=== PATIENT | female | born 1945 | race Caucasian/White ===

== ENCOUNTER 2017-03-11 15:13 | Inpatient (IN) | payer MEDICARE ==
[~2017-03-11] VITALS: Ht 162.5 cm; Wt 92.1 kg
--- NOTE | ~2017-03-11 | PR ---
[place], [place] PROGRESS NOTE NAME: MESERET RUBIO UNIT #: [id number] ROOM: 518 DOCTOR: NICOLE FERNANDEZ MD,PINO BIRTHDATE: [birth year] DOS: 03/21/2017 SUBJECTIVE: She has been noted comfortable at this time. She was noted with complete resolution of the acute respiratory complaints, coughing, shortness breath and wheezing. The patient has been ambulating at this time with the oxygen supplementation. OBJECTIVE: VITAL SIGNS: Of the patient, which have been recorded shows the temperature noted as normal, respiratory rate 18, heart rate 77, blood pressure 129/72. Pulse oxygen saturation on 3 liters nasal cannula 96% saturation. HEENT: Examination shows no acute change. NECK: Supple. CARDIOVASCULAR: S1, S2 audible. LUNGS: Noted without any wheezing or crackles. ABDOMEN: Soft, nontender. LABORATORY DATA: Culture of the bronchial washing of the patient were noted as normal libra. CBC of this morning, WBC count 15.3. Remaining CBC was normal. BMP this morning, BUN 27, creatinine was normal, carbon dioxide 39. IMPRESSION: 1. Resolving acute exacerbation of chronic obstructive pulmonary disease, acute tracheobronchitis. 2. Metabolic alkalosis secondary to chronic hypercarbia as well. 3. Chronic hypercarbic respiratory failure. PLAN OF TREATMENT: The patient could be considered for discharge on oral antibiotics and tapering dose of prednisone from the pulmonary standpoint. No other changes at this time in the treatment will be necessary. Usual care. All other supportive plan of management and treatments. PINO RIVERA MD CM:PNTRANS [phone] PINO FERNANDEZ MD 03/21/172045 interface
--- NOTE | ~2017-03-11 | PN ---
[place], [place] PROGRESS NOTE NAME: MESERET RUBIO [facility] #: [id number] UNIT #: [id number] ROOM: 518 DOCTOR: PINO REYNOLDS MD BIRTHDATE: [birth year] DATE: 03/17/17 SUBJECTIVE: The patient was seen and examined on 03/17/2017. She is currently noted n.p.o. past midnight for bronchoscopy. The patient denies symptoms for chest pain or any abdominal pain. The coughing has been noted as the same as previously moderate to severe. The wheezing was described intermittently. She denies any symptoms of a chest pain. OBJECTIVE: VITAL SIGNS: The patient which have been recorded showed normal temperature, respiratory 24-20, heart rate 69-66. The blood pressure was noted 140/78-142/98. Pulse oxygen saturation of the patient was recorded as a saturation of 96% on half liter nasal cannula. HEENT: Examination shows head was atraumatic. Eyes nonicterus. NECK: Supple. CARDIOVASCULAR: S1, S2 audible. LUNGS: The patient was noted without any crackles. Decreased breath sounds noted with the scattered wheezing. ABDOMEN: Soft, nontender. LABORATORY DATA: CBC this morning was noted as normal. BMP: Glucose mildly elevated at 144, remaining BMP was normal. IMPRESSION: Ongoing severe acute exacerbation of chronic obstructive pulmonary disease, acute tracheobronchitis with ineffective secretions expectoration. The patient with severe deep cough. PLAN OF TREATMENT: Bronchoscopy planned to be done rather this morning. No changes in treatment at this time will be necessary. Any modification treatment of necessary will be done after bronchoscopy. PINO REYNOLDS MD CM:PNTRANS [id number] PINO FERNANDEZ MD 03/21/17 1439 GUERO AMARAL.YOANNAR
--- NOTE | ~2017-03-11 | CON ---
[place], [place] REPORT OF CONSULTATION NAME: MESERET RUBIO UNIT #: [id number] ROOM: 518 DOCTOR: CEFERINO NEUMANNISSACLEMUEL BIRTHDATE: [birth year] DOS: 03/12/2017 REQUESTING PHYSICIAN: Dr. Florence. REASON FOR CONSULTATION: Atrial fibrillation. ASSESSMENT: 1. Current presentation with cough, short of breath for 1 week. 2. Chest pain, heaviness, tightness for the past 3 days. 3. Known history of atrial fibrillation. 4. Current evidence of pneumonia. 5. Sepsis. 6. Diabetes/hypertension/hyperlipidemia. 7. Known history of severe chronic obstructive pulmonary disease. 8. Obesity with high probability of obstructive sleep apnea. 9. Previous history of tobacco abuse. 10. Early family history of heart disease. PLAN: 1. Cycle cardiac enzymes. 2. Pneumonia and sepsis management per her primary team. 3. Ischemic workup will be pursued and can be done as an outpatient after patient's recovery from current bout of pneumonia. 4. Early followup with Dr. Michael within 1-2 weeks from discharge. 5. Consider sleep study as an outpatient. 6. Exercise and weight loss with pulmonary rehab. HISTORY AND PHYSICAL: The patient is a pleasant 71-year-old female known to our group with Dr. Michael, the patient carries history of atrial fibrillation that has been managed with Xarelto and Lopressor. The patient presented with 1 week history of short of breath, dyspnea on exertion, followed by cough. It is productive of yellowish sputum along with decreased appetite. The patient sleeps in a hospital bed, started noticing she had to prop her up, so she can breathe better. With that, there was some chills, but no fevers. The patient was found out to have what looks like a pneumonia and being managed for that. Cardiology consultation for atrial fibrillation. The patient apparently does have occasional symptomatic heaviness, tightness in the chest, but this is after bouts of coughing for 4 days and then developed after that. It does though increase with activity and improved with resting. On occasion has racing heartbeats, but no associated dizziness, lightheadedness or near syncope. Overall, the patient does have history of dizziness and has no relation to getting up quickly. The patient noticed some decrease in appetite, but there is no weight loss. No lower extremity edema. Prior to this week's presentation, the patient had been doing relatively well. PAST MEDICAL HISTORY: As detailed in my assessment. SOCIAL HISTORY: The patient denies any current tobacco, alcohol or illicit drug abuse. The patient quit smoking ____ years ago. [place], [place] REPORT OF CONSULTATION NAME: MESERET RUBIO UNIT #: [id number] ROOM: 518 DOCTOR: LORI DE LA VEGA MD BIRTHDATE: [birth year] FAMILY HISTORY: The patient's father of a car accident. Her mother of a stroke. She has 2 brothers, one of them had massive myocardial infarction in his early 40s. CURRENT MEDICATIONS: Include Zoloft, Xarelto, potassium, multivitamin, lisinopril, Toprol, Solu-Medrol, Xanax, Levaquin, DuoNeb, Restoril, Zofran, bisacodyl, Tylenol. ALLERGIES: The patient has no known drug allergies. REVIEW OF SYSTEMS: Currently, the patient denies any headache, diplopia or blurry vision. No fever, no chills, no night sweats. No abdominal pain, no bright red blood per rectum or tarry stools. The patient admits to joint pain and occasional muscular pain. No anxiety, occasional depression. No polyuria, no polydipsia. No skin rash. Review of all other systems has been negative. PHYSICAL EXAMINATION: GENERAL: The patient is alert and oriented x3, quite pleasant. VITAL SIGNS: Blood pressure 114/60, heart rate 66, respiratory rate of 20, temperature 97.4. HEENT: Extraocular muscles intact. Pupils equal, round, reactive to light. Conjunctivae: No pallor. Throat: No petechiae. NECK: Good carotid upstroke. There is faint carotid bruit on the left. No lymphadenopathy, no thyromegaly. HEART: S1, S2 with holosystolic murmur in the left upper sternal border. No rub, no retrosternal heave. CHEST AND BACK: No deformities. LUNGS: Significant decreased air movement, significant wheezing, scattered rhonchi, improved with deep cough. ABDOMEN: Obese, soft, nontender. Present bowel sounds. No masses, no bruits. EXTREMITIES: Lower extremities, both under SHANNON hose with mild edema with faint distal pulses. NEUROLOGIC: Grossly nonfocal. SKIN: No significant rash. LABORATORY DATA: White count is 13.1 with a left shift, hemoglobin 11.8. Potassium 4.4, creatinine 0.75, GFR more than 60. Troponin less than 0.015. CPK 29, MB 1.9. [place], [place] REPORT OF CONSULTATION NAME: MESERET RUBIO UNIT #: [id number] ROOM: 518 DOCTOR: LORI DE LA VEGA MD BIRTHDATE: [birth year] LORI DE LA VEGA MD CM:CONSTR:REPORT OF CONSULTATION 1142 03/12/17 1646 interface
--- NOTE | ~2017-03-11 | PR ---
[place], [place] PROGRESS NOTE [id number] UN[facility] #: [id number] ROOM: 518 DOCTOR: NICOLE FERNANDEZ MD,PINO BIRTHDATE: [birth year] DOS: 03/16/2017 PULMONARY FOLLOWUP NOTE SUBJECTIVE: The patient was seen and examined on 03/16/2017. She has been resting, sitting on the chair. The coughing has been described as severe and stated the cough has been noted deep, inability to expectorate sputum. Shortness of breath and wheezing has been noted with gradual reduction. There were no symptoms of hemoptysis. OBJECTIVE: VITAL SIGNS: Normal temperature, respiratory rate 20, heart rate of 59, blood pressure 145/93. Intake is 3500 mL, output 4750 mL. Pulse oxygen saturation 2-1/2 liters nasal cannula was 94% saturation. HEENT: Examination shows no acute change. NECK: Supple. CARDIOVASCULAR: S1, S2 is audible. LUNGS: Noted without any wheeze or crackles at the present time. Breaths are noted generally diminished bilaterally. ABDOMEN: Soft, nontender. IMPRESSION: 1. The patient with acute exacerbation of chronic obstructive pulmonary disease, acute tracheobronchitis, persistent respiratory symptoms, especially the cough for patient nonresolving with current medical management. 2. Chronic atrial fibrillation with anticoagulation. PLAN OF TREATMENT: Hold off the anticoagulation for the bronchoscopy, the evening dose. After that, the patient will be continued on the current previous treatment plan and management. The patient was agreeable for the bronchoscopy which was planned to be done in the morning. PINO RIVERA MD CM:PNTRANS [id number] PINO FERNANDEZ MD 03/16/17 1216 interface
--- NOTE | ~2017-03-11 | PROC NOTE ---
[place], [place] PROCEDURE NOTE NAME: MESERET RUBIO UNIT #: [id number] ROOM: 518 DOCTOR: NICOLE FERNANDEZ MD,PINO BIRTHDATE: [birth year] DOS: 03/17/2017 PROCEDURE PERFORMED: Bronchoscopy. PREOPERATIVE DIAGNOSIS: Persistent severe nonresolving cough for this patient with maximum medical therapy. POSTOPERATIVE DIAGNOSIS: Removal of copious amount of secretion from the endobronchial tree with large plugs and mucus from endobronchial tree bilaterally. PROCEDURE DESCRIPTION: Informed consent obtained for the patient. The patient brought to the OR and placed in the supine position. Conscious sedation administered in the supine position by the Anesthesia Department. After that, video fiberoptic bronchoscope was advanced through the airway into laryngeal area. Epiglottis and vocal cords were seen. Vocal cord noted yellowish in color, moving symmetrically with movements. Bronchoscope advanced to the vocal cord and tracheal lumen. Tracheal lumen for the patient was noted with copious amount of thick mucus secretion with purulent secretion mixture suctioned out to the sancho level. Right upper, right middle, right lower, left upper, lingular and lower lobe bronchi all examined, noted with similar secretions of thick mucopurulent material with impaction of the mucus plugs for the patient. All secretions suctioned out with the help of normal saline wash and sent for culture. Procedure was well tolerated by the patient without any difficulty. Postoperative findings were discussed with the patient briefly after the patient shows some recovery from the effects of sedation. Bronchial washings sent for all the appropriate needed cultures. IPNO RIVERA MD CM:PROCNOTE:PROCEDURE NOTE [id number] PINO FERNANDEZ MD
--- NOTE | ~2017-03-11 | PR ---
[place], [place] PROGRESS NOTE NAME: MESERET RUBIO [facility] #: [id number] UNIT #: [id number] ROOM: 518 DOCTOR: MADELINE GILMORE MD BIRTHDATE: [birth year] DOS: 03/19/2017 SUBJECTIVE: The patient was seen at her bedside today, 03/19/2017, for followup of atrial fibrillation and flutter. The patient is a 71-year-old woman with a history of COPD who presented to the hospital on this occasion with pneumonitis and an exacerbation of her dyspnea. In the hospital, she did develop atrial fibrillation with rapid ventricular response. She was placed on diltiazem and converted to sinus rhythm. Last evening she went back into atrial fibrillation with rapid ventricular response and required resumption of a diltiazem drip. Today, she is in atrial flutter and her rate is fairly well controlled, but she remains on 5 mg of diltiazem per hour by infusion. PAST HISTORY: Includes; 1. Severe COPD. 2. Acute exacerbation of chronic lung disease. 3. Paroxysmal atrial fibrillation. 4. Pneumonia. 5. Obesity with high probability of obstructive sleep apnea. 6. Previous history of tobacco abuse. PLAN: We will continue to adjust her oral rate slowing medications, and I will increase her diltiazem today. She will continue a low dose of metoprolol as well as digoxin, and I will check a digoxin level in the morning. Hopefully, as her lungs improve, her cardiac rhythms will become easier to manage. We will continue as much as possible to treat her with her current medications. We thank the hospitalist group for asking our advice regarding her care. MADELINE GILMORE MD CM:PNTRANS [phone] MADELINE GILMORE MD 03/19/172231 interface
--- NOTE | ~2017-03-11 | PR ---
[place], [place] PROGRESS NOTE NAME: MESERET RUBIO UNIT #: [id number] ROOM: 518 DOCTOR: MADELINE GILMORE MD BIRTHDATE: [birth year] DOS: 03/20/2017 SUBJECTIVE: The patient was seen at her bedside today, 03/20/2017, for followup of her atrial fibrillation and flutter. She is a 71-year-old woman with a history of COPD who came into the hospital on this occasion with pneumonitis and exacerbation of her chronic obstructive lung disease. In the hospital, she went into atrial fibrillation with a rapid ventricular response. She was placed on diltiazem and converted to sinus rhythm, but then went back into atrial fibrillation and flutter and had to be placed back on the drip. Today, the drip was weaned. Her heart rate at rest is now in the 70s and gets into the low 100s with exercise. She is feeling better and coughing less. She is anxious for discharge. PHYSICAL EXAMINATION: VITAL SIGNS: Today, her pulse is 80 and irregularly irregular. Blood pressure is 118/80. She is afebrile. She weighs 87.1 kilograms with a body mass index of 33. NECK: Supple. She has no jugular distention. Carotids are full. LUNGS: Respirations are unlabored. She has decreased breath sounds with mild expiratory prolongation bilaterally, but no presacral edema or chest wall tenderness. HEART: An irregularly irregular rhythm without a murmur or gallop. ABDOMEN: Benign. EXTREMITIES: Showed no edema. She does seem to be doing better on her current medical regimen; and therefore, I am making no changes today. IMPRESSION: 1. Severe chronic obstructive pulmonary disease. 2. Acute exacerbation of chronic obstructive lung disease. 3. Paroxysmal atrial fibrillation. 4. Pneumonia. 5. Obesity with a high probability of obstructive sleep apnea. 6. History of previous tobacco abuse. PLAN: We will continue her current medical regimen. From a cardiac perspective, she could be discharged when she is stable from her respiratory illness. We thank the hospitalist group for asking our advice regarding her care. [place], [place] PROGRESS NOTE NAME: MESERET RUBIO UNIT #: [id number] ROOM: 518 DOCTOR: MADELINE GILMORE MD BIRTHDATE: [birth year] MADELINE GILMORE MD CM:PNTRANS [phone] MADELINE GILMORE MD 03/21/17 0005 interface
--- NOTE | ~2017-03-11 | PR ---
[place], [place] PROGRESS NOTE NAME: MESERET RUBIO [facility] #: [id number] UNIT #: [id number] ROOM: 518 DOCTOR: MADELINE GILMORE MD BIRTHDATE: [birth year] DOS: 03/21/2017 CARDIOLOGY PROGRESS NOTE SUBJECTIVE: The patient was seen today 03/21/2017 at her bedside for Cardiology followup. She is a 71-year-old woman who does have a history of severe obstructive lung disease and presented to the hospital with pneumonitis and an exacerbation of her chronic obstructive lung disease. In the hospital, she did develop atrial fibrillation with a rapid ventricular response. She converted spontaneously to sinus rhythm, but then went back into atrial fibrillation and flutter. She is currently being treated with anticoagulation and rate control. She is ambulating in the hallways and feels well. She states that her breathing is almost back to normal again. She remains anxious for discharge. PHYSICAL EXAMINATION: VITAL SIGNS: Today, her pulse is 77 and irregularly irregular, blood pressure is 129/72. She is afebrile. She weighs 92.1 kg and has a body mass index of 34.9. HEENT: Normocephalic, atraumatic. Extraocular muscles are intact. NECK: Supple. She has no jugular distention. Carotids are full. LUNGS: Respirations are unlabored. She does have decreased breath sounds with mild expiratory prolongation bilaterally. She has no chest wall tenderness or presacral edema. HEART: Has an irregularly irregular rhythm. There are no murmurs or gallops. EXTREMITIES: Showed no edema. LABORATORY DATA: Hemoglobin is 13.7, white count 15,300 (probably due to steroid therapy), platelet count 291,000. Digoxin level yesterday was 0.62. Sodium is 141, potassium 4.9, BUN 27, creatinine 0.8. IMPRESSION: 1. Severe chronic obstructive pulmonary disease with acute exacerbation. 2. Paroxysmal atrial fibrillation. 3. Pneumonia. 4. Obesity with high probability of obstructive sleep apnea. 5. History of previous tobacco abuse. PLAN: I will switch her from diltiazem to diltiazem CD, so that we can improve her compliance. She will take diltiazem CD 240 mg once a day in the morning. This will be begun in the hospital today. She will continue her metoprolol twice a day and rivaroxaban once a day along with her other medications. I would like him to follow up with Dr. Michael in the office in 3-4 weeks. I thank the hospitalist physicians for asking our advice regarding her care. [place], [place] PROGRESS NOTE NAME: MESERET RUBIO UNIT #: [id number] ROOM: 518 DOCTOR: MADELINE GILMORE MD BIRTHDATE: [birth year] MADELINE GILMORE MD CM:PNTRANS [id number] MADELINE GILMORE MD 03/21/17 1024 interface
--- NOTE | ~2017-03-11 | CON ---
[place], [place] REPORT OF CONSULTATION NAME: MESERET RUBIO UNIT #: [id number] ROOM: 518 DOCTOR: PINO REYNOLDS MD BIRTHDATE: [birth year] DOS: 03/15/2017 CONSULTATION REQUESTED BY: Hospitalist services for assessment of COPD exacerbation. REASON FOR CONSULTATION: Assess the patient for COPD. HISTORY OF PRESENT ILLNESS: This is a 71-year-old white female who has been known to me from the past, has been hospitalized on 03/11/2017. The patient has been admitted to the hospital under the hospitalist services as the patient has been reporting symptoms of having increased difficulty breathing, coughing and shortness of breath. The coughing has been noted to be progressively worsening associated with wheezing. The symptoms are also associated with low grade fever as well. The patient does complain of shortness of breath, which occurs with minimal exertion with partial improvement noted since hospitalization. The coughing has been noted partially improved, but not completely resolved. REVIEW OF SYSTEMS: CONSTITUTIONAL: She does complain of symptoms of fatigue and tiredness. No fever or chills. EYES: Denies any burning, redness, or tenderness. EAR, NOSE, THROAT: Denies sore throat, hoarseness, otalgia or postnasal drainage. CARDIOVASCULAR: Denies anginal pain, edema or pain of the lower extremities. GASTROINTESTINAL: Denies dysphagia, nausea, vomiting, diarrhea, abdominal pain, hematemesis, melena, or hematochezia. SKIN: Denies lesions or rashes. MUSCULOSKELETAL: Denies acute joint pain. CENTRAL NERVOUS SYSTEM: Denies syncopal episodes. Remaining systems were reviewed with the patient, they were noted all negative. PAST MEDICAL HISTORY: 1. Known with history of chronic hypercapnic hypoxic respiratory failure. 2. Centrilobular emphysema history. 3. Essential hypertension. 4. General anxiety disorder. 5. Atrial fibrillation. PAST SURGICAL HISTORY: 1. Appendectomy. 2. Cardiac catheterization. 3. Fiberoptic bronchoscopy. 4. Cholecystectomy. 5. Bilateral cataract extraction and lens implantation. SOCIAL HISTORY: The patient currently lives at home. Denies history of alcohol use or illicit drug use. Tobacco use noted since teenager with maximal 1 pack of cigarettes per day until 2007. [place], [place] REPORT OF CONSULTATION NAME: MESERET RUBIO UNIT #: [id number] ROOM: 518 DOCTOR: NICOLE FERNANDEZ MD,PINO BIRTHDATE: [birth year] FAMILY HISTORY: The patient's mother from complications related to stroke. Father of an accident in [place]. MEDICATIONS: Current administered medications for the patient were noted as use of multivitamin, IV Solu-Medrol, Mucinex, DuoNeb, Dulera, Sertraline, Xarelto, multivitamin, lisinopril, metoprolol succinate, Levaquin, and other p.r.n. medication administration. DRUG ALLERGIES: No known drug allergies. PHYSICAL EXAMINATION: GENERAL: A 71-year-old female who has been currently noted sitting on the side of the bed without any distress. The patient's height was recorded as 5 feet 4 inches, weight of 191, BMI 32.9. VITAL SIGNS: For the patient which has been recorded showed the temperature noted normal, respiratory rate 18-22, heart rate 53-89, blood pressure 135/96 to 112/58. Intake for this patient is 1740 mL, output 4550 mL, negative 2.810 liters. Pulse oxygen saturation on 3.5 L nasal cannula was 98% saturation. HEENT: Examination shows head was atraumatic. Eyes nonicterus. NECK: Supple. CARDIOVASCULAR: S1, S2 audible. LUNGS: Noted with general reduction in breath sounds, mild to moderate expiratory wheezing, no crackles. ABDOMEN: Soft, nontender. EXTREMITIES: Show no edema, clubbing, cyanosis. CENTRAL NERVOUS SYSTEM: Cranial nerves 2-12 intact. No focal deficit. MUSCULOSKELETAL: No deformities. SKIN: No lesions or rashes. LABORATORY DATA: Arterial blood gas of the patient on 03/11/2017, 3 liters nasal cannula, pH of 7.36, pCO2 of 58, pO2 of 105. CBC of the patient on 03/11/2017, patient's WBC count 13.1, hemoglobin 11.8, hematocrit 37.1, platelet count was normal. The lactic acid 1.3 for the patient on 03/11/2017, INR was 1.2, PTT 32. CMP of the patient on 03/11/2017 shows normal BUN and creatinine. CO2 of 33. CK-MB, troponin of the patient 03/12/2017 for this patient all sets were noted normal. CBC on 03/12/2017, mild anemia, normal WBC count. The CBC of this morning for the patient essentially remains the same as previously. BMP of the patient on 03/15/2017 shows normal BUN and creatinine. CO2 was noted as 41. CO2 on the 15 of this month for this patient as 37. Blood culture showing no bacterial growth from 03/11/2017 on admission. Echocardiogram was also done for the patient on this admission, 03/14/2017, was reported by the radiologist report for this patient as findings of mild LVH, left ejection fraction noted normal at 60%. There were no major valvular abnormalities. IMPRESSION: 1. The patient will be currently admitted to the hospital noted with history of chronic hypercapnic hypoxic respiratory failure with acute exacerbation of chronic obstructive pulmonary disease and acute bacterial bronchitis. The patient treated with antibiotics, bronchodilators and others. 2. History of chronic atrial fibrillation, anticoagulation with the use of [place], [place] REPORT OF CONSULTATION NAME: [facility]ERET RUBIO [facility]: [id number] UNIT #: [id number] ROOM: 8 DOCTOR: PINO REYNOLDS MD [facility]DATE: [birth year] [facility] PLAN OF TREATMENT: Continue Mucinex in this patient. Continue bronchodilators, oxygen supplementation. Slow improvement and gradual improvement have been noted since admission. The patient will be monitored closely at this time. No changes at this time in the treatment will be recommended. Further treatment changes will be done based on the progression of the illness. PINO RIVERA MD CM:CONSTR:REPORT OF CONSULTATION 1232 03/16/17 0108 interface
[~2017-03-11 15:13] MED LIST: ACETAZOLAMIDE250 MG PO; ADVAIR 250/501 EA; ADVAIR 250/501 EA INH; ADVAIR 500/501 E1 INH; ALBUTEROL SULF0.5 M1 INH; ALBUTEROL2.5 MG/0.5 INH; ALLEGRA ALLERG180 M2 PO; ALLEGRA30 MG; ALLEGRA30 MG PO; AMBIEN10 M1 PO; AMOXICILLIN500 M3 PO; ASCRIPTIN1 TA1 PO; ASPIRIN CHILDRE81 MG PO; ASPIRIN81 M1; ASPIRIN81 M1 PO; ATIVAN0.5 MG PO; AZITHROMYCIN500 M1 IV; Albuterol Sulfat3 M1; B-COMPLEX-501 CAP PO; CALCIUM 600 MG1 EACH PO; CALCIUM1 CAP PO; CARDIZEM120 MG PO; CEFTIN500 M1 PO; CLONAZEPAM0.5 M1; COCONUT OIL1000 MG PO; COUMADIN; COUMADIN0.5 M1 PO; COUMADIN10 M1 PO; COUMADIN5 M1 PO; CYMBALTA30 MG PO; DAILY MULTIPLE1 TA6 PO; DILTIAZEM CD240 MG PO; DOXYCYCLINE MO100 MG PO; DUONEB 3 MG/3 ML3 M1 INH; DUONEB 3 MG/3 ML3 M1 NEB; EVISTA60 MG PO; FISH OIL; GLUCOSAMINE CH1 EAC4 PO; GLUCOSAMINE1000 MG PO; IRON160 MG PO; KCL PO; LASIX20 MG PO; LEVAQUIN500 M1 IV; LEVAQUIN750 M1 PO; LEVAQUIN750 MG PO; LEVOFLOXACIN500 MG PO; LISINOPRIL10 M1 PO; LISINOPRIL20 MG PO; LOPRESSOR25 MG PO; MEDROL DOSEPAK4 MG PO; METAMUCIL1 WAF PO; METOPROLOL25 MG PO; MUCINEX1200 MG PO; MUCINEX600 MG PO; MULTIPLE VITAMI1 CAP PO; MULTIPLE VITAMI1 TAB PO; NOVOLIN R100 U/ML SC; OXYGEN NAS; POTASSIUM GLUC550 M1 PO; POTASSIUM99 M3 PO; PRAVACHOL20 MG PO; PRED-PAK 455 MG PO; PREDNISONE10 MG PO; PREDNISONE50 MG PO; PRESERVISION A1 EAC1 PO; PRESERVISION AR1 SGL PO; PRESERVISION1 SGL PO; PROPAFENONE HC150 MG; PROTONIX40 MG PO; ROCEPHIN1 GM IV; SERTRALINE100 MG PO; SOLU-MEDROL IV; SOTALOL80 MG PO; SPIRIVA18 MCG INH; SYMBICORT1 AE1 INH; TUDORZA PRESS400 MCG IH; TUSSI-ORGANID3840 ML PO; TYLENOL325 M1 PO; VITAMIN B COMPL1 CAP; VITAMIN C; VITAMIN E400 UNIT PO; WARFARIN SOD5 MG PO; XARE20MG PO; XOPENEX; XOPENEX0.31 MG; XOPENEX0.31 MG INH; XOPENEX0.63 MG INH; ZESTRIL10 MG PO; ZESTRIL5 MG PO; ZOLOFT50 MG PO; Zestril,Prinivil5 MG PO; [UNRECOGNIZED DRUG - OTHER] DE; [UNRECOGNIZED DRUG - OTHER] PO
[2017-03-11 15:17] VITALS: BP 125/77
[2017-03-11 15:40] LABS: ABG BASE EXCESS 6.1 mmol/L (-2.0-2.0); ABG CO2 CONTENT 34.3 mmol/L (23-27); ABG HCO3 32.6 mmol/l (22-26); ABG TEMPERATURE 98.6 F (98.0-99.0); ARTERIAL BLOOD GAS PH 7.367 (7.35-7.45)
[2017-03-11 15:50] LABS: BASO % 0.2 % (0.0-1.0); EOS # 0.5 10*3/uL (0.0-0.4); EOS % 3.7 % (1.0-4.0); HEMATOCRIT 37.1 % (37.0-47.0); HEMOGLOBIN 11.8 g/dl (12.0-16.0); LYMPH # 1.3 10*3/uL (1.3-4.4); MEAN CELL VOLUME 94.6 fl (81.0-99.0); MEAN CORPUSCULAR HGB 30.1 pg (27.0-31.0); MEAN CORPUSCULAR HGB CONC 31.8 g/dl (33.0-37.0); MEAN PLATELET VOLUME 9.9 fl (9.6-12.3); MONO % 7.6 % (3.0-9.0); NEUT # 10.3 10*3/uL (2.3-7.9); NEUT % 78.2 % (47.0-73.0); PLATELET COUNT AUTOMATED 213 10*3/uL (130-400); RED BLOOD COUNT 3.92 10*6/uL (4.10-5.10); RED CELL DISTRI WIDTH 14.6 % (0-14.5); WHITE BLOOD COUNT 13.1 10*3/uL (4.8-10.8)
[2017-03-11 15:58] LABS: INTERNATIONAL NORM RATIO 1.2 (2.0-3.5); PROTHROMBIN TIME 12.6 SECONDS (9.0-12.4)
[2017-03-11 16:04] LABS: ALBUMIN 3.8 gm/dl (3.1-4.5); ALKALINE PHOSPHATASE 85 U/L (45-117); BILIRUBIN, TOTAL 0.6 mg/dl (0.2-1.0); BUN 14 mg/dl (7-24); CARBON DIOXIDE 33 mmol/L (21-32); CHLORIDE 100 mmol/L (98-107); EST GLOM FILT AFRICAN AMERICAN > 60 ml/min; GLUCOSE 110 mg/dL (65-99); POTASSIUM 4.1 mmol/L (3.5-5.1); SGOT/AST 21 IU/L (3-35); SGPT/ALT 22 U/L (12-78); SODIUM 141 mmol/L (136-145); TOTAL PROTEIN 7.2 gm/dL (6.4-8.2)
[2017-03-11 16:07] LABS: TROPONIN I < 0.015 ng/ml (<0.045)
[2017-03-11 16:12] LABS: BILIRUBIN NEGATIVE (NEGATIVE); BLOOD NEGATIVE (NEGATIVE); CLARITY SL CLOUDY (CLEAR); COLOR YELLOW (YELLOW); GLUCOSE NEGATIVE (NEGATIVE); KETONE NEGATIVE (NEGATIVE); LEUKO ESTERASE 2+ (NEGATIVE); NITRITE NEGATIVE (NEGATIVE); PH 5.5 (5.0-9.0); PROTEIN NEGATIVE (NEGATIVE); SPECIFIC GRAVITY 1.025 (1.005-1.030); UROBILINOGEN 0.2 E.U./dl (0.2-1.0)
[2017-03-11 16:30] VITALS: BP 110/59
[2017-03-11 16:34] LABS: BACTERIA TRACE; CALCIUM OXALATE CRYSTALS 1+; EPITHELIAL CELLS 15-20; RBC 0-2 rbc/hpf (0-2)
[2017-03-11 16:35] LABS: URINE REFLEX COMMENT YES (NO)
[2017-03-11 17:00] VITALS: BP 116/62
[2017-03-11 17:30] VITALS: BP 99/41
[2017-03-11 17:54] VITALS: BP 107/48
[2017-03-11 18:00] VITALS: BP 107/48
[2017-03-11] MEDS ORDERED: BREO ELLIPTA 11 EACH IH (18:54)
[2017-03-11] MEDS ORDERED: XANAX0.25 MG PO (18:55)
[2017-03-11] MEDS ORDERED: ZOLOFT100 MG PO (18:55)
[2017-03-11] MEDS ORDERED: INCRUSE EL62.5 MCG/A IH (18:56)
[2017-03-11] MEDS ORDERED: VENTOLIN H0.09 MG/AC INH (18:56)
[2017-03-11] MEDS ORDERED: TOPROL XL25 MG PO (18:56)
[2017-03-12] VITALS: BP 116/67
[2017-03-12 00:46] LABS: CKMB 1.9 ng/ml (0.5-3.6); CPK 40 U/L (26-192); TROPONIN I < 0.015 ng/ml (<0.045)
[2017-03-12 06:26] LABS: HEMATOCRIT 34.3 % (37.0-47.0); MEAN CORPUSCULAR HGB 30.1 pg (27.0-31.0); MEAN CORPUSCULAR HGB CONC 32.1 g/dl (33.0-37.0); MEAN PLATELET VOLUME 9.8 fl (9.6-12.3); PLATELET COUNT AUTOMATED 184 10*3/uL (130-400); RED BLOOD COUNT 3.65 10*6/uL (4.10-5.10); RED CELL DISTRI WIDTH 14.3 % (0-14.5)
[2017-03-12 06:39] LABS: CKMB 1.9 ng/ml (0.5-3.6); CPK 29 U/L (26-192); TROPONIN I < 0.015 ng/ml (<0.045)
[2017-03-12 07:04] LABS: ALBUMIN 3.1 gm/dl (3.1-4.5); BILIRUBIN, TOTAL 0.3 mg/dl (0.2-1.0); BUN 14 mg/dl (7-24); CARBON DIOXIDE 37 mmol/L (21-32); CHLORIDE 102 mmol/L (98-107); EST GLOM FILT AFRICAN AMERICAN > 60 ml/min; GLUCOSE 162 mg/dL (65-99); MAGNESIUM 1.9 mg/dL (1.5-2.1); POTASSIUM 4.4 mmol/L (3.5-5.1); SGOT/AST 10 IU/L (3-35); SGPT/ALT 20 U/L (12-78); SODIUM 141 mmol/L (136-145); TOTAL PROTEIN 6.5 gm/dL (6.4-8.2)
[2017-03-12 07:07] LABS: INTERNATIONAL NORM RATIO 1.1 (2.0-3.5); PROTHROMBIN TIME 11.2 SECONDS (9.0-12.4)
[2017-03-12 07:08] LABS: LYMPHOCYTE # 0.2 10*3/uL (1.3-4.4); MONOCYTE # 0.1 10*3/uL (0.1-1.0); NEUTROPHIL # 8.7 10*3/uL (2.3-7.9); NEUTROPHILS 97 % (47-73); PLATELET SUFFICIENCY NORMAL (NORMAL); TOTAL CELLS COUNTED 100 #CELLS
[2017-03-12 07:11] LABS: ALKALINE PHOSPHATASE 73 U/L (45-117); FREE T4 0.86 ng/dl (0.76-1.46); THYROID STIM HORMONE (HS) 0.419 uIU/ml (0.358-4.75)
[2017-03-12 07:57] LABS: VITAMIN D, 25-HYDROXY 29.7 ng/mL (30-100)
[2017-03-12 08:00] VITALS: BP 114/60
[2017-03-12 08:00] LABS: FOLIC ACID > 24.00 ng/mL (>5.38)
[2017-03-12 12:00] VITALS: BP 121/57
[2017-03-12 16:00] VITALS: BP 120/60
[2017-03-12 20:00] VITALS: BP 122/71
[2017-03-13] VITALS: BP 119/64
[2017-03-13 08:17] VITALS: BP 129/76
[2017-03-13] MEDS ORDERED: PRESERVISION1 SGL PO (09:10)
[2017-03-13 12:50] VITALS: BP 146/73
[2017-03-13 16:00] VITALS: BP 134/66
[2017-03-13 20:00] VITALS: BP 142/66
[2017-03-14] VITALS: BP 130/69
[2017-03-14 08:00] VITALS: BP 130/67
[2017-03-14 12:00] VITALS: BP 112/58
[2017-03-14 16:00] VITALS: BP 135/56
[2017-03-14 20:00] VITALS: BP 139/80
[2017-03-15] VITALS: BP 132/67
[2017-03-15 05:48] LABS: BASO % 0.1 % (0.0-1.0); HEMATOCRIT 35.7 % (37.0-47.0); HEMOGLOBIN 10.8 g/dl (12.0-16.0); IG # 0.1 10*3/uL (0.0-0.1); LYMPH # 0.8 10*3/uL (1.3-4.4); LYMPH % 9.6 % (27.0-41.0); MEAN CELL VOLUME 98.3 fl (81.0-99.0); MEAN CORPUSCULAR HGB 29.8 pg (27.0-31.0); MEAN CORPUSCULAR HGB CONC 30.3 g/dl (33.0-37.0); MEAN PLATELET VOLUME 9.8 fl (9.6-12.3); MONO # 0.5 10*3/uL (0.1-1.0); MONO % 5.6 % (3.0-9.0); NEUT # 6.9 10*3/uL (2.3-7.9); PLATELET COUNT AUTOMATED 195 10*3/uL (130-400); RED BLOOD COUNT 3.63 10*6/uL (4.10-5.10); RED CELL DISTRI WIDTH 14.5 % (0-14.5); WHITE BLOOD COUNT 8.4 10*3/uL (4.8-10.8)
[2017-03-15 06:10] LABS: BUN 16 mg/dl (7-24); CHLORIDE 99 mmol/L (98-107); EST GLOM FILT AFRICAN AMERICAN > 60 ml/min; GLUCOSE 175 mg/dL (65-99); POTASSIUM 4.7 mmol/L (3.5-5.1); SODIUM 143 mmol/L (136-145)
[2017-03-15 06:15] LABS: CARBON DIOXIDE 41 mmol/L (21-32)
[2017-03-15 08:00] VITALS: BP 135/96
[2017-03-15 12:00] VITALS: BP 150/77
[2017-03-15 15:51] VITALS: BP 132/73
[2017-03-15 20:00] VITALS: BP 133/76
[2017-03-16] VITALS: BP 143/80
[2017-03-16 01:13] VITALS: BP 143/80
[2017-03-16 08:00] VITALS: BP 145/83
[2017-03-16 12:00] VITALS: BP 141/74
[2017-03-16 16:00] VITALS: BP 129/69
[2017-03-16 20:00] VITALS: BP 124/76
[2017-03-17] VITALS (10 sets, daily range): BP systolic 104–154; BP diastolic 64–98
[2017-03-17 06:39] LABS: BASO % 0.2 % (0.0-1.0); EOS # 0.1 10*3/uL (0.0-0.4); EOS % 0.6 % (1.0-4.0); HEMOGLOBIN 12.4 g/dl (12.0-16.0); IG # 0.1 10*3/uL (0.0-0.1); LYMPH # 1.6 10*3/uL (1.3-4.4); LYMPH % 14.8 % (27.0-41.0); MEAN CELL VOLUME 93.8 fl (81.0-99.0); MEAN CORPUSCULAR HGB 29.8 pg (27.0-31.0); MEAN CORPUSCULAR HGB CONC 31.8 g/dl (33.0-37.0); MEAN PLATELET VOLUME 10.1 fl (9.6-12.3); MONO # 0.8 10*3/uL (0.1-1.0); MONO % 7.6 % (3.0-9.0); NEUT # 8.2 10*3/uL (2.3-7.9); NEUT % 75.6 % (47.0-73.0); PLATELET COUNT AUTOMATED 237 10*3/uL (130-400); RED BLOOD COUNT 4.16 10*6/uL (4.10-5.10); RED CELL DISTRI WIDTH 14.4 % (0-14.5); WHITE BLOOD COUNT 10.8 10*3/uL (4.8-10.8)
[2017-03-17 07:07] LABS: BUN 19 mg/dl (7-24); CARBON DIOXIDE 40 mmol/L (21-32); CHLORIDE 98 mmol/L (98-107); EST GLOM FILT AFRICAN AMERICAN > 60 ml/min; GLUCOSE 144 mg/dL (65-99); POTASSIUM 4.7 mmol/L (3.5-5.1); SODIUM 144 mmol/L (136-145)
[2017-03-18] VITALS (11 sets, daily range): BP systolic 132–157; BP diastolic 78–96
[2017-03-18 06:08] LABS: BASO % 0.1 % (0.0-1.0); EOS # 0.2 10*3/uL (0.0-0.4); EOS % 1.1 % (1.0-4.0); IG # 0.2 10*3/uL (0.0-0.1); LYMPH # 2.4 10*3/uL (1.3-4.4); LYMPH % 16.1 % (27.0-41.0); MEAN CELL VOLUME 93.8 fl (81.0-99.0); MEAN CORPUSCULAR HGB 29.7 pg (27.0-31.0); MEAN CORPUSCULAR HGB CONC 31.7 g/dl (33.0-37.0); MEAN PLATELET VOLUME 9.7 fl (9.6-12.3); MONO # 1.5 10*3/uL (0.1-1.0); NEUT # 10.6 10*3/uL (2.3-7.9); NEUT % 71.6 % (47.0-73.0); PLATELET COUNT AUTOMATED 255 10*3/uL (130-400); RED BLOOD COUNT 4.37 10*6/uL (4.10-5.10); RED CELL DISTRI WIDTH 14.6 % (0-14.5); WHITE BLOOD COUNT 14.8 10*3/uL (4.8-10.8)
[2017-03-18 06:21] LABS: BUN 19 mg/dl (7-24); CARBON DIOXIDE 38 mmol/L (21-32); CHLORIDE 99 mmol/L (98-107); EST GLOM FILT AFRICAN AMERICAN > 60 ml/min; GLUCOSE 116 mg/dL (65-99); SODIUM 141 mmol/L (136-145)
[2017-03-18 16:12] LABS: ACID FAST SPEC PROCESSING Concentration (.)
[2017-03-19] VITALS (14 sets, daily range): BP systolic 110–132; BP diastolic 56–87
[2017-03-19 06:31] LABS: BASO % 0.1 % (0.0-1.0); HEMATOCRIT 40.2 % (37.0-47.0); IG # 0.2 10*3/uL (0.0-0.1); LYMPH # 0.7 10*3/uL (1.3-4.4); LYMPH % 6.1 % (27.0-41.0); MEAN CELL VOLUME 92.4 fl (81.0-99.0); MEAN CORPUSCULAR HGB 29.9 pg (27.0-31.0); MEAN CORPUSCULAR HGB CONC 32.3 g/dl (33.0-37.0); MEAN PLATELET VOLUME 9.6 fl (9.6-12.3); MONO # 0.4 10*3/uL (0.1-1.0); MONO % 3.7 % (3.0-9.0); NEUT # 9.9 10*3/uL (2.3-7.9); NEUT % 88.5 % (47.0-73.0); PLATELET COUNT AUTOMATED 274 10*3/uL (130-400); RED BLOOD COUNT 4.35 10*6/uL (4.10-5.10); RED CELL DISTRI WIDTH 14.5 % (0-14.5); WHITE BLOOD COUNT 11.1 10*3/uL (4.8-10.8)
[2017-03-19 07:01] LABS: BUN 21 mg/dl (7-24); CARBON DIOXIDE 34 mmol/L (21-32); CHLORIDE 99 mmol/L (98-107); EST GLOM FILT AFRICAN AMERICAN > 60 ml/min; GLUCOSE 291 mg/dL (65-99); POTASSIUM 4.2 mmol/L (3.5-5.1); SODIUM 139 mmol/L (136-145)
[2017-03-20] VITALS (10 sets, daily range): BP systolic 94–145; BP diastolic 68–82
[2017-03-20 06:07] LABS: HEMATOCRIT 43.4 % (37.0-47.0); HEMOGLOBIN 13.8 g/dl (12.0-16.0); MEAN CELL VOLUME 93.9 fl (81.0-99.0); MEAN CORPUSCULAR HGB 29.9 pg (27.0-31.0); MEAN CORPUSCULAR HGB CONC 31.8 g/dl (33.0-37.0); MEAN PLATELET VOLUME 9.5 fl (9.6-12.3); PLATELET COUNT AUTOMATED 274 10*3/uL (130-400); RED BLOOD COUNT 4.62 10*6/uL (4.10-5.10); RED CELL DISTRI WIDTH 14.5 % (0-14.5); WHITE BLOOD COUNT 16.1 10*3/uL (4.8-10.8)
[2017-03-20 06:28] LABS: BUN 22 mg/dl (7-24); CARBON DIOXIDE 35 mmol/L (21-32); CHLORIDE 100 mmol/L (98-107); DIGOXIN 0.62 ng/ml (0.8-2.0); EST GLOM FILT AFRICAN AMERICAN > 60 ml/min; GLUCOSE 159 mg/dL (65-99); POTASSIUM 4.9 mmol/L (3.5-5.1); SODIUM 143 mmol/L (136-145)
[2017-03-20 06:45] LABS: LYMPHOCYTE # 0.8 10*3/uL (1.3-4.4); MONOCYTE # 0.3 10*3/uL (0.1-1.0); NEUTROPHILS 93 % (47-73); PLATELET SUFFICIENCY NORMAL (NORMAL); TEAR DROP CELLS FEW; TOTAL CELLS COUNTED 100 #CELLS
[2017-03-21 00:20] VITALS: BP 134/85
[2017-03-21 06:23] LABS: HEMATOCRIT 43.6 % (37.0-47.0); HEMOGLOBIN 13.7 g/dl (12.0-16.0); MEAN CELL VOLUME 95.2 fl (81.0-99.0); MEAN CORPUSCULAR HGB 29.9 pg (27.0-31.0); MEAN CORPUSCULAR HGB CONC 31.4 g/dl (33.0-37.0); MEAN PLATELET VOLUME 9.2 fl (9.6-12.3); PLATELET COUNT AUTOMATED 291 10*3/uL (130-400); RED BLOOD COUNT 4.58 10*6/uL (4.10-5.10); RED CELL DISTRI WIDTH 14.6 % (0-14.5); WHITE BLOOD COUNT 15.3 10*3/uL (4.8-10.8)
[2017-03-21 06:53] LABS: BUN 27 mg/dl (7-24); CARBON DIOXIDE 39 mmol/L (21-32); CHLORIDE 97 mmol/L (98-107); EST GLOM FILT AFRICAN AMERICAN > 60 ml/min; GLUCOSE 172 mg/dL (65-99); POTASSIUM 4.9 mmol/L (3.5-5.1); SODIUM 141 mmol/L (136-145)
[2017-03-21 07:18] LABS: LYMPHOCYTE # 1.2 10*3/uL (1.3-4.4); METAMYELOCYTES 2 % (0-0); MONOCYTE # 0.6 10*3/uL (0.1-1.0); NEUTROPHIL # 13.2 10*3/uL (2.3-7.9); NEUTROPHILS 86 % (47-73); PLATELET SUFFICIENCY NORMAL (NORMAL); TOTAL CELLS COUNTED 100 #CELLS; TOXIC GRANULATION MODERATE
[2017-03-21 08:00] VITALS: BP 129/72
[2017-03-21] MEDS ORDERED: LANOXIN0.125 MG PO (12:52)
[2017-03-21] MEDS ORDERED: PREDNISONE10 MG PO (12:52)
[2017-03-21] MEDS ORDERED: D-1000 185 MG-11 TAB PO (12:52)
[2017-03-21] MEDS ORDERED: DOXYCYCLINE100 M3 PO (12:52)
[2017-03-21] MEDS ORDERED: DILTIAZEM CD240 MG PO (12:52)
== END 2017-03-21 13:42 | disposition home or self-care (01) | DRG 871 ==
LOC: ED 15:13 → 5E 16:55 → EDHOLD 16:55 → 5E 17:21
PROVIDERS: Internal Medicine; Internal Medicine Critical Care Medicine; Internal Medicine Hospice and Palliative Medicine; Nurse Practitioner Family
PROC: 0BC98ZZ Extirpation of Matter from Lingula Bronchus, Via Natural or Artificial Opening Endoscopic (ICD-10-PCS; principal; 2017-03-17)
PROC: 0BC58ZZ Extirpation of Matter from Right Middle Lobe Bronchus, Via Natural or Artificial Opening Endoscopic (ICD-10-PCS; principal; 2017-03-17)
PROC: 0BC18ZZ Extirpation of Matter from Trachea, Via Natural or Artificial Opening Endoscopic (ICD-10-PCS; principal; 2017-03-17)
PROC: 0BC28ZZ Extirpation of Matter from Carina, Via Natural or Artificial Opening Endoscopic (ICD-10-PCS; principal; 2017-03-17)
PROC: 0BC48ZZ Extirpation of Matter from Right Upper Lobe Bronchus, Via Natural or Artificial Opening Endoscopic (ICD-10-PCS; principal; 2017-03-17)
PROC: 0BC68ZZ Extirpation of Matter from Right Lower Lobe Bronchus, Via Natural or Artificial Opening Endoscopic (ICD-10-PCS; principal; 2017-03-17)
PROC: 0BC88ZZ Extirpation of Matter from Left Upper Lobe Bronchus, Via Natural or Artificial Opening Endoscopic (ICD-10-PCS; principal; 2017-03-17)
PROC: 0BCB8ZZ Extirpation of Matter from Left Lower Lobe Bronchus, Via Natural or Artificial Opening Endoscopic (ICD-10-PCS; principal; 2017-03-17)
DX: A41.9 Sepsis, unspecified organism (principal); J18.9 Pneumonia, unspecified organism; J96.21 Acute and chronic respiratory failure with hypoxia; E87.3 Alkalosis; D68.59 Other primary thrombophilia; I48.0 Paroxysmal atrial fibrillation; Z99.81 Dependence on supplemental oxygen; J96.22 Acute and chronic respiratory failure with hypercapnia; J44.1 Chronic obstructive pulmonary disease with (acute) exacerbation; J44.0 Chronic obstructive pulmonary disease with (acute) lower respiratory infection; R65.20 Severe sepsis without septic shock; R73.9 Hyperglycemia, unspecified; I10 Essential (primary) hypertension; G47.33 Obstructive sleep apnea (adult) (pediatric); F32.9 Major depressive disorder, single episode, unspecified; F41.9 Anxiety disorder, unspecified; E78.5 Hyperlipidemia, unspecified; D50.9 Iron deficiency anemia, unspecified; E55.9 Vitamin D deficiency, unspecified; E66.9 Obesity, unspecified; J20.9 Acute bronchitis, unspecified; I48.2 Chronic atrial fibrillation; Z68.32 Body mass index [BMI] 32.0-32.9, adult; Z87.891 Personal history of nicotine dependence; Z82.49 Family history of ischemic heart disease and other diseases of the circulatory system; Z90.49 Acquired absence of other specified parts of digestive tract; Z98.42 Cataract extraction status, left eye; Z98.41 Cataract extraction status, right eye

== ENCOUNTER 2017-04-18 20:26 | Inpatient (IN) | payer MEDICARE ==
[~2017-04-18] VITALS: Ht 162.5 cm; Wt 85.0 kg
--- NOTE | ~2017-04-18 | PROC NOTE ---
[place], [place] PROCEDURE NOTE NAME: MESERET RUBIO UNIT #: [id number] ROOM: 424 DOCTOR: NICOLE FERNANDEZ MD,PINO BIRTHDATE: [birth year] DOS: 04/22/2017 FIBEROPTIC BRONCHOSCOPY PREOPERATIVE DIAGNOSIS: The patient with ineffective cough for the patient without any sputum expectoration. POSTOPERATIVE DIAGNOSES: Severe ongoing acute tracheobronchitis was noted with impaction of the multiple plugs and mucus and mucus ____ endobronchial tree bilaterally. PROCEDURE DESCRIPTION: Informed consent obtained for the patient. The patient brought to the OR and placed in supine position. Conscious sedation administered by the Anesthesia Department. After achieving appropriate sedation, airway introduced into the mouth. Bronchoscope advanced into the airway into laryngeal area. Epiglottis and vocal cords were seen. The bronchoscope was advanced to the vocal cords, were moving symmetrically with movements. The tracheal lumen noted moderate amount of thick mucoid secretion with purulent secretion mixture and ____ tracheal mucosa and acute submucosal edema. Mucosa was noted friable for the patient with the touch of the scope. All secretions suctioned out the sancho level. The right upper, right middle, right lower, left upper, lingular lower lobe bronchi were all examined. Purulent material for the patient mucus impaction for this patient cleared of all the endobronchial tree bilaterally with inflammatory changes of the endobronchial tree were noted. The procedure well tolerated without any complications. Postoperative findings were discussed with the patient briefly after the completion of procedure once the patient noted sufficient improvement in the effects of sedation and noted more awake. PINO RIVERA MD CM:PROCNOTE:PROCEDURE NOTE [id number] PINO FERNANDEZ MD
--- NOTE | ~2017-04-18 | PR ---
[place], [place] PROGRESS NOTE NAME: MESERET RUBIO [facility] #: [id number] UNIT #: [id number] ROOM: 407 DOCTOR: NICOLE FERNANDEZ MD,PINO BIRTHDATE: [birth year] DOS: 04/21/2017 PULMONARY PROGRESS NOTE SUBJECTIVE: The patient has been noted with persistent cough without any sputum expectoration or shortness of breath. Wheezing was noted better in the last 24 hours. OBJECTIVE: VITAL SIGNS: Showed normal temperature, respiratory rate 20, heart rate 76, blood pressure 154/66. Pulse oxygen saturation on 3 liters nasal cannula 100% saturation. HEENT: Showed no new change. NECK: Supple. CARDIOVASCULAR: S1, S2 audible. LUNGS: Noted without any wheeze or crackles at the present time. ABDOMEN: Soft, nontender. IMPRESSION: The patient with acute exacerbation of chronic obstructive pulmonary disease, currently noted with moderately severe nonproductive cough. There was no sputum expectoration noted. Now, resolving acute exacerbation of chronic obstructive pulmonary disease. PLAN OF TREATMENT: No changes in the plan of management at this time. The patient has been suggested and planned for bronchoscopy to be done tomorrow morning. No other changes in the treatment otherwise will be needed. Continue with corticosteroids current dose. Bronchodilators and other treatment plan of management. Usual care, other therapies. PINO RIVERA MD CM:PNTRANS [phone] PINO FERNANDEZ MD 04/22/17 0525 interface
--- NOTE | ~2017-04-18 | PR ---
[place], [place] PROGRESS NOTE NAME: MESERET RUBIO UNIT #: [id number] ROOM: 424 DOCTOR: PINO REYNOLDS MD BIRTHDATE: [birth year] DOS: 04/23/2017 PULMONARY FOLLOWUP SUBJECTIVE: She has been comfortably resting on the bed, has a bronchoscopy done yesterday for this patient successfully without any problems. She reported reduction in symptoms of shortness of breath and cough. Denies symptoms of chest pain. OBJECTIVE: VITAL SIGNS: For the patient, which were recorded shows normal temperature, respiratory rate 18, heart rate 63, blood pressure 150/78. Intake 2120 mL, output were not recorded. Pulse oxygen saturation on 2 liters nasal cannula 95% saturation. HEENT: Showed no new change. NECK: Supple. CARDIOVASCULAR: S1, S2 is audible. LUNGS: The patient was noted without any wheezing or crackles at the present time. ABDOMEN: Soft, nontender. LABORATORY DATA: BMP this morning, glucose 191, BUN and creatinine were normal. CBC today: WBC count 14.6, hemoglobin 10.6, hematocrit 95.3, platelet count was normal. Culture of the bronchial washing of the patient, preliminary, showing normal libra. The Gram stain was noted with many white blood cells, moderate epithelial cells, few gram-positive cocci in pairs and clusters. IMPRESSION: Acute tracheobronchitis the patient had that has been noted with acute exacerbation of chronic obstructive pulmonary disease as well as [id number] hypercapnic hypoxic respiratory failure, all resolving with current plan of management. PLAN OF TREATMENT: Continue the previous medical treatments of this patient as previously ordered except the dose of steroids will be decreased of the patient as 30 mg b.i.d. today. Continue other previous treatment, therapy plan and management, other usual care. Supportive care. Monitor culture results. No change in antibiotic at this time will be needed. [place], [place] PROGRESS NOTE NAME: MESERET RUBIO UNIT #: [id number] ROOM: 424 DOCTOR: PINO REYNOLDS MD BIRTHDATE: [birth year] PINO RIVERA MD CM:PNTRANS [phone] PINO FERNANDEZ MD 04/24/17 0447 interface
--- NOTE | ~2017-04-18 | PR ---
[place], [place] PROGRESS NOTE NAME: MESERET RUBIO [facility] #: [id number] UNIT #: [id number] ROOM: 407 DOCTOR: NICOLE FERNANDEZ MD,PINO BIRTHDATE: [birth year] DOS: 04/20/2017 PULMONARY FOLLOWUP SUBJECTIVE: The patient was seen and examined on 04/20/2017. She has been comfortably resting on the bed at this time. Still complaining of tightness in the chest with some symptoms of shortness of breath and cough. There was no sputum expectoration described, which is significant. She denies symptoms of abdominal pain. Patient was noted with fatigue and generalized weakness. Denies symptoms of edema. OBJECTIVE: VITAL SIGNS: For the patient which were recorded this morning. In the last 24 hours, normal temperature, respiratory rate 18-20, heart rate ____, blood pressure 120/74 this morning. Pulse oxygen saturation 3 liters nasal canula 92% with BiPAP was 95% saturation that was ordered yesterday. HEENT: Examination shows head was atraumatic. Eyes nonicterus. NECK: Supple. CARDIOVASCULAR: S1, S2 audible. LUNGS: The patient was noted without any wheezing or crackles. Breaths are noted mildly diminished bilaterally. ABDOMEN: Soft, nontender. LABORATORY DATA: Chest x-ray of the patient that was done for the patient on 04/20/2017 ____ which I ordered for this patient for assessment of the left lower lobe. The patient was noted with clear lungs without any evidence of acute pulmonary infiltration. Small area of atelectasis were noted. There were no clear visible pleural effusions. The CBC that was done this morning shows WBC count normal, hemoglobin 9.9, hematocrit 31.4, platelet count of 228,000. BMP this morning, glucose 206, BUN and creatinine were normal. CO2 of 38. ABG yesterday pH of 7.33, pCO2 of 57.7, pO2 78.8. IMPRESSION: 1. The patient who has been currently noted with acute on chronic hypercapnic and hypoxic respiratory failure, acute exacerbation of chronic obstructive pulmonary disease. The chest x-ray shows resolution of previous noted infiltration and/or pleural fluid, difficult to completely exclude pneumonia at this time. 2. The patient with history of obstructive sleep apnea disorder as well. PLAN OF TREATMENT: Continue to use BiPAP, corticosteroids administration, bronchodilators and the antibiotics. Monitor respiratory status closely. She does not wish to use the Dulera which ____ medication replacing the ____. The patient would like to be started on ____. The patient brought the medications from home, which will be ordered and the Dulera will be discontinued. In the meantime, continue the patient's other previous therapy, plan of management and monitor respiratory status continued. Usual care. [place], [place] PROGRESS NOTE NAME: LORENALEE ANNMESERET UNIT #: [id number] ROOM: [facility] DOCTOR: PINO REYNOLDS MD BIRTHDATE: [birth year] PINO RIVERA MD CM:PNTRANS [phone] PINO FERANNDEZ MD 04/21/17 043 interface
--- NOTE | ~2017-04-18 | PR ---
[place], [place] PROGRESS NOTE NAME: MESERET RUBIO [facility] #: [id number] UNIT #: [id number] ROOM: 424 DOCTOR: NICOLE FERNANDEZ MD,PINO BIRTHDATE: [birth year] DOS: 04/22/2017 SUBJECTIVE: She has been currently noted n.p.o. past midnight for bronchoscopy to be done today as a result of the patient was placed on hold yesterday. She has been still noticed significant severe nonproductive cough, mild shortness of breath and wheezing. The patient denies symptoms of chest pain or any abdominal pain. OBJECTIVE: VITAL SIGNS: Normal temperature, respiratory rate 26, heart rate 98, blood pressure 141/73. Pulse oxygen saturation of the patient recorded as 90% on 3 liters nasal cannula. HEENT: Examination shows no acute change. NECK: Supple. CARDIOVASCULAR: S1, S2 is audible. LUNGS: The patient was noted without any wheezing or crackles at the present time. Breaths are noted generally reduced bilaterally. ABDOMEN: Soft, nontender. LABORATORY DATA: Viral panel noted positive for parainfluenza 3 infection. IMPRESSION: 1. Ongoing acute exacerbation of chronic obstructive pulmonary disease with acute tracheobronchitis. The patient ____ for bronchoscopy. 2. Parainfluenza infection. The patient most likely resulting in the superimposed ____ after that. Superimposed bacterial infection was suspected. 3. Suspected mucus impaction of major airways. PLAN OF TREATMENT: Proceed with bronchoscopy as planned. Any changes further in the treatment if necessary will be ordered after bronchoscopy. In the meantime, continue other treatment, plan and management. Usual care. Supportive therapy, other plan of management. PINO RIVERA MD CM:PNTRANS [phone] PINO FERNANDEZ MD 04/23/17 0554 interface
--- NOTE | ~2017-04-18 | CON ---
[place], [place] REPORT OF CONSULTATION NAME: MESERET RUBIO [facility] #: [id number] UNIT #: [id number] ROOM: 407 DOCTOR: NICOLE FERNANDEZ MDPINO BIRTHDATE: [birth year] DOS: 04/19/2017 REASON FOR CONSULTATION: To assess the patient for acute exacerbation of COPD. HISTORY OF PRESENT ILLNESS: A 71-year-old white female, very well known to me from the past with history of chronic hypercapnic hypoxic respiratory failure with a history of centrilobular emphysema and obstructive sleep apnea disorder. The patient presented to the hospital. The patient was started initially with runny nose last Tuesday. The symptoms have been noted progressive with increased chest congestion, coughing, and shortness breath developed 2 days later. The patient came into the Emergency Room where he has been admitted to the hospital for further medical management 04/18/2017. Cough has been noted with the patient with white sputum expectoration. Denies symptoms of hemoptysis with that, chest tightness was noted. She denies symptoms of chest trauma. Wheezing also occurred with increased shortness of breath more than usual. The oxygen saturation recorded in the emergency room 80% on usual oxygen supplementation 3 liters cannula in the triage. REVIEW OF SYSTEMS: CONSTITUTIONAL: Fatigue and tiredness noted without symptoms of fever or chills. EYES: Denied burning, redness, or tenderness. EARS, NOSE, AND THROAT: No sore throat, hoarseness, otalgia, postnasal drainage. CARDIOVASCULAR: Denies anginal pain, edema of the lower extremities or palpitations. GASTROINTESTINAL: Dysphagia, nausea, vomiting, diarrhea, abdominal pain, hematemesis, melena. GENITOURINARY: Denies dysuria, suprapubic pain, hematuria. MUSCULOSKELETAL: Denies acute joint pain, redness, or tenderness. SKIN: No lesions or rashes. CENTRAL NERVOUS SYSTEM: Denies dizziness, headache, diplopia or syncopal episodes. Remaining systems were reviewed with the patient, they were noted all negative. The patient's previous medical history, admission in this hospital in February 2017, discharged on 03/24/2017, for the medical management of xwako-[id number] hypercapnic hypoxic respiratory failure, metabolic alkalosis, acute exacerbation of COPD and tracheobronchitis. PAST MEDICAL HISTORY: For this patient was noted. 1. Severe centrilobular emphysema. 2. Chronic hypercapnic hypoxic respiratory failure. 3. Atrial fibrillation. 4. Essential hypertension. 5. Generalized anxiety disorder. 6. Obstructive sleep apnea disorder. [place], [place] REPORT OF CONSULTATION NAME: MESERET RUBIO UNIT #: [id number] ROOM: 407 DOCTOR: PINO REYNOLDS MD BIRTHDATE: [birth year] PAST SURGICAL HISTORY: 1. Appendectomy. 2. Cardiac catheterization. 3. Fibrobronchoscopy. The patient's last bronchoscopy done on 03/17/2017. 4. Cholecystectomy. 5. Bilateral cataract extraction, lens implantation. SOCIAL HISTORY: The patient lives at home. Denies history of alcohol or illicit drug use. Tobacco use noted since teenager about a pack of cigarettes per day until 2007. FAMILY HISTORY: Mother from complication related to acute stroke. Father from complication related to a road accident. MEDICATIONS: Current administered medications the patient noted as use of IV Solu-Medrol 60 mg b.i.d., formoterol, DuoNeb, Mucinex 1200 b.i.d., multivitamin, vitamin D, Cardizem CD, digoxin, sertraline, oral Lasix, Xarelto, lisinopril, sliding insulin coverage, metoprolol tartrate, Levaquin, Xanax, and other p.r.n. medications administered. DRUG ALLERGIES: The patient was noted as no known drug allergies. PHYSICAL EXAMINATION: GENERAL: A 71-year-old female has been noted currently awake and alert without any distress, sitting on the bed, noted with tqpf-it-uxijyfwd cough upon assessment, nonproductive. Height of 5 feet 4 inches, weight 170 pounds, BMI 32.1. VITAL SIGNS: For the patient, which were recorded shows the temperature of the patient recorded as normal. The respiratory rate of the patient recorded as 18, heart rate 79, blood pressure 121/61, pulse oxygen saturation of the patient recorded as 97% on 3 liters cannula on admission was 80% on 3 L nasal cannula. HEENT: Examination shows head was atraumatic. Eyes nonicterus. NECK: Supple. CARDIOVASCULAR: S1, S2 audible. LUNGS: The patient noted with moderate reduced breath sounds with mild to moderate expiratory wheezing, no crackles. ABDOMEN: Soft, nontender. LABORATORY DATA: On this patient, CBC yesterday on admission, WBC count was normal at 5.5, hemoglobin 10.5, hematocrit 33.4, platelet count normal at 206,000. CMP, 04/18/2017, glucose 140, normal BUN and creatinine, CO2 was 36. Remaining CMP normal. CBC this morning, WBC count 3.8, hemoglobin 10.1, hematocrit 31.9, platelet count was normal at 211,000. CMP of the patient this morning, glucose 259, BUN and creatinine normal, carbon dioxide 36. Phosphorus 1.4. The chest x-ray of the patient 1 view for this patient that was done on 04/18/2017, shows a small left-sided pleural fluid noted with area of acute infiltration to be suspected. The patient with associated atelectasis, new finding as compared to previous chest x-ray which was done for the patient in February 2017 in comparison. [place], [place] REPORT OF CONSULTATION NAME: MESERET RUBIO UNIT #: [id number] ROOM: 407 DOCTOR: PINO REYNOLDS MD BIRTHDATE: [birth year] IMPRESSION: 1. The patient will be currently admitted to the hospital noted with acute on chronic hypoxic and hypercapnic respiratory failure, result of acute pneumonia for the patient may be related with aspiration associated with small left-sided pleural fluid very likely. Gram-positive organism. The patient to be considered as community-acquired infection with Streptococcus pneumoniae. 2. The patient with acute exacerbation of chronic obstructive pulmonary disease related to that as well. 3. Left pleural fluid related to the current problem. 4. Leukopenia may be related to current ongoing infection including consideration for viral infection. 5. History of known obstructive sleep apnea disorder and other medical illnesses. PLAN OF TREATMENT: Order another chest x-ray, PA and lateral view to assess the pleural fluid at this time. The pleural fluid was noted small at this time, would not require any acute intervention immediately. If the fluid does get enlarged for this patient certainly at that time, however, plan on doing thoracentesis. The sputum for Gram stain and culture for this patient would be collected for this patient as well. Other treatment changes will be done based on the progression of the illness. Usual care. Supportive therapy, plan of management. Continuation with the use of the corticosteroids and bronchodilators. Obtain arterial blood gas of the patient to assess the ventilatory status. The patient may consider BiPAP if necessary for ____ hypercarbia assessment. Other supportive therapy, plan of management as well. Usual care. Further treatment changes can be done based on progression of the illness. Use the BIPAP/CPAP from the home settings for the management of sleep apnea disorder was recommended. Thank you for allowing me to participate in the care of this patient. PINO RIVERA MD CM:CONSTR:REPORT OF CONSULTATION 1439 04/20/17 1508 interface
--- NOTE | ~2017-04-18 | PR ---
[place], [place] PROGRESS NOTE NAME: [facility]BIO [id number] UNIT #: [id number] ROOM: 424 DOCTOR: NICOLE FERNANDEZ MD,PINO BIRTHDATE: [birth year] DOS: 04/25/2017 SUBJECTIVE: She has been doing well with continued reduction and improvement of respiratory complaints. Denies symptoms of chest pain or any abdominal pain. OBJECTIVE: VITAL SIGNS: For the patient which recorded showed normal temperature, respiratory rate 18, heart rate 67, blood pressure 144/82. Intake for the patient was 2040 mL, output was not recorded. Pulse ox saturation on 3 liters nasal cannula 97% saturation noted. HEENT: No acute change. NECK: Supple. CARDIOVASCULAR SYSTEM: S1, S2 audible. LUNGS: Noted without any wheeze or crackles at this time. ABDOMEN: Soft, nontender. IMPRESSION: The patient with resolving acute exacerbation of chronic obstructive pulmonary disease was improving, acute on chronic hypercapnic hypoxic respiratory failure. PLAN OF TREATMENT: No changes in plan of management at this time. Continue the patient's current therapy, plan of care, other medical management. Usual care. Supportive therapy, plan of care and treatments. PINO RIVERA MD CM:KALA [phone] PINO FERNANDEZ MD 04/25/17 2211 interface
--- NOTE | ~2017-04-18 | PR ---
[place], [place] PROGRESS NOTE [id number] UN[facility] #: [id number] ROOM: 424 DOCTOR: NICOLE FERNANDEZ MD,PINO BIRTHDATE: [birth year] DOS: 04/24/2017 PULMONARY PROGRESS NOTE SUBJECTIVE: The patient continued to do very well for the patient with reduction in respiratory symptoms. Denies symptoms of chest pain or any abdominal pain. OBJECTIVE: VITAL SIGNS: Shows the temperature noted as normal, respiratory rate 20, heart rate of 60, blood pressure 150/79. Intake for the patient 1180, the output was not recorded, pulse oxygen saturation 2 liters nasal cannula 95% saturation. HEENT: Examination shows no acute change. NECK: Supple. CARDIOVASCULAR SYSTEM: S1, S2 audible. LUNGS: Noted without any wheeze or crackles at the present time. ABDOMEN: Soft, nontender. LABORATORY DATA: The culture of the bronchial washing showed normal libra. IMPRESSION: The patient with progressive resolution of wcokx-lb-xmlfjrr hypercapnic hypoxic respiratory failure with exacerbation of chronic obstructive pulmonary disease, acute tracheobronchitis with significant improvement occurred for this patient postbronchoscopy respiratory symptoms. PLAN OF TREATMENT: Discharge planning could be started. The patient stated that she might want to go home tomorrow, not today. In the meantime, the patient will be continued the patient on current therapy, plan of management and care and usual treatments. PINO RIVERA MD CM:PNTRANS [phone] PINO FERNANDEZ MD 04/24/17 2351 interface
[~2017-04-18 20:26] MED LIST changes: +BREO ELLIPTA 11 EACH IH; +D-1000 185 MG-11 TAB PO; +DOXYCYCLINE100 M3 PO; +INCRUSE EL62.5 MCG/A IH; +LANOXIN0.125 MG PO; +TOPROL XL25 MG PO; +VENTOLIN H0.09 MG/AC INH; +XANAX0.25 MG PO; +ZOLOFT100 MG PO
[2017-04-18 20:35] VITALS: BP 124/66
[2017-04-18 21:23] LABS: BASO % 0.2 % (0.0-1.0); EOS # 0.1 10*3/uL (0.0-0.4); EOS % 2.2 % (1.0-4.0); HEMATOCRIT 33.4 % (37.0-47.0); HEMOGLOBIN 10.5 g/dl (12.0-16.0); IG # 0.1 10*3/uL (0.0-0.1); LYMPH # 1.7 10*3/uL (1.3-4.4); LYMPH % 30.8 % (27.0-41.0); MEAN CELL VOLUME 94.6 fl (81.0-99.0); MEAN CORPUSCULAR HGB 29.7 pg (27.0-31.0); MEAN CORPUSCULAR HGB CONC 31.4 g/dl (33.0-37.0); MONO # 0.5 10*3/uL (0.1-1.0); MONO % 9.3 % (3.0-9.0); NEUT # 3.1 10*3/uL (2.3-7.9); NEUT % 56.4 % (47.0-73.0); PLATELET COUNT AUTOMATED 206 10*3/uL (130-400); RED BLOOD COUNT 3.53 10*6/uL (4.10-5.10); RED CELL DISTRI WIDTH 14.8 % (0-14.5); WHITE BLOOD COUNT 5.5 10*3/uL (4.8-10.8)
[2017-04-18 21:35] VITALS: BP 128/72
[2017-04-18 21:39] LABS: ALBUMIN 3.2 gm/dl (3.1-4.5); ALKALINE PHOSPHATASE 70 U/L (45-117); BILIRUBIN, TOTAL 0.5 mg/dl (0.2-1.0); BUN 8 mg/dl (7-24); CARBON DIOXIDE 36 mmol/L (21-32); CHLORIDE 99 mmol/L (98-107); EST GLOM FILT AFRICAN AMERICAN > 60 ml/min; GLUCOSE 140 mg/dL (65-99); POTASSIUM 3.9 mmol/L (3.5-5.1); SGOT/AST 31 IU/L (3-35); SGPT/ALT 31 U/L (12-78); SODIUM 140 mmol/L (136-145); TOTAL PROTEIN 6.4 gm/dL (6.4-8.2)
[2017-04-18 21:40] LABS: TROPONIN I < 0.015 ng/ml (<0.045)
[2017-04-18 22:16] LABS: BILIRUBIN NEGATIVE (NEGATIVE); BLOOD NEGATIVE (NEGATIVE); CLARITY SL CLOUDY (CLEAR); COLOR YELLOW (YELLOW); GLUCOSE NEGATIVE (NEGATIVE); KETONE NEGATIVE (NEGATIVE); LEUKO ESTERASE NEGATIVE (NEGATIVE); NITRITE NEGATIVE (NEGATIVE); PROTEIN NEGATIVE (NEGATIVE)
[2017-04-18 22:27] LABS: BACTERIA 4+; URINE REFLEX COMMENT YES (NO)
[2017-04-18 22:40] VITALS: BP 124/68
[2017-04-19] VITALS: BP 143/64
[2017-04-19] MEDS ORDERED: METOPROLOL25 MG PO ×2 (01:14→01:25)
[2017-04-19 06:27] LABS: HEMATOCRIT 31.9 % (37.0-47.0); HEMOGLOBIN 10.1 g/dl (12.0-16.0); IG # 0.1 10*3/uL (0.0-0.1); LYMPH # 0.3 10*3/uL (1.3-4.4); LYMPH % 7.8 % (27.0-41.0); MEAN CELL VOLUME 94.1 fl (81.0-99.0); MEAN CORPUSCULAR HGB 29.8 pg (27.0-31.0); MEAN CORPUSCULAR HGB CONC 31.7 g/dl (33.0-37.0); MEAN PLATELET VOLUME 9.6 fl (9.6-12.3); MONO # 0.1 10*3/uL (0.1-1.0); MONO % 1.8 % (3.0-9.0); NEUT # 3.4 10*3/uL (2.3-7.9); NEUT % 88.6 % (47.0-73.0); PLATELET COUNT AUTOMATED 211 10*3/uL (130-400); RED BLOOD COUNT 3.39 10*6/uL (4.10-5.10); RED CELL DISTRI WIDTH 14.6 % (0-14.5); WHITE BLOOD COUNT 3.8 10*3/uL (4.8-10.8)
[2017-04-19 07:04] LABS: ALKALINE PHOSPHATASE 69 U/L (45-117); BILIRUBIN, TOTAL 0.4 mg/dl (0.2-1.0); BUN 10 mg/dl (7-24); CARBON DIOXIDE 36 mmol/L (21-32); CHLORIDE 98 mmol/L (98-107); EST GLOM FILT AFRICAN AMERICAN > 60 ml/min; GLUCOSE 259 mg/dL (65-99); MAGNESIUM 1.9 mg/dL (1.5-2.1); PHOSPHOROUS 1.4 mg/dL (2.5-4.9); POTASSIUM 4.5 mmol/L (3.5-5.1); SGOT/AST 24 IU/L (3-35); SGPT/ALT 31 U/L (12-78); SODIUM 138 mmol/L (136-145); TOTAL PROTEIN 6.5 gm/dL (6.4-8.2)
[2017-04-19 07:10] LABS: FREE T4 0.77 ng/dl (0.76-1.46); INTERNATIONAL NORM RATIO 1.1 (2.0-3.5); PROTHROMBIN TIME 11.2 SECONDS (9.0-12.4)
[2017-04-19 08:00] VITALS: BP 122/66
[2017-04-19 09:16] LABS: FOLIC ACID > 24.00 ng/mL (>5.38)
[2017-04-19] MEDS ORDERED: LOPRESSOR50 M1 PO (10:25)
[2017-04-19 12:00] VITALS: BP 121/61
[2017-04-19 15:16] LABS: ABG BASE EXCESS 3.8 mmol/L (-2.0-2.0); ABG CO2 CONTENT 32.2 mmol/L (23-27); ABG HCO3 30.4 mmol/l (22-26); ABG TEMPERATURE 97.6 F (98.0-99.0); ARTERIAL BLOOD GAS PH 7.337 (7.35-7.45); ARTERIAL BLOOD GAS PO2 73.8 mmHg (80-90)
[2017-04-19 16:00] VITALS: BP 127/61
[2017-04-19 20:00] VITALS: BP 156/86
[2017-04-19 22:06] VITALS: BP 129/57
[2017-04-20] VITALS: BP 123/63
[2017-04-20 06:01] LABS: BASO % 0.1 % (0.0-1.0); HEMATOCRIT 31.4 % (37.0-47.0); HEMOGLOBIN 9.9 g/dl (12.0-16.0); IG # 0.2 10*3/uL (0.0-0.1); LYMPH # 0.5 10*3/uL (1.3-4.4); LYMPH % 5.3 % (27.0-41.0); MEAN CELL VOLUME 94.9 fl (81.0-99.0); MEAN CORPUSCULAR HGB 29.9 pg (27.0-31.0); MEAN CORPUSCULAR HGB CONC 31.5 g/dl (33.0-37.0); MEAN PLATELET VOLUME 9.3 fl (9.6-12.3); MONO # 0.4 10*3/uL (0.1-1.0); MONO % 4.1 % (3.0-9.0); NEUT # 7.6 10*3/uL (2.3-7.9); NEUT % 88.8 % (47.0-73.0); PLATELET COUNT AUTOMATED 228 10*3/uL (130-400); RED BLOOD COUNT 3.31 10*6/uL (4.10-5.10); RED CELL DISTRI WIDTH 14.6 % (0-14.5); WHITE BLOOD COUNT 8.6 10*3/uL (4.8-10.8)
[2017-04-20 06:20] LABS: BUN 13 mg/dl (7-24); CARBON DIOXIDE 38 mmol/L (21-32); CHLORIDE 99 mmol/L (98-107); EST GLOM FILT AFRICAN AMERICAN > 60 ml/min; GLUCOSE 206 mg/dL (65-99); PHOSPHOROUS 2.7 mg/dL (2.5-4.9); POTASSIUM 4.8 mmol/L (3.5-5.1); SODIUM 141 mmol/L (136-145)
[2017-04-20 08:00] VITALS: BP 120/74
[2017-04-20 12:00] VITALS: BP 136/70
[2017-04-20 16:00] VITALS: BP 129/69
[2017-04-20 20:00] VITALS: BP 120/59
[2017-04-21] VITALS: BP 120/75
[2017-04-21 06:11] LABS: BASO % 0.1 % (0.0-1.0); HEMATOCRIT 32.4 % (37.0-47.0); HEMOGLOBIN 10.4 g/dl (12.0-16.0); IG # 0.3 10*3/uL (0.0-0.1); LYMPH # 0.9 10*3/uL (1.3-4.4); LYMPH % 7.4 % (27.0-41.0); MEAN CELL VOLUME 95.3 fl (81.0-99.0); MEAN CORPUSCULAR HGB 30.6 pg (27.0-31.0); MEAN CORPUSCULAR HGB CONC 32.1 g/dl (33.0-37.0); MEAN PLATELET VOLUME 9.7 fl (9.6-12.3); MONO # 0.5 10*3/uL (0.1-1.0); MONO % 4.2 % (3.0-9.0); NEUT # 10.1 10*3/uL (2.3-7.9); NEUT % 86.1 % (47.0-73.0); PLATELET COUNT AUTOMATED 260 10*3/uL (130-400); RED CELL DISTRI WIDTH 14.8 % (0-14.5); WHITE BLOOD COUNT 11.8 10*3/uL (4.8-10.8)
[2017-04-21 06:31] LABS: BUN 21 mg/dl (7-24); CARBON DIOXIDE 40 mmol/L (21-32); CHLORIDE 97 mmol/L (98-107); EST GLOM FILT AFRICAN AMERICAN > 60 ml/min; GLUCOSE 147 mg/dL (65-99); POTASSIUM 4.5 mmol/L (3.5-5.1); SODIUM 141 mmol/L (136-145)
[2017-04-21 06:44] LABS: DIGOXIN 0.81 ng/ml (0.8-2.0)
[2017-04-21 08:00] VITALS: BP 154/66
[2017-04-21 12:00] VITALS: BP 141/75
[2017-04-21 16:00] VITALS: BP 127/60
[2017-04-21 20:00] VITALS: BP 169/80
[2017-04-22] VITALS (8 sets, daily range): BP systolic 123–141; BP diastolic 62–790
[2017-04-22 00:04] LABS: INFLUENZA B Negative (Negative); METAPNEUMOVIRUS Negative (Negative)
[2017-04-23] VITALS: BP 142/95
[2017-04-23 04:00] VITALS: BP 140/85
[2017-04-23 06:11] LABS: HEMATOCRIT 34.2 % (37.0-47.0); HEMOGLOBIN 10.6 g/dl (12.0-16.0); MEAN CELL VOLUME 95.3 fl (81.0-99.0); MEAN CORPUSCULAR HGB 29.5 pg (27.0-31.0); MEAN PLATELET VOLUME 9.6 fl (9.6-12.3); NUCLEATED RED BLOOD CELL 0.2 % (0.0-0.0); PLATELET COUNT AUTOMATED 286 10*3/uL (130-400); RED BLOOD COUNT 3.59 10*6/uL (4.10-5.10); RED CELL DISTRI WIDTH 14.7 % (0-14.5); WHITE BLOOD COUNT 14.6 10*3/uL (4.8-10.8)
[2017-04-23 06:38] LABS: BUN 24 mg/dl (7-24); CARBON DIOXIDE 40 mmol/L (21-32); CHLORIDE 93 mmol/L (98-107); EST GLOM FILT AFRICAN AMERICAN > 60 ml/min; GLUCOSE 191 mg/dL (65-99); POTASSIUM 4.3 mmol/L (3.5-5.1); SODIUM 139 mmol/L (136-145)
[2017-04-23 06:43] LABS: LYMPHOCYTE # 1.2 10*3/uL (1.3-4.4); METAMYELOCYTES 1 % (0-0); MYELOCYTES 3 % (0-0); NEUTROPHIL # 12.8 10*3/uL (2.3-7.9); NEUTROPHILS 88 % (47-73); PLATELET SUFFICIENCY NORMAL (NORMAL); TOTAL CELLS COUNTED 100 #CELLS
[2017-04-23 08:00] VITALS: BP 135/79
[2017-04-23 12:00] VITALS: BP 150/78
[2017-04-23 16:00] VITALS: BP 136/70
[2017-04-23 20:00] VITALS: BP 124/64
[2017-04-24] VITALS: BP 140/77
[2017-04-24 08:00] VITALS: BP 150/88
[2017-04-24 12:00] VITALS: BP 150/79
[2017-04-24 16:00] VITALS: BP 136/73
[2017-04-24 20:00] VITALS: BP 119/69
[2017-04-25] VITALS: BP 139/79
[2017-04-25 08:00] VITALS: BP 129/67
[2017-04-25 12:00] VITALS: BP 144/82
[2017-04-25] MEDS ORDERED: PREDNISONE10 MG PO (15:08)
[2017-04-25] MEDS ORDERED: SERTRALINE HYDR25 MG PO (15:08)
[2017-04-25] MEDS ORDERED: LOPRESSOR25 MG PO (15:08)
[2017-04-25] MEDS ORDERED: LEVAQUIN500 M2 PO (15:08)
[2017-04-27 15:07] LABS: ACID FAST SPEC PROCESSING Concentration (.)
== END 2017-04-25 15:55 | disposition home or self-care (01) | DRG 871 ==
LOC: ED 20:26 → EDHOLD 22:10 → 4E 22:10
PROVIDERS: Emergency Medicine Emergency Medical Services; Internal Medicine; Internal Medicine Critical Care Medicine; Internal Medicine Hospice and Palliative Medicine
PROC: 0BCB8ZZ Extirpation of Matter from Left Lower Lobe Bronchus, Via Natural or Artificial Opening Endoscopic (ICD-10-PCS; principal; 2017-04-22)
PROC: 0BC58ZZ Extirpation of Matter from Right Middle Lobe Bronchus, Via Natural or Artificial Opening Endoscopic (ICD-10-PCS; principal; 2017-04-22)
PROC: 0BC28ZZ Extirpation of Matter from Carina, Via Natural or Artificial Opening Endoscopic (ICD-10-PCS; principal; 2017-04-22)
PROC: 0BC68ZZ Extirpation of Matter from Right Lower Lobe Bronchus, Via Natural or Artificial Opening Endoscopic (ICD-10-PCS; principal; 2017-04-22)
PROC: 5A09357 Assistance with Respiratory Ventilation, Less than 24 Consecutive Hours, Continuous Positive Airway Pressure (ICD-10-PCS; principal; 2017-04-22)
PROC: 0BC88ZZ Extirpation of Matter from Left Upper Lobe Bronchus, Via Natural or Artificial Opening Endoscopic (ICD-10-PCS; principal; 2017-04-22)
PROC: 0BC48ZZ Extirpation of Matter from Right Upper Lobe Bronchus, Via Natural or Artificial Opening Endoscopic (ICD-10-PCS; principal; 2017-04-22)
PROC: 0BC98ZZ Extirpation of Matter from Lingula Bronchus, Via Natural or Artificial Opening Endoscopic (ICD-10-PCS; principal; 2017-04-22)
DX: A41.9 Sepsis, unspecified organism (principal); J96.21 Acute and chronic respiratory failure with hypoxia; E87.4 Mixed disorder of acid-base balance; J18.9 Pneumonia, unspecified organism; T17.890A Other foreign object in other parts of respiratory tract causing asphyxiation, initial encounter; D68.59 Other primary thrombophilia; E11.8 Type 2 diabetes mellitus with unspecified complications; E44.0 Moderate protein-calorie malnutrition; J44.0 Chronic obstructive pulmonary disease with (acute) lower respiratory infection; J96.22 Acute and chronic respiratory failure with hypercapnia; J44.1 Chronic obstructive pulmonary disease with (acute) exacerbation; J98.11 Atelectasis; Z99.81 Dependence on supplemental oxygen; I48.0 Paroxysmal atrial fibrillation; D64.9 Anemia, unspecified; I10 Essential (primary) hypertension; E55.9 Vitamin D deficiency, unspecified; B34.8 Other viral infections of unspecified site; F32.9 Major depressive disorder, single episode, unspecified; T38.0X5A Adverse effect of glucocorticoids and synthetic analogues, initial encounter; D72.829 Elevated white blood cell count, unspecified; F41.9 Anxiety disorder, unspecified; E78.5 Hyperlipidemia, unspecified; G47.33 Obstructive sleep apnea (adult) (pediatric); Z90.49 Acquired absence of other specified parts of digestive tract; Z98.42 Cataract extraction status, left eye; Z86.73 Personal history of transient ischemic attack (TIA), and cerebral infarction without residual deficits; Z68.32 Body mass index [BMI] 32.0-32.9, adult; Z98.41 Cataract extraction status, right eye; Z82.3 Family history of stroke; Z79.51 Long term (current) use of inhaled steroids; Z79.899 Other long term (current) drug therapy; Y92.89 Other specified places as the place of occurrence of the external cause; J20.4 Acute bronchitis due to parainfluenza virus

== ENCOUNTER 2017-04-27 18:38 | Inpatient (IN) | payer MEDICARE ==
[~2017-04-27] VITALS: Ht 162.6 cm; Wt 78.2 kg
--- NOTE | ~2017-04-27 | CON ---
[place], [place] REPORT OF CONSULTATION NAME: MESERET RUBIO UNIT #: [id number] ROOM: [facility] DOCTOR: PINO REYNOLDS MD BIRTHDATE: [birth year] DOS: 04/28/2017 PULMONARY CONSULTATION EVALUATION AND MANAGEMENT HISTORY OF PRESENT ILLNESS: This is a 71 years old white female who has been admitted in this hospital and discharged from this hospital on 04/25/2017. The patient remained in the hospital from 04/17/2017 to 04/25/2017. She was treated for the acute severe tracheobronchitis for the patient and the left lower lobe pneumonia with a small pleural fluid. She was also noted acute on chronic hypercapnic hypoxic respiratory failure. Bronchoscopy done on that admission of this month for this patient with no abnormal bacterial growths. The patient presented to the Emergency Room the patient and has been readmitted to the hospital on 04/27/2017. The patient came into the Emergency Room. She has been noted with symptoms of increased weakness. The patient had shortness of breath and diaphoresis. The patient has been noted with atrial fibrillation with rapid ventricular response as well. She has been noted without any symptoms of chest pain. Shortness of breath has been noted decreased from yesterday. Cough of the patient has been noted very mild. There was no sputum expectoration. Denies any symptoms of chest pain or hemoptysis or wheezing. REVIEW OF SYSTEMS: GENERAL: Weakness, fatigue was noted without any fever or chills. EYES: Denies any burning, redness, or tenderness. EARS, NOSE, AND THROAT SYMPTOMS: No sore throat, hoarseness, otalgia, postnasal drainage. CARDIOVASCULAR SYSTEM: Denies anginal pain, edema or pain of the lower extremities. GASTROINTESTINAL SYMPTOMS: Denies dysphagia, nausea, vomiting, diarrhea, abdominal pain, hematemesis, melena, or hematochezia. SKIN: Denies any lesions or rashes. GENITOURINARY SYMPTOMS: Denies dysuria, suprapubic pain, hematuria. CENTRAL NERVOUS SYSTEM: Denies dizziness, headache, diplopia or syncopal episodes. There were no symptoms of seizures, tingling sensation of the extremities or syncopal episodes. Remaining systems were reviewed with the patient, they were noted all negative. PAST MEDICAL HISTORY: For this patient, 1. Severe centrilobular emphysema. 2. Chronic hypercapnic hypoxic respiratory failure. 3. Atrial fibrillation. 4. Essential hypertension. 5. Generalized anxiety disorder. 6. Obstructive sleep apnea disorder. PAST SURGICAL HISTORY: 1. Appendectomy. 2. Cardiac catheterization. 3. Fiberoptic bronchoscopy, last bronchoscopy done for the patient on 04/22/2017. [place], [place] REPORT OF CONSULTATION NAME: MESERET RUBIO UNIT #: [id number] ROOM: [facility] DOCTOR: ROSY REYNOLDS MDM BIRTHDATE: [birth year] 4. Cholecystectomy. 5. Bilateral cataract extraction, lens implantation. SOCIAL HISTORY: The patient lives at home. Denies history of alcohol or illicit drug use. Smoking was noted since teenager, pack of cigarettes per day until 2007. FAMILY HISTORY: The patient's father from complication related to railroad accident. Mother from complications of acute stroke. MEDICATIONS: Current administered medication for the patient were noted as use of digoxin, oral Cardizem, metoprolol tartrate, vitamin D, Xarelto, IV Solu-Medrol 60 mg b.i.d., DuoNeb q. 4 hours, Levaquin intravenously and other p.r.n. medications. DRUG ALLERGY HISTORY: The patient was noted as no known drug allergies. PHYSICAL EXAMINATION: GENERAL: This is a 71 years old female who has been noted currently awake and alert for this patient without any acute distress for this patient at this time. She appeared to be fatigued and tired. Height for the patient recorded by the nursing staff at the current admission with height of 5 feet 4 inches, weight of 172 pounds, BMI 29.6. VITAL SIGNS: For the patient shows the temperature recorded normal, respiratory rate of 18-20, heart rate of 140 is the highest and noted as 111 this morning, atrial fibrillation. Blood pressure ranging between 117/68-121/70. HEENT: Examination shows head was atraumatic. Eyes nonicterus. NECK: Supple. CARDIOVASCULAR SYSTEM: S1, S2 audible. LUNGS: The patient was noted without any wheezing or crackles at this time. ABDOMEN: Soft, nontender. Bowel sounds are present. EXTREMITIES: Shows no edema, clubbing, cyanosis. CENTRAL NERVOUS SYSTEM: Cranial nerves 2-12 intact. No focal deficits. MUSCULOSKELETAL SYMPTOMS: No deformities. SKIN: Shows scattered bruising of the skin related to the use of prednisone. LABORATORY DATA: CMP on 04/27/2017, the patient's BUN of 43, creatinine 1.33, glucose 297. Sodium 134. CBC of patient on 04/27/2017, WBC count 24.9, platelet count 421,000, remaining CBC normal. The dig level noted as yesterday 0.75. CK-MB and troponin for the patient noted as MB of 6.8, normal CPK, normal troponin yesterday. Second set of CK-MB and troponin normal CPK and the troponin. The MB was still noted minimally elevated at . Arterial blood gas 4 liters this morning, pH of 7.41, pCO2 48.5, pO2 98.4. BMP this morning, glucose 222, BUN 36, creatinine was normal, carbon dioxide 38. CBC this morning, WBC count 18.7, hemoglobin, hematocrit and platelet count was normal. Chest x-ray of the patient 2-view, which was done for this patient yesterday for the patient was reviewed shows no acute pulmonary infiltration. IMPRESSION: 1. The patient had been currently admitted to the hospital with symptoms of [place], [place] REPORT OF CONSULTATION NAME: MESERET RUBIO UNIT #: [id number] ROOM: [facility] DOCTOR: NICOLE FERNANDEZ MD,[facility] BIRTHDATE: [birth year] shortness of breath related to the current atrial fibrillation with rapid ventricular response. 2. Resolving past exacerbation of chronic obstructive pulmonary disease with previous medications. 3. Leukocytosis, stress induced for the patient as well as use of the corticosteroids as well. There was no evidence of any pneumonia, acute sepsis noted at present time of assessment. The hypercapnia seemed to be noted well controlled with arterial blood gases done this morning. PLAN OF TREATMENT: Use of the CPAP for the patient in the home setting for the patient. Continuation of bronchodilators. Discontinue the IV Solu-Medrol and switch her to oral tapering prednisone dose. Antibiotic will be switched orally as well. Other supportive therapy, plan of management. Continue to maximize the cardiac management for the atrial fibrillation, rapid ventricular response. Thank you for allowing me to participate in the care of this patient. PINO RIVERA MD CM:CONSTR:REPORT OF CONSULTATION 1225 04/29/17 0133 interface
--- NOTE | ~2017-04-27 | PR ---
[place], [place] PROGRESS NOTE NAME: [id number] UNIT #: [id number] ROOM: 402 DOCTOR: NICOLE FERNANDEZ MD,PINO BIRTHDATE: [birth year] DOS: 05/03/2017 SUBJECTIVE: She has been noted with mild cough without any sputum expectoration. Denies symptoms of chest pain. Shortness of breath has been improving. The patient stated that she has been planned for going to the detention facility today. OBJECTIVE: VITAL SIGNS: Showed normal temperature, respiratory rate 20, heart rate 72, blood pressure 119/61. Pulse oxygen saturation noted on 3 liters nasal canula 100% saturation. HEENT: Showed no acute change. NECK: Supple. CARDIOVASCULAR: S1, S2 is audible. LUNGS: The patient was noted without any wheeze or crackles at the present time. ABDOMEN: Soft, nontender. IMPRESSION: 1. The patient with resolving acute exacerbation of chronic obstructive pulmonary disease, acute tracheobronchitis, atrial fibrillation and atrial flutter, rapid ventricular response resolving as well. 2. Overall debility for the patient. 3. Deconditioning. PLAN OF TREATMENT: The patient will be discharged to the detention facility for this patient whenever necessary. Continue other previous treatment plan of management. PINO RIVERA MD CM:PNTRANS [phone] PINO FERNANDEZ MD 05/03/17 2310 interface
--- NOTE | ~2017-04-27 | PR ---
[place], [place] PROGRESS NOTE NAME: MESERET RUBIO UNIT #: [id number] ROOM: 402 DOCTOR: PINO REYNOLDS MD BIRTHDATE: [birth year] DOS: 04/29/2017 PULMONARY FOLLOWUP NOTE SUBJECTIVE: The patient was noted comfortable at this time from the pulmonary standpoint, there was no cough. resolving, still noted with atrial fibrillation, atrial flutter for the patient, heart rate mildly increased for the patient greater than 100. She denies symptoms of chest pain, comfortably resting, sitting on the chair. OBJECTIVE: VITAL SIGNS: Normal temperature, respiratory rate 20, heart rate 98, blood pressure 123/74. Pulse oxygen saturation on 3 L nasal cannula 98% saturation recorded. HEENT: Shows no acute change. NECK: Supple. CARDIOVASCULAR SYSTEM: S1, S2 is audible. LUNGS: Noted without any wheeze or crackles at the present time. The breaths are noted mild to moderately decreased bilaterally. ABDOMEN: Soft, nontender. LABORATORY DATA: CBC today: WBC count 25.7, hemoglobin 12.1, hematocrit 38.5, platelet count 272,000. BMP this morning, sodium 142, potassium 4.4, chloride 104, carbon dioxide 33, BUN 22, creatinine 0.74. Glucose 134. Total protein of 5.8, albumin 2.7. CK-MB was elevated 4.6 with a normal troponin. IMPRESSION: 1. The patient who has been noted currently stable chronic obstructive pulmonary disease exacerbation, which is noted with progressive resolution. 2. Leukocytosis, most likely steroid-induced leukocytosis. 3. Atrial fibrillation and atrial flutter, the patient with intermittent rapid ventricular response. PLAN OF TREATMENT: Continue the current plan of treatment. She has been started on tapering dose of prednisone to be completed as well as oral antibiotics. Other supportive therapy, plan and management. Usual care. All other supportive plan of treatment and care. [place], [place] PROGRESS NOTE NAME: MESERET RUBIO UNIT #: [id number] ROOM: 402 DOCTOR: PINO REYNOLDS MD BIRTHDATE: [birth year] PINO RIVERA MD CM:PNTRANS [id number] PINO FERNANDEZ MD 04/30/17 0049 interface
--- NOTE | ~2017-04-27 | PR ---
[place], [place] PROGRESS NOTE NAME: MESERET RUBIO UNIT #: [id number] ROOM: 402 DOCTOR: NICOLE FERNANDEZ MD,PINO BIRTHDATE: [birth year] DOS: 05/02/2017 PULMONARY FOLLOWUP SUBJECTIVE: She has been comfortably resting at this time on the chair per the patient. Denies symptoms of chest pain, abdominal pain. She has noted generalized weakness and fatigue. OBJECTIVE: VITAL SIGNS: Normal temperature, respiratory rate 20, heart rate 75, blood pressure 118/67. Pulse oxygen saturation of the patient recorded on 3 liters canula 98% saturation. HEENT: Examination shows no new change. NECK: Supple. CARDIOVASCULAR: S1, S2 audible. LUNGS: The patient was noted without any wheezing or crackles. ABDOMEN: Soft, nontender. LABORATORY DATA: CBC this morning still noted with elevation of WBC count 18.3, hemoglobin 11.3, hematocrit 35.0, platelet count was normal. BMP this morning was noted essentially normal except CO2 of 37. IMPRESSION: Resolving metabolic alkalosis with improving acute exacerbation of chronic obstructive pulmonary disease as well as atrial fibrillation and atrial flutter, was described. The blood culture of the patient on 04/18, noted as Streptococcus species as micrococcus species was described in the blood culture bottles. PLAN OF TREATMENT: The patient would like to be assessed for the [facility] facility placement. The blood culture to be addressed by the Infectious Disease Services. Possibility of contamination cannot be excluded. Other supportive therapy, plan and management as in progress. PINO RIVERA MD CM:PNTRANS [phone] PINO FERNANDEZ MD 05/03/17 0337 interface
--- NOTE | ~2017-04-27 | PR ---
[place], [place] PROGRESS NOTE NAME: MESERET RUBIO UNIT #: [id number] ROOM: 402 DOCTOR: NICOLE FERNANDEZ MD,PINO BIRTHDATE: [birth year] DOS: 05/01/2017 PULMONARY PROGRESS NOTE SUBJECTIVE: The patient has been noted comfortable at this time without any distress. The coughing, wheezing and shortness of breath all improving. The heart rate was also noted well controlled for the patient with atrial fibrillation. OBJECTIVE: VITAL SIGNS: The patient showed normal temperature, respiratory rate 18, heart rate 82, blood pressure 116/50-116/70. Pulse oxygen saturation on 3 liters nasal cannula 93% saturation. HEENT: Examination shows no acute change. NECK: Supple. CARDIOVASCULAR SYSTEM: S1, S2 audible. LUNGS: Noted without any crackles, rhonchi, or wheezing. ABDOMEN: Soft, nontender. LABORATORY DATA: BMP normal except CO2 36. CBC: WBC count 19.4, hemoglobin 12, hematocrit 38.4, platelet count of 242,000. IMPRESSION: 1. The patient with resolving acute chronic obstructive pulmonary disease progressively. 2. The patient with atrial fibrillation, flutter, rapid ventricular response noted well controlled. PLAN OF TREATMENT: Continue the patient on current therapy, plan and management without any changes. Continue other supportive therapy, plan and management, other care, usual treatments. PINO RIVERA MD CM:PNTRANS [phone] PINO FERNANDEZ MD 05/01/171922 interface
--- NOTE | ~2017-04-27 | PR ---
[place], [place] PROGRESS NOTE NAME: [facility]BIO [id number] UNIT #: [id number] ROOM: 402 DOCTOR: NICOLE FERNANDEZ MD,PINO BIRTHDATE: [birth year] DOS: 04/30/2017 She has been sitting comfortably on the chair at this time. Denies symptoms of chest pain, cough or any sputum expectoration. Denies any abdominal pain. OBJECTIVE: VITAL SIGNS: Normal temperature, respiratory rate 20, heart rate 68, blood pressure 71/53. The pulse oxygen saturation on 3 liters nasal cannula 93% saturation. HEENT: No acute change. NECK: Supple. CARDIOVASCULAR SYSTEM: S1, S2 audible. LUNGS: Noted without any wheezing or crackles at this time. ABDOMEN: Soft, nontender. LABORATORY DATA: CBC: WBC count 17.7. Hemoglobin, hematocrit, and platelet count were normal. Sputum culture showed normal libra . IMPRESSION: The patient has stable respiratory status. The patient noted with resolving exacerbation of chronic obstructive pulmonary disease, atrial fibrillation and flutter was also noted with good control rate for this patient. At the present time, the heart rate noted less than 100 in the past several hours. PLAN OF TREATMENT: No changes from the pulmonary standpoint. Continue the current therapy as previously. All other previous treatment to be continued as usual. PINO RIVERA MD CM:PNTRANS [id number] PINO FERNANDEZ MD 04/30/17 1649 interface
[~2017-04-27 18:38] MED LIST changes: +LEVAQUIN500 M2 PO; +LOPRESSOR50 M1 PO; +SERTRALINE HYDR25 MG PO
[2017-04-27 18:43] VITALS: BP 132/90
[2017-04-27 19:00] VITALS: BP 136/88
[2017-04-27 19:16] LABS: HEMATOCRIT 43.4 % (37.0-47.0); HEMOGLOBIN 14.2 g/dl (12.0-16.0); MEAN CELL VOLUME 93.3 fl (81.0-99.0); MEAN CORPUSCULAR HGB 30.5 pg (27.0-31.0); MEAN CORPUSCULAR HGB CONC 32.7 g/dl (33.0-37.0); MEAN PLATELET VOLUME 9.7 fl (9.6-12.3); PLATELET COUNT AUTOMATED 421 10*3/uL (130-400); RED BLOOD COUNT 4.65 10*6/uL (4.10-5.10); RED CELL DISTRI WIDTH 15.8 % (0-14.5); WHITE BLOOD COUNT 24.9 10*3/uL (4.8-10.8)
[2017-04-27 19:32] LABS: ALBUMIN 3.2 gm/dl (3.1-4.5); BILIRUBIN, TOTAL 0.5 mg/dl (0.2-1.0); POTASSIUM 4.7 mmol/L (3.5-5.1); TOTAL PROTEIN 6.7 gm/dL (6.4-8.2)
[2017-04-27 19:50] LABS: LYMPHOCYTE # 1.7 10*3/uL (1.3-4.4); METAMYELOCYTES 6 % (0-0); MONOCYTE # 1.5 10*3/uL (0.1-1.0); MYELOCYTES 2 % (0-0); NEUTROPHIL # 19.7 10*3/uL (2.3-7.9); NEUTROPHILS 79 % (47-73); PLATELET SUFFICIENCY NORMAL (NORMAL); POLYCHROMASIA SLIGHT; TEAR DROP CELLS FEW; TOTAL CELLS COUNTED 100 #CELLS
[2017-04-27 20:00] VITALS: BP 136/74
[2017-04-27 21:00] VITALS: BP 124/74
[2017-04-27 22:00] VITALS: BP 124/76
[2017-04-27 23:00] VITALS: BP 120/70
[2017-04-28] VITALS (9 sets, daily range): BP systolic 99–149; BP diastolic 60–79
[2017-04-28 00:54] LABS: TROPONIN I 0.041 ng/ml (<0.045)
[2017-04-28 00:58] LABS: CKMB 6.8 ng/ml (0.5-3.6)
[2017-04-28] MEDS ORDERED: SERTRALINE HYD100 MG PO (02:45)
[2017-04-28] MEDS ORDERED: SERTRALINE HYDR25 MG PO (02:48)
[2017-04-28 06:30] LABS: HEMATOCRIT 43.8 % (37.0-47.0); MEAN CELL VOLUME 94.6 fl (81.0-99.0); MEAN CORPUSCULAR HGB 30.2 pg (27.0-31.0); MEAN PLATELET VOLUME 9.5 fl (9.6-12.3); PLATELET COUNT AUTOMATED 298 10*3/uL (130-400); RED BLOOD COUNT 4.63 10*6/uL (4.10-5.10); RED CELL DISTRI WIDTH 15.9 % (0-14.5); WHITE BLOOD COUNT 18.7 10*3/uL (4.8-10.8)
[2017-04-28 06:46] LABS: TROPONIN I 0.019 ng/ml (<0.045)
[2017-04-28 06:47] LABS: HEMOGLOBIN A1c 7.5 % (4.8-5.6)
[2017-04-28 06:49] LABS: CKMB 5.5 ng/ml (0.5-3.6)
[2017-04-28 06:57] LABS: BILIRUBIN NEGATIVE (NEGATIVE); BLOOD NEGATIVE (NEGATIVE); CLARITY CLEAR (CLEAR); COLOR YELLOW (YELLOW); GLUCOSE TRACE (NEGATIVE); KETONE NEGATIVE (NEGATIVE); LEUKO ESTERASE NEGATIVE (NEGATIVE); NITRITE NEGATIVE (NEGATIVE); PROTEIN NEGATIVE (NEGATIVE); SPECIFIC GRAVITY >= 1.030 (1.005-1.030); UROBILINOGEN 0.2 E.U./dl (0.2-1.0)
[2017-04-28 06:58] LABS: ABG BASE EXCESS 5.2 mmol/L (-2.0-2.0); ABG HCO3 30.5 mmol/l (22-26); ARTERIAL BLOOD GAS PH 7.414 (7.35-7.45); ARTERIAL BLOOD GAS PO2 98.4 mmHg (80-90)
[2017-04-28 07:05] LABS: FREE T4 1.01 ng/dl (0.76-1.46); HDL CHOLESTEROL 42 mg/dl (40-60); THYROID STIM HORMONE (HS) 0.547 uIU/ml (0.358-4.75); TRIGLYCERIDES 302 mg/dl (<150); VLDL CHOLESTEROL 60 mg/dL (6-40)
[2017-04-28 07:07] LABS: BUN 36 mg/dl (7-24); CARBON DIOXIDE 38 mmol/L (21-32); CHLORIDE 97 mmol/L (98-107); CHOLESTEROL 195 mg/dL (<200); EST GLOM FILT AFRICAN AMERICAN > 60 ml/min; GLUCOSE 222 mg/dL (65-99); LDL CHOLESTEROL 93 mg/dL (9-159); MAGNESIUM 2.7 mg/dL (1.5-2.1); PHOSPHOROUS 2.6 mg/dL (2.5-4.9); POTASSIUM 4.8 mmol/L (3.5-5.1); SODIUM 137 mmol/L (136-145)
[2017-04-28 07:35] LABS: LYMPHOCYTE # 0.9 10*3/uL (1.3-4.4); METAMYELOCYTES 2 % (0-0); MONOCYTE # 0.2 10*3/uL (0.1-1.0); MYELOCYTES 3 % (0-0); NEUTROPHIL # 16.6 10*3/uL (2.3-7.9); NEUTROPHILS 89 % (47-73); TOTAL CELLS COUNTED 100 #CELLS
[2017-04-28 07:36] LABS: PLATELET SUFFICIENCY NORMAL (NORMAL)
[2017-04-28 08:02] LABS: BACTERIA 1+; CALCIUM OXALATE CRYSTALS 2+; MUCOUS TRACE; URINE REFLEX COMMENT NO (NO)
[2017-04-28 12:31] LABS: CKMB 4.6 ng/ml (0.5-3.6); CPK 23 U/L (26-192)
[2017-04-28 12:35] LABS: TROPONIN I < 0.015 ng/ml (<0.045)
[2017-04-29] VITALS: BP 126/81
[2017-04-29 04:00] VITALS: BP 122/68
[2017-04-29 05:52] LABS: ALBUMIN 2.7 gm/dl (3.1-4.5); ALKALINE PHOSPHATASE 52 U/L (45-117); BILIRUBIN, TOTAL 0.5 mg/dl (0.2-1.0); CARBON DIOXIDE 33 mmol/L (21-32); CHLORIDE 104 mmol/L (98-107); EST GLOM FILT AFRICAN AMERICAN > 60 ml/min; GLUCOSE 134 mg/dL (65-99); POTASSIUM 4.4 mmol/L (3.5-5.1); SGOT/AST 14 IU/L (3-35); SGPT/ALT 36 U/L (12-78); SODIUM 142 mmol/L (136-145); TOTAL PROTEIN 5.8 gm/dL (6.4-8.2)
[2017-04-29 05:55] LABS: HEMATOCRIT 38.5 % (37.0-47.0); HEMOGLOBIN 12.1 g/dl (12.0-16.0); MEAN CELL VOLUME 95.8 fl (81.0-99.0); MEAN CORPUSCULAR HGB 30.1 pg (27.0-31.0); MEAN CORPUSCULAR HGB CONC 31.4 g/dl (33.0-37.0); MEAN PLATELET VOLUME 9.8 fl (9.6-12.3); PLATELET COUNT AUTOMATED 272 10*3/uL (130-400); RED BLOOD COUNT 4.02 10*6/uL (4.10-5.10); RED CELL DISTRI WIDTH 15.7 % (0-14.5); WHITE BLOOD COUNT 25.7 10*3/uL (4.8-10.8)
[2017-04-29 06:20] LABS: BUN 22 mg/dl (7-24)
[2017-04-29 06:58] LABS: LYMPHOCYTE # 1.5 10*3/uL (1.3-4.4); METAMYELOCYTES 5 % (0-0); MONOCYTE # 0.5 10*3/uL (0.1-1.0); NEUTROPHIL # 22.4 10*3/uL (2.3-7.9); NEUTROPHILS 87 % (47-73); PLATELET SUFFICIENCY NORMAL (NORMAL); TOTAL CELLS COUNTED 100 #CELLS; TOXIC GRANULATION SLIGHT
[2017-04-29 08:00] VITALS: BP 123/74
[2017-04-29 12:00] VITALS: BP 143/84
[2017-04-29 16:00] VITALS: BP 114/65
[2017-04-29 20:00] VITALS: BP 115/52
[2017-04-30] VITALS: BP 105/68
[2017-04-30 06:36] LABS: HEMATOCRIT 38.7 % (37.0-47.0); HEMOGLOBIN 12.4 g/dl (12.0-16.0); MEAN CELL VOLUME 95.6 fl (81.0-99.0); MEAN CORPUSCULAR HGB 30.6 pg (27.0-31.0); MEAN PLATELET VOLUME 9.6 fl (9.6-12.3); PLATELET COUNT AUTOMATED 244 10*3/uL (130-400); RED BLOOD COUNT 4.05 10*6/uL (4.10-5.10); RED CELL DISTRI WIDTH 15.7 % (0-14.5); WHITE BLOOD COUNT 17.7 10*3/uL (4.8-10.8)
[2017-04-30 07:08] LABS: LYMPHOCYTE # 1.1 10*3/uL (1.3-4.4); MONOCYTE # 0.9 10*3/uL (0.1-1.0); NEUTROPHIL # 15.8 10*3/uL (2.3-7.9); NEUTROPHILS 89 % (47-73); PLATELET SUFFICIENCY NORMAL (NORMAL); TOTAL CELLS COUNTED 100 #CELLS
[2017-04-30 08:00] VITALS: BP 113/60
[2017-04-30 10:00] VITALS: BP 106/58
[2017-04-30 12:00] VITALS: BP 117/53
[2017-04-30 16:00] VITALS: BP 108/68
[2017-04-30 20:00] VITALS: BP 118/60
[2017-05-01] VITALS: BP 116/70
[2017-05-01 06:22] LABS: HEMATOCRIT 38.4 % (37.0-47.0); MEAN CELL VOLUME 95.3 fl (81.0-99.0); MEAN CORPUSCULAR HGB 29.8 pg (27.0-31.0); MEAN CORPUSCULAR HGB CONC 31.3 g/dl (33.0-37.0); PLATELET COUNT AUTOMATED 242 10*3/uL (130-400); RED BLOOD COUNT 4.03 10*6/uL (4.10-5.10); RED CELL DISTRI WIDTH 15.7 % (0-14.5); WHITE BLOOD COUNT 19.4 10*3/uL (4.8-10.8)
[2017-05-01 06:45] LABS: EOSINOPHIL # 0.4 10*3/uL (0-0.4); EOSINOPHILS 2 % (1-4); LYMPHOCYTE # 1.6 10*3/uL (1.3-4.4); MONOCYTE # 0.8 10*3/uL (0.1-1.0); NEUTROPHIL # 16.7 10*3/uL (2.3-7.9); NEUTROPHILS 86 % (47-73); PLATELET SUFFICIENCY NORMAL (NORMAL); TOTAL CELLS COUNTED 100 #CELLS
[2017-05-01 06:53] LABS: BUN 18 mg/dl (7-24); CARBON DIOXIDE 36 mmol/L (21-32); CHLORIDE 99 mmol/L (98-107); EST GLOM FILT AFRICAN AMERICAN > 60 ml/min; GLUCOSE 115 mg/dL (65-99); SODIUM 140 mmol/L (136-145)
[2017-05-01 08:00] VITALS: BP 116/50
[2017-05-01 12:00] VITALS: BP 100/84
[2017-05-01 16:00] VITALS: BP 116/60
[2017-05-01 20:00] VITALS: BP 126/56
[2017-05-02] VITALS: BP 107/59
[2017-05-02 06:05] LABS: BASO % 0.2 % (0.0-1.0); EOS # 0.3 10*3/uL (0.0-0.4); EOS % 1.6 % (1.0-4.0); HEMOGLOBIN 11.3 g/dl (12.0-16.0); IG # 0.6 10*3/uL (0.0-0.1); LYMPH # 2.1 10*3/uL (1.3-4.4); LYMPH % 11.3 % (27.0-41.0); MEAN CELL VOLUME 95.6 fl (81.0-99.0); MEAN CORPUSCULAR HGB 30.9 pg (27.0-31.0); MEAN CORPUSCULAR HGB CONC 32.3 g/dl (33.0-37.0); MEAN PLATELET VOLUME 9.5 fl (9.6-12.3); MONO % 11.1 % (3.0-9.0); NEUT # 13.3 10*3/uL (2.3-7.9); NEUT % 72.6 % (47.0-73.0); PLATELET COUNT AUTOMATED 217 10*3/uL (130-400); RED BLOOD COUNT 3.66 10*6/uL (4.10-5.10); RED CELL DISTRI WIDTH 15.6 % (0-14.5); WHITE BLOOD COUNT 18.3 10*3/uL (4.8-10.8)
[2017-05-02 06:20] LABS: BUN 16 mg/dl (7-24); CARBON DIOXIDE 37 mmol/L (21-32); CHLORIDE 100 mmol/L (98-107); EST GLOM FILT AFRICAN AMERICAN > 60 ml/min; GLUCOSE 105 mg/dL (65-99); POTASSIUM 3.9 mmol/L (3.5-5.1); SODIUM 139 mmol/L (136-145)
[2017-05-02 08:00] VITALS: BP 118/67
[2017-05-02 12:00] VITALS: BP 114/53
[2017-05-02 16:00] VITALS: BP 120/70
[2017-05-02 20:00] VITALS: BP 106/71
[2017-05-03] VITALS: BP 116/66
[2017-05-03 07:41] VITALS: BP 119/61
[2017-05-03 11:55] VITALS: BP 121/60
[2017-05-03] MEDS ORDERED: METOPROLOL TART50 M1 PO (12:05)
[2017-05-03] MEDS ORDERED: XANAX0.25 MG PO (12:05)
[2017-05-03] MEDS ORDERED: PREDNISONE10 MG PO (12:05)
== END 2017-05-03 13:30 | disposition other institution (70) | DRG 871 ==
LOC: ED 18:38 → ICCU 21:04 → EDHOLD 21:04 → 4E 21:04 → 5E 22:08 → ICCU 22:56 → 4E 04-29 13:47
PROVIDERS: Emergency Medicine; Internal Medicine; Internal Medicine Critical Care Medicine; Student in an Organized Health Care Education/Training Program
PROC: 5A09357 Assistance with Respiratory Ventilation, Less than 24 Consecutive Hours, Continuous Positive Airway Pressure (ICD-10-PCS; principal; 2017-04-30)
DX: A41.9 Sepsis, unspecified organism (principal); N17.0 Acute kidney failure with tubular necrosis; E44.0 Moderate protein-calorie malnutrition; J96.11 Chronic respiratory failure with hypoxia; J96.12 Chronic respiratory failure with hypercapnia; J18.9 Pneumonia, unspecified organism; E11.65 Type 2 diabetes mellitus with hyperglycemia; I48.92 Unspecified atrial flutter; J44.0 Chronic obstructive pulmonary disease with (acute) lower respiratory infection; J44.1 Chronic obstructive pulmonary disease with (acute) exacerbation; E87.1 Hypo-osmolality and hyponatremia; Z99.81 Dependence on supplemental oxygen; R65.20 Severe sepsis without septic shock; F41.1 Generalized anxiety disorder; D47.3 Essential (hemorrhagic) thrombocythemia; I10 Essential (primary) hypertension; F32.9 Major depressive disorder, single episode, unspecified; E78.5 Hyperlipidemia, unspecified; D50.9 Iron deficiency anemia, unspecified; J20.9 Acute bronchitis, unspecified; T38.0X5A Adverse effect of glucocorticoids and synthetic analogues, initial encounter; I48.0 Paroxysmal atrial fibrillation; E83.41 Hypermagnesemia; G47.33 Obstructive sleep apnea (adult) (pediatric); Z90.49 Acquired absence of other specified parts of digestive tract; Z98.42 Cataract extraction status, left eye; Z98.41 Cataract extraction status, right eye; Z86.73 Personal history of transient ischemic attack (TIA), and cerebral infarction without residual deficits; Z79.01 Long term (current) use of anticoagulants; Z82.3 Family history of stroke; Z79.2 Long term (current) use of antibiotics; Z79.899 Other long term (current) drug therapy; Y92.89 Other specified places as the place of occurrence of the external cause; Z68.29 Body mass index [BMI] 29.0-29.9, adult

== ENCOUNTER 2017-05-15 09:19 | Inpatient (IN) | payer MEDICARE ==
[~2017-05-15] VITALS: Ht 162.6 cm; Wt 79.5 kg
--- NOTE | ~2017-05-15 | PR ---
[place], [place] PROGRESS NOTE NAME: MESERET RUBIO [facility] #: [id number] UNIT #: [id number] ROOM: 407 DOCTOR: NICOLE FERNANDEZ MD,PINO BIRTHDATE: [birth year] DOS: 05/17/2017 SUBJECTIVE: She has been still noted with symptoms of cough on the left side of the chest. Denies symptoms of abdominal pain. Denies symptoms of hemoptysis. The cough has been noted at this time to be moderate without any sputum expectoration. Denies any acute ____ shortness of breath at rest. OBJECTIVE: VITAL SIGNS: Temperature normal, respiratory rate 18, heart rate 110-64, blood pressure 102/54 to 115/65. Intake is 1960, output is 1851 ml and pulse oxygen saturation with the CPAP was 92-100% saturation, on 3 liters nasal cannula was 100% saturation. HEENT: Showed no new change. NECK: Supple. CARDIOVASCULAR: S1, S2 audible. LUNGS: Moderate decreased breath sounds bilaterally without any wheeze or crackles. ABDOMEN: Soft, nontender. LABORATORY DATA: CBC: WBC count 13.8, hemoglobin 9.8, hematocrit 40.0 and platelet count 171,000. The CMP shows glucose 186, BUN and creatinine were normal, carbon dioxide 34. CT scan of the chest which was done without contrast that I ordered for the patient personally reviewed and left adrenal myelolipoma was described. Left lower lobe area of consolidation was noted with air bronchogram in the left lower lobe, which was consistent with the chest x-ray that was done on admission as well. Some area of atelectasis noted in the lingula as well as in the right lower lobe. A 6 mm nodule was noted pleural based in the right lower lobe. In addition, a nodule 1.1 x 0.7 cm was noted pleural based in the right lower lobe as well. The nodules were noted as a new finding as compared with previous CT scan of the chest in 2015 for comparison. IMPRESSION: 1. The patient has been treated for the chest pain, consistent with acute pneumonia at the present time of admission. 2. Chronic obstructive pulmonary disease exacerbation, which has been improving. 3. Generalized anxiety disorder. PLAN OF TREATMENT: The patient will be continued on current therapy and plan of management, except reduction of corticosteroid, reduction of the antibiotic spectrum to be done based on the improvement in the respiratory status and the culture results. Other supportive therapy and plan of management care. Usual medical management therapies. [place], [place] PROGRESS NOTE NAME: MESERET RUBIO UNIT #: [id number] ROOM: [facility] DOCTOR: NICOLE FERNANDEZ MD,PINO BIRTHDATE: [birth year] PINO RIVERA MD CM:PNTRANS [phone] PINO FERNANDEZ MD 05/17/17 1031 interface
--- NOTE | ~2017-05-15 | CON ---
[place], [place] REPORT OF CONSULTATION NAME: MESERET RUBIO UNIT #: [id number] ROOM: 407 DOCTOR: NICOLE FERNANDEZ MDPINO BIRTHDATE: [birth year] DOS: 05/16/2017 PULMONARY CONSULTATION EVALUATION AND MANAGEMENT REASON FOR CONSULTATION: Assess the patient for COPD. HISTORY OF PRESENT ILLNESS: A 71-year-old white female who has been currently treated at [facility]. The patient after discharge from the hospital was doing very well from the pulmonary standpoint. She has not been reporting any symptoms of shortness of breath, cough, wheezing or chest pain, mild after assessment on Tuesday. She started with symptoms of which were described with the pain in the lower back, which has been noted somewhat radiation of the pain. Denies symptoms of mild hemoptysis with that or any chest trauma. She has been sent to the emergency for further assessment, currently been admitted to the hospital. REVIEW OF SYSTEMS: CONSTITUTIONAL: Fatigue and tiredness described, which is mild. Denies symptoms of fever or chills. EYES: Denies any burning, redness, or tenderness. EARS, NOSE, THROAT: No sore throat, hoarseness, otalgia, postnasal drainage or epistaxis. CARDIOVASCULAR: Denies anginal pain, edema, pain of lower extremities. GASTROINTESTINAL: Denies dysphagia, nausea, vomiting, diarrhea, abdominal pain, hematemesis, melena, or hematochezia. MUSCULOSKELETAL: Current pain was described in the lower back. Denies any deformities of any major joints. Denies any abnormal swelling of any joints. SKIN: Denies lesions or rashes. CENTRAL NERVOUS SYSTEM: Denies dizziness, headache, diplopia or syncopal episodes. Remaining systems were reviewed, they were noted all negative. PAST MEDICAL HISTORY: 1. Centrilobular emphysema. 2. Obstructive sleep apnea disorder, chronic hypercapnia and hypoxic respiratory failure. 3. Atrial fibrillation with anticoagulation. 4. Generalized anxiety disorder. PAST SURGICAL HISTORY: 1. Appendectomy. 2. Cardiac catheterization. 3. Fiberoptic bronchoscopy which were noted mainly therapeutic. 4. Cholecystectomy. 5. Bilateral cataract extraction, lens implantation. SOCIAL HISTORY: The patient lives at home. She has been noted history of tobacco use since teenager, pack of cigarettes per day until 2007. [place], [place] REPORT OF CONSULTATION NAME: MESERET RUBIO UNIT #: [id number] ROOM: 407 DOCTOR: NICOLE FERNANDEZ MD,PINO BIRTHDATE: [birth year] FAMILY HISTORY: Mother of complications of acute stroke. The patient's father from complication related to the railroad accident. MEDICATIONS: Current administered medication noted as use of sertraline, multivitamin, Lasix, Dulcolax, IV Solu-Medrol 60 mg b.i.d., Protonix, Xarelto, vitamin D, metoprolol tartrate, Cardizem, Vitamin D, Protonix, Digoxin 125 mcg daily and use of the p.r.n. respiratory medications as well. DRUG ALLERGIES: No known drug allergies. PHYSICAL EXAMINATION: GENERAL: This is a 71-year-old female who has been noted currently resting on her bed comfortably. Height 5 feet 4 inches, weight of 175 pounds, BMI 30.1. VITAL SIGNS: Show a temperature noted 100.7 degrees Fahrenheit oral temperature on admission, respiratory recorded at 20, heart rate 66, blood pressure 108/60-109/53. Pulse oxygen saturation noted on 3 liters nasal canula 98% saturation. HEENT: Shows no new change. NECK: Supple. CARDIOVASCULAR: S1, S2 audible. LUNGS: Scattered crackles of the lungs were noted bilaterally. ABDOMEN: Soft, nontender. Bowel sounds present. CENTRAL NERVOUS SYSTEM: Cranial nerves 2-12 intact. No focal deficit. MUSCULOSKELETAL: No deformities. SKIN: No lesions or rashes. LABORATORY DATA: Chest x-ray was done in the Emergency Room, suspected density in the right mid lung. Lactic acid yesterday on admission normal. PT/INR were noted normal yesterday. CMP on 05/15/2017, glucose 181, BUN and creatinine was normal. Carbon dioxide 34. Digoxin level ____ noted 0.79. CMP of this morning, normal BUN, creatinine, glucose 223. Total protein 6.08, albumin 2.5. CBC of this morning, WBC count 13.7, hemoglobin 10.2, hematocrit 31.5, platelet count was normal. Chest x-ray was done, 1 view, already stated the findings ____. IMPRESSION: 1. The patient has been currently admitted to the hospital with back pain with the possibility of musculoskeletal in origin. 2. Resolving chronic obstructive pulmonary disease, previously noted at the present time. 3. History of chronic hypercapnic hypoxic respiratory failure, use of the oxygen noninvasive ventilator as well. 4. Hyperglycemia, secondary use of corticosteroids. PLAN OF TREATMENT: Decrease the dose of Solu-Medrol to the lower dose. Continuation of bronchodilators, oxygen supplementation, monitor respiratory status closely for the suspected pulmonary nodule in the right mid lung, CT scan of the chest has been ordered to be done with intravenous contrast for further assessment. Based on the assessment of any new other intervention necessary will be ordered accordingly. [place], [place] REPORT OF CONSULTATION NAME: MESERET RUBIO [place] UNIT #: [id number] ROOM: 407 DOCTOR: NICOLE FERNANDEZ MD,PINO BIRTHDATE: [birth year] PINO RIVERA MD CM:CONSTR:REPORT OF CONSULTATION 1245 05/16/17 1449 interface
--- NOTE | ~2017-05-15 | PR ---
[place], [place] PROGRESS NOTE NAME: MESERET RUBIO UNIT #: [id number] ROOM: 407 DOCTOR: PINO REYNOLDS MD BIRTHDATE: [birth year] DOS: 05/18/2017 SUBJECTIVE: She has been noted comfortable at this time, sitting on the chair in a room. The patient denies any symptoms of chest pain or abdominal pain. Date of service if not stated, it would be 05/18/2017. She has been noted reduction of pain of the left lower chest as well. The cough has been noted without sputum expectoration, which showed mild to moderate, shortness of breath has been noted decreased. OBJECTIVE: VITAL SIGNS: Blood pressure was noted as 140/80, temperature was normal, respiratory rate of 20, heart rate 63. The pulse oxygen saturation recorded on nasal cannula supplementation 96% saturation. HEENT: Shows head was atraumatic. Eyes nonicterus. NECK: Supple. CARDIOVASCULAR: S1, S2 audible. LUNGS: General reduction in the breath sounds with minimal crackles in the left lung base. ABDOMEN: Soft, nontender. LABORATORY DATA: CMP showed glucose 177, BUN and creatinine was normal. Carbon dioxide 35. CBC: WBC count 13.5, hemoglobin 10.1, hematocrit 32.7 and platelet count was noted as normal. IMPRESSION: 1. The patient with acute bacterial pneumonia, suspicion of the left lower lobe, currently treated with antibiotic with gradual improvement in the respiratory symptoms has been noted. 2. Chronic obstructive pulmonary disease as well. 3. Chronic hypercapnic and hypoxic respiratory failure. 4. The patient with history of obstructive sleep apnea disorder as well. PLAN OF TREATMENT: No change in the treatment immediately will be needed. Other plan and management to be continued previously in progress. Usual care. Supportive therapy, plan of other care. Usual medical management as previously. Monitor culture results. [place], [place] PROGRESS NOTE NAME: MESERET RUBIO UNIT #: [id number] ROOM: 407 DOCTOR: PINO REYNOLDS MD BIRTHDATE: [birth year] PINO RIVERA MD CM:PNTRANS [id number] PINO FERNANDEZ MD 05/18/17 1311 interface
[~2017-05-15 09:19] MED LIST changes: +METOPROLOL TART50 M1 PO; +SERTRALINE HYD100 MG PO
[2017-05-15 09:30] VITALS: BP 110/53
[2017-05-15 09:34] LABS: BILIRUBIN NEGATIVE (NEGATIVE); BLOOD NEGATIVE (NEGATIVE); CLARITY CLEAR (CLEAR); COLOR YELLOW (YELLOW); GLUCOSE 1+ (NEGATIVE); KETONE NEGATIVE (NEGATIVE); LEUKO ESTERASE NEGATIVE (NEGATIVE); NITRITE NEGATIVE (NEGATIVE); PH 5.5 (5.0-9.0); PROTEIN NEGATIVE (NEGATIVE); SPECIFIC GRAVITY 1.015 (1.005-1.030); UROBILINOGEN 0.2 E.U./dl (0.2-1.0)
[2017-05-15] MEDS ORDERED: VISTARIL25 M2 PO (09:54)
[2017-05-15 09:56] LABS: EPITHELIAL CELLS 0-2; RBC 0-2 rbc/hpf (0-2); URINE REFLEX COMMENT NO (NO)
[2017-05-15] MEDS ORDERED: PREDNISONE20 M1 PO (09:57)
[2017-05-15] MEDS ORDERED: PREDNISONE10 MG PO ×2 (09:58→10:02)
[2017-05-15 09:59] LABS: BASO % 0.1 % (0.0-1.0); EOS # 0.1 10*3/uL (0.0-0.4); EOS % 0.9 % (1.0-4.0); HEMATOCRIT 32.9 % (37.0-47.0); HEMOGLOBIN 10.8 g/dl (12.0-16.0); IG # 0.2 10*3/uL (0.0-0.1); LYMPH # 0.9 10*3/uL (1.3-4.4); LYMPH % 6.4 % (27.0-41.0); MEAN CELL VOLUME 93.2 fl (81.0-99.0); MEAN CORPUSCULAR HGB 30.6 pg (27.0-31.0); MEAN CORPUSCULAR HGB CONC 32.8 g/dl (33.0-37.0); MEAN PLATELET VOLUME 9.9 fl (9.6-12.3); MONO # 0.9 10*3/uL (0.1-1.0); MONO % 6.4 % (3.0-9.0); NEUT # 12.3 10*3/uL (2.3-7.9); NEUT % 85.2 % (47.0-73.0); PLATELET COUNT AUTOMATED 130 10*3/uL (130-400); RED BLOOD COUNT 3.53 10*6/uL (4.10-5.10); RED CELL DISTRI WIDTH 15.7 % (0-14.5); WHITE BLOOD COUNT 14.4 10*3/uL (4.8-10.8)
[2017-05-15] MEDS ORDERED: DULCOLAX10 M1 RC (09:59)
[2017-05-15] MEDS ORDERED: INCRUSE EL62.5 MCG/A IH (09:59)
[2017-05-15] MEDS ORDERED: MILK OF MA400 MG/5 M PO (10:01)
[2017-05-15] MEDS ORDERED: BREO ELLIPTA 11 EACH IH (10:03)
[2017-05-15 10:17] LABS: ALBUMIN 2.9 gm/dl (3.1-4.5); ALKALINE PHOSPHATASE 60 U/L (45-117); BILIRUBIN, TOTAL 1.1 mg/dl (0.2-1.0); BUN 9 mg/dl (7-24); CARBON DIOXIDE 33 mmol/L (21-32); CHLORIDE 94 mmol/L (98-107); CPK 14 U/L (26-192); EST GLOM FILT AFRICAN AMERICAN > 60 ml/min; GLUCOSE 181 mg/dL (65-99); LDH 247 U/L (84-246); MAGNESIUM 1.7 mg/dL (1.5-2.1); POTASSIUM 3.5 mmol/L (3.5-5.1); SGOT/AST 20 IU/L (3-35); SGPT/ALT 32 U/L (12-78); SODIUM 138 mmol/L (136-145); TOTAL PROTEIN 6.1 gm/dL (6.4-8.2)
[2017-05-15 10:26] LABS: CKMB < 0.5 ng/ml (0.5-3.6); TROPONIN I < 0.015 ng/ml (<0.045)
[2017-05-15 11:55] VITALS: BP 98/60
[2017-05-15] MEDS ORDERED: VENTOLIN 02.5 MG/3 M INH ×2 (12:37→12:38)
[2017-05-15] MEDS ORDERED: VITAMIN D1000 IU PO (12:43)
[2017-05-15] MEDS ORDERED: LANOXIN0.125 MG PO (12:45)
[2017-05-15] MEDS ORDERED: DILTIAZEM CD240 MG PO (12:46)
[2017-05-15] MEDS ORDERED: LOPRESSOR50 M1 PO (12:52)
[2017-05-15] MEDS ORDERED: MILK OF MA400 MG/51 PO (12:54)
[2017-05-15] MEDS ORDERED: XANAX0.25 MG PO (13:18)
[2017-05-15] MEDS ORDERED: OXYGEN NAS (13:20)
[2017-05-15 16:00] VITALS: BP 96/50
[2017-05-15 20:00] VITALS: BP 109/53
[2017-05-16] VITALS: BP 110/56
[2017-05-16 06:16] LABS: HEMATOCRIT 31.5 % (37.0-47.0); HEMOGLOBIN 10.2 g/dl (12.0-16.0); MEAN CELL VOLUME 94.3 fl (81.0-99.0); MEAN CORPUSCULAR HGB 30.5 pg (27.0-31.0); MEAN CORPUSCULAR HGB CONC 32.4 g/dl (33.0-37.0); MEAN PLATELET VOLUME 10.2 fl (9.6-12.3); PLATELET COUNT AUTOMATED 141 10*3/uL (130-400); RED BLOOD COUNT 3.34 10*6/uL (4.10-5.10); RED CELL DISTRI WIDTH 15.8 % (0-14.5); WHITE BLOOD COUNT 13.7 10*3/uL (4.8-10.8)
[2017-05-16 06:45] LABS: ALBUMIN 2.5 gm/dl (3.1-4.5); BUN 10 mg/dl (7-24); CARBON DIOXIDE 33 mmol/L (21-32); CHLORIDE 99 mmol/L (98-107); GLUCOSE 223 mg/dL (65-99); MAGNESIUM 2.2 mg/dL (1.5-2.1); POTASSIUM 3.7 mmol/L (3.5-5.1); SODIUM 139 mmol/L (136-145)
[2017-05-16 06:50] LABS: ALKALINE PHOSPHATASE 66 U/L (45-117); BILIRUBIN, TOTAL 0.7 mg/dl (0.2-1.0); EST GLOM FILT AFRICAN AMERICAN > 60 ml/min; PHOSPHOROUS 1.7 mg/dL (2.5-4.9); SGOT/AST 15 IU/L (3-35); SGPT/ALT 29 U/L (12-78)
[2017-05-16 06:55] LABS: LYMPHOCYTE # 0.3 10*3/uL (1.3-4.4); MONOCYTE # 0.1 10*3/uL (0.1-1.0); NEUTROPHIL # 13.3 10*3/uL (2.3-7.9); NEUTROPHILS 97 % (47-73); PLATELET SUFFICIENCY NORMAL (NORMAL); TOTAL CELLS COUNTED 100 #CELLS
[2017-05-16 08:00] VITALS: BP 108/60
[2017-05-16 12:00] VITALS: BP 114/62
[2017-05-16 16:00] VITALS: BP 108/54
[2017-05-16 20:00] VITALS: BP 99/45
[2017-05-17] VITALS: BP 115/65
[2017-05-17 05:39] LABS: HEMATOCRIT 30.4 % (37.0-47.0); HEMOGLOBIN 9.8 g/dl (12.0-16.0); MEAN CORPUSCULAR HGB 30.6 pg (27.0-31.0); MEAN CORPUSCULAR HGB CONC 32.2 g/dl (33.0-37.0); MEAN PLATELET VOLUME 10.2 fl (9.6-12.3); PLATELET COUNT AUTOMATED 171 10*3/uL (130-400); RED CELL DISTRI WIDTH 15.7 % (0-14.5); WHITE BLOOD COUNT 13.8 10*3/uL (4.8-10.8)
[2017-05-17 06:04] LABS: ALBUMIN 2.5 gm/dl (3.1-4.5); BILIRUBIN, TOTAL 0.4 mg/dl (0.2-1.0); BUN 13 mg/dl (7-24); CARBON DIOXIDE 34 mmol/L (21-32); CHLORIDE 98 mmol/L (98-107); GLUCOSE 186 mg/dL (65-99); POTASSIUM 3.7 mmol/L (3.5-5.1); SGOT/AST 10 IU/L (3-35); SODIUM 142 mmol/L (136-145)
[2017-05-17 06:05] LABS: ALKALINE PHOSPHATASE 59 U/L (45-117); EST GLOM FILT AFRICAN AMERICAN > 60 ml/min; SGPT/ALT 24 U/L (12-78)
[2017-05-17 06:12] LABS: LYMPHOCYTE # 0.3 10*3/uL (1.3-4.4); MONOCYTE # 0.1 10*3/uL (0.1-1.0); NEUTROPHIL # 13.4 10*3/uL (2.3-7.9); NEUTROPHILS 97 % (47-73); PLATELET SUFFICIENCY NORMAL (NORMAL); POLYCHROMASIA SLIGHT; TOTAL CELLS COUNTED 100 #CELLS
[2017-05-17 08:00] VITALS: BP 102/54
[2017-05-17 12:00] VITALS: BP 119/62
[2017-05-17 16:00] VITALS: BP 108/53
[2017-05-17 20:00] VITALS: BP 127/63
[2017-05-18] VITALS: BP 124/58
[2017-05-18 06:31] LABS: HEMATOCRIT 32.7 % (37.0-47.0); HEMOGLOBIN 10.1 g/dl (12.0-16.0); MEAN CELL VOLUME 96.2 fl (81.0-99.0); MEAN CORPUSCULAR HGB 29.7 pg (27.0-31.0); MEAN CORPUSCULAR HGB CONC 30.9 g/dl (33.0-37.0); MEAN PLATELET VOLUME 10.1 fl (9.6-12.3); PLATELET COUNT AUTOMATED 213 10*3/uL (130-400); RED CELL DISTRI WIDTH 15.7 % (0-14.5); WHITE BLOOD COUNT 13.5 10*3/uL (4.8-10.8)
[2017-05-18 06:55] LABS: ALBUMIN 2.6 gm/dl (3.1-4.5); BILIRUBIN, TOTAL 0.4 mg/dl (0.2-1.0); BUN 16 mg/dl (7-24); CARBON DIOXIDE 35 mmol/L (21-32); CHLORIDE 98 mmol/L (98-107); EST GLOM FILT AFRICAN AMERICAN > 60 ml/min; GLUCOSE 177 mg/dL (65-99); POTASSIUM 3.7 mmol/L (3.5-5.1); SGOT/AST 10 IU/L (3-35); SGPT/ALT 27 U/L (12-78); SODIUM 139 mmol/L (136-145); TOTAL PROTEIN 6.1 gm/dL (6.4-8.2)
[2017-05-18 06:56] LABS: ALKALINE PHOSPHATASE 62 U/L (45-117)
[2017-05-18 07:19] LABS: LYMPHOCYTE # 0.5 10*3/uL (1.3-4.4); MONOCYTE # 0.1 10*3/uL (0.1-1.0); NEUTROPHIL # 12.8 10*3/uL (2.3-7.9); NEUTROPHILS 95 % (47-73); TOTAL CELLS COUNTED 100 #CELLS
[2017-05-18 07:20] LABS: PLATELET SUFFICIENCY NORMAL (NORMAL); POLYCHROMASIA SLIGHT
[2017-05-18 08:00] VITALS: BP 140/80
[2017-05-18 12:00] VITALS: BP 128/70
[2017-05-18] MEDS ORDERED: K-PHOS500 MG PO (13:43)
[2017-05-18] MEDS ORDERED: XANAX0.25 MG PO (13:43)
[2017-05-18] MEDS ORDERED: PREDNISONE10 MG PO (13:43)
[2017-05-18] MEDS ORDERED: LEVAQUIN750 M1 PO (13:43)
[2017-05-20 14:10] LABS: ORGANISM ID Not indicated. (.); SPECIMEN SOURCE Urine (.); STREPTOCOCCUS PNEUMONIAE AG Negative (Negative)
== END 2017-05-18 16:39 | disposition other institution (70) | DRG 871 ==
LOC: ED 09:19 → 4E 11:27 → EDHOLD 11:27 → 4E 11:35
PROVIDERS: Family Medicine; Internal Medicine; Physician Assistant
PROC: 5A09357 Assistance with Respiratory Ventilation, Less than 24 Consecutive Hours, Continuous Positive Airway Pressure (ICD-10-PCS; principal; 2017-05-17)
DX: A41.9 Sepsis, unspecified organism (principal); J15.9 Unspecified bacterial pneumonia; E44.0 Moderate protein-calorie malnutrition; J96.11 Chronic respiratory failure with hypoxia; J96.12 Chronic respiratory failure with hypercapnia; E11.65 Type 2 diabetes mellitus with hyperglycemia; I10 Essential (primary) hypertension; F32.9 Major depressive disorder, single episode, unspecified; E78.5 Hyperlipidemia, unspecified; G47.33 Obstructive sleep apnea (adult) (pediatric); I48.0 Paroxysmal atrial fibrillation; E83.39 Other disorders of phosphorus metabolism; F41.1 Generalized anxiety disorder; Z96.1 Presence of intraocular lens; T38.0X5A Adverse effect of glucocorticoids and synthetic analogues, initial encounter; D64.9 Anemia, unspecified; Z68.30 Body mass index [BMI] 30.0-30.9, adult; Z86.73 Personal history of transient ischemic attack (TIA), and cerebral infarction without residual deficits; Z99.81 Dependence on supplemental oxygen; Z98.42 Cataract extraction status, left eye; Z98.41 Cataract extraction status, right eye; Z90.49 Acquired absence of other specified parts of digestive tract; Z87.891 Personal history of nicotine dependence; Z82.49 Family history of ischemic heart disease and other diseases of the circulatory system; Z82.3 Family history of stroke; Z80.9 Family history of malignant neoplasm, unspecified; Z79.899 Other long term (current) drug therapy; Y92.89 Other specified places as the place of occurrence of the external cause; J43.2 Centrilobular emphysema

== ENCOUNTER → 2017-09-06 | Outpatient (CLI) | payer MEDICARE ==
[~2017-09-06] MED LIST changes: +DULCOLAX10 M1 RC; +K-PHOS500 MG PO; +MILK OF MA400 MG/5 M PO; +MILK OF MA400 MG/51 PO; +PREDNISONE20 M1 PO; +VENTOLIN 02.5 MG/3 M INH; +VISTARIL25 M2 PO; +VITAMIN D1000 IU PO
== END | disposition home or self-care (01) ==
LOC: RAD 16:03
DX: J96.11 Chronic respiratory failure with hypoxia (principal); J44.9 Chronic obstructive pulmonary disease, unspecified

== ENCOUNTER 2017-10-30 15:11 | Inpatient (IN) | payer MEDICARE ==
[2017-10-30] VITALS (8 sets, daily range): BP systolic 98–118; BP diastolic 45–82
[~2017-10-30] VITALS: Ht 165.1 cm; Wt 78.0 kg
--- NOTE | ~2017-10-30 | PR ---
[place], [place] PROGRESS NOTE NAME: [facility]ER[facility]BIO [id number] UNIT #: [id number] ROOM: 415 DOCTOR: NICOLE FERNANDEZ MD,PINO BIRTHDATE: [birth year] DOS: 11/01/2017 SUBJECTIVE: She has been comfortably resting on the chair, transferred from intensive unit to a telemetry floor. Denies any chest pain, shortness of breath improving. Cough has been noted productive intermittently, wheezing was noted decreased. There was no chest pain. General weakness has been improving. There was no fever or chills reported. OBJECTIVE: VITAL SIGNS: Normal temperature, respiratory rate 16, heart rate 62, blood pressure 116/69. Intake of 2200, output 1552 mL recorded. Pulse ox saturation on 2 liters nasal cannula 96% saturation. HEENT: Examination shows no acute change. NECK: Supple. CARDIOVASCULAR: S1, S2 is audible. LUNGS: Shows moderate decreased breath sounds were noted in the lungs bilaterally. ABDOMEN: Soft, nontender. EXTREMITIES: Shows no acute edema at this time. GENITOURINARY: The patient was noted normal exam. LABORATORY DATA: CBC that was done this morning, hemoglobin 10.9, hematocrit 35.1, WBC count normal, platelet count were normal. CMP this morning, glucose 142. BUN and creatinine was normal. CO2 42. Total protein of 6.3. Urine culture, no bacterial growth, preliminary final culture results pending from yesterday. Gram stain of the sputum on 10/31 moderate white blood cells, few epithelial cells, few gram-positive cocci in pairs, few count, positive bacilli with normal libra preliminary. Blood culture from the 3rd of this month showed no bacterial growths. IMPRESSION: 1. The patient who has been currently admitted to the hospital noted with acute hypercapnic respiratory failure with chronic hypercapnia. 2. Chronic hypoxia and respiratory failure as well. 3. Possibility of acute pneumonia, rounded atelectasis in the left lung was noted, require further assessment as an outpatient as well. 4. Metabolic alkalosis noted. 5. Chronic hypercarbia. 6. Atrial fibrillation, currently noted in control range on today's assessment. 7. Severe debility as well. 8. History of obstructive sleep apnea disorder. PLAN OF TREATMENT: Continue oxygen supplementation, bronchodilators, and oxygen supplementation Diamox. The patient will be started for the next 3 days to manage the patient's current metabolic alkalosis. Dose of the steroids will be decreased to b.i.d. dosing today as well. Other additional treatment changes need to be made based on progression of the illness. Usual care. All other supportive therapy. PLAN OF MANAGEMENT: Monitor the potassium. The patient was placed on the [place], [place] PROGRESS NOTE NAME: MESERET RUBIO UNIT #: [id number] ROOM: [facility] DOCTOR: NICOLE FERNANDEZ MD,PINO BIRTHDATE: [birth year] Diamox. Use of the CPAP and BiPAP from the home setting. Continue maintain oxygen saturation 92% or greater. PINO RIVERA MD CM:KALA [id number] PINO FERNANDEZ MD 11/01/17 1348 interface
--- NOTE | ~2017-10-30 | EKG ---
[place], [place] ELECTROCARDIOGRAM REPORT NAME: MESERET RUBIO UNIT #: [id number] ROOM: 415 DOCTOR: LEONA NEUMANN,MIGUEL ANGEL BIRTHDATE: [birth year] DOS: 10/30/2017 IMPRESSION: 1. Significant baseline artifacts. 2. Atrial fibrillation. 3. Low voltage complex in the precordial leads. MIGUEL ANGEL DELGADILLO MD CM:EKGRPT:ELECTROCARDIOGRAM REPORT [id number] MIGUEL ANGEL DELGADILLO MD
--- NOTE | ~2017-10-30 | CON ---
[place], [place] REPORT OF CONSULTATION NAME: MESERET RUBIO UNIT #: [id number] ROOM: 415 DOCTOR: LEONA NEUMANN,MIGUEL ANGEL BIRTHDATE: [birth year] DOS: 10/30/2017 This note is an addendum to the note dictated by Dr. Vito Mcbride. I personally examined and assessed the patient today. Her medications, history, allergies reviewed. I personally examined the patient and Dr. Mcbride's examination and assessment reflects my work. The case was discussed extensively with Dr. Mcbride. The patient was admitted for shortness of breath and Cardiology was consulted for elevated troponin as well as atrial flutter with rapid ventricular rate. PHYSICAL EXAMINATION: HEART: Regular rhythm, grade 1/6 systolic murmur. EXTREMITIES: Showed 1+ edema. Distal pulses palpable. LUNGS: Diffuse scattered rhonchi. DIAGNOSTIC IMPRESSION: 1. Atrial flutter with rapid ventricular rate, in sinus rhythm. 2. History of paroxysmal atrial fibrillation. Patient was on Eliquis. 3. Acute on chronic heart failure with preserved ejection fraction. 4. Chronic obstructive pulmonary disease exacerbation. RECOMMENDATIONS: 1. We will give Lasix 20 mg IV today and continue rest of her medications. 2. Currently blood pressure and heart rate is stable. 3. Check echo for LV function and valvular function. 4. She can be transferred to telemetry floor from the cardiac standpoint. We will follow the patient along with you. MIGUEL ANGEL DELGADILLO MD CM:CONSTR:REPORT OF CONSULTATION 2219 11/02/17 0321 interface
--- NOTE | ~2017-10-30 | CON ---
[place], [place] REPORT OF CONSULTATION [id number] UNIT #: [id number] ROOM: 415 DOCTOR: NCIOLE FERNANDEZ MDPINO BIRTHDATE: [birth year] DOS: 10/31/2017 REASON FOR CONSULTATION: To assess the patient for current ongoing acute respiratory symptoms. HISTORY OF PRESENT ILLNESS: This 71-year-old white female known to me with past history of chronic hypercapnia, hypoxic respiratory failure, as well as COPD and other problem. She has been admitted to the hospital yesterday. She reported symptoms of having increased shortness of breath, which is occurring for the past couple of weeks, gradually worsening. She was also noted with symptoms of cough for this patient, which has been noted at times by the patient with some sputum expectoration. Wheezing was also noted. She does have symptoms of chest congestion and the tightness in the chest. Reported no acute chest pain. She has been assessed in the Emergency Room for the current medical illness of the patient and has been admitted to the hospital in the Intensive Care Unit. The patient has used the BiPAP since yesterday as well. The chest x-ray of the patient reported as evidence of acute pneumonia. REVIEW OF SYSTEMS: CONSTITUTIONAL: Fatigue and tiredness noted in the patient, which were noted partially improved. Denies symptoms of fever or chills. EYES: Denies any burning, redness, tenderness. NECK, EARS, NOSE, AND THROAT: No Sore throat, hoarseness, otalgia, postnasal drainage. CARDIOVASCULAR: Denies angina pain, edema of the lower extremities. GASTROINTESTINAL: No dysphagia, nausea, vomiting, diarrhea or any abdominal pain. GENITOURINARY: No dysuria, suprapubic pain, or hematuria. SKIN: Denies any lesions or rashes. MUSCULOSKELETAL: The patient denies any acute joint pain, redness, or tenderness. Remaining systems were reviewed with the patient, they were all noted negative. PAST MEDICAL HISTORY: Reviewed for the patient was noted with last admission in this hospital in November 2016. The patient at that time was treated for acute on chronic hypoxic respiratory failure, also noted with acute bacterial pneumonia for this patient. The patient has been admitted twice in the same month and then discharged to the half-way facility from where subsequently she was discharged home. 1. History of advanced COPD and centrilobular emphysema. 2. History of obstructive sleep apnea disorder. 3. Chronic hypercapnic respiratory failure. 4. Chronic hypoxic respiratory failure. 5. Atrial fibrillation treated with anticoagulation. 6. Generalized anxiety disorder. PAST SURGICAL HISTORY: 1. Appendectomy. 2. Cardiac catheterization. [place], [place] REPORT OF CONSULTATION NAME: MESERET RUBIO UNIT #: [id number] ROOM: [facility] DOCTOR: NICOLE FERNANDEZ [facility] BIRTHDATE: [birth year] 3. Therapeutic bronchoscopy previously. 4. Cholecystectomy. 5. Bilateral cataract extraction, lens implantation. SOCIAL HISTORY: The patient lives at home. Denies history of alcohol use. Tobacco use noted as teenager, a pack of cigarettes per day until 2007. FAMILY HISTORY: The patient's mother from complication related to acute stroke. Father from complications to an accident at the railroad. MEDICATIONS: The current administered medication were noted as use of Protonix, IV Solu-Medrol 60 mg q. 8 hours, Xarelto, levalbuterol 1.25 mg q. 4 hours p.r.n., Zithromax, Rocephin, IV Zosyn, and others. DRUG ALLERGIES: No known drug allergies. PHYSICAL EXAMINATION: GENERAL: A 71-year-old female who has been currently sitting on the chair this morning at the time of this assessment using oxygen supplementation, has earlier used a BiPAP. VITAL SIGNS: Height of 5 feet 5 inches, weight of 172 pounds with BMI 28.6. Vital signs of the patient, which has been recorded shows the blood pressure recorded at 130/66-109/65. Heart rate of the patient ranged between 148, maximum heart rate noted 156 this morning with atrial fibrillation, previously with rapid ventricular response. Respiratory rate ranged between 18 and 24. The temperature of the patient was noted as normal. Intake for the patient is 2.0 L/450 mL without Barrera catheter in the last 24 hours. The pulse oxygen saturation on 3 liters nasal cannula 89% saturation, currently noted 95% on 3-liter nasal cannula. HEENT: Examination shows head was atraumatic. Eyes nonicterus. NECK: Supple. CARDIOVASCULAR: S1, S2 is audible. LUNGS: Noted with wheezing in the lung, which were noted scattered bibasilar crackles noted. Breaths are noted mildly diminished bilaterally. ABDOMEN: Soft, flat, nontender, bowel sounds present. EXTREMITIES: Without any edema at the present time. Cranial nerves 2-12 intact. There were no focal deficits. MUSCULOSKELETAL: No acute deformities. SKIN: No lesions or rashes. LABORATORY DATA: The patient's CBC yesterday was noted 4% eosinophils, otherwise normal CBC. Lactic acid yesterday noted 3.0 and subsequent lactic acid noted as 2.6. The CMP for the patient of 10/30/2017, glucose 124, BUN and creatinine normal, carbon dioxide 41. Remaining LFTs were normal. Troponin of the patient 3 sets, which were completed yesterday, were noted all normal. Arterial blood gas for the patient with 3 liters yesterday, pH of 7.32, pCO2 of 68.6, pO2 of 87.9. The CBC of this morning, WBC count normal, hemoglobin of 11.4, hematocrit 36.0, platelet count was normal. The PT/INR for the patient this morning was noted 1.2. CMP of the patient this morning, normal BUN and creatinine. CO2 was 48. [place], [place] REPORT OF CONSULTATION NAME: MESERET RUBIO UNIT #: [id number] ROOM: 415 DOCTOR: NICOLE FERNANDEZ MD,[facility] BIRTHDATE: [birth year] RADIOLOGY: Review of the radiology data for this patient, the chest x-ray, 1-view, which was done for the patient on 10/30/2017 shows hyperinflation of the lungs without any acute abnormalities. CT of the chest for the patient was done on admission was noted as negative for any evidence of pulmonary embolism. The CT scan of the chest of the patient that was done on 10/30/2017 was personally reviewed from PACS images and compared directly to the CT scan of 05/16/2017. A large area of infiltration was involved in the left lower lobe formed markedly. Some pleural thickening was noted. There was a rounded area of infiltration for the patient and a nodular formation was noted in the left lower lobe, if it is a residue of the previous infiltration or pulmonary nodule of the patient cannot be completely excluded. There were no pleural effusions. Changes of severe centrilobular and paraseptal emphysema was present in the lungs related to past tobacco use. IMPRESSION: 1. The patient who has been currently admitted to the hospital noted with symptoms of early sepsis with acute hypercapnic respiratory failure and history of chronic hypoxia. 2. Possibility of acute pneumonia for this patient or pulmonary nodule in the left lower lobe cannot be completely excluded, area of infiltration or rounded atelectasis, rule out true pulmonary nodule. 3. The patient with a history of obstructive sleep apnea disorder as well, which has been treated with a CPAP previously. 4. Generalized anxiety disorder. 5. Atrial fibrillation with rapid ventricular response, which has been currently improving with mild bradycardia noted on today's heart rate monitoring. PLAN OF MANAGEMENT: The patient has been getting very broad spectrum intravenous antibiotic. The patient will be continued on Zithromax and Rocephin, and the Zosyn will be discontinued at the present time. Bronchodilators for the patient will be given. She has been getting Solu-Medrol 60 mg q. 8 hours. The dose will be decreased to 40 mg q. 8 hours. Monitor heart rate closely. Continue chronic anticoagulation with the patient as previously. Other supportive therapy, plan of management. Supportive care plan of treatment. The patient with CPAP from home and at this time could be used to support her respiratory status and also to manage the obstructive sleep apnea disorder. Additional treatment changes will be managed for this patient based on progression of the illness. All other supportive plan of management will be continued. Continue to monitor for any further episode of tachycardia. Nutritional support. Usual care. The patient could be transferred from the intensive care unit to regular medical floor. The current nodular density in this patient needs to be monitored whether it is inflammatory or not at this time, unknown. However, remainder of the history will remain in consideration for differential diagnosis with close monitoring with a followup CT scan of the chest in future. [place], [place] REPORT OF CONSULTATION NAME: MESERET RUBIO [place] UNIT #: [id number] ROOM: 415 DOCTOR: PINO REYNOLDS MD BIRTHDATE: [birth year] PINO RIVERA MD CM:CONSTR:REPORT OF CONSULTATION 1104 11/01/17 0116 interface
[2017-10-30 16:01] LABS: BILIRUBIN NEGATIVE (NEGATIVE); BLOOD 1+ (NEGATIVE); CLARITY SL CLOUDY (CLEAR); COLOR YELLOW (YELLOW); GLUCOSE NEGATIVE (NEGATIVE); KETONE NEGATIVE (NEGATIVE); LEUKO ESTERASE 3+ (NEGATIVE); NITRITE NEGATIVE (NEGATIVE); UROBILINOGEN 0.2 E.U./dl (0.2-1.0)
[2017-10-30 16:04] LABS: BASO % 0.2 % (0.0-1.0); EOS # 0.4 10*3/uL (0.0-0.4); EOS % 4.1 % (1.0-4.0); HEMOGLOBIN 13.6 g/dl (12.0-16.0); LYMPH # 1.7 10*3/uL (1.3-4.4); LYMPH % 17.7 % (27.0-41.0); MEAN CELL VOLUME 92.1 fl (81.0-99.0); MEAN CORPUSCULAR HGB 28.5 pg (27.0-31.0); MEAN CORPUSCULAR HGB CONC 30.9 g/dl (33.0-37.0); MONO # 0.7 10*3/uL (0.1-1.0); MONO % 7.7 % (3.0-9.0); NEUT # 6.7 10*3/uL (2.3-7.9); PLATELET COUNT AUTOMATED 200 10*3/uL (130-400); RED BLOOD COUNT 4.78 10*6/uL (4.10-5.10); RED CELL DISTRI WIDTH 19.9 % (0-14.5); WHITE BLOOD COUNT 9.6 10*3/uL (4.8-10.8)
[2017-10-30 16:15] LABS: BACTERIA 2+; WBC 16-20 wbc/hpf (0-5)
--- NOTE | 2017-10-30 16:25 | NUR ---
PT TACHYCARDIC TOLD TO MELA JORGE BIOFUELS PRODUCTION TECHNICIAN. BP SLIGHTLY HYPOTENSIVE, SHE IS AWARE OF THIS WELL.
[2017-10-30 16:27] LABS: ALBUMIN 3.5 gm/dl (3.1-4.5); ALKALINE PHOSPHATASE 90 U/L (45-117); BUN 16 mg/dl (7-24); CHLORIDE 94 mmol/L (98-107); CREATININE 0.87 mg/dL (0.55-1.02); POTASSIUM 4.3 mmol/L (3.5-5.1); SGOT/AST 21 IU/L (3-35); SGPT/ALT 34 U/L (12-78); SODIUM 139 mmol/L (136-145); TOTAL PROTEIN 7.2 gm/dL (6.4-8.2)
[2017-10-30 16:50] LABS: TROPONIN I < 0.015 ng/ml (<0.045)
--- NOTE | 2017-10-30 16:52 | NUR ---
RIGHT AC IV NOT FLOWING DUE TO PATIENT ARM BEING BENT. FLUSHES WITH SOME DIFFICUTLY. IV REMOVED AND NEW IV ACCESS OBTAINED.
--- NOTE | 2017-10-30 16:54 | NUR ---
MELA JORGE AWARE OF CRITICAL CARBON DIOXIDE 41
--- NOTE | 2017-10-30 17:10 | NUR ---
PT PROVIDED WITH DINNER TRAY. WILL BE TRANSPORTED TO [facility] SHORTLY.
--- NOTE | 2017-10-30 17:35 | NUR ---
REPORT TO SAMIRA JUNG. [facility]
--- NOTE | 2017-10-30 17:50 | NUR ---
A 71, admitted to [facility], under the services of MARQUISE Sanchez DO with a diagnosis of CHRONIC RESP. FAILUREWITH HYPOXIA /RLL PNEUMONIA. Chief complaint is INCREASING SHORTNESS OF BREATH AND COUGH FOR A COUPLE OF WEEKS. Patient arrived via stretcher from ER. Monitor applied. Initial assessment completed. Vital signs taken and recorded. MARQUISE SANCHEZ DO notified of admission to the unit. Orders received. See assessment for past medical history, medications and allergies. Patient and/or family oriented to unit. [facility] visitation policy reviewed. Clothing/patient valuable form completed. [place]
[2017-10-30] MEDS ORDERED: K-TAB20 MEQ PO (17:54)
[2017-10-30] MEDS ORDERED: WELLBUTRIN XL150 MG PO (17:55)
[2017-10-30] MEDS ORDERED: INCRUSE ELLI62.5 MCG INH (17:55)
[2017-10-30] MEDS ORDERED: RESTORIL15 MG PO (17:57)
[2017-10-30] MEDS ORDERED: BUSPAR5 MG PO (18:01)
--- NOTE | 2017-10-30 20:15 | NUR ---
DR DELGADILLO NOTIFIED OF CONSULT. NEW ORDER TO D/C CARDIZEM GTT AND WILL SEE PT IN AM.
[2017-10-30 20:16] LABS: ABG BASE EXCESS 7.6 mmol/L (-2.0-2.0); ABG HCO3 35.1 mmol/l (22-26); ABG O2 SATURATION 96.7 % (95-97); ARTERIAL BLOOD GAS PCO2 68.6 mmHg (35-45); ARTERIAL BLOOD GAS PH 7.328 (7.35-7.45); ARTERIAL BLOOD GAS PO2 87.9 mmHg (80-90)
--- NOTE | 2017-10-30 20:20 | NUR ---
DR RIVERA NOTIFIED OF CONSULT AND CTA RESULTS. NO NEW ORDERS RECEIVED.
--- NOTE | 2017-10-30 21:20 | NUR ---
MEDICATED WITH RESTORIL PER PRN ORDER FOR C/O INSOMNIA.
[2017-10-31] VITALS: BP 110/56
[2017-10-31 04:00] VITALS: BP 122/53
[2017-10-31 04:56] LABS: LYMPH # 0.8 10*3/uL (1.3-4.4); LYMPH % 15.3 % (27.0-41.0); MEAN CELL VOLUME 92.3 fl (81.0-99.0); MEAN CORPUSCULAR HGB 29.2 pg (27.0-31.0); MEAN CORPUSCULAR HGB CONC 31.7 g/dl (33.0-37.0); MEAN PLATELET VOLUME 9.7 fl (9.6-12.3); MONO # 0.2 10*3/uL (0.1-1.0); MONO % 3.8 % (3.0-9.0); NEUT % 80.3 % (47.0-73.0); PLATELET COUNT AUTOMATED 151 10*3/uL (130-400); RED CELL DISTRI WIDTH 19.7 % (0-14.5)
[2017-10-31 04:57] LABS: HEMOGLOBIN 11.4 g/dl (12.0-16.0)
[2017-10-31 05:00] LABS: INTERNATIONAL NORM RATIO 1.2 (2.0-3.5)
[2017-10-31 05:10] LABS: ALKALINE PHOSPHATASE 76 U/L (45-117); BUN 13 mg/dl (7-24); CHLORIDE 99 mmol/L (98-107); CHOLESTEROL 184 mg/dL (<200); CREATININE 0.88 mg/dL (0.55-1.02); HDL CHOLESTEROL 37 mg/dl (40-60); LDL CHOLESTEROL 123 mg/dL (9-159); PHOSPHOROUS 2.2 mg/dL (2.5-4.9); POTASSIUM 4.8 mmol/L (3.5-5.1); SGOT/AST 16 IU/L (3-35); SGPT/ALT 29 U/L (12-78); SODIUM 142 mmol/L (136-145); TOTAL PROTEIN 6.2 gm/dL (6.4-8.2); TRIGLYCERIDES 121 mg/dl (<150); VLDL CHOLESTEROL 24 mg/dL (6-40)
[2017-10-31 05:15] LABS: THYROID STIM HORMONE (HS) 0.527 uIU/ml (0.358-4.75)
--- NOTE | 2017-10-31 07:56 | NUR ---
Shift chart check completed.
[2017-10-31 08:00] VITALS: BP 130/66
--- NOTE | 2017-10-31 08:54 | NUR ---
PATIENT UP IN CHAIR TO EAT AFTER USING BSC. MIN ASSISTANCE D/T WIRES ONLY NEEDED. IV SITE ASYMPTOMATIC X2. IVF DISCONTINUED PER ORDERS. NO EDEMA. NO WOUNDS. HAND LIBRARY CIRCULATION TECHNICIAN AT BEDSIDE
--- NOTE | 2017-10-31 09:30 | NUR ---
Hospital Admissions Officer in to talk to patient. Patient states lives alone at home. There are 2 steps in the home. Physician: Dr. Gladis Murphy Pharmacy: [facility] services: none at present, previously used [facility], [facility] Patient's level of ADLs: MINIMAL ASSIST Patient has working utilities: yes DME: oxygen, nebulizer, walker Follow-up physician's appointment after d/c: will be made by hospitalist nurse director upon discharge Does patient want to access PORTAL?: no Discharge plan discussed with patient. Patient lives home alone but has 3 children that check in on her. She uses a walker and is independent in her ADLs. She plans to return home upon discharge. No new needs or request at this time. LEONARD TATE
[2017-10-31 09:40] LABS: VITAMIN D, 25-HYDROXY 43.1 ng/mL (30-100)
--- NOTE | 2017-10-31 11:15 | NUR ---
SLEEPING IN THE CHAIR - RESP EASY & NONLABORED
[2017-10-31 12:00] VITALS: BP 126/64
--- NOTE | 2017-10-31 12:15 | NUR ---
DR DELGADILLO HERE. ORDERS RECEIVED
--- NOTE | 2017-10-31 12:58 | NUR ---
SPUTUM SPECIMEN SENT PER ORDERS. UNABLE TO GET URINE SHE FORGOT & PLACED TOILET PAPER IN HAT
--- NOTE | 2017-10-31 14:18 | NUR ---
URINE SPECIMEN COLLECTED & SENT AFTER THE 1ST CAME BACK A CONTAMINATE. ECHO BEING DONE AT BEDSIDE & PATIENT WILL THEN BE TRANSFERRED TO [facility] VIA BED. BELONGINGS WITH PATIENT.
[2017-10-31 14:22] LABS: BILIRUBIN NEGATIVE (NEGATIVE); BLOOD NEGATIVE (NEGATIVE); CLARITY CLEAR (CLEAR); COLOR YELLOW (YELLOW); GLUCOSE 1+ (NEGATIVE); KETONE NEGATIVE (NEGATIVE); LEUKO ESTERASE NEGATIVE (NEGATIVE); NITRITE NEGATIVE (NEGATIVE); SPECIFIC GRAVITY 1.015 (1.005-1.030); UROBILINOGEN 0.2 E.U./dl (0.2-1.0)
[2017-10-31 14:39] LABS: BACTERIA 2+; RBC 0-2 rbc/hpf (0-2)
--- NOTE | 2017-10-31 15:45 | NUR ---
IN TO SEE PT, PT ALERT ORIENTED AND PLEASANT. NO S/S OF PAIN OR DISTRESS. RESPIRATIONS EASY AND UNLABORED. NO COMPLAINTS VOICED. ENCOURAGED USE OF CALL LIGHT FOR NEEDS/CONCERNS.
[2017-10-31 16:00] VITALS: BP 121/59
--- NOTE | 2017-10-31 18:43 | NUR ---
SPOKE WITH DR. DUMONT REGARDING PT HOME MEDICATIONS AND PT CONCERNS THAT SHE IS NOT GETTING SOME MEDICATIONS THAT SHE NEEDS. DR. DUMONT STATES THAT WILL REVIEW MEDICATIONS.
[2017-10-31 20:00] VITALS: BP 107/53
[2017-11-01] VITALS: BP 130/67
--- NOTE | 2017-11-01 01:00 | NUR ---
PATIENT RESTING IN BED WITH NO S/S OF DISTRESS. RESPS EASY AND REGULAR. BED IN LOWEST POSITION, CALL LIGHT IN REACH
[2017-11-01 07:16] LABS: BASO % 0.1 % (0.0-1.0); HEMATOCRIT 35.1 % (37.0-47.0); HEMOGLOBIN 10.9 g/dl (12.0-16.0); LYMPH # 0.7 10*3/uL (1.3-4.4); LYMPH % 8.8 % (27.0-41.0); MEAN CELL VOLUME 93.4 fl (81.0-99.0); MEAN CORPUSCULAR HGB CONC 31.1 g/dl (33.0-37.0); MEAN PLATELET VOLUME 10.1 fl (9.6-12.3); MONO # 0.4 10*3/uL (0.1-1.0); MONO % 5.4 % (3.0-9.0); NEUT # 6.7 10*3/uL (2.3-7.9); NEUT % 85.3 % (47.0-73.0); PLATELET COUNT AUTOMATED 149 10*3/uL (130-400); RED BLOOD COUNT 3.76 10*6/uL (4.10-5.10); RED CELL DISTRI WIDTH 19.5 % (0-14.5); WHITE BLOOD COUNT 7.9 10*3/uL (4.8-10.8)
[2017-11-01 07:42] LABS: ALBUMIN 3.1 gm/dl (3.1-4.5); ALKALINE PHOSPHATASE 69 U/L (45-117); BUN 20 mg/dl (7-24); CHLORIDE 97 mmol/L (98-107); CREATININE 0.69 mg/dL (0.55-1.02); POTASSIUM 4.2 mmol/L (3.5-5.1); SGOT/AST 13 IU/L (3-35); SGPT/ALT 29 U/L (12-78); SODIUM 141 mmol/L (136-145); TOTAL PROTEIN 6.3 gm/dL (6.4-8.2)
--- NOTE | 2017-11-01 07:52 | NUR ---
DR. RIVERA CALLED AWARE OF CRITICAL CO2 NO NEW ORDERS.
[2017-11-01 07:57] VITALS: BP 138/82
--- NOTE | 2017-11-01 08:13 | NUR ---
PT AWAKE IN CHAIR RESTING COMFORTABLY. PT VERY COOPERATIVE. DENIES PAIN, DENIES SOB. PT SET UP FOR BATH. NO PT COMPLAINTS AT THIS TIME. MEI KUMAR [facility]
--- NOTE | 2017-11-01 09:00 | NUR ---
Wire Communications Engineer in to see patient. When medically stable patient will be discharged home.
--- NOTE | 2017-11-01 09:13 | NUR ---
DR. DUMONT CALLED NOTIFIED OF CRITICAL LAB. NOTIFY DR. RIVERA.
--- NOTE | 2017-11-01 10:16 | NUR ---
PT SITTING UP IN CHAIR EATING BREAKFAST. NO DYSPNEA NOTED. PT HAD NO COMPLAINTS AT THIS TIME. [facility]
[2017-11-01 12:00] VITALS: BP 116/59
--- NOTE | 2017-11-01 12:20 | NUR ---
PT SITTING IN CHAIR WATCHING TELEVISION, PT HAS NO COMPLAINTS AT THIS TIME DENIES PAIN AND DYSPNEA. PT WAS ORDERING LUNCH. MEI LUCAS[facility]
--- NOTE | 2017-11-01 13:33 | NUR ---
PT WAS FINISHING HER LUNCH. PT PLEASANT AND COOPERATIVE. MEI KUMAR [facility]
[2017-11-01 13:57] LABS: BUN 21 mg/dl (7-24); CHLORIDE 96 mmol/L (98-107); CREATININE 0.94 mg/dL (0.55-1.02); POTASSIUM 4.2 mmol/L (3.5-5.1); SODIUM 140 mmol/L (136-145)
[2017-11-01] MEDS ORDERED: PREDNISONE50 MG PO (14:26)
[2017-11-01] MEDS ORDERED: LEVAQUIN750 M1 PO (14:26)
[2017-11-01 16:00] VITALS: BP 125/68
--- NOTE | 2017-11-01 17:28 | NUR ---
CALLED DR. RIVERA AWARE OF DISCHARGE MAKE SURE SHE GOES HOME WITH DIAMOX PER DR. RIVERA.
[2017-11-01] MEDS ORDERED: ACETAZOLAMIDE250 MG PO (17:33)
--- NOTE | 2017-11-01 17:35 | NUR ---
DR. NOVA AWARE OF DR. RIVERA'S REQUEST FOR PATIENT TO BE DISCHARGED WITH DIAMOX 250MG BID X4 DOSES TO START TOMORROW. VOICES UNDERSTANDING. SOURAV ROMERO RN
--- NOTE | 2017-11-01 19:58 | NUR ---
PATIENT TAKEN OUT VIA WHEELCHAIR WITH PA AND DAUGHTER. OXYGEN INTACT VIA NC. NO DISTRESS NOTED. BELONGINGS WITH DAUGHTER.
== END 2017-11-01 19:58 | disposition home or self-care (01) | DRG 871 ==
LOC: ED 15:11 → ICCU 16:51 → EDHOLD 16:51 → ICCU 17:08 → 4E 10-31 14:23
PROVIDERS: Hospitalist; Internal Medicine; Registered Nurse; Student in an Organized Health Care Education/Training Program; ADMIT Internal Medicine
DX: A41.9 Sepsis, unspecified organism (principal); J69.0 Pneumonitis due to inhalation of food and vomit; J96.21 Acute and chronic respiratory failure with hypoxia; I50.33 Acute on chronic diastolic (congestive) heart failure; E87.3 Alkalosis; E11.65 Type 2 diabetes mellitus with hyperglycemia; D68.59 Other primary thrombophilia; J96.22 Acute and chronic respiratory failure with hypercapnia; I48.92 Unspecified atrial flutter; N39.0 Urinary tract infection, site not specified; J44.1 Chronic obstructive pulmonary disease with (acute) exacerbation; J44.0 Chronic obstructive pulmonary disease with (acute) lower respiratory infection; I11.0 Hypertensive heart disease with heart failure; I48.0 Paroxysmal atrial fibrillation; Z99.81 Dependence on supplemental oxygen; D64.9 Anemia, unspecified; R65.20 Severe sepsis without septic shock; D72.810 Lymphocytopenia; R91.1 Solitary pulmonary nodule; H35.30 Unspecified macular degeneration; G47.33 Obstructive sleep apnea (adult) (pediatric); F32.9 Major depressive disorder, single episode, unspecified; R53.81 Other malaise; E78.2 Mixed hyperlipidemia; F41.1 Generalized anxiety disorder; Z66 Do not resuscitate; Z51.5 Encounter for palliative care; Z86.73 Personal history of transient ischemic attack (TIA), and cerebral infarction without residual deficits; Z79.01 Long term (current) use of anticoagulants; Z98.42 Cataract extraction status, left eye; Z98.41 Cataract extraction status, right eye; Z90.49 Acquired absence of other specified parts of digestive tract; Z82.3 Family history of stroke; Z84.89 Family history of other specified conditions

== ENCOUNTER 2017-12-02 10:06 | Inpatient (IN) | payer MEDICARE ==
[2017-12-02] VITALS (7 sets, daily range): BP systolic 130–146; BP diastolic 68–91
[~2017-12-02] VITALS: Ht 165.1 cm; Wt 79.0 kg
--- NOTE | ~2017-12-02 | PR ---
[place], [place] PROGRESS NOTE NAME: MESERET RUBIO [facility] #: [id number] UNIT #: [id number] ROOM: 511 DOCTOR: NICOLE FERNANDEZ MD,PINO BIRTHDATE: [birth year] DOS: 12/06/2017 SUBJECTIVE: The patient has been noted comfortable at this time without any acute distress. She has been noted with continued reduction and improvement in the respiratory symptoms of shortness of breath and wheezing. She has ambulated yesterday with use of oxygen. OBJECTIVE: VITAL SIGNS: For the patient which has been recorded patient showed the temperature noted as normal, respiratory rate 20, heart rate of 55-61, blood pressure 125/70-136/65. The pulse oxygen saturation for the patient on 3 liters nasal cannula 96% saturation. HEENT: Examination shows no acute change at the present time. NECK: Supple. CARDIOVASCULAR: S1, S2 is audible. LUNGS: Moderate decreased breath sounds with scattered expiratory wheezing, no crackles. ABDOMEN: Soft and nontender. EXTREMITIES: The patient noted without any acute edema. GENITOURINARY: There were no gross focal deficit. MUSCULOSKELETAL: Does not show any acute deformities. LABORATORY DATA: MRI done yesterday as the patient has been noted to have frequent fall at home reported as no acute intracranial abnormalities. 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 The patient was also noted with mild chronic small vessel ischemic changes. CMP for the patient today shows glucose 175 and BUN and creatinine were normal. Sodium 134, potassium 3.5 as low normal, chloride of 93. IMPRESSION: 1. The patient who has been currently noted with gradual resolution of acute on chronic hypercapnic and hypoxic respiratory failure. 2. Resolving acute exacerbation of chronic obstructive pulmonary disease. 3. Improving severe metabolic alkalosis as well. 4. History of recurrent fall. The patient with old infarct in the basal ganglia for this patient in the pontine area for the patient may be causing some imbalance as well. PLAN OF TREATMENT: Reduce the dose of Solu-Medrol for the patient at this time from 60 mg q.8 hours to 40 mg b.i.d. Discontinuation of the Diamox of this patient after 3 more doses. Monitor respiratory status otherwise closely. Usual care, other supportive plan of management and care plan. Additional treatment changes will be done for the patient based on the progression of the illness. [place], [place] PROGRESS NOTE NAME: MESERET RUBIO UNIT #: [id number] ROOM: 511 DOCTOR: NICOLE FERNANDEZ MD,PINO BIRTHDATE: [birth year] PINO RIVERA MD CM:PNTRANS 1257 [id number] PINO FERNANDEZ MD 12/06/17 2333 interface
--- NOTE | ~2017-12-02 | PR ---
[place], [place] PROGRESS NOTE NAME: MESERET RUBIO [facility] #: [id number] UNIT #: [id number] ROOM: 511 DOCTOR: NICOLE FERNANDEZ MD,PINO BIRTHDATE: [birth year] DOS: 12/05/2017 PULMONARY PROGRESS NOTE SUBJECTIVE: The patient was seen and examined. She has been noted more awake and alert without any confusion status. She uses the BiPAP as advised. Reported no symptoms of diplopia, blurry vision or headache. Denies any symptoms of sore throat, hoarseness. Denies any nausea or vomiting. Denies any abdominal pain. The patient did not report any acute edema of the lower extremities or pain. Remaining systems were reviewed and they were noted all negative. OBJECTIVE: VITAL SIGNS: For the patient which were recorded shows the temperature noted as normal. The respiratory rate of the patient recorded as 19-18, heart rate of 56-68, blood pressure 149/78-133/63. HEENT: Shows no acute change. NECK: Supple. CARDIOVASCULAR: S1, S2 is audible. LUNGS: The patient was noted with moderate decreased breath sounds with expiratory wheezing, partially decreased from previous examination. ABDOMEN: Soft, nontender. EXTREMITIES: The patient was noted without any acute edema at the present time. ABDOMEN: Soft, nontender. SKIN VISIBLE: No lesions or rashes. MUSCULOSKELETAL: No deformities. GENITOURINARY: Intact. LABORATORY DATA: Reviewed for the patient today. CBC done this morning, hemoglobin and hematocrit normal, WBC count and platelet count were normal. The BMP for the patient of 12/05/2017, glucose 193, BUN and creatinine were normal. CO2 was noted as elevated at 49. IMPRESSION: 1. The patient with acute on chronic severe hypercapnic respiratory failure with change in mental status, which is improving. 2. Asymptomatic bradycardia with atrial fibrillation. 3. Worsening of the metabolic alkalosis. 4. Severe debility, persistent. PLAN OF MANAGEMENT: The patient will be started on Diamox at the present time for the management of the metabolic alkalosis. The potassium level will be monitored for the patient with the use of Diamox as well. Continuation of the bronchodilators. Reduction of the corticosteroid dose. Continuation of antibiotic. Continue use of the BiPAP. Ambulation was encouraged to the patient with the oxygen at the present time as tolerated. Additional treatment changes to be made for this patient based on progression of the illness. Diamox for the patient was started at 250 mg 3 times a day. Routine labs was ordered for the patient as well for the assessment of the potassium. Other supportive plan of management and care. [place], [place] PROGRESS NOTE NAME: MESERET RUBIO UNIT #: [id number] ROOM: [facility] DOCTOR: NICOLE FERNANDEZ MD,PINO BIRTHDATE: [birth year] PINO RIVEAR MD CM:PNSANGEETA [id number] PINO FERNANDEZ MD 12/05/172226 interface
--- NOTE | ~2017-12-02 | PR ---
[place], [place] PROGRESS NOTE NAME: [facility]BIO [id number] UN[facility] #: [id number] ROOM: 511 DOCTOR: SHARRON RIBEIRO DO BIRTHDATE: [birth year] DOS: 12/07/2017 SUBJECTIVE: The patient was seen and examined at bedside. The patient was comfortable at this time, in no acute distress. The patient has improved with her respiratory symptoms; however, she does feel that due to her continued shortness of breath and wheezing that she would benefit from at least one more day in the hospital before she feels like she be ready for discharge. The patient has been up and able to ambulate with oxygen. OBJECTIVE: VITAL SIGNS: Temperature 97.8, pulse is 53, respirations 20, blood pressure 132/80, pulse ox is 94% on 3 liters nasal cannula. GENERAL APPEARANCE: The patient is alert and oriented x 3, in no acute distress. HEENT: Eyes were clear. No injection. Nares were patent. Mucous membranes were moist. NECK: Supple, nontender. CARDIOVASCULAR: S1 and S2 normal. No murmurs, gallops or rubs. Regular rate and rhythm. LUNGS: Decreased breath sounds with scattered expiratory wheezing. however, improved with no rales. ABDOMEN: Soft and nontender. EXTREMITIES: The patient is noted without any acute edema. NEUROLOGIC: There is no gross focal deficit on neuro exam. MUSCULOSKELETAL: Shows no deformities. LABORATORY DATA; A BMP was drawn this morning. Electrolytes were stable. Improved carbon dioxide, however, it does remains mildly elevated at 36, also glucose was elevated at 181 and magnesium was elevated at 2.4. IMPRESSION: 1. Chronic obstructive pulmonary disease with acute exacerbation. The patient continues to improve; however, this is a chronic issue with acute exacerbation and has decreased pulmonary reserve. 2. Improving severe metabolic alkalosis. 3. 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 TREATMENT PLAN: Continue current respiratory therapy including steroids at 40 twice a day and antibiotics and breathing treatments as needed, continue to monitor. We will reassess the patient tomorrow for patient's medical stability to be discharged, would recommend that the patient be assessed by Risk Control Manager to see if she would be in agreement to go to SNF for rehab; however, according to the primary team, they have noted that she up to this point has refused any placement. SHARRON RIBEIRO DO [place], [place] PROGRESS NOTE NAME: MESERET RUBIO UNIT #: [id number] ROOM: [facility] DOCTOR: SHARRON RIBEIRO DO BIRTHDATE: [birth year] PINO RIVERA MD CM:KALA [id number] SHARRON RIBEIRO DO 12/07/17 1750 interface
--- NOTE | ~2017-12-02 | CON ---
[place], [place] REPORT OF CONSULTATION [id number] #: [id number] ROOM: 511 DOCTOR: PINO REYNOLDS MD BIRTHDATE: [birth year] DOS: 12/03/2017 PULMONARY CONSULTATION, EVALUATION AND MANAGEMENT CONSULTATION REQUESTED BY: Hospitalist service. REASON FOR CONSULTATION: Assessment of current acute on chronic hypoxic respiratory failure with exacerbation of COPD. HISTORY OF PRESENT ILLNESS: A 72-year-old white female who has been known to me from the past with history of severe COPD patient/centrilobular emphysema, chronic hypercapnic and hypoxic respiratory failure. The patient presented to the hospital as she has reported increased symptoms of shortness of breath occurring for the past couple of weeks. The symptoms have been noted with gradual worsening. The patient was found on the floor this morning with increased confusion, unsteadiness and generalized weakness. The patient was brought to the hospital. She also reported history of emesis, but there were no aspiration described. The patient did report symptoms of productive cough. She has been assessed in the emergency, noted with severe hypercarbia with severe acute hypercapnic and hypoxic respiratory failure. PCO2 was noted significantly elevated as 105 with reduction of the pH. The pH was noted 7.26 and pO2 of 105. The patient had been immediately started on the BiPAP. I was asked for consultation to adjust and the change in mechanical ventilator for the patient was made according to the niece of this patient. She has been noted with reduction of the respiratory symptom, yesterday noted with improvement in the confusion as well unresponsiveness at the present time. Appropriately responding to the questions. REVIEW OF SYSTEMS: CONSTITUTIONAL SYMPTOMS: Generalized weakness, fatigue persisted. Denies symptoms of fever or chills. EYES: Denies any burning, redness, or tenderness. EAR, NOSE, THROAT SYMPTOMS: Denies sore throat, hoarseness, or otalgia. CARDIOVASCULAR: Denies anginal pain, edema, pain of the lower extremity. GASTROINTESTINAL SYMPTOMS: Denies dysphagia, nausea, vomiting, diarrhea, abdominal pain, hematemesis, melena, or hematochezia. SKIN: Denies lesions or rashes. CENTRAL NERVOUS SYSTEM: The patient denies any dizziness, headache, diplopia or seizures. Remaining systems were reviewed with the patient and they were noted all negative. PAST MEDICAL HISTORY: 1. Noted recurrent hospitalization of COPD. 2. History of COPD and advanced centrilobular emphysema. 3. Obstructive sleep apnea disorder. 4. Chronic hypercapnic respiratory failure. 5. Chronic hypoxic respiratory failure. 6. Atrial fibrillation. 7. Chronic anticoagulation for atrial fibrillation. [place], [place] REPORT OF CONSULTATION NAME: MESERET RUBIO UNIT #: [id number] ROOM: 511 DOCTOR: ROSY REYNOLDS MDM BIRTHDATE: [birth year] 8. Generalized anxiety disorder. 9. Metabolic alkalosis secondary to hypercarbia. PAST SURGICAL HISTORY: 1. Appendectomy. 2. Cardiac catheterization and coronary intervention. 3. Therapeutic bronchoscopies. 4. Cholecystectomy. 5. Bilateral cataract extraction, lens implantation. SOCIAL HISTORY: The patient lives at home. There was no history of alcohol use, illicit drug use or any occupation related pulmonary exposure. Tobacco use noted from teenager, pack of cigarettes per day until 2007. FAMILY HISTORY: The patient's father complication related to the railroad accident. Mother complication related to the acute stroke. MEDICATIONS: Current administered medication noted use of potassium chloride, Lasix, vitamin D, Wellbutrin, Cardizem, Xarelto, sertraline, metoprolol tartrate, IV Solu-Medrol 60 mg q.8 hours, DuoNeb q.4 hours, Levaquin intravenously, BuSpar and other p.r.n. medications. DRUG ALLERGIES: Noted with no known drug allergies. PHYSICAL EXAMINATION: GENERAL: This is a 72-year-old female who has been currently noted to be more awake, alert, and oriented. The height noted 5 feet 5 inches, weight 174 pounds using the BiPAP. VITAL SIGNS: The patient was noted with a normal temperature, respiratory rate 18, heart rate 74, blood pressure 123/73. Pulse oxygen saturation was noted on 40% oxygen, BiPAP is 98%. On admission, the patient's saturation of oxygen was noted 91% on 4 liter nasal cannula. HEENT: Examination shows head was atraumatic. Eyes nonicterus. Oral mucosa is noted mildly dry. NECK: Supple. CARDIOVASCULAR: S1, S2 is audible. LUNGS: The patient was noted without any crackles, rhonchi, or wheezing at the present time. The breaths are noted severely diminished with decreased air entry. ABDOMEN: Soft, nontender. No organomegaly. EXTREMITIES: The patient was noted without any acute edema, clubbing or cyanosis. MUSCULOSKELETAL: Without any acute deformities. VISIBLE SKIN: Shows scattered bruising areas with chronic medication related to the use of Xarelto. NEUROLOGIC. Cranial nerves 2-12 intact. No focal deficit. LABORATORY DATA: CBC on 12/02 was noted as normal. CBC on admission with a normal WBC, platelet count and other differentials. Lactic acid 0.7 on admission. CMP on 12/02; glucose 147, BUN and creatinine normal, CO2 was noted [place], [place] REPORT OF CONSULTATION NAME: MESERET RUBIO UNIT #: [id number] ROOM: 511 DOCTOR: NICOLE FERNANDEZ MD,[facility] BIRTHDATE: [birth year] 51, chloride of 94. Arterial blood gas that was done on 4 liters yesterday - pH of 7.26, pCO2 105, pO2 70.8. Troponin was normal. CBC of this morning - WBC 4.1, hemoglobin 11.7, hematocrit 37.7, platelet count was normal. BMP this morning - glucose 158, CO2 44. Phosphorus was 2.1, mildly decreased. PT/PTT this morning were noted normal. Repeat arterial blood gas - pH of 7.30, pCO2 40.6 with pO2 of 97. IMPRESSION: 1. The patient who has been currently noted with severe acute hypercapnic and hypoxic respiratory failure, which has been noted with gradual improvement with improvement in mentation and hypercarbia. 2. Very severe metabolic alkalosis noted secondary to chronic resting hypercarbia. 3. History of obstructive sleep apnea disorder as well. 4. Severe debility. There has not been any noted acute major infectious etiology by the history and physical examination. Chest x-ray of the patient was also personally reviewed shows changes of severe chronic obstructive pulmonary disease with hyperinflation on 12/02/2016, completed from the PACS images. PLAN OF MANAGEMENT: Continuation of the oxygen supplementation, bronchodilators and corticosteroids. Certainly, antibiotic could be discontinued at the present time. Metabolic alkalosis has been noted improved, which will be monitored. If necessary, the Diamox will be added to the treatment. Titrate oxygen supplementation of the BiPAP for this patient. The adjustment of BiPAP setting has been already made, improved hypercapnia. Other supportive therapy and plan of management. Obtain the arterial blood gases in the morning to reassess the patient's improvement in the respiratory status. Usual care with additional treatment changes to be made for this patient based on progression of the illness. Continuation of bronchodilators every 4 hours. Dose of Solu-Medrol will be gradually decreased based on improvement in the respiratory status. PINO RIVERA MD CM:CONSTR:REPORT OF CONSULTATION 1921 12/04/17 0517 interface
--- NOTE | ~2017-12-02 | PR ---
[place], [place] PROGRESS NOTE NAME: MESERET RUBIO [facility] #: [id number] UNIT #: [id number] ROOM: 511 DOCTOR: NICOLE FERNANDEZ MD,PINO BIRTHDATE: [birth year] DOS: 12/08/2017 SUBJECTIVE: The patient was independently seen and examined with [id number] encounter, history was confirmed. Physical examination was performed. All the labs were reviewed. The assessment and management personally completed with the patient today's visit. The note done by the certified medical coding specialist, was approved. The patient has been doing very well. The patient further continued improvement in the respiratory symptom, ambulating with physical therapy a significant distance. Shortness of breath, coughing, or wheezing all improved progressively. Denies symptoms of her chest pain. PHYSICAL EXAMINATION: VITAL SIGNS: Reviewed was essentially noted within normal limits. The pulse oxygen saturation maintained at 3 liters canula usual home oxygen. LUNGS: Noted free of any wheezing or crackles. ABDOMEN: Soft, nontender. EXTREMITIES: Without any edema. LABORATORY DATA: BMP: BUN 34. CO2 of 42. PLAN OF TREATMENT: The patient could be considered for home discharge with additional medication of Diamox 250 mg t.i.d. to be continued regular basis and to give the patient tapering prednisone, oral antibiotics. Bronchodilator medical treatment to be continued. Other supportive therapy, plan of management. Continue outpatient followup post-discharge will be recommended in my office. The patient is well known to me from the past. PINO RIVERA MD CM:PNSANGEETA [id number] PINO FERNANDEZ MD 12/08/17 1642 interface
--- NOTE | ~2017-12-02 | PR ---
[place], [place] PROGRESS NOTE NAME: MESERET RUBIO UNIT #: [id number] ROOM: 511 DOCTOR: PINO REYNOLDS MD BIRTHDATE: [birth year] DOS: 12/07/2017 PULMONARY PROGRESS NOTE SUBJECTIVE: The patient was independently seen and examined with [id number] encounter, history was personally performed, and physical examination performed. The note done by the medical lab technician was approved. The assessment and management of the patient was personally completed for today's visit. The patient has been ambulating with physical therapy, noted with continued reduction and improvement in the symptoms of shortness of breath. Cough has been noted minimal. Wheezing was decreased significantly. Using the BiPAP as ordered. PHYSICAL EXAMINATION: VITAL SIGNS: Normal temperature, respiratory rate 20, heart rate 60, blood pressure 136/78, pulse oxygen saturation of the patient recorded as 96% saturation on nasal cannula. LUNGS: Examination of the lungs, the patient noted decreased breath sounds noted in the lungs bilaterally. ABDOMEN: Soft. Mild obesity. Bowel sounds present. EXTREMITIES: Without any acute edema. IMPRESSION: The patient has been showing at this time progressive resolution and improvement of respiratory symptom with acute exacerbation of chronic obstructive pulmonary disease, [id number] hypoxic and hypercapnic respiratory failure management, debility, and history of recurrent falls for this patient with previous stroke, the patient described in the basal ganglia and in the epi. PLAN OF TREATMENT: The dose of Solu-Medrol for the patient will be decreased to 40 mg daily. Continue the BiPAP, oxygen supplementation, and treatment plan. Discussion with the patient about further medical management, consideration for longterm facility, placement for physical therapy, and continue treatment for chronic obstructive pulmonary disease versus home to be done through the public health social worker. [place], [place] PROGRESS NOTE NAME: MESERET RUBIO UNIT #: [id number] ROOM: 511 DOCTOR: PINO REYNOLDS MD BIRTHDATE: [birth year] PINO RIVERA MD CM:PNTRANS [id number] PINO FERNANDEZ MD 12/07/17 2255 interface
--- NOTE | ~2017-12-02 | EKG ---
[place], [place] ELECTROCARDIOGRAM REPORT NAME: MESERET RUBIO UNIT #: [id number] ROOM: 511 DOCTOR: NICOLE FERNANDEZ MD,PINO BIRTHDATE: [birth year] DOS: 12/02/2017 TIME: 10:33 a.m. The EKG for the patient shows evidence of normal sinus rhythm for the patient with heart rate of 65 beats per minute. Nonspecific ST-T changes were noted with poor R-wave progression. PINO RIVERA MD CM:EKGRPT:ELECTROCARDIOGRAM REPORT 35 [phone] PINO FERNANDEZ MD
--- NOTE | ~2017-12-02 | PR ---
[place], [place] PROGRESS NOTE [id number] #: [id number] ROOM: 511 DOCTOR: SHARRON RIBEIRO DO BIRTHDATE: [birth year] DOS: 12/08/2017 SUBJECTIVE: The patient was seen and examined at bedside. The patient was sitting upright, eating breakfast, in no acute distress. The patient reports that her breathing has improved and that she has no other complaints at this time. The patient reports that she feels stable for discharge and is eager to be discharged to continue her treatment at home. Otherwise, no change in the patient's glucose status. OBJECTIVE: VITAL SIGNS: Temperature 98.0, pulse is 61, respirations 20, blood pressure 122/80, pulse ox is 99% on 3 liters nasal cannula, which is the patient's baseline. LABS: BMP this morning shows sodium 139, potassium 4.0, chloride 97, carbon dioxide 42, BUN 34, creatinine is 0.74, glucose is 94. GENERAL APPEARANCE: The patient is alert and oriented x 3, in no acute distress. HEENT: Eyes are clear with no injection. Nares are patent. Mucous membranes are moist. NECK: Supple, nontender. CARDIOVASCULAR: S1 and S2 noted, regular rate and rhythm. No murmurs, gallops or rubs. PULMONARY: Mild expiratory wheezes in all lung almanza. No rales, no rhonchi. ABDOMEN: Soft, nontender with positive bowel sounds. EXTREMITIES: No edema, no erythema. NEUROLOGIC: Exam is negative for focal deficits. SKIN: No rashes, no erythema. IMPRESSION: 1. Chronic obstructive pulmonary disease with exacerbation, status improved. 2. Severe metabolic alkalosis, status improved. 3. Chronic respiratory failure with hypercarbia and hypoxia with oxygen dependence on 3 liters nasal cannula at home. The patient is at baseline. TREATMENT AND PLAN: At this time, the patient is medical stable from a pulmonary standpoint, can be discharged. Recommend the patient start on Diamox 500 mg b.i.d. for her CO2 retention. We will continue to follow this patient outpatient. Continue with antibiotics and steroids upon discharge as well. The patient should follow up with Dr. Rivera in 1-2 weeks for further care. SHARRON RIBEIRO DO [place], [place] PROGRESS NOTE NAME: MESERET RUBIO UNIT #: [id number] ROOM: [facility] DOCTOR: SHARRON RIBEIRO DO BIRTHDATE: [birth year] PINO RIVERA MD CM:KALA [phone] [id number] SHARRON RIBEIRO DO 12/08/17 1319 interface
--- NOTE | ~2017-12-02 | PR ---
[place], [place] PROGRESS NOTE NAME[id number] UN[facility] #: [id number] ROOM: 511 DOCTOR: NICOLE FERNANDEZ MD,PINO BIRTHDATE: [birth year] DOS: 12/04/2017 PULMONARY PROGRESS NOTE SUBJECTIVE: The patient has been noted comfortable at this time without any acute distress. The patient has not reported any symptoms of chest pain. She has been noted significant change in mental status about 3 hours ago. She has been using the BiPAP. Arterial blood gas was done, which shows worsening of the hypercapnia of the patient as well. She was still noted evidence of metabolic alkalosis. She denies symptoms of coughing or any sputum expectoration or chest congestion of the patient was described. She does not have any sputum expectoration. She denies symptoms of nausea, vomiting, diarrhea, abdominal pain, headache, or edema of the lower extremities or pain. OBJECTIVE: VITAL SIGNS: The patient shows a normal temperature, respiratory rate of 18-20. Heart rate of 55-57. The blood pressure 137/75-137/78. Intake for the patient recorded as ____ 900 mL. Pulse oxygen saturation on 40% oxygen 94% saturation with the BiPAP. HEENT: Examination shows head was atraumatic. Eyes nonicterus. NECK: Supple. CARDIOVASCULAR: S1, S2 audible. LUNGS: Diffuse reduced breath sounds with expiratory wheezing, no crackles. ABDOMEN: Soft, nontender. EXTREMITIES: No edema. SKIN: No lesions or rashes. Scattered bruising secondary to prednisone use and other medications. MUSCULOSKELETAL: No deformities. CENTRAL NERVOUS SYSTEM: Cranial nerves 2-12 intact without any focal deficit. LABORATORY DATA: CBC today, WBC count normal, hemoglobin 11.3, hematocrit 36.8, and platelet count 193,000. BMP of the patient this morning, BUN 26, creatinine was normal, glucose 197, and CO2 of 42. Blood culture showed no bacterial growth. Arterial blood gas of the patient on 3 liters, pH 7.29, pCO2 91.9, and pO2 66.5 at the time in the mental status change at 9:38 a.m. Arterial blood gas of the patient that was redone on the patient at 1:13 p.m., pH of 7.39, pCO2 78, and pO2 104. The BiPAP setting were changed for the patient to 18/10. IMPRESSION: 1. Improving mental status of the patient with acute on chronic severe hypercapnic and hypoxic respiratory failure, responding to treatment. 2. Acute bronchitis. The patient with exacerbation of chronic obstructive pulmonary disease. 3. Metabolic alkalosis was gradually resolving. 4. Severe debility persisted. PLAN OF MANAGEMENT: Continuation of the current plan of therapy if the patient as in progress. Usual care, other supportive therapy, plan of management, and care. In addition, treatment changes to be made based on progression of the illness. Continue current use of BiPAP most of the time except meals. No [place], [place] PROGRESS NOTE NAME: MESERET RUBIO UNIT #: [id number] ROOM: [facility] DOCTOR: PINO REYNOLDS MD BIRTHDATE: [birth year] change in corticosteroids and antibiotic therapy will be needed. Continue bronchodilators every 4 hours in the form of the DuoNeb. PINO RIVERA MD CM:PNTRANS [phone] PINO FERNANDEZ MD 12/05/17211 interface
[~2017-12-02 10:06] MED LIST changes: +BUSPAR5 MG PO; +INCRUSE ELLI62.5 MCG INH; +K-TAB20 MEQ PO; +RESTORIL15 MG PO; +WELLBUTRIN XL150 MG PO
[2017-12-02] MEDS ORDERED: 'KLONOPIN0.5 MG PO (10:24)
[2017-12-02] MEDS ORDERED: DAILY VALUE1 EACH PO (10:24)
[2017-12-02] MEDS ORDERED: WARFARIN SODIUM1 MG PO (10:25)
[2017-12-02] MEDS ORDERED: ASPIRIN81 M1 PO (10:32)
[2017-12-02 10:46] LABS: BASO % 0.3 % (0.0-1.0); EOS # 0.1 10*3/uL (0.0-0.4); EOS % 2.1 % (1.0-4.0); HEMATOCRIT 41.5 % (37.0-47.0); HEMOGLOBIN 12.5 g/dl (12.0-16.0); LYMPH # 1.1 10*3/uL (1.3-4.4); LYMPH % 15.8 % (27.0-41.0); MEAN CELL VOLUME 98.1 fl (81.0-99.0); MEAN CORPUSCULAR HGB 29.6 pg (27.0-31.0); MEAN CORPUSCULAR HGB CONC 30.1 g/dl (33.0-37.0); MEAN PLATELET VOLUME 9.6 fl (9.6-12.3); MONO # 0.5 10*3/uL (0.1-1.0); MONO % 7.7 % (3.0-9.0); NEUT # 4.9 10*3/uL (2.3-7.9); NEUT % 72.8 % (47.0-73.0); PLATELET COUNT AUTOMATED 180 10*3/uL (130-400); RED BLOOD COUNT 4.23 10*6/uL (4.10-5.10); WHITE BLOOD COUNT 6.8 10*3/uL (4.8-10.8)
[2017-12-02] MEDS ORDERED: LISINOPRIL5 MG PO (11:00)
[2017-12-02 11:01] LABS: ALBUMIN 3.7 gm/dl (3.1-4.5); ALKALINE PHOSPHATASE 78 U/L (45-117); BUN 12 mg/dl (7-24); CHLORIDE 94 mmol/L (98-107); CREATININE 0.63 mg/dL (0.55-1.02); POTASSIUM 4.3 mmol/L (3.5-5.1); SGOT/AST 32 IU/L (3-35); SGPT/ALT 40 U/L (12-78); SODIUM 141 mmol/L (136-145); TOTAL PROTEIN 7.1 gm/dL (6.4-8.2)
[2017-12-02] MEDS ORDERED: PROPAFENONE HC150 MG PO (11:01)
[2017-12-02] MEDS ORDERED: VITAMIN C500 M7 PO (11:03)
[2017-12-02] MEDS ORDERED: ADVAIR 250/501 EA INH (11:03)
[2017-12-02] MEDS ORDERED: VITAMIN B COMP1 EAC1 PO (11:03)
[2017-12-02] MEDS ORDERED: ALLEGRA ALLERG180 M2 PO (11:04)
[2017-12-02] MEDS ORDERED: XOPENEX0.31 MG/3 NEB (11:04)
[2017-12-02] MEDS ORDERED: RECLAST5 MG/100 M IV (11:05)
[2017-12-02 11:22] LABS: TROPONIN I < 0.015 ng/ml (<0.045)
[2017-12-02 11:49] LABS: ABG BASE EXCESS 14.4 mmol/L (-2.0-2.0); ABG HCO3 45.3 mmol/l (22-26); ABG O2 SATURATION 93.8 % (95-97); ARTERIAL BLOOD GAS PH 7.262 (7.35-7.45); ARTERIAL BLOOD GAS PO2 70.8 mmHg (80-90)
[2017-12-02] MEDS ORDERED: BUSPAR5 MG PO (13:30)
[2017-12-02] MEDS ORDERED: XARE20MG PO (13:31)
[2017-12-02] MEDS ORDERED: CARDIZEM CD240 M1 PO (13:31)
[2017-12-02] MEDS ORDERED: RESTORIL15 MG PO (13:32)
[2017-12-02] MEDS ORDERED: LOPRESSOR50 M1 PO (13:32)
[2017-12-02] MEDS ORDERED: K-TAB20 MEQ PO (13:32)
[2017-12-02] MEDS ORDERED: WELLBUTRIN SR150 MG PO (13:33)
[2017-12-02] MEDS ORDERED: VITAMIN D31000 UNI1 PO (13:33)
[2017-12-02] MEDS ORDERED: LASIX20 MG PO (13:34)
[2017-12-03] VITALS: BP 142/86; BP 149/87
[2017-12-03 06:08] LABS: EOS % 0.2 % (1.0-4.0); HEMATOCRIT 37.6 % (37.0-47.0); HEMOGLOBIN 11.7 g/dl (12.0-16.0); LYMPH # 0.5 10*3/uL (1.3-4.4); MEAN CELL VOLUME 97.9 fl (81.0-99.0); MEAN CORPUSCULAR HGB 30.5 pg (27.0-31.0); MEAN CORPUSCULAR HGB CONC 31.1 g/dl (33.0-37.0); MONO # 0.1 10*3/uL (0.1-1.0); MONO % 3.4 % (3.0-9.0); NEUT # 3.4 10*3/uL (2.3-7.9); PLATELET COUNT AUTOMATED 184 10*3/uL (130-400); RED BLOOD COUNT 3.84 10*6/uL (4.10-5.10); RED CELL DISTRI WIDTH 15.7 % (0-14.5); WHITE BLOOD COUNT 4.1 10*3/uL (4.8-10.8)
[2017-12-03 06:15] LABS: BUN 16 mg/dl (7-24); CHLORIDE 94 mmol/L (98-107); CREATININE 0.66 mg/dL (0.55-1.02); PHOSPHOROUS 2.1 mg/dL (2.5-4.9); POTASSIUM 4.6 mmol/L (3.5-5.1); SODIUM 140 mmol/L (136-145)
[2017-12-03 06:21] LABS: THYROID STIM HORMONE (HS) 0.365 uIU/ml (0.358-4.75)
[2017-12-03 06:33] LABS: ACT PARTIAL THROMBO TIME 24.4 SECONDS (20.8-31.5)
[2017-12-03 07:48] LABS: ABG BASE EXCESS 14.6 mmol/L (-2.0-2.0); ABG HCO3 44.4 mmol/l (22-26); ABG O2 SATURATION 97.5 % (95-97); ARTERIAL BLOOD GAS PH 7.306 (7.35-7.45)
[2017-12-03 07:54] LABS: ARTERIAL BLOOD GAS PCO2 91.6 mmHg (35-45)
[2017-12-03 08:00] VITALS: BP 136/72
[2017-12-03 12:00] VITALS: BP 140/82
[2017-12-03 16:00] VITALS: BP 123/73
[2017-12-03 20:00] VITALS: BP 112/65
[2017-12-04] VITALS: BP 127/67
[2017-12-04 07:52] LABS: HEMATOCRIT 36.8 % (37.0-47.0); HEMOGLOBIN 11.3 g/dl (12.0-16.0); LYMPH # 0.7 10*3/uL (1.3-4.4); LYMPH % 11.7 % (27.0-41.0); MEAN CELL VOLUME 98.4 fl (81.0-99.0); MEAN CORPUSCULAR HGB 30.2 pg (27.0-31.0); MEAN CORPUSCULAR HGB CONC 30.7 g/dl (33.0-37.0); MEAN PLATELET VOLUME 9.9 fl (9.6-12.3); MONO # 0.4 10*3/uL (0.1-1.0); NEUT # 4.7 10*3/uL (2.3-7.9); NEUT % 81.4 % (47.0-73.0); PLATELET COUNT AUTOMATED 193 10*3/uL (130-400); RED BLOOD COUNT 3.74 10*6/uL (4.10-5.10); RED CELL DISTRI WIDTH 15.7 % (0-14.5); WHITE BLOOD COUNT 5.8 10*3/uL (4.8-10.8)
[2017-12-04 08:00] VITALS: BP 137/78
[2017-12-04] MEDS ORDERED: MULTIVITAMINS1 EAC5 PO (09:01)
[2017-12-04] MEDS ORDERED: LANOXIN0.125 MG PO (09:01)
[2017-12-04] MEDS ORDERED: LASIX20 MG PO (09:04)
[2017-12-04 09:26] LABS: CHLORIDE 95 mmol/L (98-107); CREATININE 0.79 mg/dL (0.55-1.02); POTASSIUM 4.7 mmol/L (3.5-5.1); SODIUM 143 mmol/L (136-145)
[2017-12-04 09:27] LABS: BUN 26 mg/dl (7-24)
[2017-12-04 09:42] LABS: ABG BASE EXCESS 13.1 mmol/L (-2.0-2.0); ABG HCO3 43.3 mmol/l (22-26); ABG O2 SATURATION 91.3 % (95-97); ARTERIAL BLOOD GAS PH 7.293 (7.35-7.45); ARTERIAL BLOOD GAS PO2 66.5 mmHg (80-90)
[2017-12-04 09:45] LABS: ARTERIAL BLOOD GAS PCO2 91.9 mmHg (35-45)
[2017-12-04 12:00] VITALS: BP 137/75
[2017-12-04 13:19] LABS: ABG BASE EXCESS 18.5 mmol/L (-2.0-2.0); ABG O2 SATURATION 98.3 % (95-97); ARTERIAL BLOOD GAS PH 7.395 (7.35-7.45)
[2017-12-04 13:24] LABS: ARTERIAL BLOOD GAS PCO2 78.3 mmHg (35-45)
[2017-12-04 16:00] VITALS: BP 130/86
[2017-12-04 20:00] VITALS: BP 132/60
[2017-12-05] VITALS: BP 133/63
[2017-12-05 06:45] LABS: HEMATOCRIT 37.5 % (37.0-47.0); HEMOGLOBIN 11.6 g/dl (12.0-16.0); LYMPH # 0.5 10*3/uL (1.3-4.4); LYMPH % 9.4 % (27.0-41.0); MEAN CELL VOLUME 97.7 fl (81.0-99.0); MEAN CORPUSCULAR HGB 30.2 pg (27.0-31.0); MEAN CORPUSCULAR HGB CONC 30.9 g/dl (33.0-37.0); MEAN PLATELET VOLUME 9.9 fl (9.6-12.3); MONO # 0.2 10*3/uL (0.1-1.0); MONO % 3.8 % (3.0-9.0); NEUT # 4.6 10*3/uL (2.3-7.9); NEUT % 85.9 % (47.0-73.0); PLATELET COUNT AUTOMATED 193 10*3/uL (130-400); RED BLOOD COUNT 3.84 10*6/uL (4.10-5.10); RED CELL DISTRI WIDTH 15.6 % (0-14.5); WHITE BLOOD COUNT 5.3 10*3/uL (4.8-10.8)
[2017-12-05 07:02] LABS: BUN 22 mg/dl (7-24); CHLORIDE 92 mmol/L (98-107); CREATININE 0.76 mg/dL (0.55-1.02); POTASSIUM 4.9 mmol/L (3.5-5.1); SODIUM 140 mmol/L (136-145)
[2017-12-05 08:00] VITALS: BP 149/78
[2017-12-05 12:00] VITALS: BP 119/74
[2017-12-05 16:00] VITALS: BP 122/71
[2017-12-05 20:00] VITALS: BP 139/74
[2017-12-06] VITALS: BP 136/65
[2017-12-06 07:48] LABS: ALBUMIN 3.9 gm/dl (3.1-4.5); ALKALINE PHOSPHATASE 65 U/L (45-117); BUN 24 mg/dl (7-24); CREATININE 0.92 mg/dL (0.55-1.02); SGOT/AST 16 IU/L (3-35); SGPT/ALT 51 U/L (12-78); TOTAL PROTEIN 7.5 gm/dL (6.4-8.2)
[2017-12-06 07:52] LABS: CHLORIDE 93 mmol/L (98-107); POTASSIUM 3.5 mmol/L (3.5-5.1); SODIUM 134 mmol/L (136-145)
[2017-12-06 08:00] VITALS: BP 125/70
[2017-12-06 12:00] VITALS: BP 115/71
[2017-12-06 16:00] VITALS: BP 118/70
[2017-12-06 20:00] VITALS: BP 128/62
[2017-12-07] VITALS: BP 149/89
[2017-12-07 07:38] LABS: ALBUMIN 3.5 gm/dl (3.1-4.5); ALKALINE PHOSPHATASE 58 U/L (45-117); BUN 31 mg/dl (7-24); CHLORIDE 98 mmol/L (98-107); CREATININE 0.89 mg/dL (0.55-1.02); PHOSPHOROUS 3.5 mg/dL (2.5-4.9); POTASSIUM 4.3 mmol/L (3.5-5.1); SGOT/AST 19 IU/L (3-35); SGPT/ALT 53 U/L (12-78); SODIUM 138 mmol/L (136-145); TOTAL PROTEIN 6.7 gm/dL (6.4-8.2)
[2017-12-07 08:00] VITALS: BP 132/80
[2017-12-07 12:00] VITALS: BP 136/78
[2017-12-07 16:00] VITALS: BP 140/74
[2017-12-07 20:00] VITALS: BP 127/72
[2017-12-08] VITALS: BP 130/85
[2017-12-08 07:35] LABS: ALBUMIN 3.4 gm/dl (3.1-4.5); ALKALINE PHOSPHATASE 51 U/L (45-117); BUN 34 mg/dl (7-24); CHLORIDE 97 mmol/L (98-107); CREATININE 0.74 mg/dL (0.55-1.02); SGOT/AST 20 IU/L (3-35); SGPT/ALT 49 U/L (12-78); SODIUM 139 mmol/L (136-145); TOTAL PROTEIN 6.2 gm/dL (6.4-8.2)
[2017-12-08 08:00] VITALS: BP 122/80
[2017-12-08 12:00] VITALS: BP 132/80
[2017-12-08] MEDS ORDERED: DIAMOX500 MG PO ×2 (12:04→13:33)
[2017-12-08] MEDS ORDERED: PREDNISONE10 MG PO (12:56)
[2017-12-08] MEDS ORDERED: DILTIAZEM CD240 MG PO (12:56)
== END 2017-12-08 15:13 | disposition home or self-care (01) | DRG 871 ==
LOC: ED 10:06 → EDHOLD 12:34 → 5E 12:34
PROVIDERS: Family Medicine Adult Medicine; Hospitalist; Internal Medicine Critical Care Medicine; Internal Medicine Hospice and Palliative Medicine; Student in an Organized Health Care Education/Training Program
PROC: 5A09457 Assistance with Respiratory Ventilation, 24-96 Consecutive Hours, Continuous Positive Airway Pressure (ICD-10-PCS; principal; 2017-12-02)
PROC: 5A09357 Assistance with Respiratory Ventilation, Less than 24 Consecutive Hours, Continuous Positive Airway Pressure (ICD-10-PCS; 2017-12-05)
PROC: 5A09357 Assistance with Respiratory Ventilation, Less than 24 Consecutive Hours, Continuous Positive Airway Pressure (ICD-10-PCS; 2017-12-07)
DX: A41.9 Sepsis, unspecified organism (principal); J18.9 Pneumonia, unspecified organism; J96.21 Acute and chronic respiratory failure with hypoxia; D68.59 Other primary thrombophilia; E11.65 Type 2 diabetes mellitus with hyperglycemia; I48.0 Paroxysmal atrial fibrillation; E87.2 Acidosis; E87.3 Alkalosis; I48.92 Unspecified atrial flutter; I48.91 Unspecified atrial fibrillation; J96.22 Acute and chronic respiratory failure with hypercapnia; J44.0 Chronic obstructive pulmonary disease with (acute) lower respiratory infection; J44.1 Chronic obstructive pulmonary disease with (acute) exacerbation; E83.39 Other disorders of phosphorus metabolism; R65.20 Severe sepsis without septic shock; R29.6 Repeated falls; R93.0 Abnormal findings on diagnostic imaging of skull and head, not elsewhere classified; H35.30 Unspecified macular degeneration; J20.9 Acute bronchitis, unspecified; F32.9 Major depressive disorder, single episode, unspecified; Z96.1 Presence of intraocular lens; F41.1 Generalized anxiety disorder; Z66 Do not resuscitate; Z51.5 Encounter for palliative care; E78.5 Hyperlipidemia, unspecified; I10 Essential (primary) hypertension; G47.33 Obstructive sleep apnea (adult) (pediatric); Z79.899 Other long term (current) drug therapy; Z86.73 Personal history of transient ischemic attack (TIA), and cerebral infarction without residual deficits; Z99.81 Dependence on supplemental oxygen; Z87.01 Personal history of pneumonia (recurrent); Z87.440 Personal history of urinary (tract) infections; Z90.49 Acquired absence of other specified parts of digestive tract; Z98.42 Cataract extraction status, left eye; Z98.41 Cataract extraction status, right eye; Z82.3 Family history of stroke; Z82.49 Family history of ischemic heart disease and other diseases of the circulatory system; Z80.8 Family history of malignant neoplasm of other organs or systems

== ENCOUNTER → 2018-02-20 | Outpatient (CLI) | payer MEDICARE ==
[~2018-02-20] MED LIST changes: +'KLONOPIN0.5 MG PO; +CARDIZEM CD240 M1 PO; +DAILY VALUE1 EACH PO; +DIAMOX500 MG PO; +LISINOPRIL5 MG PO; +MULTIVITAMINS1 EAC5 PO; +PROPAFENONE HC150 MG PO; +RECLAST5 MG/100 M IV; +VITAMIN B COMP1 EAC1 PO; +VITAMIN C500 M7 PO; +VITAMIN D31000 UNI1 PO; +WARFARIN SODIUM1 MG PO; +WELLBUTRIN SR150 MG PO; +XOPENEX0.31 MG/3 NEB
== END | disposition home or self-care (01) ==
LOC: CT 02-15 10:00
DX: J44.9 Chronic obstructive pulmonary disease, unspecified (principal); R91.1 Solitary pulmonary nodule

== ENCOUNTER → 2018-03-30 | Outpatient (CLI) | payer MEDICARE ==
[2018-03-30 11:47] LABS: BASO % 0.4 % (0.0-1.0); EOS # 0.4 10*3/uL (0.0-0.4); EOS % 4.5 % (1.0-4.0); HEMATOCRIT 36.7 % (37.0-47.0); HEMOGLOBIN 11.9 g/dl (12.0-16.0); LYMPH # 1.4 10*3/uL (1.3-4.4); LYMPH % 17.9 % (27.0-41.0); MEAN CELL VOLUME 94.3 fl (81.0-99.0); MEAN CORPUSCULAR HGB 30.6 pg (27.0-31.0); MEAN CORPUSCULAR HGB CONC 32.4 g/dl (33.0-37.0); MEAN PLATELET VOLUME 9.6 fl (9.6-12.3); MONO # 0.6 10*3/uL (0.1-1.0); MONO % 7.5 % (3.0-9.0); NEUT # 5.3 10*3/uL (2.3-7.9); NEUT % 69.3 % (47.0-73.0); PLATELET COUNT AUTOMATED 185 10*3/uL (130-400); RED BLOOD COUNT 3.89 10*6/uL (4.10-5.10); RED CELL DISTRI WIDTH 15.2 % (0-14.5); WHITE BLOOD COUNT 7.7 10*3/uL (4.8-10.8)
[2018-03-30 12:24] LABS: ALBUMIN 3.6 gm/dl (3.1-4.5); ALKALINE PHOSPHATASE 82 U/L (45-117); BUN 17 mg/dl (7-24); CHLORIDE 102 mmol/L (98-107); CHOLESTEROL 197 mg/dL (<200); CREATININE 0.76 mg/dL (0.55-1.02); HDL CHOLESTEROL 36 mg/dl (40-60); LDL CHOLESTEROL 107 mg/dL (9-159); POTASSIUM 4.3 mmol/L (3.5-5.1); SGOT/AST 17 IU/L (3-35); SGPT/ALT 29 U/L (12-78); SODIUM 139 mmol/L (136-145); TOTAL PROTEIN 6.8 gm/dL (6.4-8.2); TRIGLYCERIDES 271 mg/dl (<150); VLDL CHOLESTEROL 54 mg/dL (6-40)
== END | disposition home or self-care (01) ==
LOC: LAB 00:17 → MAMMO 00:17
PROVIDERS: Internal Medicine
DX: E55.9 Vitamin D deficiency, unspecified (principal); I50.32 Chronic diastolic (congestive) heart failure; E78.2 Mixed hyperlipidemia; M81.0 Age-related osteoporosis without current pathological fracture

== ENCOUNTER 2018-06-30 14:09 | Inpatient (IN) | payer MEDICARE ==
[~2018-06-30] VITALS: Ht 165.1 cm; Wt 75.1 kg
--- NOTE | ~2018-06-30 | PR ---
[place], [place] PROGRESS NOTE NAME: MESERET RBUIO UNIT #: [id number] ROOM: 519 DOCTOR: NICOLE FERNANDEZ MD,PINO BIRTHDATE: [birth year] DOS: 07/04/2018 SUBJECTIVE: The patient noted comfortable at this time, sitting on the chair in her room. Shortness breath, cough, wheezing, and all other symptoms have been gradually subsiding. There were no symptoms of chest pain reported by the patient. She has used the BiPAP at night time and oxygen supplementation this morning. OBJECTIVE: VITAL SIGNS: Normal temperature, respiratory rate 24-18, heart rate 58, and blood pressure 144/65. The pulse oxygen saturation on 4 liters nasal cannula 93% saturation. HEENT: Head was atraumatic. Eyes nonicterus. NECK: Supple. CARDIOVASCULAR: S1, S2 is audible. LUNGS: The patient noted with moderate decreased breath sounds with occasional wheezing, no crackles. ABDOMEN: Soft, nontender. Bowel sounds present. EXTREMITIES: Without any acute edema. IMPRESSION: 1. The patient with resolving acute exacerbation of chronic obstructive pulmonary disease, acute tracheobronchitis with progressive resolution, improvement in respiratory symptoms noted. 2. History of obstructive sleep apnea disorder and chronic hypoxic respiratory failure. PLAN OF MANAGEMENT: Decrease the Solu-Medrol dose daily dosing. Monitor respiratory symptom for the next 24 hours. if the patient does well, could be considered for home discharge on oral tapering prednisone and the antibiotics. PLAN OF THERAPY: The patient has been noted in progress to be continued. PINO RIVERA MD CM:PNTRANS [id number] PINO FERNANDEZ MD 07/04/18 1230 interface
--- NOTE | ~2018-06-30 | PR ---
[place], [place] PROGRESS NOTE NAME: MESERET RUBIO UNIT #: [id number] ROOM: 519 DOCTOR: NICOLE FERNANDEZ MD,PINO BIRTHDATE: [birth year] DOS: 07/05/2018 SUBJECTIVE: The patient was noted comfortable at this time, resting, sitting on the chair in her room. Denies symptoms of coughing, shortness of breath, wheezing and other symptom noted from admission acutely improving. OBJECTIVE: VITAL SIGNS: Normal temperature, respiratory rate 14, heart rate 51, blood pressure 117-57. Pulse ox saturation on 2 liters nasal cannula 95% saturation at rest. HEENT: No acute change. NECK: Supple. CARDIOVASCULAR: S1, S2 is audible. LUNGS: The patient was noted without any wheeze or crackles at present time. ABDOMEN: Soft, nontender. Bowel sounds present. EXTREMITIES: Without any acute edema. IMPRESSION: The patient with progressive improvement noted in neck symptoms of acute exacerbation of chronic obstructive pulmonary disease and acute bronchitis, current plan of management. PLAN OF MANAGEMENT: Consideration for home discharge on tapering prednisone, oral antibiotics. She was advised Continue previous home medication including the CPAP for the management of sleep apnea disorder. ____ discontinued previously. Followup appointment to be scheduled in my office will be kept. PINO RIVERA MD CM:PNTRANS [phone] PINO FERNANDEZ MD 07/06/18 0030 interface
--- NOTE | ~2018-06-30 | PR ---
[place], [place] PROGRESS NOTE NAME: [id number] UNIT #: [id number] ROOM: 519 DOCTOR: NICOLE FERNANDEZ MD,PINO BIRTHDATE: [birth year] DOS: 07/03/2018 SUBJECTIVE: She was noted comfortable at this time without any acute distress. She has been noted reduction in symptoms of shortness of breath and cough. Wheezing, the patient was noted decreased. She has used a BiPAP from home. Denies symptoms of chest pain or hemoptysis. OBJECTIVE: VITAL SIGNS: This morning, normal temperature, respiratory rate 20, heart rate 64, blood pressure 136/59. Pulse oxygen saturation on 4 liters 95% saturation. HEENT: Examination shows head was atraumatic. Eyes nonicterus. NECK: Supple. CARDIOVASCULAR: S1, S2 is audible. LUNGS: Noted without any crackles. Moderate decreased breath sounds were noted with mild to moderate expiratory wheezing. ABDOMEN: Soft, nontender. EXTREMITIES: No acute edema. IMPRESSION: 1. The patient with gradual resolution of acute exacerbation of chronic obstructive pulmonary disease, acute tracheobronchitis. 2. Stable chronic metabolic alkalosis. 3. History of obstructive sleep apnea disorder. PLAN OF MANAGEMENT: No change in plan of care in patient at this time. Continuation of current therapy, plan and management previously. As usual ____ supportive. PLAN OF TREATMENT: ____ therapies. PINO RIVERA MD CM:PNTRANS [id number] PINO FERNANDEZ MD 07/04/18 0039 interface
--- NOTE | ~2018-06-30 | EKG ---
[place], [place] ELECTROCARDIOGRAM REPORT NAME: MESERET RUBIO UNIT #: [id number] ROOM: 519 DOCTOR: MICKEY DRAFT REPORT BIRTHDATE: [birth year] [facility] Test Date: 2018-06-30 Test Time: 15:02:25 Pat Name: MESERET RUBIO Department: ER Room: 519 Gender: F [employer]: ANDRES : 1945 Requested By: ALEXIS MONSALVE Order Number: [id number] Reading MD: Anil Rai MD Measurements Intervals [place] Rate: 50 P: 80 PA: 166 QRS: 77 QRSD: 97 T: 61 QT: 402 QTc: 367 Interpretive Statements Sinus rhythm Consider left atrial enlargement Baseline wander in lead(s) V1,V5 Electronically Signed On 06-30-2018 19:06:27 PDT by Anil Rai MD CM:EKGRPT:ELECTROCARDIOGRAM REPORT [id number] ALEXIS AREVALO DRAFT REPORT ALEXIS DIAZ
--- NOTE | ~2018-06-30 | CON ---
[place], [place] REPORT OF CONSULTATION NAME: MESERET RUBIO UNIT #: [id number] ROOM: 519 DOCTOR: PINO REYNOLDS MD BIRTHDATE: [birth year] DOS: 07/02/2018 PULMONARY CONSULTATION, EVALUATION, AND MANAGEMENT REASON FOR CONSULTATION: To assess the patient for management of acute exacerbation of COPD. HISTORY OF PRESENT ILLNESS: This is a 72-year-old white female patient, very well known to me, presented and admitted to the hospital on 06/30/2018. The patient states she became acutely ill for a couple of days prior to admission to the hospital with symptoms of coughing, which are noted progressive and worsened with small amount of yellow sputum expectoration with symptoms associated with increased shortness of breath and wheezing and tightness in the chest. The patient came into the hospital. The patient has been admitted to the hospital for further care. She does report symptoms of fever at home, but there were no chills. REVIEW OF SYSTEMS: CONSTITUTIONAL SYMPTOMS: Fatigue and tiredness reported. No symptoms of fever or chills. EYES: Denies burning, redness, or tenderness. EARS, NOSE, THROAT SYMPTOMS: No sore throat, hoarseness, otalgia, postnasal drainage or epistaxis. CARDIOVASCULAR: Denies anginal pain, edema or pain in the lower extremities. GASTROINTESTINAL SYMPTOMS: Denies dysphagia, nausea, vomiting, diarrhea, abdominal pain, hematemesis, melena, or hematochezia. SKIN: No abnormal lesions or rashes. CENTRAL NERVOUS SYSTEM: Denies dizziness, headache, diplopia, or syncopal episodes. Remaining systems were reviewed. They were noted all negative. PAST MEDICAL HISTORY: 1. Noted with history of end-stage COPD and acute chronic hypercapnic respiratory failure and acute chronic hypercarbic respiratory failure. 2. Obstructive sleep apnea disorder. 3. Atrial fibrillation. 4. Anxiety disorder. 5. Metabolic alkalosis secondary to hypercarbia. PAST SURGICAL HISTORY: 1. Appendectomy. 2. Cardiac catheterization and coronary artery intervention. 3. Therapeutic bronchoscopy. 4. Cholecystectomy. 5. Bilateral cataract extraction, lens implantation. SOCIAL HISTORY: The patient is , lives at home. Denies history of alcohol use, illicit drug use. Tobacco use noted since teenager, pack of cigarettes down to 2008. [place], [place] REPORT OF CONSULTATION NAME: MESERET RUBIO UNIT #: [id number] ROOM: 519 DOCTOR: NICOLE FERNANDEZ MD,PINO BIRTHDATE: [birth year] FAMILY HISTORY: The patient's father with complication to railroad accident. Mother with complications of acute stroke. CURRENT MEDICATIONS: Administered noted use of Solu-Medrol 40 mg q. 8 hours, Pulmicort Respules, metoprolol tartrate, Cardizem-CD, digoxin, Xarelto, multivitamin, Lasix, Wellbutrin-SR, potassium chloride, sertraline, Mucinex, DuoNeb q.4h., Zithromax and Rocephin. DRUG ALLERGIES HISTORY: The patient noted as no known drug allergies. PHYSICAL EXAMINATION: GENERAL: This is a 72-year-old white female currently noted awake and alert without acute distress. Height of 5 feet 5 inches, weight of 165 pounds, BMI 27.5. VITAL SIGNS: The patient showed normal temperature, respiratory rate 20, heart rate 64, blood pressure 120/54-110/78. Pulse oxygen saturation of the patient noted on 4 liters nasal cannula 100% saturation. HEENT: Examination shows head was atraumatic. Eyes: Nonicterus. NECK: Supple. CARDIOVASCULAR: S1, S2 is audible. LUNGS: The patient noted with decreased breath sounds with moderate expiratory wheezing. There were no crackles. ABDOMEN: Soft, nontender. Bowel sounds present. EXTREMITIES: Noted without any acute edema, clubbing or cyanosis. CENTRAL NERVOUS SYSTEM: Cranial nerves 2-12 intact. MUSCULOSKELETAL: Noted without any acute deformities. CENTRAL NERVOUS SYSTEM: Cranial nerves 2-12 intact. No focal deficit. LABORATORY DATA: Admission CBC on 06/30/2018 was noted essentially normal. Lactic acid normal. On 06/30/2018, the PTT was noted normal. INR 1.0 noted on admission on 06/30/2018. The CMP on 06/30/2018 on admission, glucose 140, BUN and creatinine normal, CO2 of 39. Blood culture from 06/30/2018 showed no bacterial growth. BMP this morning noted normal BUN and creatinine, CO2 was 39. The culture of the urine noted heavy growth of E. coli greater than 100,000 colony forming units. CBC: Hemoglobin 11.1, WBC count and platelet count remains normal. The chest x-ray 1 view, which was done on 06/30/2018 was noted without any acute abnormalities, changes of COPD. IMPRESSION: 1. The patient will be currently admitted to the hospital has been treated for acute exacerbation of chronic obstructive pulmonary disease. 2. Chronic hypercapnic and hypoxic respiratory failure. 3. Acute bronchitis was also noted. 4. History of past nicotine abuse. 5. Obstructive sleep apnea disorder. 6. Metabolic alkalosis, which remains stable. 7. Chronic hypercarbia. PLAN OF THERAPY: The patient will be continued the current dose of [place], [place] REPORT OF CONSULTATION NAME: MESERET RUBIO UNIT #: [id number] ROOM: [facility] DOCTOR: NICOLE FERNANDEZ MD,PINO BIRTHDATE: [birth year] corticosteroids, bronchodilators and the antibiotics. Monitor respiratory symptoms. Ambulation was encouraged. Other supportive therapy, plan of management. Based on the progression of the illness, change in the medications will be ordered. Reduce the Solu-Medrol dose hopefully by tomorrow to 40 mg b.i.d. Thanks for allowing me to participate in care of this patient. PINO RIVERA MD CM:CONSTR:REPORT OF CONSULTATION 1723 07/03/18 0216 interface
[2018-06-30 14:11] VITALS: BP 107/50
[2018-06-30] MEDS ORDERED: CEFUROXIME250 MG PO (14:33)
[2018-06-30] MEDS ORDERED: VITAMIN B COMP1 EAC1 PO (14:48)
[2018-06-30] MEDS ORDERED: FRUIT C-100100 MG PO (14:49)
[2018-06-30] MEDS ORDERED: BREO ELLIPTA 11 EACH PO (14:50)
[2018-06-30] MEDS ORDERED: SERTRALINE HYD100 MG PO (14:51)
[2018-06-30] MEDS ORDERED: Ventolin 02.5 MG/3 M INH (14:51)
[2018-06-30] MEDS ORDERED: OXYGEN NAS (14:52)
[2018-06-30] MEDS ORDERED: BUSPAR5 MG PO (14:52)
[2018-06-30] MEDS ORDERED: RESTORIL15 MG PO (14:53)
[2018-06-30] MEDS ORDERED: K-TAB20 MEQ PO (14:53)
[2018-06-30] MEDS ORDERED: XARE20MG PO (14:53)
[2018-06-30] MEDS ORDERED: LOPRESSOR50 M1 PO (14:53)
[2018-06-30] MEDS ORDERED: WELLBUTRIN SR150 MG PO (14:54)
[2018-06-30] MEDS ORDERED: VITAMIN D31000 UNI1 PO (14:55)
[2018-06-30] MEDS ORDERED: LASIX20 MG PO (14:55)
[2018-06-30] MEDS ORDERED: LANOXIN PO (14:56)
[2018-06-30] MEDS ORDERED: MULTIVITAMINS1 EAC5 PO (14:57)
[2018-06-30 15:15] VITALS: BP 106/52
[2018-06-30 15:22] LABS: BASO % 0.3 % (0.0-1.0); EOS # 0.3 10*3/uL (0.0-0.4); EOS % 4.1 % (1.0-4.0); HEMATOCRIT 40.7 % (37.0-47.0); HEMOGLOBIN 12.7 g/dl (12.0-16.0); LYMPH # 0.9 10*3/uL (1.3-4.4); LYMPH % 11.7 % (27.0-41.0); MEAN CORPUSCULAR HGB 30.9 pg (27.0-31.0); MEAN CORPUSCULAR HGB CONC 31.2 g/dl (33.0-37.0); MEAN PLATELET VOLUME 9.5 fl (9.6-12.3); MONO # 0.7 10*3/uL (0.1-1.0); MONO % 9.2 % (3.0-9.0); NEUT # 5.9 10*3/uL (2.3-7.9); NEUT % 74.3 % (47.0-73.0); PLATELET COUNT AUTOMATED 169 10*3/uL (130-400); RED BLOOD COUNT 4.11 10*6/uL (4.10-5.10); RED CELL DISTRI WIDTH 15.6 % (0-14.5)
[2018-06-30 15:42] LABS: ALBUMIN 3.6 gm/dl (3.1-4.5); ALKALINE PHOSPHATASE 90 U/L (45-117); BUN 13 mg/dl (7-24); CHLORIDE 98 mmol/L (98-107); CREATININE 0.75 mg/dL (0.55-1.02); LIPASE 165 U/L (73-393); POTASSIUM 4.5 mmol/L (3.5-5.1); SGOT/AST 15 IU/L (3-35); SGPT/ALT 29 U/L (12-78); SODIUM 138 mmol/L (136-145); TOTAL PROTEIN 7.1 gm/dL (6.4-8.2)
[2018-06-30 15:43] LABS: TROPONIN I < 0.015 ng/ml (<0.045)
[2018-06-30 16:15] VITALS: BP 106/50
[2018-06-30 16:55] LABS: BILIRUBIN NEGATIVE (NEGATIVE); BLOOD 1+ (NEGATIVE); CLARITY CLOUDY (CLEAR); COLOR YELLOW (YELLOW); GLUCOSE NEGATIVE (NEGATIVE); KETONE NEGATIVE (NEGATIVE); LEUKO ESTERASE 1+ (NEGATIVE); NITRITE NEGATIVE (NEGATIVE); SPECIFIC GRAVITY >= 1.030 (1.005-1.030)
[2018-06-30 17:02] LABS: WBC 16-20 wbc/hpf (0-5)
[2018-06-30 17:03] LABS: BACTERIA 4+; EPITHELIAL CELLS 25-30; MUCOUS TRACE
[2018-06-30 17:16] VITALS: BP 107/64
[2018-06-30 17:35] VITALS: BP 120/60
[2018-06-30] MEDS ORDERED: CARTIA XT240 MG PO (18:55)
[2018-06-30] MEDS ORDERED: ALLEGRA ALLERG180 M2 PO (18:58)
[2018-06-30 20:00] VITALS: BP 121/54
[2018-07-01] VITALS: BP 120/65
[2018-07-01 06:22] LABS: HEMOGLOBIN 11.7 g/dl (12.0-16.0); LYMPH # 0.4 10*3/uL (1.3-4.4); LYMPH % 8.6 % (27.0-41.0); MEAN CELL VOLUME 99.2 fl (81.0-99.0); MEAN CORPUSCULAR HGB 30.5 pg (27.0-31.0); MEAN CORPUSCULAR HGB CONC 30.8 g/dl (33.0-37.0); MEAN PLATELET VOLUME 9.9 fl (9.6-12.3); MONO # 0.1 10*3/uL (0.1-1.0); MONO % 2.9 % (3.0-9.0); NEUT # 4.2 10*3/uL (2.3-7.9); NEUT % 87.3 % (47.0-73.0); PLATELET COUNT AUTOMATED 163 10*3/uL (130-400); RED BLOOD COUNT 3.83 10*6/uL (4.10-5.10); RED CELL DISTRI WIDTH 15.1 % (0-14.5); WHITE BLOOD COUNT 4.9 10*3/uL (4.8-10.8)
[2018-07-01 06:43] LABS: ALBUMIN 3.2 gm/dl (3.1-4.5); ALKALINE PHOSPHATASE 82 U/L (45-117); BUN 13 mg/dl (7-24); CHLORIDE 100 mmol/L (98-107); CHOLESTEROL 184 mg/dL (<200); CREATININE 0.73 mg/dL (0.55-1.02); FREE T4 0.74 ng/dl (0.76-1.46); HDL CHOLESTEROL 39 mg/dl (40-60); LDL CHOLESTEROL 124 mg/dL (9-159); POTASSIUM 4.6 mmol/L (3.5-5.1); SGOT/AST 12 IU/L (3-35); SGPT/ALT 25 U/L (12-78); SODIUM 139 mmol/L (136-145); TOTAL PROTEIN 6.6 gm/dL (6.4-8.2); TRIGLYCERIDES 107 mg/dl (<150); VLDL CHOLESTEROL 21 mg/dL (6-40)
[2018-07-01 07:21] LABS: THYROID STIM HORMONE (HS) 0.399 uIU/ml (0.358-4.75)
[2018-07-01 07:53] LABS: VITAMIN D, 25-HYDROXY 43.1 ng/mL (30-100)
[2018-07-01 08:00] VITALS: BP 110/58
[2018-07-01 12:00] VITALS: BP 109/52
[2018-07-01 16:00] VITALS: BP 123/57
[2018-07-01 20:00] VITALS: BP 133/65
[2018-07-02] VITALS: BP 120/55
[2018-07-02 06:12] LABS: BASO % 0.1 % (0.0-1.0); EOS % 0.2 % (1.0-4.0); HEMATOCRIT 36.2 % (37.0-47.0); HEMOGLOBIN 11.1 g/dl (12.0-16.0); LYMPH % 11.3 % (27.0-41.0); MEAN CELL VOLUME 100.6 fl (81.0-99.0); MEAN CORPUSCULAR HGB 30.8 pg (27.0-31.0); MEAN CORPUSCULAR HGB CONC 30.7 g/dl (33.0-37.0); MEAN PLATELET VOLUME 10.1 fl (9.6-12.3); MONO # 0.8 10*3/uL (0.1-1.0); MONO % 8.6 % (3.0-9.0); NEUT # 7.3 10*3/uL (2.3-7.9); NEUT % 79.3 % (47.0-73.0); PLATELET COUNT AUTOMATED 164 10*3/uL (130-400); RED CELL DISTRI WIDTH 15.5 % (0-14.5); WHITE BLOOD COUNT 9.2 10*3/uL (4.8-10.8)
[2018-07-02 06:24] LABS: BUN 16 mg/dl (7-24); CHLORIDE 101 mmol/L (98-107); CREATININE 0.69 mg/dL (0.55-1.02); POTASSIUM 4.1 mmol/L (3.5-5.1); SODIUM 141 mmol/L (136-145)
[2018-07-02 08:00] VITALS: BP 110/60
[2018-07-02 12:00] VITALS: BP 110/78
[2018-07-02 16:00] VITALS: BP 123/54
[2018-07-02 20:00] VITALS: BP 135/64
[2018-07-03] VITALS: BP 136/59
[2018-07-03 08:00] VITALS: BP 124/86
[2018-07-03 12:00] VITALS: BP 127/65
[2018-07-03 16:00] VITALS: BP 112/55
[2018-07-03 20:00] VITALS: BP 142/82
[2018-07-04] VITALS: BP 125/64
[2018-07-04 08:00] VITALS: BP 144/65
[2018-07-04 12:00] VITALS: BP 153/79
[2018-07-04 16:00] VITALS: BP 121/69
[2018-07-04 20:00] VITALS: BP 146/56
[2018-07-05] VITALS: BP 129/65
[2018-07-05 08:00] VITALS: BP 117/57
[2018-07-05] MEDS ORDERED: PREDNISONE10 MG PO (11:34)
[2018-07-05] MEDS ORDERED: DOXYCYCLINE100 M3 PO (11:34)
[2018-07-17] MEDS ORDERED: PRESERVISION A1 EAC1 PO (02:09)
== END 2018-07-05 12:07 | disposition home or self-care (01) | DRG 193 ==
LOC: ED 14:09 → 5E 16:44 → EDHOLD 16:44 → 5E 17:16
PROVIDERS: Internal Medicine; Physician Assistant
PROC: 5A09357 Assistance with Respiratory Ventilation, Less than 24 Consecutive Hours, Continuous Positive Airway Pressure (ICD-10-PCS; principal; 2018-07-03)
DX: J18.9 Pneumonia, unspecified organism (principal); J96.21 Acute and chronic respiratory failure with hypoxia; E87.3 Alkalosis; E87.2 Acidosis; J96.22 Acute and chronic respiratory failure with hypercapnia; E87.8 Other disorders of electrolyte and fluid balance, not elsewhere classified; I48.0 Paroxysmal atrial fibrillation; E83.39 Other disorders of phosphorus metabolism; D72.810 Lymphocytopenia; I10 Essential (primary) hypertension; F17.210 Nicotine dependence, cigarettes, uncomplicated; H35.30 Unspecified macular degeneration; G47.33 Obstructive sleep apnea (adult) (pediatric); J43.9 Emphysema, unspecified; J20.9 Acute bronchitis, unspecified; Z90.49 Acquired absence of other specified parts of digestive tract; Z98.42 Cataract extraction status, left eye; Z98.41 Cataract extraction status, right eye; Z99.81 Dependence on supplemental oxygen; Z82.3 Family history of stroke; Z80.8 Family history of malignant neoplasm of other organs or systems; Z82.49 Family history of ischemic heart disease and other diseases of the circulatory system; Z86.73 Personal history of transient ischemic attack (TIA), and cerebral infarction without residual deficits

== ENCOUNTER 2018-11-15 14:40 | Inpatient (IN) | payer MEDICARE ==
[~2018-11-15] VITALS: Ht 165.1 cm; Wt 75.7 kg
--- NOTE | ~2018-11-15 | PR ---
[place], [place] PROGRESS NOTE NAME: MESERET RUBIO [facility] LLCT #: [id number] UNIT #: [id number] ROOM: 426 DOCTOR: NICOLE FERNANDEZ MD,PINO BIRTHDATE: [birth year] DOS: 11/17/2018 PULMONARY PROGRESS NOTE SUBJECTIVE: The patient has been noted comfortable this morning, resting on the bed, reduction in symptoms of shortness of breath and coughing. The chest pain was noted absent. Sputum expectoration noted a small quantity at times. OBJECTIVE: VITAL SIGNS: For the patient which were recorded showed the temperature noted normal, respiratory rate of 20, heart rate 56, blood pressure 131/68. Pulse oxygen saturation on 3 liters nasal cannula 97% saturation. HEENT: Examination shows head was atraumatic. Eyes nonicterus. NECK: Supple. CARDIOVASCULAR: S1, S2 is audible. LUNGS: The patient was noted with decreased breath sound in the lower portion of the left lung. The wheezing was noted scattered in the lungs. ABDOMEN: Soft, nontender. Bowel sounds present. EXTREMITIES: Without any acute edema. LABORATORY DATA: Chest x-ray that was completed, PA and lateral view of this morning was reviewed from the PACS images for and was noted a small infiltration in the right lower and the other one in the left lingula. IMPRESSION: Acute bilateral pneumonia was noted with acute exacerbation of chronic obstructive pulmonary disease, history of chronic metabolic alkalosis, hypercarbia, and respiratory failure. PLAN OF MANAGEMENT: Continue antibiotics, bronchodilators, and oxygen supplementation and other therapy, plan of management. No change in treatment at this time will be necessary. Current antibiotics will be continued. PINO RIVERA MD CM:PNTRANS [phone] PINO FERNANDEZ MD 11/18/18 0105 interface
--- NOTE | ~2018-11-15 | PR ---
[place], [place] PROGRESS NOTE NAME: MESERET RUBIO UNIT #: [id number] ROOM: 426 DOCTOR: PINO REYNOLDS MD BIRTHDATE: [birth year] DOS: 11/18/2018 PULMONARY PROGRESS NOTE SUBJECTIVE: The patient is noted comfortable at this time, resting on the bed. She has been showing continued gradual reduction of the respiratory symptoms of coughing. Denies symptoms of chest pain, fever or chills. Denies symptoms of nausea. Using BiPAP with oxygen supplementation and also continued all other treatments. OBJECTIVE: VITAL SIGNS: Which were recorded showed the temperature recorded as normal, respiratory rate 24, heart rate 64, blood pressure 131/67, and pulse oxygen saturation on 2 liters 94% saturation. HEENT: Head was atraumatic. Eyes nonicterus. NECK: Supple. CARDIOVASCULAR: S1 and S2 audible. LUNGS: The patient with [id number] expiratory wheezing. There were no crackles. Mild decreased breath sounds at the lung bases. ABDOMEN: Soft, nontender. Bowel sounds present. EXTREMITIES: No acute edema. LABORATORY DATA: BMP today: Glucose 163, BUN normal, creatinine was normal. CBC this morning: WBC count 14.6, hemoglobin 12, hematocrit normal, platelet count was normal. IMPRESSION: The patient with acute pneumonia with acute exacerbation of chronic obstructive pulmonary disease and acute on chronic hypercapnic respiratory failure, all resolving gradually with current medical management. PLAN OF MANAGEMENT: Continue bronchodilators, oxygen supplementation, and other therapy and plan of management as in progress. Usual care. Obtain a chest x-ray patient tomorrow morning to reassess the progression of pneumonia for discharge planning. [place], [place] PROGRESS NOTE NAME: MESERET RUBIO UNIT #: [id number] ROOM: 426 DOCTOR: PINO REYNOLDS MD BIRTHDATE: [birth year] PINO RIVERA MD CM:PNTRANS [phone] PINO FERNANDEZ MD 11/18/18 1528 interface
--- NOTE | ~2018-11-15 | CON ---
[place], [place] REPORT OF CONSULTATION NAME: [facility]ERET RUBIO [facility] [id number] UNIT #: [id number] ROOM: 426 DOCTOR: PINO REYNOLDS MD BIRTHDATE: [birth year] DOS: 11/16/2018 PULMONARY CONSULTATION, EVALUATION, AND MANAGEMENT REASON FOR CONSULTATION: Assessment for acute exacerbation of COPD. HISTORY OF PRESENT ILLNESS: This is a 72-year-old white female patient who has been noted with increased respiratory symptoms and currently admitted to the hospital for acute exacerbation of COPD. CONSULTATION REQUESTED BY: Hospitalist Services. HISTORY OF PRESENT ILLNESS: A 72-year-old white female patient with end-stage chronic obstructive pulmonary disease, chronic hypercapnic respiratory failure, metabolic alkalosis, obstructive sleep apnea disorder. The patient developed symptoms of acute coughing with yellow sputum expectoration intermittently for the past couple of days. She has contacted my office yesterday and was ordered the antibiotics. The patient did not pick the antibiotic, the patient directly came into the Emergency Room for further assessment. She has been reporting symptoms of shortness of breath, which were noted worsening a few hours prior to admission to the hospital. She was also reporting symptoms of wheezing as well. Denies any symptoms of hemoptysis or any chest pain. The patient had been assessed in the hospital and was reported with acute pneumonia, left lower lobe in the Emergency Room report. REVIEW OF SYSTEMS: CONSTITUTIONAL: Fatigue and tiredness reported without any symptom of fever or chills. EYES: Denies burning, redness, or tenderness. EARS, NOSE, THROAT SYMPTOMS: Denies sore throat, hoarseness, otalgia, postnasal drainage or epistaxis. CARDIOVASCULAR: Denies angina pain, edema, pain of the lower extremities. GASTROINTESTINAL: Denies dysphagia, nausea, vomiting, diarrhea, abdominal pain, hematemesis, melena, or hematochezia. GENITOURINARY: No dysuria, suprapubic pain, hematuria. SKIN: No lesions or rashes. MUSCULOSKELETAL: No acute joint pain, redness, or tenderness. SKIN: Denies lesions or rashes. CENTRAL NERVOUS SYSTEM: Denies dizziness, headache, diplopia. Remaining systems were reviewed, they were noted all negative. PAST MEDICAL HISTORY: 1. The patient was known with a history of end-stage COPD. 2. Chronic hypoxic respiratory failure, use of oxygen supplementation 2-3 liters nasal cannula. 3. Chronic hypercapnic respiratory failure. 4. Obstructive sleep apnea disorder. 5. Permanent atrial fibrillation. 6. Generalized anxiety disorder. [place], [place] REPORT OF CONSULTATION NAME: MESERET RUBIO UNIT #: [id number] ROOM: 426 DOCTOR: PINO REYNOLDS MD BIRTHDATE: [birth year] 7. Metabolic alkalosis secondary to chronic hypercarbia. 8. Coronary artery disease. PAST SURGICAL HISTORY: 1. Appendectomy. 2. Cardiac catheterization for coronary intervention. 3. Therapeutic bronchoscopy. 4. Cholecystectomy. 5. Bilateral cataract extraction, lens implantation. SOCIAL HISTORY: The patient is , lives at home. Denies alcohol or illicit drug use. Tobacco use noted from a teenager, pack of cigarettes per day until 2007. FAMILY HISTORY: The patient's father with complication of railroad accident. Mother with complication of acute stroke. HOME MEDICATIONS: Home medications which were used by the patient, listed as use of: 1. Oxygen supplementation. 2. Use of CPAP/BiPAP. 3. Ventolin nebulizer treatment 2.5 mg q.i.d. p.r.n. for shortness of breath. 4. Wellbutrin-SR 150 mg daily. 5. BuSpar 5 mg b.i.d. 6. Digoxin 125 mcg daily. 7. Cardizem CD 240 mg daily. 8. Breo Ellipta 100/25 one inhalation daily. 9. Xarelto 20 mg daily. 10. Metoprolol tartrate 50 mg daily. 11. Incruse Ellipta 1 inhalation daily. 12. Oxygen supplementation 2-3 liters nasal cannula. 13. Potassium chloride 20 mEq p.o. daily. 14. Sertraline 150 mg daily. 15. Restoril 15 mg at bedtime p.r.n. for insomnia. 16. Multivitamin 1 p.o. daily. DRUG ALLERGIES: She has no known drug allergies. CURRENT MEDICATIONS: Administered for the patient this hospitalization reviewed and noted with use of potassium chloride, sliding insulin coverage, vitamin D, Cardizem-CD, digoxin, Wellbutrin, potassium chloride, metoprolol tartrate, sertraline, Xarelto, Solu-Medrol 60 mg b.i.d., DuoNeb q.4 hours, Levaquin, Restoril, BuSpar and other p.r.n. medications. PHYSICAL EXAMINATION: GENERAL: A 72-year-old female who has been noted currently awake and alert without any acute distress, resting comfortably, height of 5 feet 5 inches, weight 165 pounds, and BMI of 27. VITAL SIGNS: The patient's temperature 100.9 degrees Fahrenheit yesterday on admission, normal temperature afterwards, respiratory rate was 27 on admission, [place], [place] REPORT OF CONSULTATION NAME: MESERET RUBIO UNIT #: [id number] ROOM: 426 DOCTOR: NICOLE FERNANDEZ MD,[facility] BIRTHDATE: [birth year] currently 16, heart rate 105 on admission, currently 67, blood pressure 107/55-126/60 this morning. Pulse oxygen saturation on 3 liters nasal cannula was 85% on admission, currently noted ____ nasal cannula 5 liters 92% saturation. HEENT: Head was atraumatic. Eyes nonicterus. NECK: Supple. CARDIOVASCULAR: S1, S2 is audible. LUNGS: The patient with moderate expiratory wheezing noted in the lungs bilaterally. There were no crackles heard. ABDOMEN: Flat, soft, nontender. Bowel sounds present. EXTREMITIES: The patient without any acute edema. MUSCULOSKELETAL: Mild senile kyphosis of the thoracic spine. Without any acute deformities. SKIN: Visible skin no lesions or rashes. LABORATORY DATA: Reviewed for this consultation. CBC that was done on admission yesterday as WBC count of 18.7, hemoglobin and hematocrit normal, platelet count was normal. The CMP that was done on 11/15/2018 on admission to the Emergency Room, glucose 178, BUN and creatinine were normal, sodium 133. Influenza A and B, nasal washing antigen negative. The blood glucose yesterday evening 494. CMP of the patient this morning, glucose 289, BUN and creatinine was normal. Phosphorus was 1.1. PT/PTT was normal. Arterial blood gas of the patient obtained yesterday, pH of 7.38, pCO2 of 51, pO2 of 77. IMAGING STUDIES: Chest x-ray 1 view, which was done in the Emergency Room was reviewed with evidence of infiltration consolidation in the left lower lobe was noted possibility of small pleural fluid associated with that can be completely excluded. IMPRESSION: 1. The patient currently admitted to the hospital with acute sepsis with acute on chronic hypoxic respiratory failure. 2. Chronic hypoxic respiratory failure. 3. Acute exacerbation of chronic obstructive pulmonary disease. 4. Small pleural fluid related to current acute pneumonia, possibility of aspiration pneumonia to be considered. 5. Severely uncontrolled diabetes mellitus with the use of corticosteroids and type 2 diabetes mellitus history. 6. The patient with a history of coronary artery disease. 7. Generalized anxiety disorder. 8. Obstructive sleep apnea disorder. PLAN OF MANAGEMENT: The patient has been currently getting Levaquin which will be continued as antibiotic for community-acquired pneumonia and aspiration. Solu-Medrol for patient dose will be gradually decreased with improvement in symptom due to change in Solu-Medrol dose to 40 mg b.i.d. would also result in improvement in severely uncontrolled diabetes mellitus and hyperglycemia. Maximize the management of uncontrolled diabetes mellitus as the patient has hyperglycemia. Workup of pneumonia as well. Aspiration precaution. Continue her usual Xarelto dose. Obtain a chest x-ray in the morning to reassess the [place], [place] REPORT OF CONSULTATION NAME: MESERET RUBIO UNIT #: [id number] ROOM: 426 DOCTOR: NICOLE FERNANDEZ MD,[facility] BIRTHDATE: [birth year] progression pneumonia, pleural fluid. At this time a small pleural fluid would not require any acute intervention. Obtain the sputum for Gram stain culture if not ordered. Also order respiratory virus panel strep antigen and legionella antigen in the urine as well. Further additional treatment changes will be ordered based on the progression of her illness. The patient has been ordered the BiPAP settings of 16/10 for this patient to be continued for the medical management of acute on chronic hypoxic respiratory failure would also improve the hypercapnia as well. Her own CPAP/BiPAP from home which remains on hold for the patient until the resolution started ____ acute respiratory status. Other additional treatment changes will be ordered based on progression of the illness. Close monitoring of pleural fluid progression of pneumonia as well. Supportive care. Other usual therapy, plan of management, care plan as well. Additional treatment changes will be ordered for the patient as necessary. Thanks for allowing me to participate in the care of this patient. PINO RIVERA MD CM:CONSTR:REPORT OF CONSULTATION 1538 11/17/18 0313 interface
--- NOTE | ~2018-11-15 | PR ---
[place], [place] PROGRESS NOTE NAME: [id number] UNIT #: [id number] ROOM: 426 DOCTOR: NICOLE FERNANDEZ MD,PINO BIRTHDATE: [birth year] DOS: 11/19/2018 SUBJECTIVE: The patient noted comfortably at this time without any distress. Continued to show reduction and improvement in the respiratory complaints. OBJECTIVE: VITAL SIGNS: For the patient recorded normal temperature, respiratory rate 18, heart rate 62, blood pressure 146/81. Pulse ox saturation on 3 liters 99% saturation. HEAD, EYES, EARS, NOSE, AND THROAT: Examination shows head was atraumatic. Eyes nonicterus. NECK: Supple. CARDIOVASCULAR SYSTEM: S1, S2 audible. LUNGS: Without any wheezing or crackles without any crackles. Scattered mild expiratory wheezing. ABDOMEN: Soft, nontender. Bowel sounds present without edema. LABORATORY AND DIAGNOSTIC DATA: Culture of the sputum, normal libra. The chest x-ray shows significant improvement in aeration of the lung, including pleural fluid. IMPRESSION: Resolving acute pneumonia with pleural fluid, acute improvement in the acute exacerbation of chronic obstructive pulmonary disease as well. PLAN OF TREATMENT: The patient could be discharged home on tapering prednisone, oral antibiotics as desired. Outpatient followup for patient post-discharge would be recommended in the next couple of weeks. PINO RIVERA MD CM:PNTRANS [id number] PINO FERNANDEZ MD 11/19/18 1423 interface
--- NOTE | ~2018-11-15 | EKG ---
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
[~2018-11-15 14:40] MED LIST changes: +BREO ELLIPTA 11 EACH PO; +CARTIA XT240 MG PO; +CEFUROXIME250 MG PO; +FRUIT C-100100 MG PO; +LANOXIN PO; +MUCINEX ER600 MG PO; +Ventolin 02.5 MG/3 M INH
[2018-11-15 14:47] VITALS: BP 107/55
[2018-11-15 15:29] LABS: BASO # 0.1 10*3/uL (0.0-0.1); BASO % 0.3 % (0.0-1.0); EOS # 0.1 10*3/uL (0.0-0.4); EOS % 0.7 % (1.0-4.0); HEMATOCRIT 41.6 % (37.0-47.0); HEMOGLOBIN 13.6 g/dl (12.0-16.0); LYMPH % 5.4 % (27.0-41.0); MEAN CELL VOLUME 94.3 fl (81.0-99.0); MEAN CORPUSCULAR HGB 30.8 pg (27.0-31.0); MEAN CORPUSCULAR HGB CONC 32.7 g/dl (33.0-37.0); MEAN PLATELET VOLUME 10.2 fl (9.6-12.3); MONO # 1.2 10*3/uL (0.1-1.0); MONO % 6.3 % (3.0-9.0); NEUT # 16.2 10*3/uL (2.3-7.9); NEUT % 86.8 % (47.0-73.0); PLATELET COUNT AUTOMATED 162 10*3/uL (130-400); RED BLOOD COUNT 4.41 10*6/uL (4.10-5.10); RED CELL DISTRI WIDTH 13.6 % (0-14.5); WHITE BLOOD COUNT 18.7 10*3/uL (4.8-10.8)
[2018-11-15 15:30] LABS: BILIRUBIN NEGATIVE (NEGATIVE); BLOOD TRACE-INTACT (NEGATIVE); CLARITY CLEAR (CLEAR); COLOR YELLOW (YELLOW); GLUCOSE NEGATIVE (NEGATIVE); KETONE NEGATIVE (NEGATIVE); LEUKO ESTERASE 1+ (NEGATIVE); NITRITE NEGATIVE (NEGATIVE); PH 5.5 (5.0-9.0); UROBILINOGEN 0.2 E.U./dl (0.2-1.0)
[2018-11-15 15:44] LABS: ALBUMIN 3.1 gm/dl (3.1-4.5); ALKALINE PHOSPHATASE 96 U/L (45-117); BUN 9 mg/dl (7-24); CHLORIDE 96 mmol/L (98-107); CREATININE 0.89 mg/dL (0.55-1.02); LIPASE 94 U/L (73-393); POTASSIUM 4.3 mmol/L (3.5-5.1); SGOT/AST 15 IU/L (3-35); SGPT/ALT 23 U/L (12-78); SODIUM 133 mmol/L (136-145); TOTAL PROTEIN 7.1 gm/dL (6.4-8.2); TROPONIN I < 0.015 ng/ml (<0.045)
[2018-11-15 15:46] LABS: ACT PARTIAL THROMBO TIME 27.5 SECONDS (20.8-31.5); INTERNATIONAL NORM RATIO 1.1 (2.0-3.5)
[2018-11-15 15:51] LABS: BACTERIA 2+; RBC 0-2 rbc/hpf (0-2)
[2018-11-15 16:44] VITALS: BP 122/60
[2018-11-15 18:10] VITALS: BP 102/55
[2018-11-15 18:16] VITALS: BP 117/72
[2018-11-15 18:20] VITALS: BP 117/72
[2018-11-15 19:04] LABS: ABG BASE EXCESS 4.5 mmol/L (-2.0-2.0); ABG HCO3 30.3 mmol/l (22-26); ABG O2 SATURATION 96.9 % (95-97); ARTERIAL BLOOD GAS PCO2 51.9 mmHg (35-45); ARTERIAL BLOOD GAS PH 7.382 (7.35-7.45); ARTERIAL BLOOD GAS PO2 77.5 mmHg (80-90)
[2018-11-15 20:00] VITALS: BP 113/61
[2018-11-16] VITALS: BP 102/54
[2018-11-16 06:40] LABS: BASO % 0.1 % (0.0-1.0); HEMATOCRIT 37.7 % (37.0-47.0); HEMOGLOBIN 11.8 g/dl (12.0-16.0); LYMPH # 0.6 10*3/uL (1.3-4.4); LYMPH % 5.7 % (27.0-41.0); MEAN CELL VOLUME 96.4 fl (81.0-99.0); MEAN CORPUSCULAR HGB 30.2 pg (27.0-31.0); MEAN CORPUSCULAR HGB CONC 31.3 g/dl (33.0-37.0); MEAN PLATELET VOLUME 10.1 fl (9.6-12.3); MONO # 0.5 10*3/uL (0.1-1.0); MONO % 4.5 % (3.0-9.0); NEUT % 89.1 % (47.0-73.0); PLATELET COUNT AUTOMATED 132 10*3/uL (130-400); RED BLOOD COUNT 3.91 10*6/uL (4.10-5.10); RED CELL DISTRI WIDTH 13.6 % (0-14.5); WHITE BLOOD COUNT 10.1 10*3/uL (4.8-10.8)
[2018-11-16 07:18] LABS: CHLORIDE 104 mmol/L (98-107); POTASSIUM 3.6 mmol/L (3.5-5.1); SODIUM 141 mmol/L (136-145)
[2018-11-16 07:19] LABS: ACT PARTIAL THROMBO TIME 26.6 SECONDS (20.8-31.5); INTERNATIONAL NORM RATIO 1.1 (2.0-3.5)
[2018-11-16 07:27] LABS: ALBUMIN 2.7 gm/dl (3.1-4.5); ALKALINE PHOSPHATASE 82 U/L (45-117); BUN 13 mg/dl (7-24); CHOLESTEROL 150 mg/dL (<200); CREATININE 0.81 mg/dL (0.55-1.02); FREE T4 0.87 ng/dl (0.76-1.46); HDL CHOLESTEROL 39 mg/dl (40-60); LDL CHOLESTEROL 91 mg/dL (9-159); PHOSPHOROUS 1.1 mg/dL (2.5-4.9); SGOT/AST 9 IU/L (3-35); SGPT/ALT 18 U/L (12-78); THYROID STIM HORMONE (HS) 0.457 uIU/ml (0.358-4.75); TOTAL PROTEIN 6.5 gm/dL (6.4-8.2); TRIGLYCERIDES 100 mg/dl (<150); VLDL CHOLESTEROL 20 mg/dL (6-40)
[2018-11-16 07:38] LABS: VITAMIN D, 25-HYDROXY 29.2 ng/mL (30-100)
[2018-11-16 08:00] VITALS: BP 118/58
[2018-11-16 11:56] VITALS: BP 126/60
[2018-11-16 16:00] VITALS: BP 109/55
[2018-11-16 20:00] VITALS: BP 116/58
[2018-11-17] VITALS: BP 128/64
[2018-11-17 06:37] LABS: HEMATOCRIT 34.9 % (37.0-47.0); MEAN CELL VOLUME 96.7 fl (81.0-99.0); MEAN CORPUSCULAR HGB 30.5 pg (27.0-31.0); MEAN CORPUSCULAR HGB CONC 31.5 g/dl (33.0-37.0); MEAN PLATELET VOLUME 10.4 fl (9.6-12.3); PLATELET COUNT AUTOMATED 140 10*3/uL (130-400); RED BLOOD COUNT 3.61 10*6/uL (4.10-5.10); RED CELL DISTRI WIDTH 13.3 % (0-14.5); WHITE BLOOD COUNT 12.2 10*3/uL (4.8-10.8)
[2018-11-17 07:01] LABS: TOTAL CELLS COUNTED 100 #CELLS
[2018-11-17 07:02] LABS: PLATELET SUFFICIENCY NORMAL (NORMAL)
[2018-11-17 07:03] LABS: BUN 20 mg/dl (7-24); CHLORIDE 103 mmol/L (98-107); POTASSIUM 4.3 mmol/L (3.5-5.1); SODIUM 136 mmol/L (136-145)
[2018-11-17 08:00] VITALS: BP 128/64; BP 131/68
[2018-11-17 12:00] VITALS: BP 126/69
[2018-11-17 16:00] VITALS: BP 116/64
[2018-11-17 20:00] VITALS: BP 137/59
[2018-11-18] VITALS: BP 122/61
[2018-11-18 06:39] LABS: BASO % 0.1 % (0.0-1.0); HEMATOCRIT 39.2 % (37.0-47.0); LYMPH # 0.7 10*3/uL (1.3-4.4); LYMPH % 4.9 % (27.0-41.0); MEAN CELL VOLUME 97.8 fl (81.0-99.0); MEAN CORPUSCULAR HGB 29.9 pg (27.0-31.0); MEAN CORPUSCULAR HGB CONC 30.6 g/dl (33.0-37.0); MEAN PLATELET VOLUME 10.2 fl (9.6-12.3); MONO # 0.7 10*3/uL (0.1-1.0); MONO % 4.9 % (3.0-9.0); NEUT # 12.8 10*3/uL (2.3-7.9); NEUT % 88.1 % (47.0-73.0); RED BLOOD COUNT 4.01 10*6/uL (4.10-5.10); RED CELL DISTRI WIDTH 13.4 % (0-14.5); WHITE BLOOD COUNT 14.6 10*3/uL (4.8-10.8)
[2018-11-18 06:53] LABS: PLATELET COUNT AUTOMATED 205 10*3/uL (130-400)
[2018-11-18 07:01] LABS: BUN 21 mg/dl (7-24); CHLORIDE 102 mmol/L (98-107); CREATININE 0.74 mg/dL (0.55-1.02); PHOSPHOROUS 3.3 mg/dL (2.5-4.9); POTASSIUM 4.1 mmol/L (3.5-5.1); SODIUM 141 mmol/L (136-145)
[2018-11-18 08:00] VITALS: BP 132/64
[2018-11-18 12:00] VITALS: BP 131/67
[2018-11-18 16:00] VITALS: BP 120/56
[2018-11-18 20:00] VITALS: BP 132/65
[2018-11-19] VITALS: BP 158/71
[2018-11-19 08:00] VITALS: BP 146/81
[2018-11-19 08:37] VITALS: BP 140/74
[2018-11-19 12:00] VITALS: BP 140/66
[2018-11-19] MEDS ORDERED: PREDNISONE10 MG PO (13:14)
[2018-11-19] MEDS ORDERED: DOXYCYCLINE100 M3 PO (13:14)
[2018-11-19 16:00] VITALS: BP 146/74
[2018-11-19 20:00] VITALS: BP 158/70
[2018-11-20] VITALS: BP 141/82
[2018-11-20 05:03] LABS: ADENOVIRUS Negative (Negative); INFLUENZA A Negative (Negative); INFLUENZA B Negative (Negative); METAPNEUMOVIRUS Negative (Negative); PARAINFLUENZA 1 Negative (Negative); PARAINFLUENZA 2 Negative (Negative); PARAINFLUENZA 3 Negative (Negative); RHINOVIRUS Positive (Negative); RSV A Negative (Negative); RSV B Negative (Negative)
[2018-11-20 08:00] VITALS: BP 148/78
== END 2018-11-20 13:56 | disposition home or self-care (01) | DRG 871 ==
LOC: ED 14:40 → 4E 16:31 → EDHOLD 16:31 → 4E 17:39
PROVIDERS: Internal Medicine; Internal Medicine Critical Care Medicine; Nurse Practitioner Family
PROC: 5A09357 Assistance with Respiratory Ventilation, Less than 24 Consecutive Hours, Continuous Positive Airway Pressure (ICD-10-PCS; principal; 2018-11-17)
PROC: 5A09357 Assistance with Respiratory Ventilation, Less than 24 Consecutive Hours, Continuous Positive Airway Pressure (ICD-10-PCS; 2018-11-20)
DX: A41.9 Sepsis, unspecified organism (principal); J96.21 Acute and chronic respiratory failure with hypoxia; J96.22 Acute and chronic respiratory failure with hypercapnia; J18.9 Pneumonia, unspecified organism; E87.1 Hypo-osmolality and hyponatremia; I48.92 Unspecified atrial flutter; D68.59 Other primary thrombophilia; E87.3 Alkalosis; F41.1 Generalized anxiety disorder; G47.33 Obstructive sleep apnea (adult) (pediatric); I25.10 Atherosclerotic heart disease of native coronary artery without angina pectoris; Z96.1 Presence of intraocular lens; E83.39 Other disorders of phosphorus metabolism; I10 Essential (primary) hypertension; E83.41 Hypermagnesemia; I48.0 Paroxysmal atrial fibrillation; H35.30 Unspecified macular degeneration; E11.65 Type 2 diabetes mellitus with hyperglycemia; E87.8 Other disorders of electrolyte and fluid balance, not elsewhere classified; J43.9 Emphysema, unspecified; R91.1 Solitary pulmonary nodule; E78.5 Hyperlipidemia, unspecified; Z99.81 Dependence on supplemental oxygen; Z98.41 Cataract extraction status, right eye; Z98.42 Cataract extraction status, left eye; Z90.49 Acquired absence of other specified parts of digestive tract; Z82.49 Family history of ischemic heart disease and other diseases of the circulatory system; Z80.9 Family history of malignant neoplasm, unspecified; Z82.3 Family history of stroke

== ENCOUNTER 2018-12-30 09:53 | Inpatient (IN) | payer MEDICARE ==
[~2018-12-30] VITALS: Ht 166.4 cm; Wt 70.8 kg
--- NOTE | ~2018-12-30 | PR ---
[place], [place] PROGRESS NOTE [id number] #: [id number] ROOM: 511 DOCTOR: NICOLE FERNANDEZ MD,PINO BIRTHDATE: [birth year] DOS: 01/07/2019 PULMONARY PROGRESS NOTE SUBJECTIVE: The patient continued to do well. After bronchoscopy, the coughing has improved markedly. Shortness breath and wheezing was also improved significantly. There were no symptoms of chest pain, fever or chills reported by the patient. OBJECTIVE: VITAL SIGNS: Normal temperature, respiratory rate is 20, heart rate is 50, blood pressure is 133/59, and pulse oxygen saturation on 2 liters nasal cannula is 99% saturation. HEENT: Examination shows head was atraumatic. Eyes nonicterus. NECK: Supple. CARDIOVASCULAR SYSTEM: S1, S2 audible. LUNGS: Without any wheeze or crackles. ABDOMEN: Soft, nontender. EXTREMITIES: No acute changes. LABORATORY DATA: Culture of the bronchial washing noted normal libra. IMPRESSION: Progressive resolution of acute exacerbation of chronic obstructive pulmonary disease, acute bronchitis, current medical management. The bronchial washing culture noted negative. PLAN OF TREATMENT: Discharge planning has already started for home discharge on oral tapering prednisone, antibiotics. The patient was advised to resume all other previous medication without any changes of COPD management as well as a CPAP for sleep apnea disorder. PINO RIVERA MD CM:PNTRANS [id number] PINO FERNANDEZ MD 01/08/19 0351 interface
--- NOTE | ~2018-12-30 | PR ---
[place], [place] PROGRESS NOTE NAME: MESERET RUBIO [facility] #: [id number] UNIT #: [id number] ROOM: 511 DOCTOR: NICOLE FERNANDEZ MD,PINO BIRTHDATE: [birth year] DOS: 01/05/2019 SUBJECTIVE: The patient continued with similar symptoms, severe cough. She had intermittent wheezing, shortness of breath at rest. Denies symptoms of chest pain. The patient denies symptoms of fever or chills or hemoptysis. She has a chest x-ray completed yesterday. Denies symptoms of nausea, vomiting, diarrhea, abdominal pain, hematemesis, melena, or hematochezia. Denies any pain of the lower extremity or any edema. Remaining systems were reviewed. They were noted all negative. OBJECTIVE: VITAL SIGNS: The patient shows normal temperature, respiratory rate of 16, heart rate of 60, blood pressure 130/70, 122/70. Pulse oxygen saturation recorded as 90% saturation, 92% on 4 liters cannula at rest. HEENT: Examination shows no acute change. NECK: Supple. CARDIOVASCULAR: S1, S2 is audible. LUNGS: The patient was noted without any wheezing or crackles at the present time. Breaths are noted mildly diminished bilaterally. ABDOMEN: Soft, nontender. Bowel sounds present. EXTREMITIES: The patient without any acute edema. MUSCULOSKELETAL: Without acute deformities. CENTRAL NERVOUS SYSTEM: The patient's cranial nerves 2-12 intact. LABORATORY DATA: CBC today: WBC count 11.9, hemoglobin and hematocrit normal, platelet count were normal. The BMP this morning, normal BUN and creatinine. Glucose 213. CO2 was noted as 48. The chest x-ray that was done yesterday was reviewed. It shows hyperinflated lung. Pleural thickening noted. There was no acute pulmonary infiltration visible. IMPRESSION: 1. The patient was noted with ongoing acute exacerbation of chronic obstructive pulmonary disease, persistent nonresolving cough with maximal medical management therapy. 2. Possible pleural thickening or small pleural fluid significance at this time was unknown. 3. Metabolic alkalosis secondary to chronic hypercarbia. PLAN OF MANAGEMENT: Proceed with fibrobronchoscopy. Use of Diamox at least a couple of days to improve the metabolic alkalosis. Hold off the anticoagulation until after the completion of the bronchoscopy and will be resumed afterwards. Other therapy, plan of management with addition of changes in treatment recommended based on the bronchoscopy as necessary. [place], [place] PROGRESS NOTE NAME: MESERET RUBIO UNIT #: [id number] ROOM: 511 DOCTOR: NICOLE FERNANDEZ MD,PINO BIRTHDATE: [birth year] PINO RIVERA MD CM:KALA [id number] PINO FERNANDEZ MD 01/06/19 0422 interface
--- NOTE | ~2018-12-30 | CON ---
[place], [place] REPORT OF CONSULTATION [id number] UNIT #: [id number] ROOM: 511 DOCTOR: PINO REYNOLDS MD BIRTHDATE: [birth year] DOS: 01/04/2019 PULMONARY CONSULTATION, EVALUATION AND MANAGEMENT CONSULTATION REQUESTED BY: Hospitalist Services. REASON FOR CONSULTATION: To assess the patient's nonresolving COPD exacerbation with current hospitalization since 12/30/2018. HISTORY OF PRESENT ILLNESS: This is a 73-year-old white female patient, known to me, with a history of end-stage COPD, chronic hypercapnic and hypoxic respiratory failure, and obstructive sleep apnea disorder. She has been admitted to the hospital under the Hospitalist Services on 12/30/2018 as the patient has been reporting symptoms of increased chest congestion with coughing and shortness of breath. The symptoms have been present for the past few days with gradual worsening. The patient denies symptoms of fever, chills, or hemoptysis. She has been currently treated for stated acute pneumonia, exacerbation of COPD as per the patient. She failed to respond to treatment. Continues to have cough, chest congestion, and not expectorating any sputum. Shortness of breath is noted with exertion. Wheezing is intermittently reported as well. REVIEW OF SYSTEMS: CONSTITUTIONAL SYMPTOMS: Fatigue and tiredness noted. Denies any symptoms of fever or chills. EYES: Denies burning, redness or tenderness. EARS, NOSE AND THROAT SYMPTOMS: Denies sore throat, hoarseness, otalgia, postnasal drainage, or epistaxis. CARDIOVASCULAR SYSTEM: Denies angina pain, edema, pain of the lower extremities. GASTROINTESTINAL SYMPTOMS: Denies dysphagia, nausea, vomiting, diarrhea, abdominal pain, hematemesis, melena, or hematochezia. SKIN: Denies abnormal lesions or rashes. CENTRAL NERVOUS SYSTEM: Denies dizziness, headache, diplopia, or syncopal episodes. Remaining systems were reviewed, they were noted all negative. PAST MEDICAL HISTORY: 1. End-stage COPD. 2. Chronic hypercapnic respiratory failure. 3. Chronic hypoxic respiratory failure. 4. Obstructive sleep apnea disorder. 5. Permanent atrial fibrillation, on anticoagulation with Xarelto. 6. General anxiety disorder. 7. Recurrent hospitalization. 8. Metabolic alkalosis secondary to chronic hypercarbia. 9. Coronary artery disease. PAST SURGICAL HISTORY: 1. Appendectomy. [place], [place] REPORT OF CONSULTATION NAME: [facility]BIO [facility] [id number] UNIT #: [id number] ROOM: 511 DOCTOR: PINO REYNOLDS MD BIRTHDATE: [birth year] 2. Cardiac catheterization, coronary artery intervention and stent placement. 3. Therapeutic bronchoscopies. 4. Cholecystectomy. 5. Bilateral cataract extraction with lens implantation. SOCIAL HISTORY: The patient is . She lives at home. Denies tobacco, alcohol or illicit drug use at the present time. She had been known with tobacco use since teenager, a pack of cigarettes per day until 2007. FAMILY HISTORY: The patient's father from complications of a railroad accident. Mother from complication with acute stroke. CURRENT MEDICATIONS: Administered on this hospitalization noted as use of Xarelto 20 mg daily, digoxin, Cardizem CD, Wellbutrin, sertraline, Solu-Medrol 40 mg b.i.d., metoprolol tartrate, potassium chloride, sliding scale insulin coverage, Mucinex 1200 mg b.i.d., DuoNeb, Levaquin, and BuSpar. DRUG ALLERGIES: Noted as no known drug allergies. PHYSICAL EXAMINATION: GENERAL: This is a 73-year-old female patient who has been noted to be currently awake and alert, without any distress. Height of 5 feet 5.5 inches, weight 156 pounds. VITAL SIGNS: Which have been recorded showed normal temperature in the last 48 hours, respiratory rate 18, heart rate of 59-78, blood pressure 130/60-148/69. Pulse ox saturation on 4 liters nasal cannula is 96% saturation. HEENT: Examination shows head is atraumatic. Eyes nonicterus. NECK: Supple. CARDIOVASCULAR: S1 and S2 audible. LUNGS: Noted without any crackles. Expiratory wheezing is present in the lungs, mild to moderate bilaterally. ABDOMEN: Soft, nontender. Bowel sounds present. EXTREMITIES: Noted without any edema, clubbing, or cyanosis. MUSCULOSKELETAL: Without acute deformity. VISIBLE SKIN: No lesions or rashes. CENTRAL NERVOUS SYSTEM: Intact. LABORATORY DATA: CBC this morning: WBC count 12.4, hemoglobin 11.7, platelet count normal. Blood culture from 12/30/2018 was noted without any bacterial growth. Culture of the sputum, spontaneous, normal libra. Urine culture is without any bacterial growth. IMAGING STUDIES: Chest x-ray that was done on admission is noted with possibility of retrocardiac infiltration. There is no other chest x-ray repeated after that for further assessment. IMPRESSION: 1. The patient with possible consideration of an area of atelectasis and pneumonia of the left lower lobe with ongoing acute exacerbation of chronic obstructive pulmonary disease, persistent symptoms of wheezing and cough, not [place], [place] REPORT OF CONSULTATION NAME: MESERET RUBIO UNIT #: [id number] ROOM: 511 DOCTOR: PINO REYNOLDS MD BIRTHDATE: [birth year] noted with maximal medical management therapy. 2. Permanent atrial fibrillation as well. 3. History of obstructive sleep apnea disorder as well. PLAN OF TREATMENT: Continue the current medical management with Mucinex, bronchodilators, corticosteroids, and antibiotic. We will obtain a PA lateral chest x-ray to reassess the progression of current radiologic abnormality. She will be assessed with therapeutic bronchoscopy to be done tomorrow morning. Anticoagulation has been placed on hold as well to prevent any bleeding during the procedure. DuoNeb will be changed to albuterol sulfate as well. Any additional treatment changes will be ordered based on progression of the illness. Use of BiPAP from home was advised. PINO RIVERA MD CM:CONSTR:REPORT OF CONSULTATION 1358 01/04/19 1631 interface
--- NOTE | ~2018-12-30 | EKG ---
[place], [place] ELECTROCARDIOGRAM REPORT NAME: MESERET RUBIO UNIT #: [id number] ROOM: 511 DOCTOR: MICKEY DRAFT REPORT BIRTHDATE: [birth year] [facility] Test Date: 2018-12-30 Test Time: 10:11:29 Pat Name: MESERET RUBIO Department: Room: 511 Gender: F Statistical Methods Professor: Brea De Paz : 1945 Requested By: NANCY MONTELONGO Order Number: [id number] Reading MD: Anil Rai MD Measurements Intervals [place] Rate: 77 P: 82 GA: 165 QRS: 75 QRSD: 92 T: 59 QT: 339 QTc: 384 Interpretive Statements Sinus rhythm RSR' in V1 or V2, right VCD or RVH Borderline T abnormalities, lateral leads Compared to ECG 11/15/2018 15:26:57 T-wave abnormality now present Atrial flutter no longer present Myocardial infarct finding no longer present Electronically Signed On 12-30-2018 17:05:15 PST by Anil Rai MD CM:EKGRPT:ELECTROCARDIOGRAM REPORT 1011 1705 NANCY AREVALO DRAFT REPORT NANCY MONTELONGO MD
--- NOTE | ~2018-12-30 | PROC NOTE ---
[place], [place] PROCEDURE NOTE NAME: MESERET RUBIO UNIT #: [id number] ROOM: 511 DOCTOR: NICOLE FERNANDEZ MD,PINO BIRTHDATE: [birth year] DOS: 01/05/2019 PREOPERATIVE DIAGNOSES: The patient with persistent nonresolving respiratory symptoms, severe coughing with intermittent wheezing and shortness of breath, on maximum requested therapy treated since 12/30/2018. POSTOPERATIVE DIAGNOSES: Removal of moderate amount of mucus impaction from the bronchial tree bilaterally with finding of tracheobronchitis. There were no endobronchial obstructive lesions. PROCEDURE DESCRIPTION: Informed consent obtained for the patient. She was brought to the OR and placed in supine position. Conscious sedation administered in the supine position. After that, the bronchoscope advanced to the vocal cord into the tracheal lumen. Tracheal lumen shows moderate amount of thick mucus secretion. The patient with minimal purulent secretions suctioned off with the help of normal saline wash. Tracheal lumen was cleared. After that, the sancho was noted as sharp. Right upper, right middle, left upper, lingular lower bronchi were all examined. Moderate amount of thick mucus impaction noted in endobronchial tree subsegment of the right upper, right middle, right lower, left upper, lingular lower lobe bronchi. Secretion was suctioned out clear with the help of normal saline wash and sent for culture. Procedure was well tolerated by the patient without difficulty. Postoperative findings will be discussed with the patient once the patient recovered the effects of acute sedation. No family members available for the patient to discuss these findings. PINO RIVERA MD CM:PROCNOTE:PROCEDURE NOTE [id number] 0233 PINO FERNANDEZ MD
--- NOTE | ~2018-12-30 | PR ---
[place], [place] PROGRESS NOTE NAME: MESERET RUBIO UNIT #: [id number] ROOM: 511 DOCTOR: PINO REYNOLDS MD BIRTHDATE: [birth year] DOS: 01/06/2019 SUBJECTIVE: The patient has bronchoscopy done yesterday with significant reduction of the respiratory symptom was reported. Denies symptoms, fevers, chills, coughing or any sputum expectoration. Denies symptoms of abdominal pain. OBJECTIVE: VITAL SIGNS: Normal temperature, respiratory rate of 16, heart rate 54, and blood pressure 126/81. Pulse oxygen saturation recorded as 95% saturation on 4 liters nasal cannula. HEENT: Examination shows no acute change. NECK: Supple. CARDIOVASCULAR: S1, S2 audible. LUNGS: Without any wheezing. There were no crackles. ABDOMEN: Soft and nontender. Bowel sounds present. LABORATORY DATA: Culture of the bronchial washing preliminary noted as normal libra. Final culture results were pending. Gram stain of bronchial washing for the patient yesterday, many white blood cells, moderate epithelial cells, few gram-positive cocci in pairs and clusters. IMPRESSION: 1. The patient has significant reduction and improvement noted in the respiratory symptoms of coughing with current medical management. 2. The patient with acute exacerbation of chronic obstructive pulmonary disease as well. 3. Obstructive sleep apnea disorder. PLAN OF MANAGEMENT: From the Pulmonary standpoint, the patient could be discharged home on tapering prednisone and the oral antibiotics. She was advised to resume her previous all home medications. Other plan of therapy, care plan of treatment and management and care. [place], [place] PROGRESS NOTE NAME: MESERET RUBIO UNIT #: [id number] ROOM: 511 DOCTOR: PINO REYNOLDS MD BIRTHDATE: [birth year] PINO RIVERA MD CM:PNTRANS 1235 18 PINO FERNANDEZ MD 01/06/192119 interface
--- NOTE | ~2018-12-30 | EKG ---
[place], [place] ELECTROCARDIOGRAM REPORT NAME: MESERET RUBIO UNIT #: [id number] ROOM: 511 DOCTOR: MICKEY DRAFT REPORT BIRTHDATE: [birth year] [facility] Test Date: 2018-12-31 Test Time: 15:02:35 Pat Name: MESERET RUBIO Department: Room: 511 1 Gender: F Liquefaction And Regasification Helper: : 1945 Requested By: LILLIAM CHAVEZ Order Number: [id number] Reading MD: Anil Rai MD Measurements Intervals [place] Rate: 85 P: 43 IA: 155 QRS: 68 QRSD: 84 T: 224 QT: 382 QTc: 549 Interpretive Statements Sinus rhythm Atrial premature complexes with short run of SVT RSR' in V1 or V2, probably normal variant Nonspecific repol abnormality, diffuse leads Compared to ECG 12/30/2018 10:11:29 Atrial premature complex(es) and SVT now present Electronically Signed On 12-31-2018 15:46:25 PST by Anil Rai MD CM:EKGRPT:ELECTROCARDIOGRAM REPORT 1502 1546 LILLIAM AREVALO DRAFT REPORT LILLIAM CHAVEZ
[2018-12-30 09:53] VITALS: BP 102/45
[2018-12-30 10:27] LABS: BASO % 0.2 % (0.0-1.0); EOS % 0.1 % (1.0-4.0); HEMATOCRIT 37.8 % (37.0-47.0); HEMOGLOBIN 11.8 g/dl (12.0-16.0); LYMPH # 0.8 10*3/uL (1.3-4.4); LYMPH % 7.1 % (27.0-41.0); MEAN CELL VOLUME 96.7 fl (81.0-99.0); MEAN CORPUSCULAR HGB 30.2 pg (27.0-31.0); MEAN CORPUSCULAR HGB CONC 31.2 g/dl (33.0-37.0); MONO # 1.3 10*3/uL (0.1-1.0); MONO % 10.9 % (3.0-9.0); NEUT # 9.3 10*3/uL (2.3-7.9); NEUT % 81.4 % (47.0-73.0); PLATELET COUNT AUTOMATED 161 10*3/uL (130-400); RED BLOOD COUNT 3.91 10*6/uL (4.10-5.10); RED CELL DISTRI WIDTH 14.9 % (0-14.5); WHITE BLOOD COUNT 11.5 10*3/uL (4.8-10.8)
[2018-12-30 10:35] LABS: ACT PARTIAL THROMBO TIME 31.5 SECONDS (20.8-31.5); INTERNATIONAL NORM RATIO 1.1 (2.0-3.5)
[2018-12-30 10:44] LABS: ALKALINE PHOSPHATASE 90 U/L (45-117); BUN 14 mg/dl (7-24); CHLORIDE 99 mmol/L (98-107); CREATININE 0.87 mg/dL (0.55-1.02); POTASSIUM 4.7 mmol/L (3.5-5.1); SGOT/AST 9 IU/L (3-35); SGPT/ALT 19 U/L (12-78); SODIUM 140 mmol/L (136-145); TOTAL PROTEIN 7.2 gm/dL (6.4-8.2)
[2018-12-30 10:45] LABS: TROPONIN I < 0.015 ng/ml (<0.045)
[2018-12-30 11:12] VITALS: BP 97/51
--- NOTE | 2018-12-30 11:40 | NUR ---
A 73, admitted to , under the services of MARQUISE Sanchez DO with a diagnosis of COPD EXACERBATION AND PNEUMONIA. Chief complaint is SHORTNESS OF BREATH AND COUGH. Patient arrived via stretcher from ER. Monitor applied. Initial assessment completed. Vital signs taken and recorded. MARQUISE SANCHEZ DO notified of admission to the unit. Orders received. See assessment for past medical history, medications and allergies. Patient and/or family oriented to unit. [facility] visitation policy reviewed. Clothing/patient valuable form completed. JAN BARROSO
[2018-12-30 12:00] VITALS: BP 104/87
[2018-12-30 16:00] VITALS: BP 103/58
[2018-12-30 20:00] VITALS: BP 90/64
--- NOTE | 2018-12-30 20:00 | NUR ---
sputum obtained and sent to lab for testing gram stain/culture.
--- NOTE | 2018-12-30 22:38 | NUR ---
RESTORIL GIVEN PER ORDER FOR INSOMNIA.
--- NOTE | 2018-12-30 23:26 | NUR ---
24 HR chart check completed.
[2018-12-31] VITALS: BP 113/54
[2018-12-31 01:55] LABS: BILIRUBIN NEGATIVE (NEGATIVE); BLOOD 1+ (NEGATIVE); CLARITY CLEAR (CLEAR); COLOR YELLOW (YELLOW); GLUCOSE 3+ (NEGATIVE); KETONE NEGATIVE (NEGATIVE); LEUKO ESTERASE NEGATIVE (NEGATIVE); NITRITE NEGATIVE (NEGATIVE); PH 5.5 (5.0-9.0); UROBILINOGEN 0.2 E.U./dl (0.2-1.0)
[2018-12-31 02:21] LABS: RBC 21-30 rbc/hpf (0-2)
--- NOTE | 2018-12-31 04:00 | NUR ---
SLEEPING NOT AWAKEND. NO ACUTE DISTRESS NOTED.
--- NOTE | 2018-12-31 06:25 | NUR ---
WHEN AWAKEND PT. HAD FREQUENT VERY MOIST LOOSE COUGH.
[2018-12-31 07:14] LABS: BASO % 0.2 % (0.0-1.0); HEMOGLOBIN 10.5 g/dl (12.0-16.0); LYMPH # 0.4 10*3/uL (1.3-4.4); LYMPH % 7.3 % (27.0-41.0); MEAN CELL VOLUME 97.5 fl (81.0-99.0); MEAN CORPUSCULAR HGB 29.2 pg (27.0-31.0); MONO # 0.5 10*3/uL (0.1-1.0); MONO % 8.8 % (3.0-9.0); NEUT # 4.5 10*3/uL (2.3-7.9); PLATELET COUNT AUTOMATED 137 10*3/uL (130-400); RED BLOOD COUNT 3.59 10*6/uL (4.10-5.10); RED CELL DISTRI WIDTH 14.6 % (0-14.5); WHITE BLOOD COUNT 5.5 10*3/uL (4.8-10.8)
[2018-12-31 07:44] LABS: ALBUMIN 2.6 gm/dl (3.1-4.5); BUN 16 mg/dl (7-24); CHLORIDE 101 mmol/L (98-107); PHOSPHOROUS 1.5 mg/dL (2.5-4.9); POTASSIUM 4.6 mmol/L (3.5-5.1); SGOT/AST 3 IU/L (3-35); SGPT/ALT 16 U/L (12-78); SODIUM 142 mmol/L (136-145); TOTAL PROTEIN 6.8 gm/dL (6.4-8.2)
[2018-12-31 07:51] LABS: ALKALINE PHOSPHATASE 77 U/L (45-117); THYROID STIM HORMONE (HS) 0.788 uIU/ml (0.358-4.75)
[2018-12-31 08:00] VITALS: BP 102/53
[2018-12-31 12:00] VITALS: BP 111/60
--- NOTE | 2018-12-31 13:36 | NUR ---
Contacted pharmacy regarding availablility of 5mg Buspar. Pharmacist currently at lunch. Will change to 10mg Buspar.
--- NOTE | 2018-12-31 14:02 | NUR ---
PHYSICAL THERAPY PT EVAL COMPLETED TODAY ON LEVEL 5: FULL EVALUATION TO FOLLOW. RECOMMEND PT WHILE HERE TO ADDRESS DECREASED STRENGTH AND FUNCTIONAL MOBILITY AND ENDURANCE. PT EVAL IS LOW COMPLEXITY BASED ON CHART REVIEW, TEST RESULTS AND EVALUATION: [id number]. D/C RECOMMENDATIONS ARE HOME WITH HOME PT THANK YOU FOR REFERRAL MELANIE FIELDS PT
--- NOTE | 2018-12-31 14:31 | NUR ---
Contacted Dr. Miguel to notify him that when I checked her heart rate before giving her Digonxin, it was 148 apical w/auscultation. Per physician he was to order an EKG and Digonxin was given.
[2018-12-31 16:00] VITALS: BP 111/57; BP 114/68
--- NOTE | 2018-12-31 16:02 | NUR ---
Called Dr. Miguel with recent set of vitals.
[2018-12-31 20:00] VITALS: BP 107/50
[2019-01-01] VITALS: BP 114/54
[2019-01-01 07:09] LABS: BASO % 0.3 % (0.0-1.0); EOS % 0.1 % (1.0-4.0); HEMATOCRIT 35.5 % (37.0-47.0); HEMOGLOBIN 10.9 g/dl (12.0-16.0); LYMPH # 0.6 10*3/uL (1.3-4.4); LYMPH % 7.6 % (27.0-41.0); MEAN CELL VOLUME 98.3 fl (81.0-99.0); MEAN CORPUSCULAR HGB 30.2 pg (27.0-31.0); MEAN CORPUSCULAR HGB CONC 30.7 g/dl (33.0-37.0); MEAN PLATELET VOLUME 10.2 fl (9.6-12.3); MONO # 0.3 10*3/uL (0.1-1.0); MONO % 4.1 % (3.0-9.0); NEUT # 6.3 10*3/uL (2.3-7.9); NEUT % 86.4 % (47.0-73.0); RED BLOOD COUNT 3.61 10*6/uL (4.10-5.10); RED CELL DISTRI WIDTH 14.7 % (0-14.5); WHITE BLOOD COUNT 7.2 10*3/uL (4.8-10.8)
[2019-01-01 07:23] LABS: CHLORIDE 99 mmol/L (98-107); CREATININE 0.84 mg/dL (0.55-1.02); PHOSPHOROUS 2.2 mg/dL (2.5-4.9); POTASSIUM 4.7 mmol/L (3.5-5.1); SODIUM 140 mmol/L (136-145)
[2019-01-01 07:24] LABS: BUN 27 mg/dl (7-24)
[2019-01-01 07:27] LABS: PLATELET COUNT AUTOMATED 185 10*3/uL (130-400)
--- NOTE | 2019-01-01 08:00 | NUR ---
VITAL SIGNS STABLE, A&OX3, AHMET EQUAL HAIRSPRING STAKER, HEART SOUND IRREGULAR, LUNG SOUNDS CLEAR, ABDOMIN SOFT NON TENDER, BS X4 QUADS, SKIN PINK, DRY, WARM AND INTACK, PEDAL PULSES PRESENT WITH NO EDEMA NOTED, PATIENT AMBULATES ADLIB COLTEN.LIANA FLYNN
--- NOTE | 2019-01-01 08:55 | NUR ---
Patient requested copy of HPOA paperwork. Provided patient a copy and instructions, she will let CM know when they are completed.
--- NOTE | 2019-01-01 08:58 | NUR ---
Patient not available for Occupational Therapy as she is eating breakfast. Silke Flor OTR/L
[2019-01-01 09:53] VITALS: BP 118/68
--- NOTE | 2019-01-01 10:28 | NUR ---
PATIENT REQUESTED SOMETHING FOR CONSTIPATION BISACODYL ADMINISTERED PER ORDER WILL CONTINUE TO ASSESS. ADRIANNA FLYNN SLPN
--- NOTE | 2019-01-01 11:05 | NUR ---
PHYSICAL THERAPY Patient seen this am 1:1 for therapy visit and was resting supine in bed upon therapist arrival. Patient presented with continuous O2-4L via NC, voicing no new c/o's at this time. 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 Patient baseline SpO2 94%, HR 82 bpm prior to treatment. Patient needed approx 40 seconds seated rest recovery time for return to baseline stats prior to second gait trial with similar results. Patient instructed on purse lip breathing technique to improve both energy conservation and standing activity tolerance before returning to EOB sit. Patient remained with call light, tray table and cell phone. Will continue per POC as tolerated, total treatment time 17 minutes. Ralph Durham, DECATIZER
--- NOTE | 2019-01-01 11:30 | NUR ---
Refractory Grinder Operator in to talk to patient. Patient states lives at HOME with ALONE. There are 2 steps in the home. Physician: Scooter GU Pharmacy: [facility] Home health services: NONE Patient's level of ADLs: INDEPENDENT Patient has working utilities: YES DME: [employer], NEBULIZER Follow-up physician's appointment after d/c: WILL BE MADE BY HOSPITALIST NURSE DIRECTOR ON DISCHARGE Does patient want to access PORTAL?: NO Discharge plan PT LIVES AT HOME ALONE AND IS INDEPENDENT IN CARE. TALKED WITH PT ABOUT HOME HEALTH, SHE STATES SHE HAS HAD THEM IN THE PAST BUT DOES NOT FEEL SHE NEEDS THEM NOW. DENIES ANY NEEDS ON DISCHARGE. WILL CONTINUE TO FOLLOW.. LESLIE SIM
[2019-01-01 12:00] VITALS: BP 106/60
--- NOTE | 2019-01-01 13:57 | NUR ---
BISACODYL WAS NOT EFFECTIVE AT TIME OF ASSESSMENT WILL CONTINUETO MONITOR ADRIANNA FLYNN SPSTEVENSONCC
--- NOTE | 2019-01-01 14:25 | NUR ---
Occupational Therapy evalution completed on 5 with full eval to follow. Precautions include O2 dependent,unsteady, easy to fatigue, fall risk. Patient is moderate complexity level 70388 via chart review, testing and evaluation. Recommend OT per POC and home with home health SN,OT,PT. Thank you for this referral. Silke Flor OTR/l
[2019-01-01 16:00] VITALS: BP 115/64
--- NOTE | 2019-01-01 17:39 | NUR ---
Spoke with Dr. Mcbride about loss of IV site and plan of possible discharge in morning. Physician to review medications and see if they can be changed to PO.
--- NOTE | 2019-01-01 19:57 | NUR ---
24 HR chart check completed.
[2019-01-01 20:00] VITALS: BP 108/49
--- NOTE | 2019-01-01 21:00 | NUR ---
RESTING IN BED WATCHING TV WITH NO ACUTE DISTRESS NOTED. RESPIRATIONS EASY. LUNGS DIMINISHED WITH WHEEZES. PULSE OX 97% 3L, HUMIDIFICATION ADDED. LOOSE COUGH, OCCASIONALLY PRODUCTIVE. OFFERED AND EDUCATED REGARDING TEDS, DECLINED. CALL LIGHT WITHIN REACH. NO VOICED COMPLAINTS
--- NOTE | 2019-01-01 22:28 | NUR ---
PATIENT REQUESTING SLEEPING PILL, NONE ORDERED BUT STATES SHE TOOK LAST [address] DUTTA CONTACTED AND INFORMED OF PATIENT'S REQUEST FOR RESTORIL
--- NOTE | 2019-01-01 23:06 | NUR ---
MEDICATED WITH RESTORIL PER PRN ORDER TO ASSIST WITH SLEEP. WILL MONITOR
[2019-01-02] VITALS: BP 102/64
--- NOTE | 2019-01-02 06:00 | NUR ---
RESTED THROUGHOUT NIGHT WITH NO DISTRESS NOTED. RESPIRATIONS EASY. O2 IN USE. CALL LIGHT WITHIN REACH. NO VOICED COMPLAINTS THIS SHIFT
--- NOTE | 2019-01-02 07:58 | NUR ---
VITAL SIGNS STABLE. PATIENT IS A&O X3. BILATERAL SAFETY INVESTIGATOR/CAUSE ANALYST EQUAL. HEART SOUNDS NORMAL. EXPIRATORY WHEEZE NOTED IN LEFT LOWER LOBE. CAPILLARY REFILL <3 SECONDS. + PULSES IN ALL EXTREMITIES, NO EDEMA NOTED. BS X 4 ABDOMEN SOFT, NON TENDER, NON DISTENDED. LAST BM 2/3. SKIN IS PINK, WARM AND DRY. SKIN IS INTACT. NO PAIN AT THIS TIME. RUBIO LUCASCC
[2019-01-02 08:00] VITALS: BP 120/62
--- NOTE | 2019-01-02 09:14 | NUR ---
BISACODYL 1 PO GIVEN FOR CONSTIPATION, LAST BM NOTED ON 12/31/18. RUBIO RODRIGUEZ
--- NOTE | 2019-01-02 11:15 | NUR ---
REASSED EFFECTIVENESS OF BISACODYL, PATIENT DENIES BM AT THIS TIME. RUBIO GUAN SPSTEVENSONCC
--- NOTE | 2019-01-02 11:34 | NUR ---
PT CONTINUES TO DENY HOME NEEDS ON DISCHARGE. WILL CONTINUE TO FOLLOW.
[2019-01-02 12:00] VITALS: BP 126/60
--- NOTE | 2019-01-02 14:00 | NUR ---
TO ROOM FOR PT TO FILL OUT POA AND LIVING WILL PAPERS WITH PT AND HER SON. COPY ON PT CHART.
--- NOTE | 2019-01-02 14:05 | NUR ---
OT NOTE Pt was seen this P.M. 1:1 for 15 minute OT session. Upon arrival pt was sitting upright on the EOB with son at bedside. Pt had no complaints at this time and presented to therapy with continous 4L-O2 via NC which she remained on throughout entire session. Pt donned B socks with SBA and good use of personal technique of bringing her leg over her knee, pt uses same technique with LB bathing. Pt then completed sit to stand transfer from bed level with SBA followed by functional mobility into the bathroom with SBA while pt managed O2 tubing. Pt required two verbal prompts due to pt stepping over tubing versus picking it up. There she transferred on/off standard commode with SBA and use of grab bar. Pt returned to EOB where she was left sitting upright on the EOB with call light in hand, tray table in place, and son at bedside. Continue with rec D/C plan to home with home health OT. NIKOLAI Summers/Ranjit
--- NOTE | 2019-01-02 14:19 | NUR ---
PHYSICAL THERAPY Patient had just returned from a nice walk with her Son this pm upon therapist arrival and was sitting up EOB. Patient reports feeling much better with decreased c/o fatigue. Patient presented with continuos O2-4L via NC and was educated on seated B LE therex, HEP, and demonstrated good understanding of all ex. Patient also reviewed and voiced her understanding of safe navigation with extended O2 hose from bed to bathroom gait. Patient remaained EOB following therapist visit with her Son present and will continue per POC as tolerated. Total treatment time 12 minutes. Ralph Durham, PIPELINE SUPERINTENDENT
[2019-01-02 16:00] VITALS: BP 120/53
[2019-01-02 20:00] VITALS: BP 117/57
[2019-01-03] VITALS: BP 143/73
[2019-01-03 07:11] LABS: HEMATOCRIT 40.4 % (37.0-47.0); HEMOGLOBIN 12.3 g/dl (12.0-16.0); MEAN CELL VOLUME 98.8 fl (81.0-99.0); MEAN CORPUSCULAR HGB 30.1 pg (27.0-31.0); MEAN CORPUSCULAR HGB CONC 30.4 g/dl (33.0-37.0); MEAN PLATELET VOLUME 9.8 fl (9.6-12.3); NUCLEATED RED BLOOD CELL 0.3 % (0.0-0.0); PLATELET COUNT AUTOMATED 240 10*3/uL (130-400); RED BLOOD COUNT 4.09 10*6/uL (4.10-5.10); RED CELL DISTRI WIDTH 14.6 % (0-14.5); WHITE BLOOD COUNT 14.5 10*3/uL (4.8-10.8)
[2019-01-03 07:24] LABS: BUN 20 mg/dl (7-24); CHLORIDE 94 mmol/L (98-107); SODIUM 139 mmol/L (136-145)
[2019-01-03 07:25] LABS: CREATININE 0.78 mg/dL (0.55-1.02)
[2019-01-03 08:00] VITALS: BP 132/62
[2019-01-03 08:09] LABS: PLATELET SUFFICIENCY NORMAL (NORMAL); TOTAL CELLS COUNTED 100 #CELLS
--- NOTE | 2019-01-03 11:31 | NUR ---
CONTINUES TO DENY HOME NEEDS. WILL CONTINUE TO FOLLOW.
[2019-01-03 12:00] VITALS: BP 124/56
--- NOTE | 2019-01-03 12:02 | NUR ---
DR. RIVERA CONSULTED FOR WORSENING SYMPTOMS.
--- NOTE | 2019-01-03 13:38 | NUR ---
OT NOTE Pt was seen this P.M. 1:1 for 20 minute OT session. Upon arrival pt was supine in bed, pt identified by name and and had complaints of increased fatigue. Pt presented to therapy with continous 4L-O2 via NC which she remained on throughout entire session. Pt transferred supine to sit EOB with SBA. While sitting EOB pt donned B socks with good carry over of energy conservation technique of bringing her leg over the knee versus forward flexion. Pt had reports of feeling concerned about having LOB when her eyes are closed upon returning home. Pt then completed sit to stand transfer from bed level with SBA where she was then challenged to stand for 1 minute with her eyes closed. Pt had no LOB noted and had no complaints of feeling unsteady. Functional mobility completed into the bathroom with SBA while managing O2 tank. There she stood sink side while washing her hands and face with SBA, no LOB was noticed while eyes were shut or throughout entire task. Pt had good carry over of breathing techniques throughout. Pt returned to the EOB where she transferred sit to supine with SBA, there she was left with call light in hand, tray table in place, and phone in reach. Continue with rec D/C plan to home with home health. NIKOLAI Summers/Ranjit
--- NOTE | 2019-01-03 13:46 | NUR ---
PHYSICAL THERAPY Patient presented to therapy in supine with 4 liters of spO2 via nasal canula and no complaints. Patient agrees to therapy session. Patient was identified by name and . Patient performed supine to sitting transfer with SBA. Patient STS transfer with SBA. Patient ambulated with no assistive device and 4 liters of spO2 via nasal canula for 100' x 2 and Clsoe Supervision with patient pushing O2 tank. Patient ascended and descended 10 steps with Close Supervision with therapist handling the O2 TANK on steps. Patient then performed standing balance EO/EC for 1 minute each with no LOB. Patient then ambulated another 220' x 1 pushing the O2 tank herself with Close Supervision without LOB or SOB. Patient was left in sitting at EOB with 4 liters of spO2 attached to wall outlet via nasal canula and call light within reach. Patient was 1:1 with this COAL TRAM DRIVER for 24 minutes total. MARITZA GLEASON COAL TRAM DRIVER
[2019-01-03 16:00] VITALS: BP 143/64
[2019-01-03 20:00] VITALS: BP 130/72
[2019-01-04] VITALS: BP 148/69
[2019-01-04 06:25] LABS: HEMATOCRIT 37.4 % (37.0-47.0); HEMOGLOBIN 11.7 g/dl (12.0-16.0); MEAN CELL VOLUME 96.6 fl (81.0-99.0); MEAN CORPUSCULAR HGB 30.2 pg (27.0-31.0); MEAN CORPUSCULAR HGB CONC 31.3 g/dl (33.0-37.0); MEAN PLATELET VOLUME 9.3 fl (9.6-12.3); NUCLEATED RED BLOOD CELL 0.2 % (0.0-0.0); PLATELET COUNT AUTOMATED 214 10*3/uL (130-400); RED BLOOD COUNT 3.87 10*6/uL (4.10-5.10); RED CELL DISTRI WIDTH 14.6 % (0-14.5); WHITE BLOOD COUNT 12.4 10*3/uL (4.8-10.8)
[2019-01-04 06:38] LABS: BUN 21 mg/dl (7-24); CHLORIDE 91 mmol/L (98-107); CREATININE 0.72 mg/dL (0.55-1.02); POTASSIUM 4.8 mmol/L (3.5-5.1); SODIUM 137 mmol/L (136-145)
[2019-01-04 07:37] LABS: PLATELET SUFFICIENCY NORMAL (NORMAL); TOTAL CELLS COUNTED 100 #CELLS
[2019-01-04 08:00] VITALS: BP 130/62
[2019-01-04 12:00] VITALS: BP 135/65
--- NOTE | 2019-01-04 13:06 | NUR ---
LAB CALLED WITH CRITICAL CO2 FROM LAB WORK FROM 730 THIS MORNING. CRITICAL CO2 43. DR. THOMPSON CALLED AND MADE AWARE. NO NEW ORDERS AT THIS TIME.
--- NOTE | 2019-01-04 14:22 | NUR ---
PHYSICAL THERAPY Patient seen this pm 1:1 for therapy visit and was in her bathroom upon therapist arrival. Patient presented with continuos O2-2L via NC and voiced no new c/o's. Patient stated she is scheduled for am Bronchoscope tomorrow morning and tolerated gait / safety training ambulating without AD in room. Patient navigated around bed to bathroom x several trials, 40 feet, SBA, while demonstrating good safety awareness with use of extended O2 hose. Patient returned to EOB sit with only mild fatigue and remained with call light, tray table and telephone. Will continue per POC as tolerated, total treatment time 13 minutes. Ralph Durham, STEM FRAZER
[2019-01-04 16:00] VITALS: BP 128/57
[2019-01-04 20:00] VITALS: BP 104/50
[2019-01-05] VITALS (8 sets, daily range): BP systolic 105–143; BP diastolic 53–71
[2019-01-05 06:57] LABS: HEMATOCRIT 38.6 % (37.0-47.0); MEAN CELL VOLUME 95.8 fl (81.0-99.0); MEAN CORPUSCULAR HGB 29.8 pg (27.0-31.0); MEAN CORPUSCULAR HGB CONC 31.1 g/dl (33.0-37.0); NUCLEATED RED BLOOD CELL 0.3 % (0.0-0.0); PLATELET COUNT AUTOMATED 203 10*3/uL (130-400); RED BLOOD COUNT 4.03 10*6/uL (4.10-5.10); RED CELL DISTRI WIDTH 14.6 % (0-14.5); WHITE BLOOD COUNT 11.9 10*3/uL (4.8-10.8)
[2019-01-05 07:17] LABS: BUN 20 mg/dl (7-24); CHLORIDE 92 mmol/L (98-107); CREATININE 0.73 mg/dL (0.55-1.02); POTASSIUM 4.8 mmol/L (3.5-5.1); SODIUM 139 mmol/L (136-145)
--- NOTE | 2019-01-05 07:49 | NUR ---
PT HAD A CRITICAL LAB OC CO2 48. DR. THOMPSON WAS NOTIFIED.
[2019-01-05 07:50] LABS: ATYPICAL LYMPHS 1 % (0-0); TOTAL CELLS COUNTED 100 #CELLS
[2019-01-05 07:51] LABS: PLATELET SUFFICIENCY NORMAL (NORMAL); POLYCHROMASIA SLIGHT
--- NOTE | 2019-01-05 08:35 | NUR ---
PATIENT TAKEN TO SURGERY FOR A BRONCH.
--- NOTE | 2019-01-05 10:40 | NUR ---
PATIENT HAS RETURNE TO FLOOR FROM SURGERY.
--- NOTE | 2019-01-05 11:11 | NUR ---
PHYSICAL THERAPY PATIENT WA SNOT IN ROOM AND WAS IN SURGERY FOR BRONCHYSCOPY AT 10:00 AM. WILL CHECK BACK LATER. MARITZA GLEASON CUSTOMER PROGRAM MANAGER
--- NOTE | 2019-01-05 11:40 | NUR ---
PT HAD BRONCH TODAY. WILL RETURN HOME WITH NO NEEDS. WILL CONTINUE TO FOLLOW.
--- NOTE | 2019-01-05 11:54 | NUR ---
PHYSICAL THERAPY Patient presented to therapy session in supine with head of bed elevated and just returned from having brochyscope. Patient agrees to therapy session. Patient was identified by name and . Patient performed supine to sitting at EOB transfer with SBA. Patient transferred STS with SBA. Patient ambulated with W/W and Close Supervision for 200' x 1 with no assistive device and 2 Liters of spO2 via nasal canula. Patient transferred back to supine in bed with SBA. Patient was left in supine with head of bed elevated, call light within reach, and connected to wall outlet with 2 liters of spO2 via nasal canula. Patient was 1:1 with this POURER BULL LADLE for 15 minutes total. MARITZA GLEASON POURER BULL LADLE
--- NOTE | 2019-01-05 16:50 | NUR ---
DR. THOMPSON WAS NOTIFIED OF PATIENTS HR OF 60 AND INSTRUCT ME TO STILL ADMINISTER THE DIGOXIN. WILL CONTINUE TO MONITOR.
[2019-01-06] VITALS: BP 119/66
[2019-01-06 06:32] LABS: HEMATOCRIT 40.8 % (37.0-47.0); HEMOGLOBIN 12.2 g/dl (12.0-16.0); MEAN CELL VOLUME 97.8 fl (81.0-99.0); MEAN CORPUSCULAR HGB 29.3 pg (27.0-31.0); MEAN CORPUSCULAR HGB CONC 29.9 g/dl (33.0-37.0); MEAN PLATELET VOLUME 9.2 fl (9.6-12.3); NUCLEATED RED BLOOD CELL 0.2 % (0.0-0.0); PLATELET COUNT AUTOMATED 211 10*3/uL (130-400); RED BLOOD COUNT 4.17 10*6/uL (4.10-5.10); RED CELL DISTRI WIDTH 14.7 % (0-14.5); WHITE BLOOD COUNT 15.2 10*3/uL (4.8-10.8)
[2019-01-06 06:55] LABS: BUN 22 mg/dl (7-24); CHLORIDE 97 mmol/L (98-107); CREATININE 0.81 mg/dL (0.55-1.02); POTASSIUM 4.5 mmol/L (3.5-5.1); SODIUM 140 mmol/L (136-145)
[2019-01-06 07:23] LABS: ATYPICAL LYMPHS 2 % (0-0); PLATELET SUFFICIENCY NORMAL (NORMAL); TOTAL CELLS COUNTED 100 #CELLS
[2019-01-06 07:24] LABS: POLYCHROMASIA SLIGHT
[2019-01-06 08:00] VITALS: BP 126/81
[2019-01-06 12:00] VITALS: BP 118/60
[2019-01-06 15:10] LABS: ACID FAST SPEC PROCESSING Concentration (.)
[2019-01-06 16:00] VITALS: BP 103/52
[2019-01-06 20:00] VITALS: BP 121/70
--- NOTE | 2019-01-06 21:49 | NUR ---
RESTORIL GIVEN PER PT REQUEST FOR INSOMNIA. ALL SAFETY MEASURES IN PLACE. WILL MONITOR.
[2019-01-06 22:10] LABS: ADENOVIRUS Negative (Negative); INFLUENZA A Negative (Negative); INFLUENZA B Negative (Negative); METAPNEUMOVIRUS Negative (Negative); PARAINFLUENZA 1 Negative (Negative); PARAINFLUENZA 2 Negative (Negative); PARAINFLUENZA 3 Negative (Negative); RHINOVIRUS Negative (Negative); RSV A Negative (Negative); RSV B Negative (Negative)
[2019-01-07] VITALS: BP 111/62
[2019-01-07 06:17] LABS: HEMATOCRIT 40.2 % (37.0-47.0); HEMOGLOBIN 12.5 g/dl (12.0-16.0); MEAN CELL VOLUME 97.1 fl (81.0-99.0); MEAN CORPUSCULAR HGB 30.2 pg (27.0-31.0); MEAN CORPUSCULAR HGB CONC 31.1 g/dl (33.0-37.0); MEAN PLATELET VOLUME 9.2 fl (9.6-12.3); PLATELET COUNT AUTOMATED 201 10*3/uL (130-400); RED BLOOD COUNT 4.14 10*6/uL (4.10-5.10); RED CELL DISTRI WIDTH 14.7 % (0-14.5); WHITE BLOOD COUNT 17.4 10*3/uL (4.8-10.8)
[2019-01-07 06:46] LABS: BUN 29 mg/dl (7-24); CHLORIDE 99 mmol/L (98-107); CREATININE 0.89 mg/dL (0.55-1.02); SODIUM 138 mmol/L (136-145)
[2019-01-07 06:59] LABS: PLATELET SUFFICIENCY NORMAL (NORMAL); TOTAL CELLS COUNTED 100 #CELLS
[2019-01-07 07:00] LABS: POLYCHROMASIA SLIGHT; TOXIC GRANULATION SLIGHT
[2019-01-07 08:00] VITALS: BP 133/59
[2019-01-07] MEDS ORDERED: MUCINEX ER600 MG PO (09:29)
[2019-01-07] MEDS ORDERED: PREDNISONE10 MG PO (09:30)
[2019-01-07] MEDS ORDERED: LEVAQUIN500 M2 PO (09:32)
--- NOTE | 2019-01-07 10:27 | NUR ---
Discharge instructions reviewed with patient. Patient receptive and verbalizes understanding. Follow-up care arranged. Written instructions given to patient. IGNACIO CAMPOS
--- NOTE | 2019-01-07 10:28 | NUR ---
PATIENT GETTING READY FOR DISCHARGE, AND SHE WILL CALL FOR [facility] HOME.
--- NOTE | 2019-01-07 12:54 | NUR ---
PATIENT DISCHARGED TO FRONT LOBBY BY WHEELCHAIR, ACCOMPANIED BY [facility], FOR TRANSPORT HOME BY PRIVATE VEHICLE WITH FAMILY MEMBER.
--- NOTE | 2019-01-08 07:47 | NUR ---
PHYSICAL THERAPY CO-SIGN I approve of the Phyical Therapy notes written above. LORNE RENDON PT
--- NOTE | 2019-01-08 08:04 | NUR ---
OCCUPATIONAL THERAPY CO-SIGN I approve of the Occupational Therapy notes written above. ELENA MACKAY OTR/Ranjit
[2019-01-18 15:07] LABS: ORGANISM ID, MOLD Final report (.); RESULT 1 Penicillium species (.)
[2019-01-30] MEDS ORDERED: DOCUSATE SODIU100 M2 PO (17:23)
[2019-01-30] MEDS ORDERED: LASIX20 MG PO (17:26)
[2019-01-30] MEDS ORDERED: BREO ELLIPTA 11 EACH INH (17:27)
[2019-02-05] MEDS ORDERED: ACETAZOLAMIDE250 MG PO (08:42)
[2019-02-05] MEDS ORDERED: ZITHROMAX500 MG PO (08:44)
[2019-02-05] MEDS ORDERED: PREDNISONE10 MG PO (12:04)
[2019-02-15 13:07] LABS: ACID FAST CULTURE Negative (.)
[2019-04-03] MEDS ORDERED: ATIVAN0.5 MG PO (18:24)
[2019-04-09] MEDS ORDERED: PREDNISONE10 MG PO (09:13)
[2019-04-09] MEDS ORDERED: ZITHROMAX250 MG PO (09:13)
[2019-07-11] MEDS ORDERED: CIPRO500 MG PO (13:11)
[2019-07-11] MEDS ORDERED: FLAGYL500 MG PO (13:11)
== END 2019-01-07 12:53 | disposition home or self-care (01) | DRG 193 ==
LOC: ED 09:53 → 5E 11:02 → EDHOLD 11:02 → 5E 11:15
PROVIDERS: Emergency Medicine; Family Medicine; Internal Medicine; Internal Medicine Critical Care Medicine; Student in an Organized Health Care Education/Training Program; ADMIT Internal Medicine
PROC: 0BC78ZZ Extirpation of Matter from Left Main Bronchus, Via Natural or Artificial Opening Endoscopic (ICD-10-PCS; principal; 2019-01-05)
PROC: 0BC38ZZ Extirpation of Matter from Right Main Bronchus, Via Natural or Artificial Opening Endoscopic (ICD-10-PCS; principal; 2019-01-05)
PROC: 0BC58ZZ Extirpation of Matter from Right Middle Lobe Bronchus, Via Natural or Artificial Opening Endoscopic (ICD-10-PCS; principal; 2019-01-05)
PROC: 0BCB8ZZ Extirpation of Matter from Left Lower Lobe Bronchus, Via Natural or Artificial Opening Endoscopic (ICD-10-PCS; principal; 2019-01-05)
PROC: 0BC68ZZ Extirpation of Matter from Right Lower Lobe Bronchus, Via Natural or Artificial Opening Endoscopic (ICD-10-PCS; principal; 2019-01-05)
PROC: 0BC18ZZ Extirpation of Matter from Trachea, Via Natural or Artificial Opening Endoscopic (ICD-10-PCS; principal; 2019-01-05)
PROC: 0BC48ZZ Extirpation of Matter from Right Upper Lobe Bronchus, Via Natural or Artificial Opening Endoscopic (ICD-10-PCS; principal; 2019-01-05)
PROC: 0BC88ZZ Extirpation of Matter from Left Upper Lobe Bronchus, Via Natural or Artificial Opening Endoscopic (ICD-10-PCS; principal; 2019-01-05)
PROC: 0BC98ZZ Extirpation of Matter from Lingula Bronchus, Via Natural or Artificial Opening Endoscopic (ICD-10-PCS; principal; 2019-01-05)
PROC: 5A09357 Assistance with Respiratory Ventilation, Less than 24 Consecutive Hours, Continuous Positive Airway Pressure (ICD-10-PCS; 2019-01-07)
DX: J15.9 Unspecified bacterial pneumonia (principal); J96.21 Acute and chronic respiratory failure with hypoxia; J96.22 Acute and chronic respiratory failure with hypercapnia; E44.0 Moderate protein-calorie malnutrition; D68.59 Other primary thrombophilia; E87.3 Alkalosis; T17.590A Other foreign object in bronchus causing asphyxiation, initial encounter; I10 Essential (primary) hypertension; E78.5 Hyperlipidemia, unspecified; H35.30 Unspecified macular degeneration; I48.0 Paroxysmal atrial fibrillation; E11.65 Type 2 diabetes mellitus with hyperglycemia; I25.10 Atherosclerotic heart disease of native coronary artery without angina pectoris; F41.1 Generalized anxiety disorder; Z96.1 Presence of intraocular lens; J20.9 Acute bronchitis, unspecified; Z66 Do not resuscitate; Z51.5 Encounter for palliative care; J43.9 Emphysema, unspecified; F41.9 Anxiety disorder, unspecified; F32.9 Major depressive disorder, single episode, unspecified; D64.9 Anemia, unspecified; G47.33 Obstructive sleep apnea (adult) (pediatric); E66.3 Overweight; X58.XXXA Exposure to other specified factors, initial encounter; Y93.89 Activity, other specified; Y92.89 Other specified places as the place of occurrence of the external cause; Y99.8 Other external cause status; Z99.81 Dependence on supplemental oxygen; Z86.73 Personal history of transient ischemic attack (TIA), and cerebral infarction without residual deficits; Z87.01 Personal history of pneumonia (recurrent); Z90.49 Acquired absence of other specified parts of digestive tract; Z98.42 Cataract extraction status, left eye; Z98.41 Cataract extraction status, right eye; Z87.891 Personal history of nicotine dependence; Z82.3 Family history of stroke; Z82.49 Family history of ischemic heart disease and other diseases of the circulatory system; Z80.9 Family history of malignant neoplasm, unspecified; Z79.899 Other long term (current) drug therapy; Z68.25 Body mass index [BMI] 25.0-25.9, adult

== ENCOUNTER → 2019-03-27 | Outpatient (CLI) | payer MEDICARE ==
[~2019-03-27] MED LIST changes: +AVPAK AZITHROM250 M1 PO; +BREO ELLIPTA 11 EACH INH; +BUDEPRION XL150 MG PO; +CIPRO500 MG PO; +DIGOXIN125 MCG PO; +DOCUSATE SODIU100 M2 PO; +FLAGYL500 MG PO; +MUCINEX1200 M1 PO; +OMNICEF300 MG PO; +ZITHROMAX250 MG PO; +ZITHROMAX500 MG PO
== END | disposition home or self-care (01) ==
LOC: WOUNDCARE 02:01
DX: L97.212 Non-pressure chronic ulcer of right calf with fat layer exposed (principal); L03.115 Cellulitis of right lower limb; I10 Essential (primary) hypertension; J43.9 Emphysema, unspecified; R41.3 Other amnesia; Z87.891 Personal history of nicotine dependence

== ENCOUNTER → 2019-04-20 | Outpatient (CLI) | payer MEDICARE | END | disposition home or self-care (01) | LOC: WOUNDCARE 13:16 | DX: L97.212 Non-pressure chronic ulcer of right calf with fat layer exposed (principal); L03.115 Cellulitis of right lower limb; I10 Essential (primary) hypertension; J43.8 Other emphysema; Z87.891 Personal history of nicotine dependence ==

== ENCOUNTER 2019-05-17 13:31 | Inpatient (IN) | payer MEDICARE ==
[~2019-05-17] VITALS: Ht 165.1 cm; Wt 73.7 kg
--- NOTE | ~2019-05-17 | EKG ---
[place], [place] ELECTROCARDIOGRAM REPORT NAME: MESERET RUBIO UNIT #: [id number] ROOM: 404 DOCTOR: MICKEY DRAFT REPORT BIRTHDATE: [birth year] [facility] Test Date: 2019-05-17 Test Time: 14:58:02 Pat Name: MESERET RUBIO Department: Room: 404 Gender: F Evaporator Repairer: : 1945 Requested By: KHALIDA CRUM PA-C Order Number: [id number] Reading MD: Sharad Elliott Measurements Intervals [place] Rate: 61 P: 75 PA: 178 QRS: 70 QRSD: 99 T: 50 QT: 380 QTc: 383 Interpretive Statements Sinus rhythm Compared to ECG 04/02/2019 22:28:01 Myocardial infarct finding no longer present Electronically Signed On 05-18-2019 8:34:08 PDT by Sharad Elliott CM:EKGRPT:ELECTROCARDIOGRAM REPORT [id number] KHALIDA CRUM PA-C EPIPHANY DRAFT REPORT KHALIDA CRUM PA-C
--- NOTE | ~2019-05-17 | CON ---
[place], [place] REPORT OF CONSULTATION NAME: MESERET RUBIO UNIT #: [id number] ROOM: 404 DOCTOR: PINO REYNOLDS MD BIRTHDATE: [birth year] DOS: 05/18/2019 PULMONARY CONSULTATION, EVALUATION, AND MANAGEMENT The patient is currently seen and examined in otmi-ro-gjod encounter, history was confirmed. History and physical performed. Labs were reviewed. Assessment and management was completed personally for today's visit as well. Note done by the medical center director was approved. HISTORY OF PRESENT ILLNESS: This is a 73-year-old female patient, who has been admitted to the hospital as the patient was complaining of getting sick for the last few days. She was complaining of symptoms of shortness of breath with dizziness and nonproductive cough. The symptom has been noted ongoing for a few days, prompting assessment to the Emergency Room. The patient will be assessed in the Emergency Room, admitted to the hospital, possibility of left lower lobe pneumonia as well. She has been noted comfortable this morning of assessment. The patient denies symptoms of chest pain, fever, or chills. Denies symptoms of acute hemoptysis with current symptoms. She has been denying any symptoms of chills or fevers at home. REVIEW OF SYSTEMS: Completed. CONSTITUTIONAL: With symptoms of fatigue and tiredness. Denies fever or chills. EYES: Denied burning, redness, or tenderness. EARS, NOSE, THROAT SYMPTOMS: Denies sore throat, hoarseness, otalgia, postnasal drainage, or epistaxis. CARDIOVASCULAR: Denies angina pain, edema, or pain of the lower extremities. GASTROINTESTINAL: Denies dysphagia, nausea, vomiting, diarrhea, abdominal pain, hematemesis, melena, or hematochezia. SKIN: Denies lesions or rashes. MUSCULOSKELETAL: No acute joint pain, redness, or tenderness. SKIN: No lesions or rashes reported. CENTRAL NERVOUS SYSTEM: No dizziness, but there are no symptoms of seizures. General weakness and fatigue were noted. Remaining systems were reviewed. They were noted all negative. PAST MEDICAL HISTORY: Noted with: 1. Chronic hypoxic respiratory failure. 2. Chronic hypercapnic respiratory failure. 3. Uncomplicated severe persistent bronchial asthma, which has been treated currently with Fasenra injection. 4. History of general anxiety disorder. 5. Permanent atrial fibrillation. 6. Obstructive sleep apnea disorder. 7. Metabolic alkalosis secondary to hypercarbia. 8. Coronary artery disease. 9. Frequent hospitalizations. PAST SURGICAL HISTORY: [place], [place] REPORT OF CONSULTATION NAME: MESERET RUBIO UNIT #: [id number] ROOM: 404 DOCTOR: PINO REYNOLDS MD BIRTHDATE: [birth year] 1. Appendectomy. 2. Coronary artery intervention. 3. Cardiac catheterization. 4. Therapeutic bronchoscopies. 5. Cholecystectomy. 6. Bilateral cataract extraction, lens implantation. SOCIAL HISTORY: The patient is , lives at home. Denies alcohol use or illicit drug use. Tobacco use was noted as a teenager, 1 pack of cigarettes until 2007. FAMILY HISTORY: Father with complication of railroad accident. Mother with complication of acute stroke. MEDICATIONS: Actively administered at this hospital, multivitamin, oral Lasix, Cardizem-CD, digoxin, Wellbutrin, Xarelto, sertraline, Solu-Medrol 40 mg b.i.d., metoprolol tartrate, Mucinex, DuoNeb, Levaquin, IV Zosyn, and vancomycin. DRUG ALLERGIES: Noted as no known drug allergies. PHYSICAL EXAMINATION: GENERAL: A 73-year-old female currently comfortably resting on the bed this morning of assessment. VITAL SIGNS: Height of 5 feet 6 inches, weight 162 pounds, BMI 27. Vital signs for the patient, which were recorded shows the temperature was noted as normal. The respiratory rate was recorded as 18-20, heart rate 56-60, and blood pressure 125/60-140/84. HEENT: Examination shows head was atraumatic. Eyes nonicterus. NECK: Supple. CARDIOVASCULAR: S1, S2 is audible. LUNGS: The patient was noted without any wheezing or crackles heard. Breaths are noted moderately decreased in the lungs bilaterally. ABDOMEN: Flat, soft, nontender. Bowel sounds present. EXTREMITIES: Without acute edema. MUSCULOSKELETAL: Without acute deformities. CENTRAL NERVOUS SYSTEM: Cranial nerves 2-12 intact. LABORATORY DATA: CBC on 05/17/2019, WBC count normal. Hemoglobin 11.7 and hematocrit normal. The lactic acid noted normal. CMP that was done on 05/17/2019, normal BUN and creatinine. CO2 was 39. CBC this morning, WBC count 4.6, hemoglobin 11.7. CMP this morning, glucose 203, BUN and creatinine was normal. CO2 was 35. The chest x-ray that was done, one-view was not noting any convincing finding of pneumonia. The patient with chest 1-view x-ray. IMPRESSION: 1. The patient has been admitted to the hospital with dry cough with acute exacerbation of chronic obstructive pulmonary disease, rule out pneumonia at the present time. 2. The patient with chronic hypoxic respiratory failure and hypercapnia, stable. 3. History of allergic bronchial asthma, allergic-phenotype, acute exacerbation, [place], [place] REPORT OF CONSULTATION NAME: MESERET RUBIO UNIT #: [id number] ROOM: [facility] DOCTOR: PINO REYNOLDS MD BIRTHDATE: [birth year] currently receiving Fasenra with overall improvement. The patient's respiratory status noted prior to the current hospitalization. PLAN OF CARE: Obtain a PA and lateral chest x-ray. Discontinue very broad spectrum intravenous antibiotic. Only continue Levaquin. Continuation of the bronchodilators, oxygen supplementation, corticosteroid therapy, plan of management as in progress. Additional treatment changes recommended based on progression of the illness. Xarelaurora continued to work for the DVT prophylaxis as well, which she uses for chronic atrial fibrillation. Other therapy, plan and management. Additional treatment changes made based on progression of illness. PINO RIVERA MD CM:CONSTR:REPORT OF CONSULTATION 1323 05/29/19 1018 interface
--- NOTE | ~2019-05-17 | PR ---
[place], [place] PROGRESS NOTE NAME: MESERET RUBIO UNIT #: [id number] ROOM: 404 DOCTOR: PINO REYNOLDS MD BIRTHDATE: [birth year] DOS: 05/20/2019 PULMONARY PROGRESS NOTE SUBJECTIVE: The patient noted comfortable at this time, resting in the bed, continued reduction and improvement in the respiratory symptoms, coughing, shortness of breath, and wheezing. Denies symptoms of fever or chills. Denies symptoms of hemoptysis. OBJECTIVE: VITAL SIGNS: For the patient which were recorded shows a temperature noted as normal, respiratory rate of 18, heart rate 66, blood pressure 149/85. Pulse oxygen saturation recorded as 99% saturation. HEENT: Examination shows head was atraumatic. EYES: No icterus. NECK: Supple. CARDIOVASCULAR: S1, S2 audible. LUNGS: Without any wheeze or crackles at the present time. ABDOMEN: Soft, nontender. Bowel sounds present. EXTREMITIES: No acute abnormal findings. LABORATORY DATA: The culture of the sputum to be administered was noted normal libra. IMPRESSION: 1. Resolving acute exacerbation of chronic obstructive pulmonary disease, acute tracheobronchitis, gradually progressing. 2. Obstructive sleep apnea with acute exacerbation of bronchial asthma as well. PLAN OF TREATMENT: The patient could be discharged home today for further medication use orally at the time of the discharge, tapering prednisone and antibiotics. Outpatient followup to be kept as previously. [place], [place] PROGRESS NOTE NAME: MESERET RUBIO UNIT #: [id number] ROOM: 404 DOCTOR: PINO REYNOLDS MD BIRTHDATE: [birth year] PINO RIVERA MD CM:PNTRANS [id number] PINO FERNANDEZ MD 05/29/19 1019 interface
--- NOTE | ~2019-05-17 | PR ---
[place], [place] PROGRESS NOTE NAME: MESERET RUBIO [facility] #: [id number] UNIT #: [id number] ROOM: 404 DOCTOR: NICOLE FERNANDEZ MD,PINO BIRTHDATE: [birth year] DOS: 05/19/2019 PULMONARY PROGRESS NOTE SUBJECTIVE: The patient noted comfortable at this time, resting comfortably in the bed this morning of assessment. She has not been noted with symptoms of fever or chills. The coughing has been noted mild on sputum expectoration. Denies symptoms of hemoptysis. Denies symptoms of nausea, vomiting, diarrhea, or abdominal pain. Denies symptoms of pain of the lower extremity. Denies symptoms of hematemesis or melena. The patient has used the BiPAP since last night and this morning, using oxygen supplementation, stating continued reduction in the respiratory symptoms gradually. Remaining systems were reviewed. They were noted all negative. OBJECTIVE: VITAL SIGNS: Normal temperature, respiratory rate 20, heart rate 73, blood pressure 135/72. Pulse ox saturation on 3 liters nasal cannula 96% saturation. HEENT: Examination shows head was atraumatic. Eyes nonicterus. NECK: Supple. CARDIOVASCULAR: S1, S2 is audible. LUNGS: Noted with decreased breaths sounds with expiratory wheezing, no crackles. ABDOMEN: Soft, nontender, bowel sounds present. EXTREMITIES: Noted without any acute edema. MUSCULOSKELETAL: Noted without any acute deformities. CENTRAL NERVOUS SYSTEM: No focal deficit. Intact. LABORATORY DATA: Chest x-ray done yesterday, reviewed and excluded any pulmonary infiltration. There was no pneumonic infiltration noted. Small area of atelectasis was suspected. CBC: WBC count 12.5, hemoglobin 11.6, hematocrit was normal. Platelet count was normal. The BMP that was done noted as normal BUN and creatinine. Glucose 152. CO2 was 37. IMPRESSION: 1. Resolving acute exacerbation of chronic obstructive pulmonary disease/bronchial asthma exacerbation. There was no evidence of pneumonia and acute tracheobronchitis would be suspected. 2. Chronic metabolic alkalosis. 3. Obstructive sleep apnea disorder. PLAN OF TREATMENT: Continue the current plan of management over the next 24 hours. Possible discharge would be considered morning depends on further improvement in the respiratory status. Usual care, other supportive therapy, plan and management, and other treatment changes will be made based on progression of the illness. [place], [place] PROGRESS NOTE NAME: MESERET RUBIO UNIT #: [id number] ROOM: 404 DOCTOR: PINO REYNOLDS MD BIRTHDATE: [birth year] PINO RIVERA MD CM:PNTRANS [id number] PINO FERNANDEZ MD 05/20/19 0715 interface
[~2019-05-17 13:31] MED LIST changes: -AVPAK AZITHROM250 M1 PO; -BUDEPRION XL150 MG PO; -CIPRO500 MG PO; -DIGOXIN125 MCG PO; -FLAGYL500 MG PO; -MUCINEX1200 M1 PO; -OMNICEF300 MG PO
[2019-05-17 13:55] VITALS: BP 134/60
[2019-05-17 14:35] LABS: BASO % 0.2 % (0.0-1.0); HEMATOCRIT 37.4 % (37.0-47.0); HEMOGLOBIN 11.7 g/dl (12.0-16.0); LYMPH % 17.9 % (27.0-41.0); MEAN CELL VOLUME 95.2 fl (81.0-99.0); MEAN CORPUSCULAR HGB 29.8 pg (27.0-31.0); MEAN CORPUSCULAR HGB CONC 31.3 g/dl (33.0-37.0); MEAN PLATELET VOLUME 9.5 fl (9.6-12.3); MONO # 0.5 10*3/uL (0.1-1.0); MONO % 8.7 % (3.0-9.0); NEUT # 4.2 10*3/uL (2.3-7.9); NEUT % 72.5 % (47.0-73.0); PLATELET COUNT AUTOMATED 196 10*3/uL (130-400); RED BLOOD COUNT 3.93 10*6/uL (4.10-5.10); RED CELL DISTRI WIDTH 14.6 % (0-14.5); WHITE BLOOD COUNT 5.8 10*3/uL (4.8-10.8)
[2019-05-17 14:56] LABS: ALBUMIN 3.5 gm/dl (3.1-4.5); ALKALINE PHOSPHATASE 70 U/L (45-117); BUN 14 mg/dl (7-24); CHLORIDE 100 mmol/L (98-107); CREATININE 0.75 mg/dL (0.55-1.02); LIPASE 122 U/L (73-393); POTASSIUM 4.2 mmol/L (3.5-5.1); SGOT/AST 17 IU/L (3-35); SGPT/ALT 24 U/L (12-78); SODIUM 140 mmol/L (136-145); TOTAL PROTEIN 6.4 gm/dL (6.4-8.2)
[2019-05-17 14:58] LABS: TROPONIN I < 0.015 ng/ml (<0.045)
[2019-05-17 15:02] LABS: ACT PARTIAL THROMBO TIME 32.3 SECONDS (20.0-32.1); INTERNATIONAL NORM RATIO 1.2 (2.0-3.5)
--- NOTE | 2019-05-17 15:02 | NUR ---
REPORT FROM YOANNA JUNG AT THIS TIME.
--- NOTE | 2019-05-17 15:55 | NUR ---
GAVE PATIENT SPECIMEN CUP AND ASKED FOR PATIENT TO PROVIDE URINE. PATIENT STATES UNABLE TO GO AT THIS TIME.
[2019-05-17 16:39] VITALS: BP 132/98
[2019-05-17 16:50] VITALS: BP 137/73
--- NOTE | 2019-05-17 16:50 | NUR ---
MSTime: 1650 A 73 year old FEMALE admitted to under services of CESAR BRASHER DO. Pt. arrived via stretcher from ER. Chief complaint: SHORTNESS OF BREATH. NO OPEN SKIN AREAS NOTED ON ADMISSION. VICKIE SANTIAGO
--- NOTE | 2019-05-17 17:01 | NUR ---
PATIENT DENIES ANY WOUNDS A&OX4.
[2019-05-17 17:06] LABS: BILIRUBIN NEGATIVE (NEGATIVE); BLOOD NEGATIVE (NEGATIVE); CLARITY CLEAR (CLEAR); COLOR YELLOW (YELLOW); GLUCOSE NEGATIVE (NEGATIVE); KETONE NEGATIVE (NEGATIVE); LEUKO ESTERASE TRACE (NEGATIVE); NITRITE NEGATIVE (NEGATIVE); UROBILINOGEN 0.2 E.U./dl (0.2-1.0)
[2019-05-17 17:13] LABS: RBC 0-2 rbc/hpf (0-2)
[2019-05-17] MEDS ORDERED: RESTORIL15 MG PO (17:27)
--- NOTE | 2019-05-17 17:35 | NUR ---
MADE AWARE OF NEW CONSULT. NEW ORDER TO CONTINUE HOME BIPAP SETTINGS HS. SEE CPOE.
--- NOTE | 2019-05-17 17:38 | NUR ---
INFORMED THAT MED REC IS UPDATED. SAID OK.
[2019-05-17 20:00] VITALS: BP 149/77
--- NOTE | 2019-05-17 21:25 | NUR ---
19: 35 PT INSTRUCTED ON USE OF FLUTTER VALVE. PT DEMONSTRATED PROPER TECHNIGUE. BIPAP SET UP AT BEDSIDE FOR Q HS USE.
[2019-05-18] VITALS: BP 125/63
--- NOTE | 2019-05-18 02:01 | NUR ---
PATIENT SLEEPING. BIPAP ON. NO S/S OF DISTRESS NOTED. CALL LIGHT IN REACH
[2019-05-18 06:20] LABS: BASO % 0.2 % (0.0-1.0); HEMATOCRIT 37.9 % (37.0-47.0); HEMOGLOBIN 11.7 g/dl (12.0-16.0); LYMPH # 0.6 10*3/uL (1.3-4.4); LYMPH % 12.2 % (27.0-41.0); MEAN CORPUSCULAR HGB CONC 30.9 g/dl (33.0-37.0); MEAN PLATELET VOLUME 9.9 fl (9.6-12.3); MONO # 0.1 10*3/uL (0.1-1.0); MONO % 2.2 % (3.0-9.0); NEUT # 3.9 10*3/uL (2.3-7.9); NEUT % 84.3 % (47.0-73.0); PLATELET COUNT AUTOMATED 203 10*3/uL (130-400); RED BLOOD COUNT 4.03 10*6/uL (4.10-5.10); RED CELL DISTRI WIDTH 14.3 % (0-14.5); WHITE BLOOD COUNT 4.6 10*3/uL (4.8-10.8)
[2019-05-18 06:40] LABS: ALBUMIN 3.3 gm/dl (3.1-4.5); CHLORIDE 100 mmol/L (98-107); POTASSIUM 4.7 mmol/L (3.5-5.1); SODIUM 138 mmol/L (136-145)
[2019-05-18 06:51] LABS: ALKALINE PHOSPHATASE 68 U/L (45-117); BUN 13 mg/dl (7-24); CHOLESTEROL 230 mg/dL (<200); CREATININE 0.67 mg/dL (0.55-1.02); HDL CHOLESTEROL 47 mg/dl (40-60); LDL CHOLESTEROL 157 mg/dL (9-159); PHOSPHOROUS 1.8 mg/dL (2.5-4.9); SGOT/AST 14 IU/L (3-35); SGPT/ALT 25 U/L (12-78); TOTAL PROTEIN 6.4 gm/dL (6.4-8.2); TRIGLYCERIDES 131 mg/dl (<150); VLDL CHOLESTEROL 26 mg/dL (6-40)
[2019-05-18 08:42] LABS: VITAMIN D, 25-HYDROXY 39.6 ng/mL (30-100)
--- NOTE | 2019-05-18 09:00 | NUR ---
Insulation Packer in to talk to patient. Patient states lives at home with alone. There are few steps in the home. Physician: ermelinda winslow [facility] Home health services: none Patient's level of ADLs: INDEPENDENT Patient has working utilities: all working DME: home oxygen, portable tanks, nebulizer from [facility] Follow-up physician's appointment after d/c: will be made by hospitalist nurse director upon discharge Does patient want to access PORTAL?: no Discharge plan discussed with patient patient lives at home, states she is independent in adls and ambulation, patient has home oxygen and portable tanks, discussed with patient having VNA with medically stable for discharge, patient declines any services at this time, case management will follow for any home needs. DONAVAN DIAZ
[2019-05-18 09:48] VITALS: BP 140/84
[2019-05-18 11:36] VITALS: BP 129/83
--- NOTE | 2019-05-18 12:13 | NUR ---
PHYSICAL THERAPY Nursing screen received. Chart review complete. Recommend normal daily mobility with nursing prn. If difficulties with mobilty arise, please order PT when medically appropriate. Thank you. Madeline Siegel,PT
[2019-05-18 15:54] VITALS: BP 129/74
[2019-05-18 20:00] VITALS: BP 131/71
--- NOTE | 2019-05-18 20:14 | NUR ---
PATIENT RESTING COMFORTABLY AT THIS TIME. PLEASANT/COOPERATIVE WITH SHIFT ASSESSMENT. RESPIRATIONS EAST/REG ON 4L NC. NO VOICED COMPLAINTS AT THIS TIME. PATIENTS FAMILY BROUGHT HOME CPAP FOR TONIGHT.
[2019-05-19] VITALS: BP 142/70
[2019-05-19 06:16] LABS: BASO % 0.2 % (0.0-1.0); HEMOGLOBIN 11.6 g/dl (12.0-16.0); LYMPH % 7.7 % (27.0-41.0); MEAN CORPUSCULAR HGB CONC 30.5 g/dl (33.0-37.0); MEAN PLATELET VOLUME 10.1 fl (9.6-12.3); MONO % 7.7 % (3.0-9.0); NEUT # 10.5 10*3/uL (2.3-7.9); NEUT % 83.8 % (47.0-73.0); PLATELET COUNT AUTOMATED 235 10*3/uL (130-400); RED CELL DISTRI WIDTH 14.3 % (0-14.5); WHITE BLOOD COUNT 12.5 10*3/uL (4.8-10.8)
[2019-05-19 06:30] LABS: BUN 15 mg/dl (7-24); CHLORIDE 98 mmol/L (98-107); CREATININE 0.75 mg/dL (0.55-1.02); PHOSPHOROUS 3.5 mg/dL (2.5-4.9); SODIUM 141 mmol/L (136-145)
[2019-05-19 06:42] LABS: POTASSIUM 3.7 mmol/L (3.5-5.1)
--- NOTE | 2019-05-19 07:20 | NUR ---
Patient resting quietly with no c/o discomfort. Respirations easy and regular. Vital signs stable. No overt distress. ADRIANNA SMITH
[2019-05-19 08:00] VITALS: BP 139/77
--- NOTE | 2019-05-19 08:03 | NUR ---
24 HR chart check completed.
[2019-05-19 08:52] VITALS: BP 139/71
--- NOTE | 2019-05-19 12:00 | NUR ---
Patient resting quietly with no c/o discomfort. Respirations easy and regular. Vital signs stable. No overt distress. ADRIANNA SMITH
[2019-05-19 12:05] VITALS: BP 135/72
[2019-05-19 16:00] VITALS: BP 121/61
--- NOTE | 2019-05-19 16:00 | NUR ---
UP IN HALLS WALKING W/ O2.
[2019-05-19 20:00] VITALS: BP 135/65
[2019-05-20] VITALS: BP 138/61
--- NOTE | 2019-05-20 04:18 | NUR ---
PT ON HOME CPAP
[2019-05-20 06:13] LABS: BASO % 0.1 % (0.0-1.0); HEMATOCRIT 35.9 % (37.0-47.0); HEMOGLOBIN 11.3 g/dl (12.0-16.0); LYMPH # 0.7 10*3/uL (1.3-4.4); LYMPH % 7.3 % (27.0-41.0); MEAN CORPUSCULAR HGB 29.6 pg (27.0-31.0); MEAN CORPUSCULAR HGB CONC 31.5 g/dl (33.0-37.0); MEAN PLATELET VOLUME 9.8 fl (9.6-12.3); MONO # 0.6 10*3/uL (0.1-1.0); MONO % 6.2 % (3.0-9.0); NEUT # 7.9 10*3/uL (2.3-7.9); NEUT % 85.1 % (47.0-73.0); PLATELET COUNT AUTOMATED 202 10*3/uL (130-400); RED BLOOD COUNT 3.82 10*6/uL (4.10-5.10); RED CELL DISTRI WIDTH 14.3 % (0-14.5); WHITE BLOOD COUNT 9.3 10*3/uL (4.8-10.8)
[2019-05-20 06:37] LABS: BUN 18 mg/dl (7-24); CHLORIDE 97 mmol/L (98-107); CREATININE 0.73 mg/dL (0.55-1.02); PHOSPHOROUS 2.1 mg/dL (2.5-4.9); POTASSIUM 4.2 mmol/L (3.5-5.1); SODIUM 140 mmol/L (136-145)
--- NOTE | 2019-05-20 07:10 | NUR ---
Patient SLEEPING with no c/o discomfort. Respirations easy and regular. Vital signs stable. No overt distress. ADRIANNA SMITH
--- NOTE | 2019-05-20 07:45 | NUR ---
24 HR chart check completed.
[2019-05-20 08:00] VITALS: BP 149/85
[2019-05-20] MEDS ORDERED: MUCINEX1200 M1 PO (11:11)
[2019-05-20] MEDS ORDERED: PREDNISONE10 MG PO (11:11)
[2019-05-20] MEDS ORDERED: LEVAQUIN750 M1 PO (11:11)
[2019-05-20 12:00] VITALS: BP 155/79
--- NOTE | 2019-05-20 12:23 | NUR ---
MEDICATED WITH PO TYLENOL ORDERED PER PT REQUEST FOR C/O LOWER BACK PAIN RATED 5/10. PT HAS CHRONIC BACK ISSUES.
--- NOTE | 2019-05-20 13:52 | NUR ---
MEDICATION EFFECTIVE FOR PAIN.
--- NOTE | 2019-05-20 14:33 | NUR ---
LEAVING VIA WHEELCHAIR IN CARE OF FAMILY.
--- NOTE | 2019-05-21 16:04 | NUR ---
Nursing screen received. Patient discharged from hospital. Silke Flor OTR/L
[2019-07-11] MEDS ORDERED: CIPRO500 MG PO (13:11)
[2019-07-11] MEDS ORDERED: FLAGYL500 MG PO (13:11)
== END 2019-05-20 14:33 | disposition home or self-care (01) | DRG 193 ==
LOC: ED 13:31 → 4E 16:13 → EDHOLD 16:13 → 4E 16:24
PROVIDERS: Family Medicine; Internal Medicine; Physician Assistant; ADMIT Internal Medicine
DX: J18.1 Lobar pneumonia, unspecified organism (principal); J96.21 Acute and chronic respiratory failure with hypoxia; J96.22 Acute and chronic respiratory failure with hypercapnia; D68.59 Other primary thrombophilia; E87.3 Alkalosis; J98.11 Atelectasis; J45.51 Severe persistent asthma with (acute) exacerbation; I48.0 Paroxysmal atrial fibrillation; R00.1 Bradycardia, unspecified; D72.810 Lymphocytopenia; Z66 Do not resuscitate; Z51.5 Encounter for palliative care; J43.9 Emphysema, unspecified; D64.9 Anemia, unspecified; F32.9 Major depressive disorder, single episode, unspecified; Y95 Nosocomial condition; I48.2 Chronic atrial fibrillation; E66.3 Overweight; G47.33 Obstructive sleep apnea (adult) (pediatric); J20.9 Acute bronchitis, unspecified; F41.1 Generalized anxiety disorder; I25.10 Atherosclerotic heart disease of native coronary artery without angina pectoris; Z96.1 Presence of intraocular lens; R73.9 Hyperglycemia, unspecified; H35.30 Unspecified macular degeneration; E83.39 Other disorders of phosphorus metabolism; E78.5 Hyperlipidemia, unspecified; I10 Essential (primary) hypertension; Z86.73 Personal history of transient ischemic attack (TIA), and cerebral infarction without residual deficits; Z90.49 Acquired absence of other specified parts of digestive tract; Z99.81 Dependence on supplemental oxygen; Z98.42 Cataract extraction status, left eye; Z98.41 Cataract extraction status, right eye; Z87.891 Personal history of nicotine dependence; Z82.3 Family history of stroke; Z82.49 Family history of ischemic heart disease and other diseases of the circulatory system; Z80.8 Family history of malignant neoplasm of other organs or systems; Z79.899 Other long term (current) drug therapy; Z79.01 Long term (current) use of anticoagulants; Z68.27 Body mass index [BMI] 27.0-27.9, adult

== ENCOUNTER 2019-06-10 19:23 | Inpatient (IN) | payer MEDICARE ==
[2019-06-10] VITALS (8 sets, daily range): BP systolic 124–145; BP diastolic 59–75
[~2019-06-10] VITALS: Ht 165.1 cm; Wt 76.2 kg
--- NOTE | ~2019-06-10 | PR ---
[place], [place] PROGRESS NOTE NAME: MESERET RUBIO UNIT #: [id number] ROOM: 506 DOCTOR: NICOLE FERNANDEZ MD,PINO BIRTHDATE: [birth year] DOS: 06/13/2019 SUBJECTIVE: The patient remains comfortable at this time and this morning of assessment. She has been using the BiPAP mostly at night, sometime in the day as well in the last 24 hours. Respiratory symptom resolving. She would like to be transferred to [facility] facility for further rehabilitation purposes. OBJECTIVE: GENERAL: This morning, she was comfortably resting in the bed, using oxygen supplement per nasal cannula. VITAL SIGNS: Normal temperature, respiratory rate 18, heart rate 50, blood pressure 113/83. The pulse oxygen saturation on 3 L nasal cannula was 100% at rest. HEENT: Head was atraumatic. Eyes nonicterus. NECK: Supple. CARDIOVASCULAR: S1, S2 is audible. LUNGS: Noted. The patient without any wheeze or crackles at the present time. ABDOMEN: Soft, nontender. Bowel sounds present. EXTREMITIES: No new change. IMPRESSION: 1. The patient with resolving acute on chronic hypercapnic and hypoxic respiratory failure as well gradually and progressively. 2. Resolving acute exacerbation of chronic obstructive pulmonary disease. 3. Resolving acute exacerbation of bronchial asthma. PLAN OF MANAGEMENT: No changes in plan of care at this time. Continue the patient's current therapy at this time without any changes. All other therapy, plan of management, care plan and treatment and management and care. PINO RIVERA MD CM:PNTRANS [id number] PINO FERNANDEZ MD 06/13/19 1454 interface
--- NOTE | ~2019-06-10 | PR ---
[place], [place] PROGRESS NOTE NAME: MESERET RUBIO UNIT #: [id number] ROOM: 506 DOCTOR: NICOLE FERNANDEZ MD,PINO BIRTHDATE: [birth year] DOS: 06/14/2019 SUBJECTIVE: She has been noted comfortable at this time, was planned for discharge to [facility] facility today. In general, was doing well with current symptom management. Using the BiPAP has ordered. OBJECTIVE: VITAL SIGNS: This morning, the patient is resting comfortably in the bed, normal temperature, respiratory rate 18, heart rate 64, blood pressure 149/73. Pulse oxygen saturation on 3 liters nasal cannula was 97% saturation. HEENT: Head was atraumatic. Eyes nonicterus. NECK: Supple. CARDIOVASCULAR: S1, S2 is audible. LUNGS: Without any wheeze or crackles. ABDOMEN: Soft, nontender. Bowel sounds present. EXTREMITIES: No new change. IMPRESSION: 1. The patient with resolving bjqnw-sl-etrbdck hypercapnic hypoxic respiratory failure. 2. Resolving acute exacerbation of chronic obstructive pulmonary disease. 3. Debility. PLAN OF TREATMENT: Discharge planning per primary care physician. No changes in the treatment otherwise will be necessary. Tapering dose of prednisone will be post discharge. PINO RIVERA MD CM:PNTRANS [id number] PINO FERNANDEZ MD 06/14/19 1410 interface
--- NOTE | ~2019-06-10 | PR ---
[place], [place] PROGRESS NOTE NAME: MESERET RUBIO UNIT #: [id number] ROOM: 506 DOCTOR: PINO REYNOLDS MD BIRTHDATE: [birth year] DOS: 06/12/2019 SUBJECTIVE: The patient has noted comfortable at this time, resting on the bed this morning of assessment and has not been noted any symptoms of chest pain, fever or chills, or hemoptysis. She used the BiPAP as ordered. The patient is fully awake and alert. Respiratory symptoms have been decreased in the last 24 hours. This morning, the patient was seen, comfortably resting on the bed, using oxygen supplement by nasal cannula, and earlier used the BiPAP as ordered and yesterday. OBJECTIVE: VITAL SIGNS: Normal temperature, respiratory rate is 18, heart rate is 80, blood pressure is 133/62, and pulse oxygen saturation is recorded as 95% saturation on 3 liters nasal canula and with the BiPAP 98% saturation. HEENT: On examination, no acute change. CARDIOVASCULAR SYSTEM: S1, S2 is audible. LUNGS: Noted with decreased breath sounds. No wheezing or crackles. ABDOMEN: Soft, nontender. Bowel sounds present. EXTREMITIES: No changes. LABORATORY DATA: The arterial blood gas today, pH of 7.27, pCO2 of 80, and pO2 of 112 on nasal cannula. The arterial blood gas that was done this morning on 3 liters nasal cannula, pH of 7.35, pCO2 of 68, and pO2 of 103. IMAGING DATA: Chest x-ray was also completed yesterday as ordered, PA and lateral view does not show any acute pulmonary infiltration. IMPRESSION: 1. Acute on chronic hypercapnic and hypoxic respiratory failure with acute exacerbation of chronic obstructive pulmonary disease, evidence of acute bronchitis. 2. Metabolic alkalosis, which is noted chronic secondary to hypercarbic respiratory failure. PLAN OF MANAGEMENT: Continue the BiPAP, intermittent during the day and continue at nighttime; bronchodilators, corticosteroids, and other plan of management as in progress. No change in treatment needs to be done today. [place], [place] PROGRESS NOTE NAME: MESERET RUBIO UNIT #: [id number] ROOM: 506 DOCTOR: PINO REYNOLDS MD BIRTHDATE: [birth year] PINO RIVERA MD CM:PNSANGEETA [id number] PINO FERNANDEZ MD 06/13/19 0136 interface
--- NOTE | ~2019-06-10 | CON ---
[place], [place] REPORT OF CONSULTATION [id number] UN[facility] #: [id number] ROOM: 506 DOCTOR: PINO REYNOLDS MD BIRTHDATE: [birth year] DOS: 06/11/2019 PULMONARY CONSULTATION, EVALUATION, AND MANAGEMENT CONSULTATION REQUESTED BY: Hospitalist service. REASON FOR CONSULTATION: For the assessment of acute exacerbation of COPD and bronchial asthma. HISTORY OF PRESENT ILLNESS: A 73-year-old white female with known history of end-stage COPD, as well as chronic hypoxic respiratory failure, hypercapnia uncomplicated severe persistent bronchial asthma and allergic phenotype and obstructive sleep apnea disorder, presented to the Emergency Room, admitted under care of the hospitalist services from the date of 06/10/2019. The patient presented to the Emergency as he has been complaining of increased symptoms of shortness of breath with chest congestion and nonproductive cough. The symptom has been reported for the past 2 days. The patient noted significant worsening. She was brought to the hospital and noted with oxygen desaturation usual use of oxygen supplementation 4 liter nasal cannula 70%. She was started on 100% nonrebreather mask as well. The patient was also noted with cyanosis findings. She had been currently treated. The patient remains in the ER hold to the medical floor. The patient stated reduction in the respiratory symptoms since admission. Denies symptoms of fever or chills. Denies symptoms of hemoptysis. Denies symptoms of any chest trauma. REVIEW OF SYSTEMS: CONSTITUTIONAL: Fatigue and tiredness noted without any symptoms of fever or chills. EYES: Denies any burning, redness, or tenderness. EARS, NOSE, THROAT SYMPTOMS: Denies sore throat, hoarseness, otalgia, postnasal drainage, or epistaxis. CARDIOVASCULAR: Denies angina pain, edema, pain of the lower extremities. GASTROINTESTINAL: Denies dysphagia, nausea, vomiting, diarrhea, abdominal pain, hematemesis, melena, or hematochezia. SKIN: Denies lesions or rashes. MUSCULOSKELETAL: No acute joint pain, redness, or tenderness. SKIN: No lesions or rashes reported. Remaining systems were reviewed with the patient, they were noted all negative. PAST MEDICAL HISTORY: 1. History of end-stage chronic obstructive pulmonary disease. 2. Chronic hypoxic respiratory failure. 3. Obstructive sleep apnea disorder. 4. Uncomplicated severe persistent bronchial asthma. 5. Frequent hospitalization as well. 6. Permanent atrial fibrillation. 7. General anxiety disorder. 8. Coronary artery disease. 9. Metabolic alkalosis secondary to chronic hypercarbia. [place], [place] REPORT OF CONSULTATION NAME: MESERET RUBIO UNIT #: [id number] ROOM: 506 DOCTOR: NICOLE FERNADNEZ MD,PINO BIRTHDATE: [birth year] PAST SURGICAL HISTORY: 1. Appendectomy. 2. Cardiac catheterization with acute coronary intervention. 3. Therapeutic bronchoscopy. 4. Cholecystectomy. 5. Bilateral cataract extraction, lens implantation. SOCIAL HISTORY: The patient is , lives at home. There were no history of alcohol use, illicit drug use. Tobacco use noted since teenager, 1 pack of cigarettes per day, discontinued in 2007. FAMILY HISTORY: The patient's father with complication of accident. Mother with complications related to acute stroke. MEDICATIONS: Which has been administered active noted as Xarelto, Solu-Medrol, albuterol sulfate with the nebulizer, Rocephin, and Zithromax. DRUG ALLERGIES: No known drug allergies. PHYSICAL EXAMINATION: GENERAL: A 73-year-old white female currently noted to be comfortable. The patient is lying in the bed, using oxygen per nasal cannula. Height of 5 feet 5 inches, weight 168 pounds, BMI 27.9. VITAL SIGNS: Normal temperature, respiratory rate range between 18-22, heart rate 80-70 blood pressure of 138/61-144/75. Pulse oxygen saturation recorded on 4 liters nasal cannula 90%-94% saturation. HEENT: Head was atraumatic. Eyes nonicterus. NECK: Supple. CARDIOVASCULAR: S1, S2 audible. LUNGS: With decreased breath sounds with occasional wheezing of the lungs. There were no crackles. ABDOMEN: Soft, nontender. Bowel sounds present. EXTREMITIES: Without any edema, clubbing, or cyanosis. MUSCULOSKELETAL: Without gross deformities. SKIN: No lesions or rashes. LABORATORY DATA: CBC that was done on 05/2014, WBC count normal, hemoglobin 11.4, platelet count normal. PT/PTT was normal. The lactic acid was 1.1. CMP that was done 06/10/2019 as normal BUN and creatinine, glucose mildly elevated as 186. The CO2 level was 40. BMP this morning as normal BUN and creatinine. CO2 was 40. It remains persistent. CBC has WBC count 4.3, hemoglobin 10.9, platelet 112,000. The chest x-ray, 1 view, which was done in the Emergency Room were removed from and noted to be negative for any acute pulmonary infiltrates. IMPRESSION: 1. The patient who has been currently admitted to the hospital noted with cywzr-uf-fwxgrij hypoxic respiratory failure with chronic hypercarbia. Rule out any additional hypercarbia. 2. The patient with frequent hospitalization as well. 3. Questionable pneumonia the patient was also noted with only single [place], [place] REPORT OF CONSULTATION NAME: MESERET RUBIO UNIT #: [id number] ROOM: [facility] DOCTOR: PINO REYNOLDS MD BIRTHDATE: [birth year] view chest x-ray. The lateral view was not done to confidently excluded diagnoses of pneumonia. 4. The patient with metabolic alkalosis, which is noted chronic secondary to hypercarbia. 5. Obstructive sleep apnea disorder. 6. Bronchial asthma. PLAN OF MANAGEMENT: Continue current dose of Solu-Medrol, bronchodilators, oxygen supplementation. Order the arterial blood gas to assess the hypercarbia and then on BiPAP accordingly. Sputum for Gram stain, culture will be obtained. Pulmicort Respules will be added to the treatment as well. Other additional treatment changes will be made based on progression of the illness. Thanks for allowing me to participate in the care of this patient. PINO RIVERA MD CM:CONSTR:REPORT OF CONSULTATION 1327 06/11/19 2013 interface
--- NOTE | ~2019-06-10 | EKG ---
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
[~2019-06-10 19:23] MED LIST changes: +MUCINEX1200 M1 PO
[2019-06-10 19:49] LABS: HEMATOCRIT 36.9 % (37.0-47.0); HEMOGLOBIN 11.4 g/dl (12.0-16.0); LYMPH # 1.1 10*3/uL (1.3-4.4); LYMPH % 15.8 % (27.0-41.0); MEAN CELL VOLUME 95.6 fl (81.0-99.0); MEAN CORPUSCULAR HGB 29.5 pg (27.0-31.0); MEAN CORPUSCULAR HGB CONC 30.9 g/dl (33.0-37.0); MEAN PLATELET VOLUME 9.8 fl (9.6-12.3); MONO # 0.4 10*3/uL (0.1-1.0); MONO % 6.2 % (3.0-9.0); NEUT # 5.2 10*3/uL (2.3-7.9); NEUT % 77.7 % (47.0-73.0); PLATELET COUNT AUTOMATED 147 10*3/uL (130-400); RED BLOOD COUNT 3.86 10*6/uL (4.10-5.10); RED CELL DISTRI WIDTH 14.5 % (0-14.5); WHITE BLOOD COUNT 6.6 10*3/uL (4.8-10.8)
[2019-06-10 20:06] LABS: ACT PARTIAL THROMBO TIME 28.5 SECONDS (20.0-32.1); INTERNATIONAL NORM RATIO 1.1 (2.0-3.5)
[2019-06-10 20:22] LABS: ALBUMIN 3.3 gm/dl (3.1-4.5); ALKALINE PHOSPHATASE 61 U/L (45-117); BUN 12 mg/dl (7-24); CHLORIDE 98 mmol/L (98-107); CREATININE 0.72 mg/dL (0.55-1.02); POTASSIUM 4.4 mmol/L (3.5-5.1); SGOT/AST 15 IU/L (3-35); SGPT/ALT 25 U/L (12-78); SODIUM 141 mmol/L (136-145); TOTAL PROTEIN 6.4 gm/dL (6.4-8.2)
[2019-06-10 20:24] LABS: TROPONIN I < 0.015 ng/ml (<0.045)
[2019-06-11 06:32] LABS: RED CELL DISTRI WIDTH 14.2 % (0-14.5)
[2019-06-11 06:53] LABS: HEMATOCRIT 35.1 % (37.0-47.0); HEMOGLOBIN 10.9 g/dl (12.0-16.0); LYMPH # 0.3 10*3/uL (1.3-4.4); LYMPH % 7.7 % (27.0-41.0); MEAN CELL VOLUME 94.6 fl (81.0-99.0); MEAN CORPUSCULAR HGB 29.4 pg (27.0-31.0); MEAN CORPUSCULAR HGB CONC 31.1 g/dl (33.0-37.0); MEAN PLATELET VOLUME 9.9 fl (9.6-12.3); MONO # 0.1 10*3/uL (0.1-1.0); MONO % 1.4 % (3.0-9.0); NEUT # 3.9 10*3/uL (2.3-7.9); PLATELET COUNT AUTOMATED 112 10*3/uL (130-400); RED BLOOD COUNT 3.71 10*6/uL (4.10-5.10); WHITE BLOOD COUNT 4.3 10*3/uL (4.8-10.8)
[2019-06-11 07:01] LABS: BUN 11 mg/dl (7-24); CHLORIDE 99 mmol/L (98-107); CREATININE 0.67 mg/dL (0.55-1.02); PHOSPHOROUS 2.8 mg/dL (2.5-4.9); POTASSIUM 4.8 mmol/L (3.5-5.1); SODIUM 142 mmol/L (136-145)
[2019-06-11 07:59] VITALS: BP 138/61
[2019-06-11 12:00] VITALS: BP 129/63
[2019-06-11 13:44] VITALS: BP 125/62
[2019-06-11 14:21] LABS: ABG BASE EXCESS 7.1 mmol/L (-2.0-2.0); ABG HCO3 36.2 mmol/l (22-26); ABG O2 SATURATION 98.1 % (95-97); ARTERIAL BLOOD GAS PH 7.275 (7.35-7.45)
[2019-06-11] MEDS ORDERED: BUDEPRION XL150 MG PO (15:08)
[2019-06-11] MEDS ORDERED: LASIX20 MG PO (15:22)
[2019-06-11] MEDS ORDERED: DIGOXIN125 MCG PO (15:25)
[2019-06-11 16:00] VITALS: BP 126/69
[2019-06-11 20:00] VITALS: BP 134/59
[2019-06-12] VITALS: BP 133/62
[2019-06-12 07:39] LABS: ABG BASE EXCESS 10.3 mmol/L (-2.0-2.0); ABG HCO3 37.7 mmol/l (22-26); ABG O2 SATURATION 97.9 % (95-97); ARTERIAL BLOOD GAS PCO2 68.5 mmHg (35-45); ARTERIAL BLOOD GAS PH 7.357 (7.35-7.45)
[2019-06-12 08:00] VITALS: BP 113/60
[2019-06-12 12:00] VITALS: BP 134/67
[2019-06-12 16:00] VITALS: BP 133/55
[2019-06-12 20:00] VITALS: BP 135/89
[2019-06-13] VITALS: BP 135/87
[2019-06-13 08:00] VITALS: BP 139/83
[2019-06-13 12:00] VITALS: BP 152/83
[2019-06-13 16:00] VITALS: BP 134/69
[2019-06-13 20:00] VITALS: BP 141/67
[2019-06-14] VITALS: BP 146/74
[2019-06-14 08:00] VITALS: BP 139/73
[2019-06-14 12:00] VITALS: BP 135/74
[2019-06-14] MEDS ORDERED: AVPAK AZITHROM250 M1 PO (13:25)
[2019-06-14] MEDS ORDERED: OMNICEF300 MG PO (13:25)
[2019-06-14] MEDS ORDERED: PREDNISONE10 MG PO (13:25)
[2019-06-14 16:00] VITALS: BP 114/84
[2019-07-11] MEDS ORDERED: FLAGYL500 MG PO (13:11)
[2019-07-11] MEDS ORDERED: CIPRO500 MG PO (13:11)
== END 2019-06-14 15:46 | disposition other institution (70) | DRG 871 ==
LOC: ED 19:23 → EDHOLD 21:11 → 5E 21:11 → EDHOLD 06-11 12:25 → 5E 06-11 13:19
PROVIDERS: Internal Medicine Critical Care Medicine; Student in an Organized Health Care Education/Training Program; ADMIT Internal Medicine
PROC: 5A09357 Assistance with Respiratory Ventilation, Less than 24 Consecutive Hours, Continuous Positive Airway Pressure (ICD-10-PCS; principal; 2019-06-12)
PROC: 5A09357 Assistance with Respiratory Ventilation, Less than 24 Consecutive Hours, Continuous Positive Airway Pressure (ICD-10-PCS; 2019-06-13)
PROC: 5A09357 Assistance with Respiratory Ventilation, Less than 24 Consecutive Hours, Continuous Positive Airway Pressure (ICD-10-PCS; 2019-06-14)
DX: A41.9 Sepsis, unspecified organism (principal); J96.21 Acute and chronic respiratory failure with hypoxia; J18.1 Lobar pneumonia, unspecified organism; J96.22 Acute and chronic respiratory failure with hypercapnia; D68.59 Other primary thrombophilia; E44.0 Moderate protein-calorie malnutrition; E87.3 Alkalosis; J44.1 Chronic obstructive pulmonary disease with (acute) exacerbation; J44.0 Chronic obstructive pulmonary disease with (acute) lower respiratory infection; J45.901 Unspecified asthma with (acute) exacerbation; R65.20 Severe sepsis without septic shock; G47.33 Obstructive sleep apnea (adult) (pediatric); D64.9 Anemia, unspecified; J20.9 Acute bronchitis, unspecified; I10 Essential (primary) hypertension; E78.2 Mixed hyperlipidemia; F41.1 Generalized anxiety disorder; I48.0 Paroxysmal atrial fibrillation; I25.10 Atherosclerotic heart disease of native coronary artery without angina pectoris; Y95 Nosocomial condition; Z66 Do not resuscitate; Z51.5 Encounter for palliative care; Z98.42 Cataract extraction status, left eye; Z99.81 Dependence on supplemental oxygen; Z98.41 Cataract extraction status, right eye; Z90.49 Acquired absence of other specified parts of digestive tract; Z82.49 Family history of ischemic heart disease and other diseases of the circulatory system; Z82.3 Family history of stroke; Z80.9 Family history of malignant neoplasm, unspecified; Z79.899 Other long term (current) drug therapy; Z68.27 Body mass index [BMI] 27.0-27.9, adult

== ENCOUNTER 2019-08-12 12:25 | Inpatient (IN) | payer MEDICARE ==
[~2019-08-12] VITALS: Ht 165.1 cm; Wt 66.8 kg
--- NOTE | ~2019-08-12 | PR ---
[place], [place] PROGRESS NOTE NAME: MESERET RUBIO UNIT #: [id number] ROOM: 405 DOCTOR: NICOLE FERNANDEZ MD,PINO BIRTHDATE: [birth year] DOS: 08/14/2019 SUBJECTIVE: The patient noted comfortable at this time, resting in the bed this morning of assessment. Shortness of breath has been improving. Coughing has been noted small amount of sputum expectoration. There were no symptoms of chest pain, stated by the patient. She has used the BiPAP last night. Using oxygen supplementation this morning. OBJECTIVE: VITAL SIGNS: Normal temperature, respiratory rate of 24, heart rate 94, and blood pressure 122/72. HEENT: Examination shows head was atraumatic. Eyes nonicterus. NECK: Supple. CARDIOVASCULAR: S1, S2 audible. LUNGS: Decreased breath sounds in the lungs were noted bilaterally. ABDOMEN: Soft, nontender. Bowel sounds present. EXTREMITIES: No new change. LABORATORY DATA: The CMP that was done this morning, normal BUN and creatinine, glucose ____, CO2 of 38. CBC was noted hemoglobin 11.2, WBC count and platelet count normal. Culture of the sputum preliminary noted normal libra. Final cultures are pending. IMPRESSION: 1. Resolving acute exacerbation of chronic obstructive pulmonary disease, acute tracheobronchitis. 2. Chronic hypercapnia and hypoxemic respiratory failure. 3. Metabolic alkalosis and ____. PLAN OF MANAGEMENT: No changes in plan of care at this time. Continue current plan as in progress. Usual care, other supportive plan of therapy and care plan. PINO RIVERA MD CM:PNTRANS [phone] PINO FERNANDEZ MD 08/14/19 1110 interface
--- NOTE | ~2019-08-12 | EKG ---
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
--- NOTE | ~2019-08-12 | EKG ---
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
--- NOTE | ~2019-08-12 | PR ---
[place], [place] PROGRESS NOTE NAME: [id number] UN[facility] #: [id number] ROOM: 405 DOCTOR: NICOLE FERNANDEZ MD,PINO BIRTHDATE: [birth year] DOS: 08/15/2019 SUBJECTIVE: The patient was noted comfortable at this time, continued reduction of the respiratory symptoms were reported in the last 24 hours. Denies symptoms of chest pain. Coughing has improved, wheezing improved significantly. OBJECTIVE: VITAL SIGNS: This morning, the patient normal temperature, respiratory rate 20, heart rate 71, blood pressure 133/79. Pulse ox saturation on 3 liters nasal cannula was 100% saturation. HEENT: Examination shows head was atraumatic. Eyes nonicterus. NECK: Supple. CARDIOVASCULAR: S1, S2 audible. LUNGS: The patient without wheeze or crackles. ABDOMEN: Soft, nontender. Bowel sounds present. EXTREMITIES: No new changes. LABORATORY DATA: BMP, CO2 was noted 40 today. The glucose elevated 210. Culture of the sputum was noted normal libra. IMPRESSION: Progressive resolution of acute exacerbation of chronic obstructive pulmonary disease and bronchial asthma gradual and progressive metabolic alkalosis, improving. PLAN OF MANAGEMENT: No changes in the plan of care at this time will be recommended. Continuation of the current therapy, plan of care for the patient. Discharge planning primary care physician, possibly today on oral tapering prednisone. PINO RIVERA MD CM:PNTRANS [id number] PINO FERNANDEZ MD 08/15/19 1345 interface
--- NOTE | ~2019-08-12 | CON ---
[place], [place] REPORT OF CONSULTATION [id number] UN[facility] #: [id number] ROOM: 405 DOCTOR: PINO REYNOLDS MD BIRTHDATE: [birth year] DOS: 08/13/2019 PULMONARY CONSULTATION EVALUATION AND MANAGEMENT CONSULTATION REQUESTED BY: Hospitalist service. REASON FOR CONSULTATION: Assessment of COPD exacerbation. HISTORY OF PRESENT ILLNESS: This 73-year-old white female patient who has been known with history of chronic obstructive pulmonary disease as well as bronchial asthma, uncomplicated severe persistent allergic phenotype. She has been admitted to the hospital. The patient reported with getting increased symptoms of cough, chest congestion started initially, later started with increased symptoms of shortness of breath, wheezing and chest tightness. She does note symptoms of chest pain. She has been reporting coughing with sputum expectoration, which was described small amount, ____ in color. Denies symptoms of fever or chills with that. She presented to the Emergency Room on 08/12/2019 and had been hospitalized for further care. This morning as the patient was assessed, she was noted with the same symptoms as reported yesterday with only mild improvement if it occurs, REVIEW OF SYSTEMS: CONSTITUTIONAL: Fatigue and tiredness noted without any symptoms of fever or chills. EYES: Denies any burning, redness, or tenderness. EARS, NOSE, THROAT, EAR, NOSE, THROAT SYMPTOMS: No sore throat, hoarseness, otalgia posterior drainage or epistaxis. CARDIOVASCULAR: Denies angina pain, edema, pain of the lower extremities. GASTROINTESTINAL: Denies dysphagia, nausea, vomiting, diarrhea, abdominal pain, hematemesis, melena, or hematochezia. SKIN: Denies abnormal lesions or rashes. CENTRAL NERVOUS SYSTEM: Denies dizziness, headache, diplopia, or syncopal episodes. Remaining systems were reviewed, they were noted all negative. PAST MEDICAL HISTORY: 1. The patient was known with history of end-stage chronic obstructive pulmonary disease. 2. Uncomplicated severe persistent bronchial asthma. 3. Allergic phenotype, receiving Fasenra injection. 4. General anxiety disorder. 5. Pulmonary atrial fibrillation. 6. Chronic hypoxic respiratory failure. 7. Chronic hypercapnic respiratory failure. 8. Metabolic alkalosis secondary to chronic hypercarbia. 9. Obstructive sleep apnea disorder. 10. Coronary artery disease. 11. Frequent hospitalization previously known. [place], [place] REPORT OF CONSULTATION NAME: MESERET RUBIO UNIT #: [id number] ROOM: 405 DOCTOR: NICOLE FERNANDEZ MD,PINO BIRTHDATE: [birth year] PAST SURGICAL HISTORY: 1. Appendectomy. 2. Coronary artery disease. 3. Cardiac catheterization. 4. Therapeutic bronchoscopy. 5. Cholecystectomy. 6. Bilateral cataract extraction, lens implantation. SOCIAL HISTORY: The patient is , lives at home. Denies any alcohol or illicit drug use. Tobacco use noted since a teenager, 1 pack of cigarettes per day until 2007. FAMILY HISTORY: The patient's father with complication to railroad accident. Mother of complications of acute stroke. CURRENT MEDICATIONS: Which were administered on this hospitalization were noted as oral Lasix, Wellbutrin-SR, Cardizem-CD, Xarelto, Zoloft, potassium chloride, Mucinex, Solu-Medrol 40 mg b.i.d., DuoNeb 4 hours, Levaquin, and BuSpar. DRUG ALLERGIES: Noted as no known allergies. PHYSICAL EXAMINATION: GENERAL: A 73-year-old female patient who has been currently noted sitting side of the bed without any acute distress. Height of 5 feet 5 inches, weight of 147 pounds, BMI 24. VITAL SIGNS: Normal temperature since admission last 24 hours, respiratory rate of 12-16, heart rate 88-89, blood pressure 106/43-132/72. Pulse ox saturation on 3 liters nasal cannula 91% saturation recorded. HEENT: Head was atraumatic. Eyes nonicterus. NECK: Supple. CARDIOVASCULAR: S1, S2 audible. LUNGS: Moderate reduction in breath sounds with kpnj-gb-tewlzxti expiratory wheezing, no crackles. ABDOMEN: Soft, nontender. Bowel sounds present. EXTREMITIES: No new change. LABORATORY DATA: CBC that was done yesterday on admission, WBC count 6.1, hemoglobin 11.9, platelet count was normal. Eosinophils were noted only 0.2%. PT/PTT yesterday noted as normal. CMP that was done yesterday, normal BUN and creatinine. CO2 was 40, chloride of 95. Lactic acid yesterday was 0.8. Digoxin level yesterday noted at 0.80 as normal results. CBC this morning, WBC count 4.1, hemoglobin 11.6, platelet count was normal. BMP that was done this morning, normal BUN and creatinine. Glucose 166. CO2 was 42. The chest x-ray that was done, 1 view was noted with changes of COPD with hyperinflation without any acute pulmonary infiltrates. IMPRESSION: 1. The patient will be currently admitted to the hospital, recurrent acute exacerbation of chronic obstructive pulmonary disease, bronchial asthma combination. [place], [place] REPORT OF CONSULTATION NAME: MESERET RUBIO UNIT #: [id number] ROOM: [facility] DOCTOR: NICOLE FERNANDEZ MD,PINO BIRTHDATE: [birth year] 2. Past nicotine abuse. 3. Obstructive sleep apnea disorder. 4. Chronic hypercapnic and hypoxemic respiratory failure, rule out acute hypercapnia. 5. Metabolic alkalosis secondary to chronic hypercarbia as well. 6. History of coronary artery disease. The patient has atrial fibrillation. Atrial fibrillation noted controlled range. PLAN OF TREATMENT: Ordered arterial blood gas to assess the ventilatory status. Use of the BiPAP from home or from the hospital will be ordered depending on that for the daytime, if necessary nighttime use could to be continued. Bronchodilator to be continued. Other therapy, plan of management, additional treatment changes will be ordered based on the progression of the illness or any other new available laboratory data. Sputum for Gram stain and culture will be obtained. Thanks for allowing me to participate in the care of this patient. PINO RIVERA MD CM:CONSTR:REPORT OF CONSULTATION 1127 08/13/19 1539 interface
--- NOTE | ~2019-08-12 | EKG ---
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
[~2019-08-12 12:25] MED LIST changes: +AVPAK AZITHROM250 M1 PO; +BUDEPRION XL150 MG PO; +CIPRO500 MG PO; +DIGOXIN125 MCG PO; +FLAGYL500 MG PO; +OMNICEF300 MG PO
[2019-08-12 12:28] VITALS: BP 106/43
[2019-08-12 12:51] LABS: EOS % 0.2 % (1.0-4.0); HEMATOCRIT 39.1 % (37.0-47.0); HEMOGLOBIN 11.9 g/dl (12.0-16.0); LYMPH # 0.9 10*3/uL (1.3-4.4); LYMPH % 14.4 % (27.0-41.0); MEAN CELL VOLUME 96.3 fl (81.0-99.0); MEAN CORPUSCULAR HGB 29.3 pg (27.0-31.0); MEAN CORPUSCULAR HGB CONC 30.4 g/dl (33.0-37.0); MEAN PLATELET VOLUME 9.5 fl (9.6-12.3); MONO # 0.7 10*3/uL (0.1-1.0); MONO % 11.1 % (3.0-9.0); NEUT # 4.5 10*3/uL (2.3-7.9); PLATELET COUNT AUTOMATED 168 10*3/uL (130-400); RED BLOOD COUNT 4.06 10*6/uL (4.10-5.10); RED CELL DISTRI WIDTH 14.8 % (0-14.5); WHITE BLOOD COUNT 6.1 10*3/uL (4.8-10.8)
[2019-08-12 13:02] LABS: ACT PARTIAL THROMBO TIME 25.7 SECONDS (20.0-32.1); INTERNATIONAL NORM RATIO 0.9 (2.0-3.5)
[2019-08-12 13:13] LABS: ALBUMIN 3.5 gm/dl (3.1-4.5); ALKALINE PHOSPHATASE 85 U/L (45-117); BUN 7 mg/dl (7-24); CHLORIDE 95 mmol/L (98-107); CREATININE 0.56 mg/dL (0.55-1.02); POTASSIUM 4.4 mmol/L (3.5-5.1); SGOT/AST 16 IU/L (3-35); SGPT/ALT 26 U/L (12-78); SODIUM 138 mmol/L (136-145); TOTAL PROTEIN 6.8 gm/dL (6.4-8.2)
[2019-08-12 13:21] LABS: TROPONIN I < 0.015 ng/ml (<0.045)
[2019-08-12 15:14] VITALS: BP 118/49
[2019-08-12 17:06] VITALS: BP 113/68
[2019-08-12] MEDS ORDERED: BUPROPION HCL150 M1 PO (17:56)
[2019-08-12] MEDS ORDERED: BUSPAR15 MG PO (18:02)
[2019-08-12] MEDS ORDERED: DIGITEK125 MCG PO (18:03)
[2019-08-12] MEDS ORDERED: LASIX20 MG PO (18:03)
--- NOTE | 2019-08-12 18:30 | NUR ---
Time: 1824 A 73 year old FEMALE admitted to 4E under services of OLAF GONSALES DO. Pt. arrived via stretcher from ER. Chief complaint: SHORTNESS OF BREATH AND PRODUCTIVE COUGH SINCE YESTERDAY. IGNACIO CAMPOS
[2019-08-12 20:00] VITALS: BP 117/68
[2019-08-13] VITALS: BP 128/69
--- NOTE | 2019-08-13 07:16 | NUR ---
Shift chart check completed.24 HR chart check completed.
--- NOTE | 2019-08-13 07:34 | NUR ---
Bedside report from Felix, pt slept throughout.
[2019-08-13 07:39] LABS: HEMATOCRIT 37.6 % (37.0-47.0); HEMOGLOBIN 11.6 g/dl (12.0-16.0); LYMPH # 0.4 10*3/uL (1.3-4.4); MEAN CELL VOLUME 93.8 fl (81.0-99.0); MEAN CORPUSCULAR HGB 28.9 pg (27.0-31.0); MEAN CORPUSCULAR HGB CONC 30.9 g/dl (33.0-37.0); MEAN PLATELET VOLUME 10.2 fl (9.6-12.3); MONO # 0.3 10*3/uL (0.1-1.0); MONO % 6.3 % (3.0-9.0); NEUT # 3.4 10*3/uL (2.3-7.9); NEUT % 83.2 % (47.0-73.0); PLATELET COUNT AUTOMATED 187 10*3/uL (130-400); RED BLOOD COUNT 4.01 10*6/uL (4.10-5.10); RED CELL DISTRI WIDTH 14.3 % (0-14.5); WHITE BLOOD COUNT 4.1 10*3/uL (4.8-10.8)
[2019-08-13 08:00] VITALS: BP 132/72
[2019-08-13 08:05] LABS: BUN 13 mg/dl (7-24); CHLORIDE 95 mmol/L (98-107); POTASSIUM 4.3 mmol/L (3.5-5.1); SODIUM 137 mmol/L (136-145)
--- NOTE | 2019-08-13 08:25 | NUR ---
DR CHAVEZ NOTIFIED OF CRITICAL CO2 42.
--- NOTE | 2019-08-13 08:33 | NUR ---
DR RIVERA NOTIFIED OF CONSULTATION.
--- NOTE | 2019-08-13 08:37 | NUR ---
ON ASSESSMENT PATIENT IS ALERT AND ORIENTED, SITTING AT THE SIDE OF THE BED, AWAITING BREAKFAST. SHE HAS A MOIST PRODUCTIVE COUGH. SPUTUM CUP PROVIDED FOR PATIENT. SHE'S DYSPNEIC WITH MINIMAL EXERTION. DR RIVERA IN TO SEE PT.
--- NOTE | 2019-08-13 08:58 | NUR ---
PHYSICAL THERAPY Nursing screen received and chart reviewed. Physical therapy referral received. Thank you. Doris Escobar,PT,DPT
--- NOTE | 2019-08-13 09:00 | NUR ---
[employer] in to talk to patient. Patient states lives at home with alone. There are few steps in the home. Physician: ermelinda winslow [facility]acy: [facility] Home health services: [facility] Patient's level of ADLs: MINIMAL ASSIST Patient has working utilities: all working DME: home oxygen, nebulizer, portable tanks from [facility] [place] Follow-up physician's appointment after d/c: will be made by hospitalist nurse director upon discharge Does patient want to access PORTAL?: no Discharge plan discussed with patient, she lives at home alone she states she is independent in adls and ambulation, she has home oxygen, portable tanks from [facility] [place], discussed with her multiple admissions to the hospital and possibly going to a short term custodial for rehab prior to returning home she declined, stated she would be returning home and wanted her [facility] to continue, will notify [facility] health when patient is medically stable for discharge. DONAVAN DIAZ
[2019-08-13 09:02] LABS: VITAMIN D, 25-HYDROXY 34.2 ng/mL (30-100)
--- NOTE | 2019-08-13 11:00 | NUR ---
Patient plesant and coroperative. Sitting up in bed watching t.v. Patient confused at times. Denies any pain or discomfort. Joellen BAEZ
[2019-08-13 12:00] VITALS: BP 120/66
[2019-08-13 12:07] LABS: ABG BASE EXCESS 11.9 mmol/L (-2.0-2.0); ABG HCO3 40.2 mmol/l (22-26); ABG O2 SATURATION 94.7 % (95-97); ARTERIAL BLOOD GAS PH 7.343 (7.35-7.45); ARTERIAL BLOOD GAS PO2 69.8 mmHg (80-90)
[2019-08-13 12:11] LABS: ARTERIAL BLOOD GAS PCO2 75.2 mmHg (35-45)
--- NOTE | 2019-08-13 12:39 | NUR ---
Nursing screen and occupational therapy referral received. Thank you. Silke Flor OTR/l
--- NOTE | 2019-08-13 13:23 | NUR ---
JANA received notice the patient was requesting information on a number to contact [facility]. PEDIATRICS PHYSICIAN provided the patient with the number. -JANA Silver
--- NOTE | 2019-08-13 14:15 | NUR ---
PHYSICAL THERAPY Physical therapy evaluation completed. Full details and evaluation to follow. Low complexity skilled physical therapy evaluation performed (07036). PT will work on strength, gait, balance, and safety per POC. Recommend home with home health at discharge. Thank you, Pau Huerta, SPT Doris Escobar,PT,DPT
--- NOTE | 2019-08-13 14:15 | NUR ---
Occupational Therapy evaluation completed on 4 with full eval to follow. Precautions include vertigo, SOB w/ min exertion,fall risk via five times sit to stand test, O2 dependency, generalized weakness,low complexity level 44671 via chart review, testing and evaluation. Recommend OT per POC for activity tolerance,energy conservation, work simplification,and safety in the home and home with home health SN, PT,OT. Thank you. Silke Flor OTR/Ranjit
--- NOTE | 2019-08-13 14:21 | NUR ---
DR RIVERA HAD ORDERED ABG'S. THESE WERE DONE BY RESPIRATORY AND CALLED TO DR RIVERA. ORDERS WERE ENTERED BY RESP THERAPY.
--- NOTE | 2019-08-13 15:45 | NUR ---
RESPIRATORY THERAPY NOTIFIED THAT PT DOESN'T THINK ANYONE WILL BRING HER BIPAP FROM HOME.
[2019-08-13 16:00] VITALS: BP 113/60
[2019-08-13] MEDS ORDERED: TRINTELLIX10 MG PO (16:13)
--- NOTE | 2019-08-13 16:14 | NUR ---
PT INFORMED ME THAT HER ZOLOFT HAD RECENTLY BEEN DISCONTINUED AND SHE WAS STARTED ON A NEW MEDICATION THAT SHE HAD BEEN GIVEN SAMPLES. SHE SAID THAT DR VIDAL MADE THESE CHANGES. I PHONED DR VIDAL'S OFFICE, SPOKE WITH PRAVEEN WHO SAID THEY HAD SEEN PT 08/01/19 AND DID INDEED STOP HER ZOLOFT AND START HER ON TRINTELLIX AND THAT SHE SHOULD BE ON THE 10MG DAILY DOSE. THE MED REC WAS UPDATED TO SHOW THESE CHANGES.
--- NOTE | 2019-08-13 16:17 | NUR ---
DR CHAVEZ INFORMED OF THE CHANGE IN MEDS. ORDERS RECEIVED.
[2019-08-13 20:00] VITALS: BP 129/71
--- NOTE | 2019-08-13 20:00 | NUR ---
24 HOUR CHART CHECK COMPLETE.
--- NOTE | 2019-08-13 20:30 | NUR ---
PT WALKING UP AND DOWN THE HALLWAY OUTSIDE OF HER ROOM WITH 3LNC. NO SIGNS OF OVERT DISTRESS NOTED. GAIT STEADY, BREATHING EASY AND UNLABORED.
--- NOTE | 2019-08-13 23:15 | NUR ---
PLACED ON BIPAP FOR HS
[2019-08-14] VITALS: BP 108/74
--- NOTE | 2019-08-14 01:54 | NUR ---
DR. KHOURY NOTIFIED OF PT'S HR 120-130'S WHILE ON BIPAP. STATES TO KEEP AN EYE ON THE PATIENT FOR NOW AND TO REASSESS IN AN HOUR. PT IS ASYMPTOMATIC AND IS RESTING IN BED. PT STATES THIS "HAPPENS FROM TIME TO TIME". WILL CONTINUE TO MONITOR. NO NEW ORDERS AT THIS TIME.
--- NOTE | 2019-08-14 02:54 | NUR ---
DR KHOURY NOTIFIED OF CONTINUED HR IN 120'S-130'S. ASKED ME TO CONTACT RESPIRATORY REGARDING BIPAP SETTINGS, HE THINKS THIS MAY BE CAUSING HER TO BECOME TACHYCARDIC.
--- NOTE | 2019-08-14 02:57 | NUR ---
SPOKE WITH FRANCY FROM RESPIRATORY THERAPY. STATES HE WILL BE UP TO SEE THE PT SOON.
--- NOTE | 2019-08-14 03:10 | NUR ---
In to assess patient at this time. BiPap settings are appropriate. SPO2: 98%, HR 132, RR 20-30s. VT 630. Patient is very tense and in general is restless in bed. Reported back to nurse.
--- NOTE | 2019-08-14 07:15 | NUR ---
PATIENT TAKEN OFF OF BI-PAP, PLACED ON 3 L/M NASAL CANNULA.
--- NOTE | 2019-08-14 07:19 | NUR ---
Shift chart check completed.24 HR chart check completed.
--- NOTE | 2019-08-14 07:19 | NUR ---
BEDSIDE REPORT FROM [facility], PT DOZED THROUGHOUT. BIPAP IN PLACE. NO DISTRESS.
[2019-08-14 07:29] LABS: HEMATOCRIT 36.5 % (37.0-47.0); HEMOGLOBIN 11.2 g/dl (12.0-16.0); LYMPH # 0.5 10*3/uL (1.3-4.4); LYMPH % 6.7 % (27.0-41.0); MEAN CELL VOLUME 94.8 fl (81.0-99.0); MEAN CORPUSCULAR HGB 29.1 pg (27.0-31.0); MEAN CORPUSCULAR HGB CONC 30.7 g/dl (33.0-37.0); MEAN PLATELET VOLUME 10.2 fl (9.6-12.3); MONO # 0.3 10*3/uL (0.1-1.0); MONO % 4.1 % (3.0-9.0); NEUT # 6.1 10*3/uL (2.3-7.9); NEUT % 88.8 % (47.0-73.0); PLATELET COUNT AUTOMATED 201 10*3/uL (130-400); RED BLOOD COUNT 3.85 10*6/uL (4.10-5.10); RED CELL DISTRI WIDTH 14.5 % (0-14.5); WHITE BLOOD COUNT 6.9 10*3/uL (4.8-10.8)
[2019-08-14 08:00] VITALS: BP 122/78
[2019-08-14 08:03] LABS: CHLORIDE 96 mmol/L (98-107); POTASSIUM 4.8 mmol/L (3.5-5.1); SODIUM 137 mmol/L (136-145)
[2019-08-14 08:11] LABS: ALBUMIN 3.3 gm/dl (3.1-4.5); ALKALINE PHOSPHATASE 74 U/L (45-117); BUN 19 mg/dl (7-24); CREATININE 0.67 mg/dL (0.55-1.02); SGOT/AST 12 IU/L (3-35); SGPT/ALT 24 U/L (12-78); TOTAL PROTEIN 6.5 gm/dL (6.4-8.2)
--- NOTE | 2019-08-14 08:58 | NUR ---
PT HAS BEEN UP IN [place], AMBULATORY, WITH PORTABLE O2.
--- NOTE | 2019-08-14 09:00 | NUR ---
case management visits with patient, she states she will be returning home when medically stable, patient would like to have [facility] nursing see her at home, case management will send a referral to [facility] for when patient is medically stable for discharge
--- NOTE | 2019-08-14 10:08 | NUR ---
PHYSICAL THERAPY PT STANDING A NIGHT STAND UPON ARRIVAL WITH NASAL CANULA AT 3L O2. PT IDENTIFIED BY NAME AND . PT AGREED TO ALL PHYSICAL THERAPY TREATMENT THIS A.M. PT PERFORMED STS FROM EOB WITH SUPERVISION. PT GAIT TRAINED WITH SBA AND USER EXPERIENCE DEVELOPER WHEELING O2 TANK 230FT X1, 100FT X1 AND 80FT X1 WITH TWO SLIGHT LOB BEING ABLE TO RIGHT PTS SELF. VC'S FOR ARM SWING TO HELP WITH BALANCE GIVEN. ONCE PT STARTED TO USE ARM SWING PT HAD STEADY BALANCE AND NO LOB. PT RETURNED TO ROOM SITTING EOB WITH WALL 02 VIA NASAL CANULA AT END OF SESSION. PT HAD CALL LIGHT AT PTS SIDE AND REPORTED NO OTHER NEEDS AT THIS TIME. PT SEEN 1:1 FOR 16MIN. MELVIN MCNAIR PTA
--- NOTE | 2019-08-14 10:30 | NUR ---
Another Multi-Disciplinary Team meeting was held on 08/14/19, for the purpose of discharge planning. The patient was referred to the following services for follow-up: [facility] nursing, patient tenative discharge day is Wednesday 08/15 DONAVAN DIAZ
[2019-08-14 12:00] VITALS: BP 116/78
--- NOTE | 2019-08-14 12:15 | NUR ---
OT NOTE PATIENT SEEN FOR 1:1 20 MINUTE SESSION AND IDENTIFIED BY NAME AND . UPON ARRIVAL PATIENT SEATED EOB. PATIENT STATED SHE WAS GOING HOME TOMORROW AFTERNOON (08/15/19). ABLE TO CRYSTAL/DOFF DATA PROCESSING SUPERVISOR SOCKS AT MS. PATIENT ABLE TO COMPLETE OBJECT RETRIEVAL WITH NO DEVICE AT SBA DEMONSTRAING FAIR+ BALANCE AND SAFETY AWARENESS WHEN REACHING OUT OF BASE OF SUPPORT AND CAUTIOUS OF O2 CORD. PATIENT COMPLETED TOILET TRANSFER WITH SBA. ALL TOILETING TASKS COMPLETED WITH SUPERVISION. HAND WASHING COMPLETED WHILE STANDING SINK SIDE WITH SBA/SUPERVISION. CONTINUE WITH CURRENT POC AND D/C PLAN TO HOME WITH HH IF NEEDED. SHANDA MENCHACA/Ranjit
--- NOTE | 2019-08-14 13:09 | NUR ---
case management faxed resume order to [facility]
--- NOTE | 2019-08-14 14:43 | NUR ---
PHYSICAL THERAPY Patient says she just was out in the [place] and walked and doesn't feel she can do anymore therapy today. Will check back at a later date. MARITZA GLEASON CAR DISPATCHER
--- NOTE | 2019-08-14 14:50 | NUR ---
RESPIRATORY THERAPY INFORMED PTS BIPAP FROM HOME HAS BEEN BROUGHT IN. SHE'S BEEN AMBULATORY IN THE HALLS WITHOUT DISTRESS.
[2019-08-14 16:00] VITALS: BP 129/59
--- NOTE | 2019-08-14 17:27 | NUR ---
PHYSICAL THERAPY CO-SIGN I approve of the Physical Therapy notes written above. LEONARD WHITT PT,DPT
[2019-08-14 20:00] VITALS: BP 112/66
--- NOTE | 2019-08-14 20:00 | NUR ---
24 HOUR CHART CHECK COMPLETE.
--- NOTE | 2019-08-14 23:45 | NUR ---
Helped pt place herself on her home bipap unit. I bled in 3L O2 and refilled the water tank. No complaints from pt. Call light within reach.
[2019-08-15] VITALS: BP 118/58
[2019-08-15 07:16] LABS: BASO % 0.1 % (0.0-1.0); HEMATOCRIT 36.5 % (37.0-47.0); HEMOGLOBIN 11.2 g/dl (12.0-16.0); LYMPH # 0.5 10*3/uL (1.3-4.4); LYMPH % 6.7 % (27.0-41.0); MEAN CELL VOLUME 94.8 fl (81.0-99.0); MEAN CORPUSCULAR HGB 29.1 pg (27.0-31.0); MEAN CORPUSCULAR HGB CONC 30.7 g/dl (33.0-37.0); MEAN PLATELET VOLUME 9.8 fl (9.6-12.3); MONO # 0.4 10*3/uL (0.1-1.0); MONO % 5.7 % (3.0-9.0); NEUT # 5.8 10*3/uL (2.3-7.9); NEUT % 87.2 % (47.0-73.0); PLATELET COUNT AUTOMATED 208 10*3/uL (130-400); RED BLOOD COUNT 3.85 10*6/uL (4.10-5.10); RED CELL DISTRI WIDTH 14.5 % (0-14.5); WHITE BLOOD COUNT 6.7 10*3/uL (4.8-10.8)
[2019-08-15 07:45] LABS: BUN 20 mg/dl (7-24); CHLORIDE 94 mmol/L (98-107); CREATININE 0.77 mg/dL (0.55-1.02); POTASSIUM 4.8 mmol/L (3.5-5.1); SODIUM 138 mmol/L (136-145)
[2019-08-15 08:00] VITALS: BP 133/79
--- NOTE | 2019-08-15 08:24 | NUR ---
PT NOT ON BIPAP AT THIS TIME
--- NOTE | 2019-08-15 09:00 | NUR ---
case management visits with patient, she is being discharged to home today, case mangaement will notify [facility] that patient is being discharged, no other needs at this time
--- NOTE | 2019-08-15 09:15 | NUR ---
PHYSICAL THERAPY PT SUPINE IN BED UPON ARRIVAL WITH 3L O2 VIA NASAL CANULA FROM WALL UNIT.PT IDENTIFIED BY NAME AND . PT AGREED TO ALL PHYSICAL THERAPY TREATMENT THIS VISIT. PT PERFORMED BED MOBILITY (I). PT PERFORMED STS FROM EOB (I).PT TRANSFERED TO O2 3L NASAL CANULA ON PORTABLE TANK. PT GAIT 300FT X1 AND 100FTX 1 WITH SUPERVISION AND MOLD MAINTENANCE TECHNICIAN WHEELING O2 TANK. PT HAD NO LOB THIS A.M. WITH GAIT. PT PERFORMED 360 TURN WITH SBA AND NO LOB. PT PERFORMES STS TO EOB (I) WITH PROPER TECHNIQUE AND SAFETY. PT SITTING EOB WITH CALL LIGHT AT PT SIDE WITH 3L O2 VIA NASAL CANULA FROM WALL UNIT AT END OF SESSION. PT REPORT NO OTHER NEEDS AT THIS TIME. PT SEEN 1:1 FOR 16MIN THIS A.M. MELVIN MCNAIR PTA
[2019-08-15] MEDS ORDERED: LEVAQUIN500 M2 PO (09:33)
[2019-08-15] MEDS ORDERED: PREDNISONE10 MG PO (09:33)
--- NOTE | 2019-08-15 11:05 | NUR ---
Discharge instructions reviewed with patient. Patient receptive and verbalizes understanding. Follow-up care arranged. Written instructions given to patient. Reviewed meds that were given today and what pt will need tonight. Numbers for was provided if need to change and had questions about appt. To call family to slat pickler.
--- NOTE | 2019-08-15 11:53 | NUR ---
PT DOES NOT USE OUR BIPAP SHE HAS HER OWN FROM HOME
[2019-08-15 12:00] VITALS: BP 115/83
--- NOTE | 2019-08-15 13:00 | NUR ---
DC IN CARE OF SON.
--- NOTE | 2019-08-15 15:05 | NUR ---
case management contacted [facility] home health, spoke to Kushal, informed him that patient has been discharged to home today and will need their services to resume, Kushal stated they will resume patient's services
--- NOTE | 2019-08-16 10:11 | NUR ---
OCCUPATIONAL THERAPY CO-SIGN I approve of the Occupational Therapy notes written above. ELENA MACKAY OTR/Ranjit
--- NOTE | 2019-08-17 07:46 | NUR ---
PHYSICAL THERAPY CO-SIGN I approve of the Physical Therapy notes written above. LEONARD WHITT PT, DPT
== END 2019-08-15 13:00 | disposition home health service (06) | DRG 189 ==
LOC: ED 12:25 → 4E 15:34 → EDHOLD 15:34 → 4E 18:00
PROVIDERS: Emergency Medicine; Internal Medicine; Internal Medicine Critical Care Medicine; ADMIT Family Medicine
PROC: 5A09357 Assistance with Respiratory Ventilation, Less than 24 Consecutive Hours, Continuous Positive Airway Pressure (ICD-10-PCS; principal; 2019-08-14)
DX: J96.21 Acute and chronic respiratory failure with hypoxia (principal); J44.1 Chronic obstructive pulmonary disease with (acute) exacerbation; I48.92 Unspecified atrial flutter; J96.22 Acute and chronic respiratory failure with hypercapnia; I25.10 Atherosclerotic heart disease of native coronary artery without angina pectoris; E78.5 Hyperlipidemia, unspecified; I10 Essential (primary) hypertension; G47.33 Obstructive sleep apnea (adult) (pediatric); I48.0 Paroxysmal atrial fibrillation; E11.36 Type 2 diabetes mellitus with diabetic cataract; D64.9 Anemia, unspecified; E11.65 Type 2 diabetes mellitus with hyperglycemia; J20.9 Acute bronchitis, unspecified; F41.1 Generalized anxiety disorder; Z96.1 Presence of intraocular lens; F32.9 Major depressive disorder, single episode, unspecified; E78.00 Pure hypercholesterolemia, unspecified; Z99.81 Dependence on supplemental oxygen; Z86.73 Personal history of transient ischemic attack (TIA), and cerebral infarction without residual deficits; Z90.49 Acquired absence of other specified parts of digestive tract; Z98.42 Cataract extraction status, left eye; Z98.41 Cataract extraction status, right eye; Z87.891 Personal history of nicotine dependence; Z82.49 Family history of ischemic heart disease and other diseases of the circulatory system; Z82.3 Family history of stroke; Z79.899 Other long term (current) drug therapy; Z80.8 Family history of malignant neoplasm of other organs or systems

== ENCOUNTER 2019-09-26 12:38 | Inpatient (IN) | payer MEDICARE ==
[~2019-09-26] VITALS: Ht 165.1 cm; Wt 69.9 kg
[2019-09-26] VITALS (7 sets, daily range): BP systolic 106–126; BP diastolic 45–72
[~2019-09-26 12:38] MED LIST changes: +BUPROPION HCL150 M1 PO; +BUSPAR15 MG PO; +DIGITEK125 MCG PO; +TRINTELLIX10 MG PO
[2019-09-26 12:51] LABS: BASO % 0.1 % (0.0-1.0); HEMATOCRIT 44.3 % (37.0-47.0); HEMOGLOBIN 13.3 g/dl (12.0-16.0); LYMPH # 1.6 10*3/uL (1.3-4.4); LYMPH % 12.7 % (27.0-41.0); MEAN CELL VOLUME 96.1 fl (81.0-99.0); MEAN CORPUSCULAR HGB 28.9 pg (27.0-31.0); MEAN PLATELET VOLUME 9.1 fl (9.6-12.3); MONO % 7.9 % (3.0-9.0); NEUT # 9.7 10*3/uL (2.3-7.9); NEUT % 78.9 % (47.0-73.0); PLATELET COUNT AUTOMATED 265 10*3/uL (130-400); RED BLOOD COUNT 4.61 10*6/uL (4.10-5.10); RED CELL DISTRI WIDTH 13.8 % (0-14.5); WHITE BLOOD COUNT 12.3 10*3/uL (4.8-10.8)
[2019-09-26 13:02] LABS: ACT PARTIAL THROMBO TIME 24.3 SECONDS (20.0-32.1); INTERNATIONAL NORM RATIO 0.9 (2.0-3.5)
[2019-09-26 13:08] LABS: ALBUMIN 3.5 gm/dl (3.1-4.5); ALKALINE PHOSPHATASE 74 U/L (45-117); BUN 12 mg/dl (7-24); CHLORIDE 96 mmol/L (98-107); CREATININE 0.75 mg/dL (0.55-1.02); POTASSIUM 4.5 mmol/L (3.5-5.1); SGOT/AST 21 IU/L (3-35); SGPT/ALT 22 U/L (12-78); SODIUM 139 mmol/L (136-145)
[2019-09-26 13:13] LABS: TROPONIN I < 0.015 ng/ml (<0.045)
--- NOTE | 2019-09-26 13:42 | NUR ---
RESTING QUIETLY IN BED WITH EYES CLOSED. RESPS ARE EASY AND NON LABORED.
--- NOTE | 2019-09-26 16:00 | NUR ---
A 73, admitted to 5E, under the services of SHARRON Tolliver DO with a diagnosis of CHF. Chief complaint is DYSPNEA. Patient arrived via stretcher from ER. Monitor applied. Initial assessment completed. Vital signs taken and recorded. SHARRON TOLLIVER DO notified of admission to the unit. Orders received. See assessment for past medical history, medications and allergies. Patient and/or family oriented to unit. [address] visitation policy reviewed. Clothing/patient valuable form completed. ADRIANNA SMITH
--- NOTE | 2019-09-26 18:00 | NUR ---
DR RIVERA NOTIFIED OF CONSULT.
[2019-09-26] MEDS ORDERED: ALBUTEROL2.5 MG/0.5 INH (18:12)
[2019-09-26] MEDS ORDERED: ALIVE ONCE DAI1 EACH PO (18:13)
[2019-09-26] MEDS ORDERED: PRESERVISION A1 EAC1 PO (18:14)
[2019-09-26] MEDS ORDERED: [UNRECOGNIZED DRUG - OTHER] (18:15)
[2019-09-26 18:43] LABS: BILIRUBIN NEGATIVE (NEGATIVE); BLOOD NEGATIVE (NEGATIVE); CLARITY CLEAR (CLEAR); COLOR STRAW (YELLOW); GLUCOSE NEGATIVE (NEGATIVE); KETONE NEGATIVE (NEGATIVE); LEUKO ESTERASE NEGATIVE (NEGATIVE); NITRITE NEGATIVE (NEGATIVE); PH 5.5 (5.0-9.0); UROBILINOGEN 0.2 E.U./dl (0.2-1.0)
--- NOTE | 2019-09-26 19:15 | NUR ---
ATTEMPTED TO CALL DR RIVERA ABOUT BIPAP SETTINGS WITH NO ANSWER. RN AWARE.
[2019-09-26 20:05] LABS: EPITHELIAL CELLS 0-2; RBC 0-2 rbc/hpf (0-2)
--- NOTE | 2019-09-26 20:23 | NUR ---
Neurological: LETHARGIC RESPONDS TO COMMANDS ORIENTED X3 Respiratory: NONLABORED, 3L VIA NC Breath sounds: DIMINISHED T/O, POOR AIR EXCHANGE Cough: PRODUCTIVE- THICK YELLOW SPUTUM Cardiovascular: DENIES CP/PRESSURE, TRACE BLE EDEMA, PP+ Gastrointestinal: NORMOACTIVE X4 QUADS, DENIES N/V/D/C, SOFT/NONTENDER/NONDISTENDED Genito/Urinary: DENIES DYSURIA Musculoskeketal: AMBULATORY, SKIN W/D AND INTACT RESTING IN BED WITH NO S/S OF DISTRESS OR C/O NOTED AT THIS TIME. BED IS LOW, LOCKED, AND CALL LIGHT IS WITHIN REACH. WILL CONTINUE TO MONITOR SEE SHIFT ASSESSMENT SEN NIÑO A
[2019-09-27] VITALS: BP 118/72
[2019-09-27 06:12] LABS: HEMATOCRIT 39.8 % (37.0-47.0); HEMOGLOBIN 12.1 g/dl (12.0-16.0); LYMPH # 0.7 10*3/uL (1.3-4.4); LYMPH % 9.9 % (27.0-41.0); MEAN CELL VOLUME 94.8 fl (81.0-99.0); MEAN CORPUSCULAR HGB 28.8 pg (27.0-31.0); MEAN CORPUSCULAR HGB CONC 30.4 g/dl (33.0-37.0); MEAN PLATELET VOLUME 9.8 fl (9.6-12.3); MONO # 0.4 10*3/uL (0.1-1.0); MONO % 5.8 % (3.0-9.0); NEUT # 6.1 10*3/uL (2.3-7.9); NEUT % 83.5 % (47.0-73.0); PLATELET COUNT AUTOMATED 216 10*3/uL (130-400); RED CELL DISTRI WIDTH 13.6 % (0-14.5); WHITE BLOOD COUNT 7.3 10*3/uL (4.8-10.8)
[2019-09-27 06:27] LABS: ALBUMIN 3.1 gm/dl (3.1-4.5); BUN 14 mg/dl (7-24); CHLORIDE 90 mmol/L (98-107); POTASSIUM 4.3 mmol/L (3.5-5.1); SGOT/AST 11 IU/L (3-35); SODIUM 137 mmol/L (136-145)
[2019-09-27 06:34] LABS: ALKALINE PHOSPHATASE 69 U/L (45-117); CREATININE 0.71 mg/dL (0.55-1.02); FREE T4 0.73 ng/dl (0.76-1.46); PHOSPHOROUS 2.7 mg/dL (2.5-4.9); SGPT/ALT 20 U/L (12-78); THYROID STIM HORMONE (HS) 0.377 uIU/ml (0.358-4.75); TOTAL PROTEIN 6.5 gm/dL (6.4-8.2)
--- NOTE | 2019-09-27 06:51 | NUR ---
DR. SNOW CONTACTED IN REGARDS TO CO2 OF 42.
[2019-09-27 08:00] VITALS: BP 133/66
[2019-09-27 08:52] LABS: ABG BASE EXCESS 13.6 mmol/L (-2.0-2.0); ABG HCO3 43.1 mmol/l (22-26); ABG O2 SATURATION 92.5 % (95-97); ARTERIAL BLOOD GAS PH 7.329 (7.35-7.45); ARTERIAL BLOOD GAS PO2 65.3 mmHg (80-90)
[2019-09-27 08:57] LABS: ARTERIAL BLOOD GAS PCO2 83.8 mmHg (35-45)
--- NOTE | 2019-09-27 08:57 | NUR ---
SPOKE WITH DR LOREDO AND INFORMED HIM OF CRITICAL LAB RESULT. STATED TO CALL DR. RIVERA FOR ORDERS.
--- NOTE | 2019-09-27 09:01 | NUR ---
NOTIFIED DR RIVERA OF PCO2 OF 83.8. NO NEW ORDERS AT THIS TIME.
--- NOTE | 2019-09-27 11:50 | NUR ---
Patient resting quietly with no c/o discomfort. Respirations easy and regular. Vital signs stable. No overt distress. HISSOM,SHAE
--- NOTE | 2019-09-27 11:52 | NUR ---
Global Mobility Specialist in to talk to patient. Patient states lives at HOME with ALONE. There are 2 steps in the home. Physician: Scooter [facility]acy: [facility] Home health services: NONE AT THIS TIME Patient's level of ADLs: INDEPENDENT Patient has working utilities: YES DME: OXYGEN, PORTABLE TANK, NEBULIZER BIPAP, [employer] Follow-up physician's appointment after d/c: WILL BE MADE BY HOSPITALIST NURSE DIRECTOR ON DISCHARGE Does patient want to access PORTAL?: NO Discharge plan PT LIVES AT HOME ALONE AND IS INDEPENDENT IN HER CARE. TALKED WITH PT ABOUT HOME HEALTH, SHE STATES SHE HAS HAD THEM IN THE PAST BUT DOES NOT THINK SHE NEEDS THEM RIGHT NOW. HAS HOME O2, NEBULIZER AND BIPAP AT HOME. PT PLANS TO RETURN HOME WHEN MEDICALLY STABLE. WILL CONTINUE TO FOLLOW. WILL HAVE A RIDE HOME. LESLIE SIM
[2019-09-27 12:00] VITALS: BP 114/43; BP 118/64
--- NOTE | 2019-09-27 13:59 | NUR ---
Patient on bipap. Silke Flor OTR/l
--- NOTE | 2019-09-27 15:16 | NUR ---
PHYSICAL THERAPY Pt going for some testing. Will attempt tomorrow. thank you Jo Leonela, PT, DPT
--- NOTE | 2019-09-27 15:17 | NUR ---
Patient for testing. OTR will attempt at a later date. Silke Flor OTR/l
[2019-09-27 15:52] LABS: ABG BASE EXCESS 15.8 mmol/L (-2.0-2.0); ABG HCO3 44.5 mmol/l (22-26); ABG O2 SATURATION 99.1 % (95-97); ARTERIAL BLOOD GAS PH 7.369 (7.35-7.45)
[2019-09-27 15:56] LABS: ARTERIAL BLOOD GAS PCO2 78.8 mmHg (35-45)
--- NOTE | 2019-09-27 15:58 | NUR ---
SPOKE WITH DR LOREDO REGARDING PATIENTS CO2 LEVEL OF 78.8. STATED TO CALL DR RIVERA AND LET HIM KNOW. NICOLE STATES TO KEEP HER ON THE BIPAP EXCEPT FOR MEALS.
[2019-09-27 16:00] VITALS: BP 119/51
--- NOTE | 2019-09-27 18:30 | NUR ---
Time: 1829 A 89 year old MALE admitted to 5E under services of SHARRON TOLLIVER DO. Pt. arrived via from ER. Chief complaint: SYNCOPE AND COLLAPSE. SHAE MÉNDEZ
[2019-09-27 20:00] VITALS: BP 118/50
--- NOTE | 2019-09-27 21:31 | NUR ---
CONTACTED DR. Kalli VICTOR IN REGARDS TO PATIENT REQUESTING SLEEPING MEDICATION. SEE NEW ORDERS.
[2019-09-28] VITALS (8 sets, daily range): BP systolic 95–120; BP diastolic 52–74
--- NOTE | 2019-09-28 04:19 | NUR ---
MESSAGE LEFT WITH [facility] IN REGARDS TO PATIENT HR BEING IN A-FLUTTER AND HR BEING IN THE 130'S. AWAITING CALL BACK.
--- NOTE | 2019-09-28 04:26 | NUR ---
DR. MICHAUD RETURNED CALL IN REGARDS TO CONSULT. ORDERED TO CONTINUE YRN DRHOA AND DR. MINER WILL BE IN IN THE MORNING. MAKE PATIENT NPO JUST IN CASE FOR CARDIOVERSION IF NEEDED.
--- NOTE | 2019-09-28 05:49 | NUR ---
CARDIZEM TITRATED TO 10MG/HR FOR HR OF 82. PATIENT APPEARS TO BE TOLERATING WELL, CALL LIGHT IS WITHIN REACH.
[2019-09-28 06:51] LABS: BUN 18 mg/dl (7-24); CHLORIDE 92 mmol/L (98-107); CREATININE 0.76 mg/dL (0.55-1.02); POTASSIUM 5.2 mmol/L (3.5-5.1); SODIUM 137 mmol/L (136-145)
--- NOTE | 2019-09-28 06:55 | NUR ---
CARDIZEM GTT TITRATED TO 15MG/HR D/T HR SUSTAINING THE 140S.
--- NOTE | 2019-09-28 07:01 | NUR ---
DR. MORRIS CONTACTED IN REGARDS TO CO2 OF 43.
[2019-09-28 07:05] LABS: BASO % 0.1 % (0.0-1.0); HEMATOCRIT 38.8 % (37.0-47.0); HEMOGLOBIN 11.8 g/dl (12.0-16.0); LYMPH # 0.9 10*3/uL (1.3-4.4); LYMPH % 6.6 % (27.0-41.0); MEAN CELL VOLUME 95.1 fl (81.0-99.0); MEAN CORPUSCULAR HGB 28.9 pg (27.0-31.0); MEAN CORPUSCULAR HGB CONC 30.4 g/dl (33.0-37.0); MEAN PLATELET VOLUME 9.9 fl (9.6-12.3); NEUT # 12.3 10*3/uL (2.3-7.9); NEUT % 85.8 % (47.0-73.0); PLATELET COUNT AUTOMATED 205 10*3/uL (130-400); RED BLOOD COUNT 4.08 10*6/uL (4.10-5.10); RED CELL DISTRI WIDTH 13.7 % (0-14.5); WHITE BLOOD COUNT 14.3 10*3/uL (4.8-10.8)
--- NOTE | 2019-09-28 07:47 | NUR ---
SPOKE WITH DR JORGE REGARDING PATIENTS POTASSIUM OF5.2. STATED TO HOLD K-DUR.
--- NOTE | 2019-09-28 08:45 | NUR ---
CARDIZEM DRIP MAINTAINED AT 15ML/H TO MAINTAIN HEARTRATE OF 111
--- NOTE | 2019-09-28 08:46 | NUR ---
CARDIZEM DRIP MAINTAINED AT 15MG/H. HEART RATE 111
--- NOTE | 2019-09-28 08:58 | NUR ---
Patient not available for Occupational Therapy evaluation as she was receiving testing in her room. Silke Flor OTR/l
--- NOTE | 2019-09-28 08:58 | NUR ---
PHYSICAL THERAPY Pt currently getting an Ultrasound. Will attempt later. Thank you Jo Gipson, PT, DPT
--- NOTE | 2019-09-28 10:16 | NUR ---
SPOKE WITH DR MINER CONCERNING PTS SUSTAINED HR IN THE 140'S STATED TO GIVE HER 500MCG OF DIGOXIN IV NOW
--- NOTE | 2019-09-28 13:59 | NUR ---
DR MINER ROUNDED TO SEE PATIENT AND HEART RATE WAS STILL HIGH. STATED TO GIVE HER METOPROLOL 25MG PO NOW AND THEN TWICE A DAY. STATED TO CALL HIM BACK IF THAT DOESNT WORK.
--- NOTE | 2019-09-28 14:39 | NUR ---
DIRECT SERVICE PROVIDER BACK IN ROOM TO TALK WITH PT. PT IS STILL REFUSING HOME HEALTH AT HOME ON DISCHARGE. STATES SHE WILL BE FINE. WILL CONTINUE TO FOLLOW..
--- NOTE | 2019-09-28 15:00 | NUR ---
PHYSICAL THERAPY Physical therapy evaluation completed, 5E. Full details to follow. low complexity determined after evaluation/chart review, [id number]. PT to work on gait, endurance, breathing technique during mobility, endurance, safety. Recommending home health at discharge. thank you Jo Gipson, PT, DPT
--- NOTE | 2019-09-28 15:00 | NUR ---
Occupational Therapy evaluation completed on 5 with full eval to follow. Precautions include bipap use cardiac and oxygen monitor, new ww use, impaired activity tolerance, moderate complexity level 79803 via chart review, testing and evaluation.Recommend OT per POC and home alone with home health SN,OT,PT. Thank you. Silke Flor OTR/L
--- NOTE | 2019-09-28 18:19 | NUR ---
TITRATED CARDIZEM DRIP TO 5MG/H. INFORMED DR MINER OF PATIENTS HR STAYING IN THE 70-80'S. STATED TO GIVE HER A ONE TIME DOSE OF 60MG PO CARDIZEM THEN START GIVING 60MG PO OF CARDIZEM Q6H. DID NOT SAY TO DISCONTINUE THE DRIP.
[2019-09-29] VITALS (8 sets, daily range): BP systolic 105–126; BP diastolic 61–80
--- NOTE | 2019-09-29 00:10 | NUR ---
IV DIGOXIN GIVEN PER ORDER HR 109 DECREASED TO 86-96 HR PER CM.
--- NOTE | 2019-09-29 02:17 | NUR ---
24 HR chart check completed.
--- NOTE | 2019-09-29 08:00 | NUR ---
Patient resting quietly with no c/o discomfort. Respirations easy and regular. Vital signs stable. No overt distress. ADRIANNA SMITH
[2019-09-29 08:04] LABS: BASO % 0.1 % (0.0-1.0); HEMATOCRIT 38.8 % (37.0-47.0); HEMOGLOBIN 11.7 g/dl (12.0-16.0); LYMPH # 1.6 10*3/uL (1.3-4.4); LYMPH % 12.2 % (27.0-41.0); MEAN CELL VOLUME 95.8 fl (81.0-99.0); MEAN CORPUSCULAR HGB 28.9 pg (27.0-31.0); MEAN CORPUSCULAR HGB CONC 30.2 g/dl (33.0-37.0); MEAN PLATELET VOLUME 10.2 fl (9.6-12.3); MONO % 7.7 % (3.0-9.0); NEUT # 10.5 10*3/uL (2.3-7.9); NEUT % 79.5 % (47.0-73.0); PLATELET COUNT AUTOMATED 205 10*3/uL (130-400); RED BLOOD COUNT 4.05 10*6/uL (4.10-5.10); RED CELL DISTRI WIDTH 14.1 % (0-14.5); WHITE BLOOD COUNT 13.2 10*3/uL (4.8-10.8)
[2019-09-29 08:14] LABS: ALKALINE PHOSPHATASE 59 U/L (45-117); BUN 20 mg/dl (7-24); CHLORIDE 102 mmol/L (98-107); CREATININE 0.79 mg/dL (0.55-1.02); SGOT/AST 11 IU/L (3-35); SGPT/ALT 17 U/L (12-78); SODIUM 142 mmol/L (136-145); TOTAL PROTEIN 5.9 gm/dL (6.4-8.2)
[2019-09-29 08:19] LABS: POTASSIUM 3.9 mmol/L (3.5-5.1)
--- NOTE | 2019-09-29 10:03 | NUR ---
MELA HERE FOR LARGE CARDIAC PAUSE THAT RN HAPPENED TO SEE AT A GLANCE ON THE MONITOR AT THE DESK. CARDIZEM GTT IMMEDIATLEY SHUT OFF. MELA TO GET STRIPS AND REVIEW ALARMS WITH MASTER [employer], SINCE RN CANNOT ACCESS CM OR HEAR THE ALARMS ON THE FLOOR. TECH STATED THAT CM DID NOT ALARM, YET HR WAS IN THE 30s-40s WITNESSED BY RN AND MLEA AT THE BEDSIDE ON PT'S CM. MELA WILL LEAVE A STRIP AND A NOTE WITH OUR CONCERNS IN CHRIS'S OFFICE.
--- NOTE | 2019-09-29 13:00 | NUR ---
Patient resting quietly with no c/o discomfort. Respirations easy and regular. Vital signs stable. No overt distress. ADRIANNA SMITH
--- NOTE | 2019-09-29 13:31 | NUR ---
PHYSICAL THERAPY Patient sitting EOB when DIRECTOR TALENT entered room. Patient presents to therapy on 3L continous O2 via NC. Transfer training- patient performed STS transfers from various surfaces (bed, arm chair) requiring supervision- with emphasis on safety and technique. STS x 5 reps performed from arm chair without UE support and SBA/S for functional strengthening and endurance- patient required short duration rest break after 3rd rep due to SOB. DIRECTOR TALENT reviewed and educated patient on pursed lip breathing techniques this date. Patient shows good follow through. Pt performed standing activity tolerance and balance retraining with occasional 1-2xUE support and CGA, while reaching outside of JOHNATHAN and crossing mid-line for improved balance/righting reactions, endurance, strength and safety. Patient tolerated up to 2.5 minutes prior to requesting to sit, due to fatigue. 1xLOB noted with self-correction. Pt performed gait training with use of FWW and SBA- for strength, endurance and balance ~120'x1. Seated rest break provided. Pt benefits from cues for safety with O2 tubing, walker proximity and pacing throughout. Pt sitting in arm chair at session end with call light within reach and family entering room. Pt voiced no c/o this date. Rosa Reyes DIRECTOR TALENT
--- NOTE | 2019-09-29 16:00 | NUR ---
Patient resting quietly with no c/o discomfort. Respirations easy and regular. Vital signs stable. No overt distress. ADRIANNA SMITH
--- NOTE | 2019-09-29 22:05 | NUR ---
HR 90s PER CM AFIB/FLUTTER. LOPRESSOR GIVEN PER ORDERS. WILL CONTINUE TO MONITOR.
--- NOTE | 2019-09-29 23:21 | NUR ---
CARDIZEM GIVEN SCHEDULED FOR HR 89 PER CM. TOLERATED HS MEDS WELL. NO COMPLAINTS AT THIS TIME.
[2019-09-30] VITALS: BP 131/70
--- NOTE | 2019-09-30 03:54 | NUR ---
CURRENTLY AFIB/FLUTTER IN 90s PER CM.
--- NOTE | 2019-09-30 04:04 | NUR ---
24HR CHART CHECK COMPLETED
[2019-09-30 06:27] LABS: BASO % 0.1 % (0.0-1.0); HEMATOCRIT 41.6 % (37.0-47.0); HEMOGLOBIN 12.7 g/dl (12.0-16.0); LYMPH # 1.4 10*3/uL (1.3-4.4); MEAN CELL VOLUME 94.3 fl (81.0-99.0); MEAN CORPUSCULAR HGB 28.8 pg (27.0-31.0); MEAN CORPUSCULAR HGB CONC 30.5 g/dl (33.0-37.0); MEAN PLATELET VOLUME 9.8 fl (9.6-12.3); MONO % 8.1 % (3.0-9.0); NEUT # 9.4 10*3/uL (2.3-7.9); NEUT % 79.1 % (47.0-73.0); PLATELET COUNT AUTOMATED 192 10*3/uL (130-400); RED BLOOD COUNT 4.41 10*6/uL (4.10-5.10); RED CELL DISTRI WIDTH 14.2 % (0-14.5); WHITE BLOOD COUNT 11.9 10*3/uL (4.8-10.8)
[2019-09-30 06:58] LABS: ALBUMIN 3.1 gm/dl (3.1-4.5); ALKALINE PHOSPHATASE 60 U/L (45-117); BUN 24 mg/dl (7-24); CHLORIDE 102 mmol/L (98-107); CREATININE 0.83 mg/dL (0.55-1.02); POTASSIUM 4.2 mmol/L (3.5-5.1); SGOT/AST 9 IU/L (3-35); SGPT/ALT 20 U/L (12-78); SODIUM 142 mmol/L (136-145); TOTAL PROTEIN 6.1 gm/dL (6.4-8.2)
[2019-09-30 08:00] VITALS: BP 112/58; BP 122/53
--- NOTE | 2019-09-30 08:24 | NUR ---
PT RESTING IN BED/ NO DISTRESS NOTED. SEE SHIFT ASSESSMENT. WILL MONITOR
[2019-09-30 12:00] VITALS: BP 111/80
[2019-09-30 16:00] VITALS: BP 127/67
[2019-09-30 20:00] VITALS: BP 116/61
--- NOTE | 2019-09-30 21:49 | NUR ---
STATES THAT DULCOLAX YESTERDAY INEFFECTIVE FOR CONSTIPATION. OFFERED ANOTHTER THIS EVENING FOR LAST BM ON 09/27. AGREED. ALSO GIVEN PRUNE JUICE AT THIS TIME. WILL MONITOR. SEE JAN.
[2019-10-01] VITALS (9 sets, daily range): BP systolic 103–131; BP diastolic 52–87
--- NOTE | 2019-10-01 02:33 | NUR ---
24HR CHART CHECK COMPLETED
--- NOTE | 2019-10-01 05:21 | NUR ---
HR 116 AFIB/FLUTTER. CARDIZEM GIVEN PER ORDERS.
--- NOTE | 2019-10-01 08:00 | NUR ---
Patient resting quietly with no c/o discomfort. Respirations easy and regular. Vital signs stable. No overt distress. PRUDENCE POON
--- NOTE | 2019-10-01 11:02 | NUR ---
OT NOTE Pt was seen this A.M. 1:1 for 24 minute OT session. Before start of session spoke with pt's nurse who reported that pt was okay to be seen at this time. Upon arrival pt was supine in bed. Pt identified by name and and had no complaints at this time. Pt presented to therapy with continuous 3L-O2 via NC which she remained on throughout the entire session. At rest pt's heart rate was 79 bpm. Pt transferred supine to sit EOB with SBA. Sit to stand completed from the bed level with CGA and use of w/w for UE support. Functional mobility was completed to the bathroom and back with CGA and use of w/w. Throughout pt was educated on safety with O2 line to decrease risk of falls and pt presented with good carry over throughout. Then challenged pt's static standing tolerance needed for increased I in self care tasks and functional transfers and pt was able to tolerate aprox 4 minutes at a time before sitting due to fatigue. Throughout mobility and standing activities pt's heart rate elevated to 112 bpm and after rest would come back to 98-100 bpm. While sitting EOB for a seated rest break pt was educated on energy conservation and work simplification techniques for increased I in ADL/IADL tasks. Pt verbalized understanding. Pt then transferred back into bed sit to supine with SBA. There she was left with call light in hand, tray table in place, and phone in reach. Pt's resting heart rate at end of session was 93 bpm. Continue with rec D/C plan to home with home health. NICOLE Alberts
--- NOTE | 2019-10-01 12:00 | NUR ---
Patient resting quietly with no c/o discomfort. Respirations easy and regular. Vital signs stable. No overt distress. PRUDENCE POON
--- NOTE | 2019-10-01 13:20 | NUR ---
OT NOTE Pt was seen this P.M. 1:1 for second OT session consisting of 13 minutes. Upon arrival pt was supine in bed. Pt identified by name and and had no complaints at this time. Pt's resting heart rate was 115 bpm and presented to therapy with continuous 3L-O2 via NC which she remained on throughout the entire session. Pt transferred supine to sit EOB with SBA. While standing bedside pt donned her house coat with CGA for safety. Functional mobility was then completed from the EOB to the bathroom with CGA and use of w/w. There she transferred on/off standard commode with CGA and use of grab bar for UE support. Clothing management completed with CGA and toilet hygiene completed with supervision while seated. Pt then stood sink side while washing her hands with CGA. Functional mobility completed back to the EOB where she transferred sit to supine with SBA. Throughout activity pt's heart rate elevated to 121 bpm. There she was left with call light in hand, tray table in place, and resting heart rate of 99 bpm. Continue with rec D/C plan to home with home health. NIKOLAI Alberts/Ranjit
--- NOTE | 2019-10-01 13:40 | NUR ---
PT CONTINUES TO STATE SHE IS GOING TO GO HOME ON DISCHARGE AND WILL HAVE NO NEEDS. WILL CONTINUE TO FOLLOW.
--- NOTE | 2019-10-01 15:17 | NUR ---
24 HR chart check completed.
--- NOTE | 2019-10-01 15:30 | NUR ---
PT BACK FROM CARDIOVERSION, RHYTHM NOTED ANDREW IN THE 70S, PT RESTING COMFORTABLY IN BED, NO COMPLAINTS.
--- NOTE | 2019-10-01 21:49 | NUR ---
PRN DULCOLAX GIVEN FOR PT COMPLAINTS OF NO BM FOR A COUPLE DAYS. STATED SHE HAD A STOOL SOFTNER YESTERDAY AND THAT SHE THINKS THAT SHE NEEDS ONE MORE. CALL LIGHT WITHIN REACH, WILL MONITOR
--- NOTE | 2019-10-01 23:01 | NUR ---
PRN RESTORIL GIVEN FOR PT COMPLAINTS OF SLEEPLESSNESS. CALL LIGHT WITHIN REACH, WILL MONITOR
[2019-10-02] VITALS: BP 111/61
--- NOTE | 2019-10-02 01:30 | NUR ---
24 HR chart check completed.
[2019-10-02 06:52] LABS: BASO % 0.1 % (0.0-1.0); HEMATOCRIT 37.8 % (37.0-47.0); HEMOGLOBIN 11.5 g/dl (12.0-16.0); LYMPH # 1.4 10*3/uL (1.3-4.4); LYMPH % 13.8 % (27.0-41.0); MEAN CORPUSCULAR HGB CONC 30.4 g/dl (33.0-37.0); MEAN PLATELET VOLUME 9.9 fl (9.6-12.3); MONO # 0.7 10*3/uL (0.1-1.0); MONO % 6.8 % (3.0-9.0); NEUT % 78.5 % (47.0-73.0); PLATELET COUNT AUTOMATED 177 10*3/uL (130-400); RED BLOOD COUNT 4.11 10*6/uL (4.10-5.10); WHITE BLOOD COUNT 10.2 10*3/uL (4.8-10.8)
[2019-10-02 07:18] LABS: ALKALINE PHOSPHATASE 52 U/L (45-117); BUN 25 mg/dl (7-24); CHLORIDE 99 mmol/L (98-107); POTASSIUM 3.9 mmol/L (3.5-5.1); SGOT/AST 11 IU/L (3-35); SGPT/ALT 26 U/L (12-78); SODIUM 140 mmol/L (136-145); TOTAL PROTEIN 5.7 gm/dL (6.4-8.2)
[2019-10-02 08:00] VITALS: BP 122/70
--- NOTE | 2019-10-02 12:00 | NUR ---
OT NOTE Pt was seen this A.M. 1:1 for 16 minute OT session. Upon arrival pt was up walking around the room. Pt identified by name and and had no complaints at this time. Pt presented to therapy with continuous 3L-O2 via NC which she remained on throughout the entire session. Pt's heart rate at start of session was 77 bpm. Functional mobility was then completed around the room to the bathroom with CGA. There she transferred on/off standard commode with SBA and stood sink side with SBA while washing her hands. Throughout tasks pt's heart rate elevated to 90 bpm. Pt was left supine in bed with call light in hand, tray table in place, resting heart rate of 82 bpm, and phone in reach. Continue with rec D/C plan to home with home health. NIKOLAI Alberts/Ranjit
[2019-10-02] MEDS ORDERED: PREDNISONE10 MG PO (12:27)
[2019-10-02] MEDS ORDERED: ZITHROMAX500 MG PO (12:28)
--- NOTE | 2019-10-02 12:31 | NUR ---
PT STATES SHE IS GOING HOME TODAY. CONTINUES TO DENY NEEDS AT HOME.
--- NOTE | 2019-10-02 13:20 | NUR ---
PHYSICAL THERAPY Patient presented to therapy in standing at bedside upon this VENDING MACHINE REFILLER arriving in the patient's room. Patient was identified by name tigist BLANCO on wristband. Patient gived informed consent for treatment. Patient is on 3 liters of spO2 via nasal canula. Patient ambulated with no assistive device and Close Supervision for 220' x 1 with no LOB or SOB with 3 liters of spO2. Patient's pulse was 77 prior to ambulation and 90 post ambulation. O2 sats Normal. Patient transferred back to supine in bed with INDEPENDENCE. Patient is independent in [facility] throughtout the day. Patient was left in supine with head of bed elevated and call light within reach. Patient was 1:1 with this VENDING MACHINE REFILLER for 15 minutes total. MARITZA GLEASON VENDING MACHINE REFILLER
--- NOTE | 2019-10-02 14:30 | NUR ---
DISCHARGED TO HOME.
--- NOTE | 2019-10-03 08:03 | NUR ---
PHYSICAL THERAPY CO-SIGN I approve of the Physical Therapy notes written above. Jo Gipson, PT, DPT
--- NOTE | 2019-10-03 12:03 | NUR ---
OCCUPATIONAL THERAPY CO-SIGN I approve of the Occupational Therapy notes written above. ELENA MACKAY OTR/Ranjit
== END 2019-10-02 14:30 | disposition home or self-care (01) | DRG 291 ==
LOC: ED 12:38 → EDHOLD 15:28 → 5E 15:28
PROVIDERS: Emergency Medicine; Internal Medicine; Internal Medicine Critical Care Medicine; Registered Nurse; ADMIT Internal Medicine
PROC: 5A09357 Assistance with Respiratory Ventilation, Less than 24 Consecutive Hours, Continuous Positive Airway Pressure (ICD-10-PCS; principal; 2019-09-26)
PROC: 5A09357 Assistance with Respiratory Ventilation, Less than 24 Consecutive Hours, Continuous Positive Airway Pressure (ICD-10-PCS; 2019-09-27)
PROC: 5A09357 Assistance with Respiratory Ventilation, Less than 24 Consecutive Hours, Continuous Positive Airway Pressure (ICD-10-PCS; 2019-09-29)
PROC: 5A09357 Assistance with Respiratory Ventilation, Less than 24 Consecutive Hours, Continuous Positive Airway Pressure (ICD-10-PCS; 2019-09-30)
PROC: 5A2204Z Restoration of Cardiac Rhythm, Single (ICD-10-PCS; 2019-10-01)
PROC: 5A09357 Assistance with Respiratory Ventilation, Less than 24 Consecutive Hours, Continuous Positive Airway Pressure (ICD-10-PCS; 2019-10-02)
DX: I11.0 Hypertensive heart disease with heart failure (principal); J96.22 Acute and chronic respiratory failure with hypercapnia; E44.0 Moderate protein-calorie malnutrition; D68.59 Other primary thrombophilia; E87.3 Alkalosis; I48.92 Unspecified atrial flutter; I50.33 Acute on chronic diastolic (congestive) heart failure; J20.9 Acute bronchitis, unspecified; Z66 Do not resuscitate; Z51.5 Encounter for palliative care; F32.9 Major depressive disorder, single episode, unspecified; E78.2 Mixed hyperlipidemia; T46.0X5A Adverse effect of cardiac-stimulant glycosides and drugs of similar action, initial encounter; E11.65 Type 2 diabetes mellitus with hyperglycemia; E87.5 Hyperkalemia; Z96.1 Presence of intraocular lens; I48.0 Paroxysmal atrial fibrillation; F41.1 Generalized anxiety disorder; I50.9 Heart failure, unspecified; I25.10 Atherosclerotic heart disease of native coronary artery without angina pectoris; J43.9 Emphysema, unspecified; Z99.81 Dependence on supplemental oxygen; Z79.84 Long term (current) use of oral hypoglycemic drugs; Z86.73 Personal history of transient ischemic attack (TIA), and cerebral infarction without residual deficits; Z90.49 Acquired absence of other specified parts of digestive tract; Z98.41 Cataract extraction status, right eye; Z98.42 Cataract extraction status, left eye; Z87.891 Personal history of nicotine dependence; Z82.49 Family history of ischemic heart disease and other diseases of the circulatory system; Z82.3 Family history of stroke; Y92.89 Other specified places as the place of occurrence of the external cause; Z68.24 Body mass index [BMI] 24.0-24.9, adult

== ENCOUNTER 2019-11-02 07:13 | Inpatient (IN) | payer MEDICARE ==
[~2019-11-02] VITALS: Ht 165.1 cm; Wt 72.2 kg
[~2019-11-02 07:13] MED LIST changes: +ALIVE ONCE DAI1 EACH PO; +[UNRECOGNIZED DRUG - OTHER]
[2019-11-02 07:25] VITALS: BP 116/59
[2019-11-02 07:42] LABS: HEMATOCRIT 36.5 % (37.0-47.0); HEMOGLOBIN 11.1 g/dl (12.0-16.0); LYMPH # 1.4 10*3/uL (1.3-4.4); LYMPH % 30.1 % (27.0-41.0); MEAN CELL VOLUME 94.6 fl (81.0-99.0); MEAN CORPUSCULAR HGB 28.8 pg (27.0-31.0); MEAN CORPUSCULAR HGB CONC 30.4 g/dl (33.0-37.0); MEAN PLATELET VOLUME 9.1 fl (9.6-12.3); MONO # 0.6 10*3/uL (0.1-1.0); MONO % 12.5 % (3.0-9.0); NEUT # 2.7 10*3/uL (2.3-7.9); PLATELET COUNT AUTOMATED 202 10*3/uL (130-400); RED BLOOD COUNT 3.86 10*6/uL (4.10-5.10); RED CELL DISTRI WIDTH 14.8 % (0-14.5); WHITE BLOOD COUNT 4.8 10*3/uL (4.8-10.8)
[2019-11-02 07:53] LABS: ACT PARTIAL THROMBO TIME 24.5 SECONDS (20.0-32.1); INTERNATIONAL NORM RATIO 0.9 (2.0-3.5)
[2019-11-02 07:58] LABS: ALBUMIN 3.1 gm/dl (3.1-4.5); ALKALINE PHOSPHATASE 69 U/L (45-117); BUN 10 mg/dl (7-24); CHLORIDE 98 mmol/L (98-107); CREATININE 0.67 mg/dL (0.55-1.02); SGOT/AST 15 IU/L (3-35); SGPT/ALT 16 U/L (12-78); SODIUM 142 mmol/L (136-145); TOTAL PROTEIN 6.4 gm/dL (6.4-8.2)
[2019-11-02 08:00] LABS: TROPONIN I < 0.015 ng/ml (<0.045)
--- NOTE | 2019-11-02 08:01 | NUR ---
CRITICAL LAB CARBON DIOXIDE 42, NOTIFIED.
[2019-11-02 08:05] VITALS: BP 127/53
[2019-11-02 08:26] LABS: ABG BASE EXCESS 14.2 mmol/L (-2.0-2.0); ARTERIAL BLOOD GAS PH 7.315 (7.35-7.45)
--- NOTE | 2019-11-02 09:13 | NUR ---
PERMISSION FROM PT TO GIVE DICK RUIZ MEDICAL INFORMATION VIA PHONE.
--- NOTE | 2019-11-02 09:15 | NUR ---
DICK RUIZ GRANDDAUGHTER PH# [phone]
[2019-11-02 09:25] VITALS: BP 134/72
[2019-11-02 09:29] LABS: BILIRUBIN NEGATIVE (NEGATIVE); BLOOD NEGATIVE (NEGATIVE); CLARITY SL CLOUDY (CLEAR); COLOR YELLOW (YELLOW); GLUCOSE NEGATIVE (NEGATIVE); KETONE NEGATIVE (NEGATIVE); LEUKO ESTERASE NEGATIVE (NEGATIVE); NITRITE NEGATIVE (NEGATIVE); PH 5.5 (5.0-9.0); SPECIFIC GRAVITY 1.015 (1.005-1.030); UROBILINOGEN 0.2 E.U./dl (0.2-1.0)
[2019-11-02] MEDS ORDERED: DIGITEK125 MCG PO (09:43)
[2019-11-02] MEDS ORDERED: LOPRESSOR50 M1 PO (09:43)
--- NOTE | 2019-11-02 10:28 | NUR ---
DR RIVERA HERE AND ROUNDING
[2019-11-02 12:00] VITALS: BP 135/70
[2019-11-02 14:39] LABS: ABG BASE EXCESS 12.9 mmol/L (-2.0-2.0); ARTERIAL BLOOD GAS PH 7.335 (7.35-7.45)
[2019-11-02 16:00] VITALS: BP 126/7
--- NOTE | 2019-11-02 18:34 | NUR ---
MOVED TO 403 VIA BED -
[2019-11-02 20:00] VITALS: BP 147/78
--- NOTE | 2019-11-02 22:00 | NUR ---
PT RESTING QUIETLY IN BED AT THIS TIME. PRN RESTORIL EFFECTIVE. CALL LIGHT IN REACH.
[2019-11-03] VITALS: BP 139/77
[2019-11-03 07:08] LABS: HEMATOCRIT 35.9 % (37.0-47.0); MEAN CORPUSCULAR HGB 28.5 pg (27.0-31.0); MEAN CORPUSCULAR HGB CONC 30.6 g/dl (33.0-37.0); MEAN PLATELET VOLUME 9.4 fl (9.6-12.3); PLATELET COUNT AUTOMATED 245 10*3/uL (130-400); RED BLOOD COUNT 3.86 10*6/uL (4.10-5.10); RED CELL DISTRI WIDTH 14.6 % (0-14.5)
[2019-11-03 07:37] LABS: BUN 11 mg/dl (7-24); CHLORIDE 96 mmol/L (98-107); POTASSIUM 4.3 mmol/L (3.5-5.1); SODIUM 140 mmol/L (136-145)
[2019-11-03 07:39] LABS: CREATININE 0.69 mg/dL (0.55-1.02); PHOSPHOROUS 3.2 mg/dL (2.5-4.9)
--- NOTE | 2019-11-03 07:40 | NUR ---
CRITICAL CO2 LEVEL CALLED TO THIS NURSE. DR LORENZO NOTIFIED, NO NEW ORDERS RECEIVED AT THIS TIME.
[2019-11-03 07:45] LABS: PLATELET SUFFICIENCY NORMAL (NORMAL); TOTAL CELLS COUNTED 100 #CELLS
--- NOTE | 2019-11-03 08:00 | NUR ---
TOOK OVER CARE OF PT. PT RESTING IN BED. BIPAP IN PLACE, RESPIRATIONS UNLABORED. POX WNL. PT DENIES ANY DISTRESS. ALL NEEDS ARE MET AT THIS TIME. NO COMPLAINTS ARE VOICED BY PT. CALL LIGHT IN REACH.
[2019-11-03 12:00] VITALS: BP 148/73
[2019-11-03 16:00] VITALS: BP 122/50
--- NOTE | 2019-11-03 16:00 | NUR ---
NOTIFIED DR LORENZO THAT CARDIAC MEDS HELD THIS AM DUE TO BRADYCARDIA, HR IN 50S. HR IS NOW 100 PER RESPIRATORY THERAPY. ORDERS GIVEN TO GIVE CARDIZEM BUT HOLD THE AM DOSE OF METOPROLOL. REQUEST BY PHYSICIAN TO RE CHECK PT BP IN 2 HOURS TO EVALUATE WHETHER HS METOPROLOL CAN BE GIVEN. RESPIRATIONS EASY AND UNLABORED ON 3L NC. PT SITTING UP IN CHAIR, EATING DINNER. WILL CONTINUE TO MONITOR. CALL LIGHT IN REACH.
[2019-11-03 18:08] VITALS: BP 112/70
[2019-11-03 20:00] VITALS: BP 118/54; BP 122/61
--- NOTE | 2019-11-03 20:30 | NUR ---
PATIENT A&Ox3 SITTING IN CHAIR AT BEDSIDE ON 3LNC. PATIENT HAS NO COMPLAINTS AT THIS TIME. SEE ASSESSMENT. CALL LIGHT WITHIN REACH. WILL MONITOR.
--- NOTE | 2019-11-03 21:41 | NUR ---
PATIENT REQUESTING MEDICATION FOR SLEEP.RESTORIL ADMINISTERED PRESCRIBED. WILL MONITOR FOR EFFECTIVENESS.
--- NOTE | 2019-11-03 23:50 | NUR ---
Pt placed on BiPap 18/10 and FiO2 40% for the night. Alarms on and audible. SpO2 97%
[2019-11-04] VITALS: BP 129/68
--- NOTE | 2019-11-04 02:00 | NUR ---
PATIENT RESTING WITH EYES CLOSED. RESPIRATIONS EASY AND UNLABORED ON BIPAP. CALL LIGHT WITHIN REACH. WILL MONITOR.
--- NOTE | 2019-11-04 02:41 | NUR ---
PATIENT STILL AWAKE, SITTING IN CHAIR AT THIS TIME. GETTING READY TO GET IN BED AND BUT BIPAP ON. WILL MONITOR.
--- NOTE | 2019-11-04 02:42 | NUR ---
Pt is still resting comfortably on her BiPap.
--- NOTE | 2019-11-04 04:00 | NUR ---
PATIENT RESTING WITH EYES CLOSED. RESPIRATIONS EASY AND UNLABORED ON BIPAP. CALL LIGHT WITHIN REACH. WILL MONITOR.
--- NOTE | 2019-11-04 04:28 | NUR ---
24 HR chart check completed.
--- NOTE | 2019-11-04 05:45 | NUR ---
PATIENT TAKE OFF BIPAP AND PLACED ON 3LNC PER ORDER. PATIENT HAS NO COMPLAINTS OR REQUESTS AT THIS TIME. CALL LIGHT WITHIN REACH. WILL MONITOR.
[2019-11-04 06:36] LABS: BUN 17 mg/dl (7-24); CHLORIDE 103 mmol/L (98-107); POTASSIUM 4.1 mmol/L (3.5-5.1); SODIUM 142 mmol/L (136-145)
[2019-11-04 12:00] VITALS: BP 115/57
[2019-11-04 16:00] VITALS: BP 113/60
--- NOTE | 2019-11-04 19:57 | NUR ---
PATIENT TRANSFERRED TO 507 BED 1 VIA WHEELCHAIR BY 2 RNs. ALL BELONGINGS GATHERED AND SENT WITH PT.
[2019-11-04 20:00] VITALS: BP 104/50; BP 126/51
--- NOTE | 2019-11-04 21:47 | NUR ---
RESTORIL GIVEN TO PT PER REQUEST
--- NOTE | 2019-11-04 23:15 | NUR ---
Pt placed on BiPap 18/10 and an FiO2 of 40%. Alarms are on and audible.
[2019-11-05] VITALS: BP 120/65
--- NOTE | 2019-11-05 02:58 | NUR ---
24 HOUR CHART CHECK COMPLETED
[2019-11-05 06:16] LABS: BUN 15 mg/dl (7-24); CHLORIDE 105 mmol/L (98-107); CREATININE 0.72 mg/dL (0.55-1.02); POTASSIUM 4.2 mmol/L (3.5-5.1); SODIUM 141 mmol/L (136-145)
[2019-11-05 08:00] VITALS: BP 131/93
--- NOTE | 2019-11-05 09:44 | NUR ---
VEGETABLE II FARMWORKER spoke with the patient. Patient stated she would like to be referred to [facility]. VEGETABLE II FARMWORKER faxed new referral to [facility]. Will need PT Eval to complete referral. -JANA Silver
--- NOTE | 2019-11-05 11:30 | NUR ---
Occupational therapy orders received and OT evaluation completed in full on floor five. Patient precautions include fall risk, ww use, and 2LO2. Per OT eval, OT recommends SNF. If refused, home with HH SN, OT, and PT. Patient would benefit from continued OT treatment to maximize safety and independence with ADLs, transfers, and functional mobility. Patient complexity is low, 90032. Thank you for the referral. Kacie Zuleta, OTR/L
[2019-11-05 12:00] VITALS: BP 122/62
--- NOTE | 2019-11-05 14:17 | NUR ---
PHYSICAL THERAPY Roddy completed moderate level of complexity 28810 recomend SNF at discharge PT to work on transfers, amb, safety/balance, strengthening and endurance. Tri Demarco PT
--- NOTE | 2019-11-05 14:22 | NUR ---
Patient has been accepted to [facility]. BSA OFFICER notified Multi Mission Helicopter Aircrewman. -JANA Silver
--- NOTE | 2019-11-05 14:38 | NUR ---
Patient has been accepted to [facility]. CONCIERGE completed HENs. When medically stable patient can go to [facility]. -JANA Silver
[2019-11-05] MEDS ORDERED: MUCINEX ER600 MG PO (14:54)
[2019-11-05] MEDS ORDERED: PREDNISONE10 MG PO (14:54)
[2019-11-05] MEDS ORDERED: LEVAQUIN500 M2 PO (14:54)
--- NOTE | 2019-11-05 15:44 | NUR ---
Road Builder in to talk to patient. Patient states lives at HOME with ALONE. There are 2 steps in the home. Physician: Scooter [facility] Home health services: NONE Patient's level of ADLs: INDEPENDENT Patient has working utilities: YES DME: OXYGEN, BIPAP, NEBULIZER [employer] Follow-up physician's appointment after d/c: WILL BE MADE BY HOSPITALIST NURSE DIRECTOR ON DISCHARGE Does patient want to access PORTAL?: NO Discharge plan PT LIVES AT HOME ALONE. SHE STATES SHE WAS INDEPENDENT IWTH HER CARE WITH HELP FROM HER SON AND GRAND DAUGHTER. PT IS AGREEING TO GO TO [facility] ON DISCHARGE AND HAS BEEN ACCEPTED. WILL BE DISCHARGED TO [facility] TODAY. WILL CONTINUE TO FOLLOW.. LESLIE SIM
--- NOTE | 2019-11-05 15:51 | NUR ---
MYSQL DATABASE DEVELOPER notified of patient discharge when RN Hospitalist Ruthann called to have someone speak with the patient. MYSQL DATABASE DEVELOPER went and spoke with the patient. Patient was shocked she was discharged. MYSQL DATABASE DEVELOPER explained it to her. Patient was still agreeable to go to [facility]. Patient stated she preferred to go via [facility]. MYSQL DATABASE DEVELOPER spoke with [facility] and scheduled a 4:30pm transport to [facility]. Patient asked for her son Damir and granddaughter Elise to be notified. MYSQL DATABASE DEVELOPER spoke with Damir about transport he is agreeable. MYSQL DATABASE DEVELOPER spoke with Elise who stated she would bring her grandmother a change of clothes to [facility]. MYSQL DATABASE DEVELOPER informed patient of this. MYSQL DATABASE DEVELOPER faxed Bipap order and discharged to [facility] she is aware of patient being transported at 4:30pm today. -JANA Silver
[2019-11-05 16:00] VITALS: BP 116/58
--- NOTE | 2019-11-05 16:45 | NUR ---
Discharge instructions reviewed with patient/family. Patient receptive and verbalizes understanding. Follow-up care arranged. Written instructions given to patient/family.PT LOCK BOX RETURNED AND CHECKBOOK CLAIMED AND SENT TO [facility] WITH PT. PT TRANSPORTED VIA [facility]. ZAKIYA ABRAMS
--- NOTE | 2019-11-07 07:46 | NUR ---
PHYSICAL THERAPY CO-SIGN I approve of the Physical Therapy notes written above. Tri Demarco PT
== END 2019-11-05 16:45 | disposition other institution (70) | DRG 871 ==
LOC: ED 07:13 → ICCU 08:51 → EDHOLD 08:51 → ICCU 08:56 → 4E 18:52 → 5E 11-04 19:53
PROVIDERS: Emergency Medicine; Internal Medicine; Internal Medicine Critical Care Medicine; ADMIT Internal Medicine
PROC: 5A09357 Assistance with Respiratory Ventilation, Less than 24 Consecutive Hours, Continuous Positive Airway Pressure (ICD-10-PCS; principal; 2019-11-02)
PROC: 5A09357 Assistance with Respiratory Ventilation, Less than 24 Consecutive Hours, Continuous Positive Airway Pressure (ICD-10-PCS; 2019-11-03)
PROC: 5A09357 Assistance with Respiratory Ventilation, Less than 24 Consecutive Hours, Continuous Positive Airway Pressure (ICD-10-PCS; 2019-11-04)
PROC: 5A09357 Assistance with Respiratory Ventilation, Less than 24 Consecutive Hours, Continuous Positive Airway Pressure (ICD-10-PCS; 2019-11-05)
DX: A41.9 Sepsis, unspecified organism (principal); J18.9 Pneumonia, unspecified organism; J96.22 Acute and chronic respiratory failure with hypercapnia; E87.3 Alkalosis; R65.20 Severe sepsis without septic shock; E78.5 Hyperlipidemia, unspecified; I25.10 Atherosclerotic heart disease of native coronary artery without angina pectoris; D64.9 Anemia, unspecified; I11.0 Hypertensive heart disease with heart failure; I50.9 Heart failure, unspecified; G47.33 Obstructive sleep apnea (adult) (pediatric); E11.65 Type 2 diabetes mellitus with hyperglycemia; Z66 Do not resuscitate; Z51.5 Encounter for palliative care; J20.9 Acute bronchitis, unspecified; F41.1 Generalized anxiety disorder; F32.9 Major depressive disorder, single episode, unspecified; Z96.1 Presence of intraocular lens; J45.50 Severe persistent asthma, uncomplicated; J43.9 Emphysema, unspecified; I48.0 Paroxysmal atrial fibrillation; M43.16 Spondylolisthesis, lumbar region; Z90.49 Acquired absence of other specified parts of digestive tract; Z98.42 Cataract extraction status, left eye; Z98.41 Cataract extraction status, right eye; Z86.73 Personal history of transient ischemic attack (TIA), and cerebral infarction without residual deficits; Z87.891 Personal history of nicotine dependence; Z82.3 Family history of stroke; Z82.49 Family history of ischemic heart disease and other diseases of the circulatory system; Z80.8 Family history of malignant neoplasm of other organs or systems; Z79.899 Other long term (current) drug therapy; Z79.01 Long term (current) use of anticoagulants

== ENCOUNTER 2019-11-09 17:11 | Inpatient (IN) | payer MEDICARE ==
[~2019-11-09] VITALS: Ht 165.1 cm; Wt 69.1 kg
--- NOTE | 2019-11-09 17:30 | NUR ---
PT ASSISTED UP TO THE BEDSIDE COMMODE. VOICES NO COMPLAINTS.
[2019-11-09 17:34] VITALS: BP 130/80
[2019-11-09 17:54] LABS: BASO % 0.1 % (0.0-1.0); HEMATOCRIT 38.3 % (37.0-47.0); HEMOGLOBIN 12.1 g/dl (12.0-16.0); LYMPH # 0.8 10*3/uL (1.3-4.4); LYMPH % 9.4 % (27.0-41.0); MEAN CELL VOLUME 90.8 fl (81.0-99.0); MEAN CORPUSCULAR HGB 28.7 pg (27.0-31.0); MEAN CORPUSCULAR HGB CONC 31.6 g/dl (33.0-37.0); MEAN PLATELET VOLUME 9.2 fl (9.6-12.3); MONO # 0.3 10*3/uL (0.1-1.0); NEUT # 7.4 10*3/uL (2.3-7.9); NEUT % 86.1 % (47.0-73.0); PLATELET COUNT AUTOMATED 262 10*3/uL (130-400); RED BLOOD COUNT 4.22 10*6/uL (4.10-5.10); RED CELL DISTRI WIDTH 14.7 % (0-14.5); WHITE BLOOD COUNT 8.6 10*3/uL (4.8-10.8)
[2019-11-09 18:15] LABS: ALBUMIN 3.2 gm/dl (3.1-4.5); ALKALINE PHOSPHATASE 57 U/L (45-117); BUN 15 mg/dl (7-24); CHLORIDE 92 mmol/L (98-107); CREATININE 0.73 mg/dL (0.55-1.02); POTASSIUM 4.3 mmol/L (3.5-5.1); SGOT/AST 12 IU/L (3-35); SGPT/ALT 32 U/L (12-78); SODIUM 138 mmol/L (136-145); TOTAL PROTEIN 6.1 gm/dL (6.4-8.2)
[2019-11-09 18:23] LABS: TROPONIN I < 0.015 ng/ml (<0.045)
[2019-11-09 18:25] LABS: ACT PARTIAL THROMBO TIME 26.3 SECONDS (20.0-32.1); INTERNATIONAL NORM RATIO 1.1 (2.0-3.5)
[2019-11-09 19:10] LABS: ABG BASE EXCESS 16.8 mmol/L (-2.0-2.0); ARTERIAL BLOOD GAS PH 7.446 (7.35-7.45)
[2019-11-09 20:13] VITALS: BP 136/77
[2019-11-10 00:15] VITALS: BP 151/93
--- NOTE | 2019-11-10 00:15 | NUR ---
A 73, admitted to , under the services of TIM Cook DO with a diagnosis of COPD, CHEST HEAVINESS. Chief complaint is SOB. Patient arrived via bed from ER. Monitor applied. Initial assessment completed. Vital signs taken and recorded. TIM COOK DO notified of admission to the unit. Orders received. See assessment for past medical history, medications and allergies. Patient and/or family oriented to unit. [facility] visitation policy reviewed. Clothing/patient valuable form completed. JOSY STINSON
--- NOTE | 2019-11-10 00:26 | NUR ---
00:10 PT TAKEN OFF OF BIPAP AND TRANSPORTED TO 416-2 PT ON 3 L NC DURING TRANSPORT. PT ON 3 L NC BIPAP ON S/B
--- NOTE | 2019-11-10 00:46 | NUR ---
CALLED DR. SOSA AT THIS TIME AND INFORMED HIM OF THE NEW ADMIT TO THE FLOOR AND THAT THE MED LIST WAS UPDATED. DR. SOSA STATES "OKAY".
--- NOTE | 2019-11-10 03:49 | NUR ---
Patient sleeping. Respirations relaxed and easy. Siderails up . [place] on. JOSY STINSON
--- NOTE | 2019-11-10 03:57 | NUR ---
24 HR chart check completed.
--- NOTE | 2019-11-10 06:02 | NUR ---
CALLED DR RIVERA TO INFORM HIM OF THE NEW CONSULT AND HE STATES OK THAT HE WILL BE IN TODAY.
[2019-11-10 06:31] LABS: BASO % 0.1 % (0.0-1.0); HEMATOCRIT 38.7 % (37.0-47.0); HEMOGLOBIN 11.9 g/dl (12.0-16.0); LYMPH # 1.9 10*3/uL (1.3-4.4); LYMPH % 21.3 % (27.0-41.0); MEAN CELL VOLUME 91.9 fl (81.0-99.0); MEAN CORPUSCULAR HGB 28.3 pg (27.0-31.0); MEAN CORPUSCULAR HGB CONC 30.7 g/dl (33.0-37.0); MEAN PLATELET VOLUME 9.2 fl (9.6-12.3); MONO % 11.2 % (3.0-9.0); NEUT # 5.8 10*3/uL (2.3-7.9); NEUT % 66.3 % (47.0-73.0); PLATELET COUNT AUTOMATED 248 10*3/uL (130-400); RED BLOOD COUNT 4.21 10*6/uL (4.10-5.10); RED CELL DISTRI WIDTH 14.8 % (0-14.5); WHITE BLOOD COUNT 8.8 10*3/uL (4.8-10.8)
[2019-11-10 06:59] LABS: ALKALINE PHOSPHATASE 53 U/L (45-117); BUN 12 mg/dl (7-24); CHLORIDE 95 mmol/L (98-107); CREATININE 0.59 mg/dL (0.55-1.02); PHOSPHOROUS 2.3 mg/dL (2.5-4.9); SGOT/AST 11 IU/L (3-35); SGPT/ALT 28 U/L (12-78); SODIUM 142 mmol/L (136-145); TOTAL PROTEIN 5.9 gm/dL (6.4-8.2)
[2019-11-10 07:19] LABS: POTASSIUM 3.4 mmol/L (3.5-5.1)
--- NOTE | 2019-11-10 07:30 | NUR ---
PATIENT TAKEN OFF OF BI-PAP, PLACED ON 3 L/M.
--- NOTE | 2019-11-10 07:37 | NUR ---
DR. KHOURY NOTIFIED OF CRITICAL LAB.
[2019-11-10 12:00] VITALS: BP 134/77
[2019-11-10 16:00] VITALS: BP 109/66
[2019-11-10 20:00] VITALS: BP 122/60
--- NOTE | 2019-11-10 20:00 | NUR ---
AAOX3 RESTING IN BED WITH HOB ELEVATED. 02 INTACT AT 3 LITERS; PULSE OX 94%. LUNGS DIMINISHED BILATERALLY WITH NO COUGH NOTED AT THIS TIME. PT. VOICES NO C/O AT THIS TIME. CALL LIGHT WITHIN REACH.
--- NOTE | 2019-11-10 21:50 | NUR ---
MEDICATED WITH RESTORIL FOR C/O INSOMNIA.
[2019-11-11] VITALS: BP 141/81
--- NOTE | 2019-11-11 01:00 | NUR ---
RESTING IN BED WITH EYES CLOSED; RESTORIL EFFECTIVE.
--- NOTE | 2019-11-11 06:00 | NUR ---
AWAKE & ALERT SITTING UP IN BED. VOICES NO C/O AT THIS TIME; CALL LIGHT WITHIN REACH.
[2019-11-11 07:06] LABS: BASO % 0.1 % (0.0-1.0); HEMATOCRIT 42.9 % (37.0-47.0); HEMOGLOBIN 13.1 g/dl (12.0-16.0); LYMPH # 1.2 10*3/uL (1.3-4.4); LYMPH % 8.3 % (27.0-41.0); MEAN CELL VOLUME 94.1 fl (81.0-99.0); MEAN CORPUSCULAR HGB 28.7 pg (27.0-31.0); MEAN CORPUSCULAR HGB CONC 30.5 g/dl (33.0-37.0); MEAN PLATELET VOLUME 9.4 fl (9.6-12.3); MONO # 0.6 10*3/uL (0.1-1.0); MONO % 4.5 % (3.0-9.0); NEUT # 11.9 10*3/uL (2.3-7.9); NEUT % 85.3 % (47.0-73.0); RED BLOOD COUNT 4.56 10*6/uL (4.10-5.10); RED CELL DISTRI WIDTH 14.8 % (0-14.5); WHITE BLOOD COUNT 13.9 10*3/uL (4.8-10.8)
[2019-11-11 07:19] LABS: PLATELET COUNT AUTOMATED 344 10*3/uL (130-400)
[2019-11-11 07:21] LABS: BUN 20 mg/dl (7-24); CHLORIDE 97 mmol/L (98-107); CREATININE 0.84 mg/dL (0.55-1.02); POTASSIUM 4.2 mmol/L (3.5-5.1); SODIUM 139 mmol/L (136-145)
[2019-11-11 08:00] VITALS: BP 134/69
--- NOTE | 2019-11-11 08:20 | NUR ---
DR RIBEIRO AND RESIDENTS HERE TO ASSESS PATIENT AND DISCUSS PLAN OF CARE
--- NOTE | 2019-11-11 08:30 | NUR ---
DR RIBEIRO AND RESIDENTS HERE TO ASSESS PATIENT AND DISCUSS PLAN OF CARE
--- NOTE | 2019-11-11 09:00 | NUR ---
SITTING IN CHAIR. NO DISTRESS NOTED. RESPIRATIONS EASY. LUNGS DIMINISHED. PULSE OX 97% 3L. CLAIMS INFREQUENT COUGH. TRACE BLE EDEMA WITH TEDS IN PLACE. CALL LIGHT WITHIN REACH. NO VOICED COMPLAINTS.
--- NOTE | 2019-11-11 10:20 | NUR ---
AMBULATING HALLWAY WITH PORTABLE O2 TANK
--- NOTE | 2019-11-11 10:35 | NUR ---
DR RIVERA HERE TO ASSESS PATIENT AND DISCUSS PLAN OF CARE
[2019-11-11 12:00] VITALS: BP 119/73
--- NOTE | 2019-11-11 13:00 | NUR ---
VISITING WITH GUEST. NO DISTRESS NOTED.
[2019-11-11 16:00] VITALS: BP 113/60
[2019-11-11 20:00] VITALS: BP 119/63
--- NOTE | 2019-11-11 20:00 | NUR ---
PATIENT AWAKE AND ALERT SITTING IN CHAIR, WATCHING TV. PATIENT HAS NO COMPLAINTS AT THIS TIME. STATES THAT SHE IS FEELING BETTER TODAY. CALL LIGHT IN REACH. WILL MONITOR.
--- NOTE | 2019-11-11 22:26 | NUR ---
PATIENT REQUESTING MEDICATION FOR SLEEP. RESTORIL ADMINISTERED PRESCRIBED. WILL MONITOR FOR EFFECTIVENESS.
--- NOTE | 2019-11-11 22:44 | NUR ---
PATIENT SITTING IN BED WATCHING TV AT THIS TIME. WILL MONITOR.
[2019-11-12] VITALS: BP 124/52
--- NOTE | 2019-11-12 | NUR ---
PATIENT RESTING WITH EYES CLOSED. RESPIRATIONS EASY AND UNLABORED IN BIPAP. CALL LIGHT IN REACH. WILL MONITOR.
--- NOTE | 2019-11-12 02:00 | NUR ---
PATIENT RESTING WITH EYES CLOSED. RESPIRATIONS EASY AND UNLABORED IN BIPAP. CALL LIGHT IN REACH. WILL MONITOR.
--- NOTE | 2019-11-12 04:00 | NUR ---
PATIENT RESTING WITH EYES CLOSED. RESPIRATIONS EASY AND UNLABORED IN BIPAP. CALL LIGHT IN REACH. WILL MONITOR.
[2019-11-12 06:29] LABS: HEMATOCRIT 40.9 % (37.0-47.0); HEMOGLOBIN 12.5 g/dl (12.0-16.0); MEAN CELL VOLUME 93.8 fl (81.0-99.0); MEAN CORPUSCULAR HGB 28.7 pg (27.0-31.0); MEAN CORPUSCULAR HGB CONC 30.6 g/dl (33.0-37.0); MEAN PLATELET VOLUME 9.4 fl (9.6-12.3); PLATELET COUNT AUTOMATED 293 10*3/uL (130-400); RED BLOOD COUNT 4.36 10*6/uL (4.10-5.10); RED CELL DISTRI WIDTH 15.2 % (0-14.5); WHITE BLOOD COUNT 16.4 10*3/uL (4.8-10.8)
[2019-11-12 06:36] LABS: BUN 22 mg/dl (7-24); CHLORIDE 101 mmol/L (98-107); SODIUM 140 mmol/L (136-145)
[2019-11-12 06:53] LABS: TOTAL CELLS COUNTED 100 #CELLS
[2019-11-12 06:54] LABS: PLATELET SUFFICIENCY NORMAL (NORMAL)
--- NOTE | 2019-11-12 07:57 | NUR ---
Patient is short term at [facility]. CIVIL DIVISION COMMANDER DEPUTY SHERIFF faxed updates to [facility]. -JANA Silver
[2019-11-12 08:00] VITALS: BP 138/50
[2019-11-12] MEDS ORDERED: PREDNISONE10 MG PO (09:06)
[2019-11-12] MEDS ORDERED: LEVAQUIN500 M2 PO (09:06)
--- NOTE | 2019-11-12 09:31 | NUR ---
GRADER OPERATOR notified of patient discharge. GRADER OPERATOR spoke with ERICH Womack. GRADER OPERATOR spoke with [facility] and arranged for an 11am transport for the patient to return to [facility]. GRADER OPERATOR notified patients son Damir, and granddaughter Flores. GRADER OPERATOR will fax discharge orders to [facility]. -JANA Silver
--- NOTE | 2019-11-12 10:13 | NUR ---
Discharge instructions reviewed with patient. Patient receptive and verbalizes understanding. Follow-up care understood. Written instructions given to patient. iv removed, dressing applied. pt aware [facility] to pharmacy picking technician patient at 11am. no questions on discharge. GLENN AGOSTO
--- NOTE | 2019-11-12 10:49 | NUR ---
REPORT CALLED TO [facility]. AWARE PATIENT WILL BE PICKED UP AT 11AM BY [facility]
--- NOTE | 2019-11-12 11:10 | NUR ---
PATIENT PICKED UP BY [facility]
--- NOTE | 2019-11-12 12:28 | NUR ---
PT IS SHORT TERM CARE AT [facility]. DISCHARGED BACK TO [facility] TODAY.
== END 2019-11-12 11:10 | disposition other institution (70) | DRG 202 ==
LOC: ED 17:11 → EDHOLD 18:56 → 5E 18:56 → 4E 22:15 → 5E 11-11 15:03
PROVIDERS: Emergency Medicine; Internal Medicine; Student in an Organized Health Care Education/Training Program; ADMIT Emergency Medicine
DX: J45.51 Severe persistent asthma with (acute) exacerbation (principal); J96.12 Chronic respiratory failure with hypercapnia; E44.0 Moderate protein-calorie malnutrition; I50.32 Chronic diastolic (congestive) heart failure; E87.2 Acidosis; E87.3 Alkalosis; J44.1 Chronic obstructive pulmonary disease with (acute) exacerbation; J44.0 Chronic obstructive pulmonary disease with (acute) lower respiratory infection; R07.81 Pleurodynia; J43.9 Emphysema, unspecified; E11.65 Type 2 diabetes mellitus with hyperglycemia; R00.1 Bradycardia, unspecified; E87.6 Hypokalemia; E83.39 Other disorders of phosphorus metabolism; E66.3 Overweight; Z66 Do not resuscitate; Z51.5 Encounter for palliative care; I48.0 Paroxysmal atrial fibrillation; I11.0 Hypertensive heart disease with heart failure; I25.10 Atherosclerotic heart disease of native coronary artery without angina pectoris; M43.16 Spondylolisthesis, lumbar region; G47.33 Obstructive sleep apnea (adult) (pediatric); E78.5 Hyperlipidemia, unspecified; Z86.73 Personal history of transient ischemic attack (TIA), and cerebral infarction without residual deficits; Z87.01 Personal history of pneumonia (recurrent); Z99.81 Dependence on supplemental oxygen; Z90.49 Acquired absence of other specified parts of digestive tract; Z98.42 Cataract extraction status, left eye; Z98.41 Cataract extraction status, right eye; Z87.891 Personal history of nicotine dependence; Z82.49 Family history of ischemic heart disease and other diseases of the circulatory system; Z82.3 Family history of stroke; Z80.8 Family history of malignant neoplasm of other organs or systems; Z79.899 Other long term (current) drug therapy; Z79.01 Long term (current) use of anticoagulants; Z68.25 Body mass index [BMI] 25.0-25.9, adult; J20.9 Acute bronchitis, unspecified

== ENCOUNTER 2020-04-15 20:07 | Inpatient (IN) | payer MEDICARE ==
[~2020-04-15] VITALS: Ht 165.1 cm; Wt 69.5 kg
[2020-04-15 20:18] VITALS: BP 126/42
[2020-04-15 20:42] LABS: HEMATOCRIT 42.6 % (37.0-47.0); MEAN CELL VOLUME 97.5 fl (81.0-99.0); MEAN CORPUSCULAR HGB 28.4 pg (27.0-31.0); MEAN CORPUSCULAR HGB CONC 29.1 g/dl (33.0-37.0); MEAN PLATELET VOLUME 9.5 fl (9.6-12.3); PLATELET COUNT AUTOMATED 219 10*3/uL (130-400); RED BLOOD COUNT 4.37 10*6/uL (4.10-5.10); RED CELL DISTRI WIDTH 13.9 % (0-14.5); WHITE BLOOD COUNT 10.3 10*3/uL (4.8-10.8)
[2020-04-15 20:53] LABS: ACT PARTIAL THROMBO TIME 23.4 SECONDS (20.0-32.1); INTERNATIONAL NORM RATIO 0.9 (2.0-3.5)
[2020-04-15 21:00] LABS: PLATELET SUFFICIENCY NORMAL (NORMAL); TOTAL CELLS COUNTED 100 #CELLS
[2020-04-15 21:06] LABS: ALBUMIN 3.1 gm/dl (3.1-4.5); ALKALINE PHOSPHATASE 92 U/L (45-117); BUN 10 mg/dl (7-24); CHLORIDE 100 mmol/L (98-107); CREATININE 0.66 mg/dL (0.55-1.02); POTASSIUM 4.1 mmol/L (3.5-5.1); SGOT/AST 16 IU/L (3-35); SGPT/ALT 25 U/L (12-78); SODIUM 142 mmol/L (136-145); TOTAL PROTEIN 6.7 gm/dL (6.4-8.2)
[2020-04-15 21:11] LABS: TROPONIN I < 0.015 ng/ml (<0.045)
[2020-04-15 21:26] LABS: ABG BASE EXCESS 12.6 mmol/L (-2.0-2.0); ARTERIAL BLOOD GAS PH 7.235 (7.35-7.45)
[2020-04-15 21:34] VITALS: BP 141/55
[2020-04-15 22:09] VITALS: BP 131/53
--- NOTE | 2020-04-15 22:26 | NUR ---
PT HAS A SCAB ON LEFT FOREARM.PT DENIES ANY OTHER WOUNDS AT THIS TIME.NO PHOTO TAKEN OF SCAB.
--- NOTE | 2020-04-15 22:50 | NUR ---
PT TO UNIT AT THIS TIME.RESPIRATORY NOTIFIED TO TRANSPORT BIPAP MACHINE.
--- NOTE | 2020-04-15 22:59 | NUR ---
DAUGHTER NAME IS DICK. PHONE NUMBER [phone].
[2020-04-15 23:00] VITALS: BP 138/58
[2020-04-15 23:05] VITALS: BP 126/73
--- NOTE | 2020-04-15 23:47 | NUR ---
NOTIFIED DR. RIVERA OF NEW CONSULT. STATES TO ORDER BIPAP 20/10 BACKUP 8 OR 12. ORDER ABGS FOR THE MORNING. RESPIRATORY NOTIFIED.
--- NOTE | 2020-04-16 01:06 | NUR ---
UNABLE TO RECONCILE PATIENTS HOME MEDICATIONS, PATIENT DOES NOT HAVE A UP TO DATE LIST OF MEDICATIONS. NOTIFIED DR. AVILES.
--- NOTE | 2020-04-16 01:41 | NUR ---
PATIENT RESTING COMFORTABLY IN BED. BIPAP ON. CONTINOUS PULSE OX IN PLACE. POX 98%. PATIENT VOICES NO COMPLAINTS. BED IN LOWEST POSITION,CALL LIGHT WITHIN REACH. BED ALARM ON. WILL CONTINUE TO MONITOR
[2020-04-16 06:21] LABS: BASO % 0.1 % (0.0-1.0); LYMPH # 1.2 10*3/uL (1.3-4.4); LYMPH % 15.6 % (27.0-41.0); MEAN CELL VOLUME 97.4 fl (81.0-99.0); MEAN CORPUSCULAR HGB 28.7 pg (27.0-31.0); MEAN CORPUSCULAR HGB CONC 29.5 g/dl (33.0-37.0); MEAN PLATELET VOLUME 9.4 fl (9.6-12.3); MONO # 0.7 10*3/uL (0.1-1.0); MONO % 9.5 % (3.0-9.0); NEUT # 5.6 10*3/uL (2.3-7.9); NEUT % 74.4 % (47.0-73.0); PLATELET COUNT AUTOMATED 188 10*3/uL (130-400); RED CELL DISTRI WIDTH 14.1 % (0-14.5); WHITE BLOOD COUNT 7.5 10*3/uL (4.8-10.8)
[2020-04-16 06:56] LABS: BUN 10 mg/dl (7-24); CHLORIDE 98 mmol/L (98-107); CREATININE 0.58 mg/dL (0.55-1.02); POTASSIUM 4.1 mmol/L (3.5-5.1); SODIUM 142 mmol/L (136-145)
--- NOTE | 2020-04-16 07:31 | NUR ---
PHYSICAL THERAPY Screen received pt admitted from home with SOB w diagnosis of COPD exacerbation and respiratory failure. Please consult PT if pt has a decline in functional status from baseline, thank you. Tri Demarco PT
[2020-04-16 07:54] LABS: ABG BASE EXCESS 16.1 mmol/L (-2.0-2.0); ARTERIAL BLOOD GAS PH 7.339 (7.35-7.45)
[2020-04-16 08:00] VITALS: BP 114/47
--- NOTE | 2020-04-16 08:30 | NUR ---
PATIENT OFF BIPAP AT THIS TIME, ON 5LNC, TOLERATING WELL. UP TO BEDSIDE COMMODE WITH NO SHORTNESS OF BREATH. ORDERING BREAKFAST AT THIS TIME
--- NOTE | 2020-04-16 09:00 | NUR ---
Assistant Womens Volleyball Coach in to talk to patient. Patient states lives at home with alone. There are 2 steps in the home. Physician: ermelinda winslow [facility]acy: [facility] Home health services: none Patient's level of ADLs: INDEPENDENT Patient has working utilities:all working DME: oxygen, portable tanks, nebulizer, bipap from [facility] Follow-up physician's appointment after d/c: will be made by hospitalist nurse director upon discharge Does patient want to access PORTAL?: no Discharge plan discussed with patient she states she lives at home alone, she is independent in adls and ambulation, has home oxygen and portable tanks, nebulizer and bipap at home, she states she drives, discussed a discharge plan and she stated she would return home, also discussed [facility] and educated her on their services, she stated she was familiar with [facility] and didn't feel she needed any home services at this time, case management will follow for any needs. DONAVAN DIAZ
--- NOTE | 2020-04-16 10:18 | NUR ---
PHYSICAL THERAPY Physical Therapy evaluation completed on 4E with full evaluation to follow. Low complexity PT evaluation per chart review and evaluation, 68[address]. Recommend physical therapy per plan of care and Home Health upon discharge. Thank you for this referral. Doris Escobar,PT,DPT
[2020-04-16] MEDS ORDERED: PREDNISONE10 M1 PO (11:00)
[2020-04-16] MEDS ORDERED: CARTIA XT240 MG PO (11:01)
[2020-04-16] MEDS ORDERED: FISH OIL 1,0001 EAC5 PO (11:01)
--- NOTE | 2020-04-16 11:03 | NUR ---
MEDICATION RECONCILLIATION COMPLETED WITH LIST PROVIDED BY THE PHARMACY ([facility] [place]) PATIENT PROVIDEDD RN ON ADMISION A LIST BUT HAD INACCURATE INFORMATION IT WAS OUTDATED.
--- NOTE | 2020-04-16 11:20 | NUR ---
PT SPO2 84% ON 3LNC. PLACED PT ON BIPAP 20/10 40% SPO2 91%
[2020-04-16 12:00] VITALS: BP 108/57
--- NOTE | 2020-04-16 12:24 | NUR ---
Nursing screen and occupational therapy orders received. Will follow up with the patient for completion of an OT eval. Thank you. Kacie Zuleta OTR/L
--- NOTE | 2020-04-16 14:56 | NUR ---
PATIENT REQUEST TO COME OFF BIPAP AT THIS TIME. PATIENT PLACED ON 3 L/M NC. SPO2 93%, HR 88.
[2020-04-16 16:00] VITALS: BP 130/60
--- NOTE | 2020-04-16 16:10 | NUR ---
SPOKE WITH DR KHOURY REGARDING PATIENTS ELEVATED HEARTRATE. PATIENT HAS INFORMED THIS RN THAT SHE HAS NOT TAKEN MEDICATIONS SINCE SHES BEEN SICK. ORDER RECIEVED TO CONSULT CARDIOLOGY
--- NOTE | 2020-04-16 16:38 | NUR ---
[facility], DR MICHAUD COKE WORKER. AWAITING CALL BACK
--- NOTE | 2020-04-16 16:55 | NUR ---
DR SOLIS CALLED AT THIS TIME, ORDERS RECIEVED.
--- NOTE | 2020-04-16 17:08 | NUR ---
IV CARDIZEM BOLUS GIVEN PER DRS ORDERS AT THIS TIME, PATIENT TOLERATED WELL. HEARTRATE REMAINS 120-130'S AFIB
--- NOTE | 2020-04-16 17:26 | NUR ---
DOSE OF 50MG LOPRESOR GIVEN PER DRS ORDERS, PATIENT HAD MISSED DOSE AT 1000AM THIS MORNING. RN WILL MONITOR
[2020-04-16 17:28] LABS: ABG BASE EXCESS 12.4 mmol/L (-2.0-2.0); ARTERIAL BLOOD GAS PH 7.358 (7.35-7.45)
--- NOTE | 2020-04-16 17:55 | NUR ---
DR SOLIS CALLED FOR SUSTAINED AFIB WITH RVR,CARDIZEM GTT ORDERED
[2020-04-16 18:15] VITALS: BP 128/68
--- NOTE | 2020-04-16 18:18 | NUR ---
CARDIZEM GTT STARTED AT THIS TIME
[2020-04-16 20:00] VITALS: BP 94/55
[2020-04-16 22:00] VITALS: BP 100/50
[2020-04-17] VITALS: BP 104/61
[2020-04-17 02:00] VITALS: BP 110/60
--- NOTE | 2020-04-17 05:15 | NUR ---
CARDIZEM GTT OFF. HR 60-70'S AND PATIENT HR NOW NSR.
[2020-04-17 05:46] LABS: BUN 16 mg/dl (7-24); CHLORIDE 100 mmol/L (98-107); CREATININE 0.83 mg/dL (0.55-1.02); POTASSIUM 3.8 mmol/L (3.5-5.1); SODIUM 139 mmol/L (136-145)
--- NOTE | 2020-04-17 06:02 | NUR ---
Pt taken off BiPap and placed on 3L NC.
--- NOTE | 2020-04-17 06:15 | NUR ---
BLOOD PRESSURE 104/56. SPOKE WITH DR. BARKLEY REGARDING LOPRESSOR. STATED TO RECHECK BP IN HALF HOUR AND CALL HIM BACK.
[2020-04-17 06:24] LABS: HEMATOCRIT 38.7 % (37.0-47.0); MEAN CELL VOLUME 94.9 fl (81.0-99.0); MEAN CORPUSCULAR HGB 28.7 pg (27.0-31.0); MEAN CORPUSCULAR HGB CONC 30.2 g/dl (33.0-37.0); MEAN PLATELET VOLUME 10.3 fl (9.6-12.3); PLATELET COUNT AUTOMATED 229 10*3/uL (130-400); RED BLOOD COUNT 4.08 10*6/uL (4.10-5.10); RED CELL DISTRI WIDTH 13.7 % (0-14.5); WHITE BLOOD COUNT 7.6 10*3/uL (4.8-10.8)
--- NOTE | 2020-04-17 06:50 | NUR ---
CALLED DR. AVILES BACK WITH BLOOD PRESSURE RECHECK. BP NOW 108/58 AND HEART RATE 73. STATED TO GIVE LOPRESSOR NOW. .
[2020-04-17 07:59] LABS: ABG BASE EXCESS 7.6 mmol/L (-2.0-2.0); ARTERIAL BLOOD GAS PH 7.272 (7.35-7.45)
[2020-04-17 08:00] VITALS: BP 110/64
[2020-04-17 08:01] LABS: ATYPICAL LYMPHS 1 % (0-0); PLATELET SUFFICIENCY NORMAL (NORMAL); TOTAL CELLS COUNTED 100 #CELLS
--- NOTE | 2020-04-17 08:56 | NUR ---
PT SITTING UP IN BED, EATING BREAKFAST. NO DISTRESS NOTED. WILL MONITOR
--- NOTE | 2020-04-17 09:00 | NUR ---
case management visits with patient, she states she will return home when medically stable. discussed with her [facility]NA and she declines any home services at this time, case management will follow
--- NOTE | 2020-04-17 09:00 | NUR ---
DR RIVERA NOTIFIED OF [facility] RESULTS
--- NOTE | 2020-04-17 09:15 | NUR ---
Occupational therapy orders received and chart reviewed. Per discussion with nursing and respiratory therapy, patient is being placed on BiPap due to increased CO2 levels. Will check back at a later date for completion of an OT eval. Thank you. Kacie Zuleta OTR/L
--- NOTE | 2020-04-17 09:20 | NUR ---
PATIENT PLACED ON BI-PAP PER DR. RIVERA.
[2020-04-17 12:00] VITALS: BP 101/56
[2020-04-17 12:01] LABS: ABG BASE EXCESS 9.2 mmol/L (-2.0-2.0); ARTERIAL BLOOD GAS PH 7.318 (7.35-7.45)
--- NOTE | 2020-04-17 12:20 | NUR ---
PATIENT TAKEN OFF OF BI-PAP FOR LUNCH, PLACED ON 3 L/M.
--- NOTE | 2020-04-17 12:30 | NUR ---
DR RIVERA NOTIFIED OF [facility] RESULTS
--- NOTE | 2020-04-17 13:32 | NUR ---
PHYSICAL THERAPY Patient was on Bi-Pap this am when first approached for therapy and eating lunch this pm upon second attempt. Will continue per POC as able. Ralph Durham, [employer] UTILITY WORKER
[2020-04-17 16:00] VITALS: BP 102/57
[2020-04-17 16:24] LABS: ARTERIAL BLOOD GAS PH 7.316 (7.35-7.45)
--- NOTE | 2020-04-17 16:30 | NUR ---
DR RIVERA CALLED AND NOTIFIED OF ABGS
--- NOTE | 2020-04-17 17:30 | NUR ---
PATIENT TAKEN OFF OF BI-PAP, PLACED ON 3 L/M.
--- NOTE | 2020-04-17 18:35 | NUR ---
PT REQUESTED AND GIVEN TYLENOL FOR C/O HEADACHE WILL MONITOR
[2020-04-17 20:00] VITALS: BP 111/56
[2020-04-18] VITALS: BP 107/53
--- NOTE | 2020-04-18 02:49 | NUR ---
24 HR chart check completed.
--- NOTE | 2020-04-18 07:30 | NUR ---
DR RIVERA CALLED AND NOTIFIED OF ABGS
[2020-04-18 07:31] LABS: ABG BASE EXCESS 7.1 mmol/L (-2.0-2.0); ARTERIAL BLOOD GAS PH 7.27 (7.35-7.45)
[2020-04-18 08:00] VITALS: BP 115/60
--- NOTE | 2020-04-18 08:19 | NUR ---
PT RESTING IN BED/ NO DISTRESS NOTED. WILL MONITOR
--- NOTE | 2020-04-18 09:00 | NUR ---
Occupational Therapy evaluation completed on four with full evaluation to follow. Recommend occupational therapy per plan of care and home with HH SN, OT, and PT with 20/06 supervision assist upon discharge. Thank you for this referral. Kacie Zuleta OTR/L
--- NOTE | 2020-04-18 10:36 | NUR ---
PHYSICAL THERAPY Patient was on BiPap this am when approached for therapy visit and not appropriate for treatment at this time. Will continue per POC as able. Ralph Durham, RANGE MANAGEMENT SPECIALIST
--- NOTE | 2020-04-18 11:23 | NUR ---
PHYSICAL THERAPY CO-SIGN I approve of the Physical Therapy notes written above. Tri Demarco PT
[2020-04-18 12:00] VITALS: BP 114/50
--- NOTE | 2020-04-18 13:30 | NUR ---
BIPAP OFF SO PT. CAN EAT LUNCH. PLACED ON 3L NC. NO C/O SOB. WILL RETURN TO BIPAP AFTER EATING.
[2020-04-18 14:47] LABS: ALBUMIN 2.8 gm/dl (3.1-4.5); ALKALINE PHOSPHATASE 82 U/L (45-117); CHLORIDE 100 mmol/L (98-107); CREATININE 0.97 mg/dL (0.55-1.02); POTASSIUM 3.7 mmol/L (3.5-5.1); SGOT/AST 76 IU/L (3-35); SGPT/ALT 93 U/L (12-78); SODIUM 138 mmol/L (136-145)
[2020-04-18 14:49] LABS: BUN 27 mg/dl (7-24)
--- NOTE | 2020-04-18 15:00 | NUR ---
TOOK OVER CARE OF PT. PT SITTING UP IN CHAIR. BIPAP IN PLACE VIA FACE MASK. PT SLEEPING. RESPIRATIONS UNLABORED. WILL CONTINUE TO MONITOR, CALL LIGHT IN REACH.
[2020-04-18 16:00] VITALS: BP 113/57
[2020-04-18 16:30] LABS: ABG BASE EXCESS 7.3 mmol/L (-2.0-2.0); ARTERIAL BLOOD GAS PH 7.338 (7.35-7.45)
--- NOTE | 2020-04-18 17:17 | NUR ---
NOTIFIED DR RIVERA OF PT ABG RESULTS. NEW ORDERS RECEIVED TO OBTAIN ABGS IN 2 HOURS.
--- NOTE | 2020-04-18 17:50 | NUR ---
PATIENT TAKEN OFF OF BI-PAP FOR DINNER. PLACED ON 3 L/M.
--- NOTE | 2020-04-18 19:17 | NUR ---
RESPIRATORY THERAPY NOTIFIED THAT PT IS DONE WITH DINNER AND READY TO GO BACK ON BIPAP.
--- NOTE | 2020-04-18 19:30 | NUR ---
ORDER PLACED FOR ABGS FOR 2199 DUE TO PATIENT BEING OFF OF BIPAP FOR DINNER. PM SHIFT NURSE NOTIFIED OF THIS.
[2020-04-18 20:00] VITALS: BP 113/52
--- NOTE | 2020-04-18 21:00 | NUR ---
Patient resting quietly with no c/o discomfort. Respirations easy and regular. Vital signs stable. No overt distress. Bipap on, settings 25/10, O2 35%. Patient denies any shortness of breath at this time. Complains of constipation, will medicate with dulcolax in AM. BINU BULLOCK
[2020-04-18 21:59] LABS: ABG BASE EXCESS 7.3 mmol/L (-2.0-2.0); ARTERIAL BLOOD GAS PH 7.334 (7.35-7.45)
--- NOTE | 2020-04-18 22:10 | NUR ---
Dr Trejo notified of ABG results. No new orders at this time.
[2020-04-19] VITALS: BP 116/61
--- NOTE | 2020-04-19 06:01 | NUR ---
DULCOLAX ADMINISTERED FOR PT C/O CONSTIPATION.
[2020-04-19 08:00] VITALS: BP 120/66
[2020-04-19 08:15] LABS: ABG BASE EXCESS 8.4 mmol/L (-2.0-2.0); ARTERIAL BLOOD GAS PH 7.362 (7.35-7.45)
[2020-04-19 12:00] VITALS: BP 138/72
--- NOTE | 2020-04-19 12:17 | NUR ---
PT. WAS OFF BIPAP FOR MEDICATION AND BREAKFAST AND PLACED ON BIPAP AT APPRX. 1030.
--- NOTE | 2020-04-19 13:19 | NUR ---
Pt lunch arrived. Taken off bipap and 3l via nc applied.
--- NOTE | 2020-04-19 13:35 | NUR ---
PT. TAKEN OFF BIPAP AT APPRX. 1320 FOR LUNCH.
--- NOTE | 2020-04-19 15:28 | NUR ---
PT. REQUEST NOT TO GO ON BIPAP AT THIS TIME. RN NOTIFIED.
[2020-04-19 16:00] VITALS: BP 114/62
--- NOTE | 2020-04-19 18:13 | NUR ---
Pt taken off bipap and o2 applied at 3l via nc. Pt is going to go to the restroom and is waiting on dinner. It should arrive at 630. Routine meds given. Explained new order for jagjit. Pt states that she was on it one time before but could not afford it. States she can buy it here now for 4 dollars. Lopressor given hr was 80-90.
[2020-04-19 20:00] VITALS: BP 120/60
--- NOTE | 2020-04-19 20:30 | NUR ---
Patient resting quietly with no c/o discomfort. Respirations easy and regular. Patient denies SOB, on 3l on entrance to room. Patient to be place back on bipap after she eats her popsicle. Educated that she is to be on it, 20/06 unless she is eating. Patient receptive and understands. Sputum cup in the patients room, states she has been bringing up yellow sputum occasionally. In chair at this time. Will monitor. BINU BULLOCK
--- NOTE | 2020-04-19 22:06 | NUR ---
RESTORIL ADMINISTERED FOR PT C/O INSOMNIA.
--- NOTE | 2020-04-19 22:07 | NUR ---
RESPIRATORY NOTIFIED THAT PATIENT NEEDS BIPAP ADJUSTED, KELSIE STATED HE WILL BE UP.
[2020-04-20] VITALS: BP 126/70
[2020-04-20 05:56] LABS: ALBUMIN 2.8 gm/dl (3.1-4.5); ALKALINE PHOSPHATASE 68 U/L (45-117); BUN 25 mg/dl (7-24); CHLORIDE 101 mmol/L (98-107); POTASSIUM 3.9 mmol/L (3.5-5.1); SGOT/AST 23 IU/L (3-35); SGPT/ALT 70 U/L (12-78); SODIUM 138 mmol/L (136-145); TOTAL PROTEIN 5.8 gm/dL (6.4-8.2)
[2020-04-20 05:57] LABS: BASO % 0.1 % (0.0-1.0); HEMATOCRIT 36.3 % (37.0-47.0); LYMPH # 0.4 10*3/uL (1.3-4.4); LYMPH % 5.9 % (27.0-41.0); MEAN CELL VOLUME 91.4 fl (81.0-99.0); MEAN CORPUSCULAR HGB 28.5 pg (27.0-31.0); MEAN CORPUSCULAR HGB CONC 31.1 g/dl (33.0-37.0); MEAN PLATELET VOLUME 9.8 fl (9.6-12.3); MONO # 0.3 10*3/uL (0.1-1.0); MONO % 4.6 % (3.0-9.0); NEUT # 6.3 10*3/uL (2.3-7.9); NEUT % 88.1 % (47.0-73.0); PLATELET COUNT AUTOMATED 205 10*3/uL (130-400); RED BLOOD COUNT 3.97 10*6/uL (4.10-5.10); WHITE BLOOD COUNT 7.2 10*3/uL (4.8-10.8)
--- NOTE | 2020-04-20 05:58 | NUR ---
HELD MORNING DOSE OF LOPRESSOR FOR HR RANGING 58-60.
[2020-04-20 08:00] VITALS: BP 126/70
--- NOTE | 2020-04-20 09:01 | NUR ---
PT. GIVEN AEROSOL TX AT 0720 VIA BIPAP, PT. PLACED ON NC AT 3L AFTER TX.
--- NOTE | 2020-04-20 09:01 | NUR ---
PT COMPLAINS OF CONSTIPATION. PRN DULCOLAX ADMINISTERED. WILL MONITOR.
--- NOTE | 2020-04-20 11:30 | NUR ---
MELA NOTIFIED OF PT'S BLOOD SUGAR OF 413.
[2020-04-20 12:00] VITALS: BP 128/68
[2020-04-20 16:00] VITALS: BP 125/78
[2020-04-20 20:00] VITALS: BP 122/71
--- NOTE | 2020-04-20 21:03 | NUR ---
PM MEDICATIONS TAKEN WITH WATER. NO NEEDS MET. PATIENT MOVED FROM CHAIR TO BED BY SELF WITH STEADY GAIT. PATIENT WATCHING TV AWAITING BREATHING TX. BED IN LOW, LOCKED POS, CALL LIGHT IN REACH.
[2020-04-21] VITALS: BP 126/66
--- NOTE | 2020-04-21 07:25 | NUR ---
PT NOT ON BIPAP AT THIS TIME
[2020-04-21 08:00] VITALS: BP 136/70
[2020-04-21 12:00] VITALS: BP 128/70
--- NOTE | 2020-04-21 14:53 | NUR ---
Pt states that she thought they were going to dc her cardiac montior. I spoke with Dr. Foster and she states yes to dc monitoring and evaluation advisor.
--- NOTE | 2020-04-21 14:55 | NUR ---
Monitor removed and placed in yellow bin.
[2020-04-21 16:00] VITALS: BP 123/94
[2020-04-21 20:00] VITALS: BP 118/60
--- NOTE | 2020-04-21 20:00 | NUR ---
PATIENT WALKING IN HALLWAY. O2 INTACT. STEADY GAIT WITH WALKER. NO SOB NOTED. WILL CONTINUE TO MONITOR.
--- NOTE | 2020-04-21 20:45 | NUR ---
IN TO ROOM. PATIENT SITTING IN BED, AWAKE, ALERT AND ORIENTED. NO STATED COMPLAINTS. NO SOB NOTED AT REST. 3L O2 NC INTACT. DENIES PAIN AT THIS TIME. BED IN LOWEST LOCKED POSITION AND CALL LIGHT WITHIN REACH. WILL CONTINUE TO MONITOR.
--- NOTE | 2020-04-21 22:18 | NUR ---
PT REQUESTED AND RECEIEVED PRN RESTORIL FOR INSOMNIA. WILL MONITOR FOR EFFECTIVENESS.
[2020-04-22] VITALS: BP 138/82
[2020-04-22 07:32] LABS: BASO % 0.2 % (0.0-1.0); HEMATOCRIT 39.7 % (37.0-47.0); LYMPH # 0.5 10*3/uL (1.3-4.4); LYMPH % 5.2 % (27.0-41.0); MEAN CELL VOLUME 93.9 fl (81.0-99.0); MEAN CORPUSCULAR HGB 27.9 pg (27.0-31.0); MEAN CORPUSCULAR HGB CONC 29.7 g/dl (33.0-37.0); MEAN PLATELET VOLUME 9.9 fl (9.6-12.3); MONO # 0.4 10*3/uL (0.1-1.0); MONO % 4.2 % (3.0-9.0); NEUT # 7.7 10*3/uL (2.3-7.9); NEUT % 88.1 % (47.0-73.0); PLATELET COUNT AUTOMATED 234 10*3/uL (130-400); RED BLOOD COUNT 4.23 10*6/uL (4.10-5.10); RED CELL DISTRI WIDTH 14.2 % (0-14.5); WHITE BLOOD COUNT 8.7 10*3/uL (4.8-10.8)
[2020-04-22 07:45] LABS: BUN 22 mg/dl (7-24); CHLORIDE 100 mmol/L (98-107); CREATININE 0.62 mg/dL (0.55-1.02); POTASSIUM 4.4 mmol/L (3.5-5.1); SODIUM 140 mmol/L (136-145)
[2020-04-22 08:00] VITALS: BP 138/70
--- NOTE | 2020-04-22 08:15 | NUR ---
PHYSICAL THERAPY Patient seen this am 1;1 for therapy visit and was supine in bed upon therapist arrival. Patient identified by name / and presented with continuos O2-3L via NC. OT elementary assistant teacher was also present for observation only as patient transfers supine to sit EOB with SBA x 1.Patient recorded resting SpO2 98%, HR 64 bpm prior to treatment, performed sit to stand SBA and ambulated with use of wh walker, SBA, 20'x 1 to bathroom, then additonal 55'x 1, wh walker, SBA, demonstrating slow steady dora an no LOB. Patient recorded SpO2 89%, HR 74 bpm upon return to bedside chair. Patient remained in chair awaiting breakfast with call light, tray table and telephone. Will continue per POC as tolerated, total treatment time 16 minutes. Ralph Durham, PORTABLE ROUTER OPERATOR
--- NOTE | 2020-04-22 08:20 | NUR ---
PT AMBULATING IN HALLS WITH PT. PT TOLERATING WELL. RESP EASY AND NONLABORED ON NC. WILL MONITOR.
--- NOTE | 2020-04-22 08:30 | NUR ---
OT NOTE Pt was seen this A.M. 1:1 for 20 minute OT session. Upon arrival pt was supine in bed. Pt identified by name and and had no complaints at this time. Pt presented to therapy with continuous 3L-O2 via NC which she remained on throughout the entire session. Pt's resting SpO2 was 98% and heart rate 64 bpm. Pt transferred supine to sit EOB I. While sitting EOB pt donned B socks I while using good compensatory/work simplification technique of bringing her leg up to her knee. Sit to stand completed from bed level with supervision and use of w/w for UE support followed by functional mobility to the bathroom with supervision. There she transferred on/off standard commode I, throughout activity pt's SpO2 dropped to 88% and heart rate 65 bpm and within aprox 30 seconds raised to 92% and heart rate 81 bpm. After returning to the recliner pt was educated on energy conservation and work simplification techniques which pt verbalized understanding and reported that is as she does now. Pt was left sitting upright in the recliner with call light in hand, tray table in place, and phone in reach. Continue with rec D/C plan to home with home health. NICOLE Alberts
[2020-04-22] MEDS ORDERED: XARE20MG PO (11:02)
[2020-04-22] MEDS ORDERED: LOPRESSOR25 MG PO (11:02)
[2020-04-22] MEDS ORDERED: MUCUS RELIEF600 MG PO (11:02)
--- NOTE | 2020-04-22 11:10 | NUR ---
Spoke to the pharmacist at [facility]. Cost of Xarelto 20 mg po daily would be $74.07. Dr. Crisostomo notified.
--- NOTE | 2020-04-22 12:46 | NUR ---
Patient resting quietly with no c/o discomfort. Respirations easy and regular, on O2. Vital signs stable. No overt distress. DAISHA BARROSO R
--- NOTE | 2020-04-22 13:43 | NUR ---
Discharge instructions reviewed with patient/family. Patient receptive and verbalizes understanding. Follow-up care arranged. Written instructions given to patient/family. DAISHA BARROSO
--- NOTE | 2020-04-23 07:31 | NUR ---
PHYSICAL THERAPY CO-SIGN I approve of the Physical Therapy notes written above. Tri Demarco PT
--- NOTE | 2020-04-23 07:42 | NUR ---
OCCUPATIONAL THERAPY CO-SIGN I approve of the Occupational Therapy notes written above. CHARISSE GONZALEZ, OTR/L
== END 2020-04-22 13:43 | disposition home or self-care (01) | DRG 189 ==
LOC: ED 20:07 → 4E 21:55 → EDHOLD 21:55 → 4E 22:33
PROVIDERS: Emergency Medicine; Family Medicine; Internal Medicine; Internal Medicine Critical Care Medicine; Registered Nurse; ADMIT Internal Medicine
PROC: 5A09357 Assistance with Respiratory Ventilation, Less than 24 Consecutive Hours, Continuous Positive Airway Pressure (ICD-10-PCS; principal; 2020-04-15)
PROC: 5A09357 Assistance with Respiratory Ventilation, Less than 24 Consecutive Hours, Continuous Positive Airway Pressure (ICD-10-PCS; 2020-04-17)
PROC: 5A09457 Assistance with Respiratory Ventilation, 24-96 Consecutive Hours, Continuous Positive Airway Pressure (ICD-10-PCS; 2020-04-18)
PROC: 5A09357 Assistance with Respiratory Ventilation, Less than 24 Consecutive Hours, Continuous Positive Airway Pressure (ICD-10-PCS; 2020-04-19)
PROC: 5A09357 Assistance with Respiratory Ventilation, Less than 24 Consecutive Hours, Continuous Positive Airway Pressure (ICD-10-PCS; 2020-04-21)
DX: J96.21 Acute and chronic respiratory failure with hypoxia (principal); J44.1 Chronic obstructive pulmonary disease with (acute) exacerbation; E87.2 Acidosis; I50.32 Chronic diastolic (congestive) heart failure; E87.3 Alkalosis; J45.51 Severe persistent asthma with (acute) exacerbation; J44.0 Chronic obstructive pulmonary disease with (acute) lower respiratory infection; J96.22 Acute and chronic respiratory failure with hypercapnia; G47.33 Obstructive sleep apnea (adult) (pediatric); E78.5 Hyperlipidemia, unspecified; I48.0 Paroxysmal atrial fibrillation; I25.10 Atherosclerotic heart disease of native coronary artery without angina pectoris; E11.69 Type 2 diabetes mellitus with other specified complication; I11.0 Hypertensive heart disease with heart failure; J20.9 Acute bronchitis, unspecified; F41.1 Generalized anxiety disorder; E11.65 Type 2 diabetes mellitus with hyperglycemia; D63.8 Anemia in other chronic diseases classified elsewhere; Z79.899 Other long term (current) drug therapy; Z98.42 Cataract extraction status, left eye; Z98.41 Cataract extraction status, right eye; Z90.49 Acquired absence of other specified parts of digestive tract; Z87.891 Personal history of nicotine dependence; Z82.3 Family history of stroke

== ENCOUNTER → 2020-05-07 | Outpatient (CLI) | payer MEDICARE ==
[~2020-05-07] MED LIST changes: +FISH OIL 1,0001 EAC5 PO; +MUCUS RELIEF600 MG PO; +PREDNISONE10 M1 PO
== END | disposition home or self-care (01) ==
LOC: US 04-18 13:30
DX: J96.21 Acute and chronic respiratory failure with hypoxia (principal); I65.23 Occlusion and stenosis of bilateral carotid arteries; I10 Essential (primary) hypertension

== ENCOUNTER 2020-05-21 11:03 | Inpatient (IN) | payer MEDICARE ==
[~2020-05-21] VITALS: Ht 165.1 cm; Wt 64.4 kg
[2020-05-21 11:05] VITALS: BP 107/50
[2020-05-21 11:23] LABS: BASO % 0.2 % (0.0-1.0); EOS % 0.2 % (1.0-4.0); HEMATOCRIT 39.3 % (37.0-47.0); LYMPH # 1.1 10*3/uL (1.3-4.4); LYMPH % 18.1 % (27.0-41.0); MEAN CELL VOLUME 97.5 fl (81.0-99.0); MEAN CORPUSCULAR HGB 28.8 pg (27.0-31.0); MEAN CORPUSCULAR HGB CONC 29.5 g/dl (33.0-37.0); MEAN PLATELET VOLUME 9.2 fl (9.6-12.3); MONO # 0.7 10*3/uL (0.1-1.0); MONO % 11.6 % (3.0-9.0); NEUT # 4.2 10*3/uL (2.3-7.9); NEUT % 69.2 % (47.0-73.0); PLATELET COUNT AUTOMATED 228 10*3/uL (130-400); RED BLOOD COUNT 4.03 10*6/uL (4.10-5.10); RED CELL DISTRI WIDTH 14.9 % (0-14.5)
[2020-05-21 11:33] LABS: ACT PARTIAL THROMBO TIME 34.2 SECONDS (20.0-32.1); INTERNATIONAL NORM RATIO 1.3 (2.0-3.5)
[2020-05-21 11:39] LABS: ALBUMIN 3.2 gm/dl (3.1-4.5); ALKALINE PHOSPHATASE 102 U/L (45-117); BUN 9 mg/dl (7-24); CHLORIDE 95 mmol/L (98-107); CREATININE 0.67 mg/dL (0.55-1.02); POTASSIUM 4.2 mmol/L (3.5-5.1); SGOT/AST 19 IU/L (3-35); SGPT/ALT 20 U/L (12-78); SODIUM 138 mmol/L (136-145); TOTAL PROTEIN 6.7 gm/dL (6.4-8.2)
[2020-05-21 11:51] LABS: TROPONIN I < 0.015 ng/ml (<0.045)
[2020-05-21 12:24] LABS: BILIRUBIN NEGATIVE (NEGATIVE); BLOOD NEGATIVE (NEGATIVE); CLARITY CLEAR (CLEAR); COLOR YELLOW (YELLOW); GLUCOSE NEGATIVE (NEGATIVE); KETONE NEGATIVE (NEGATIVE); NITRITE NEGATIVE (NEGATIVE); SPECIFIC GRAVITY 1.015 (1.005-1.030); UROBILINOGEN 0.2 E.U./dl (0.2-1.0)
[2020-05-21 12:25] LABS: BACTERIA TRACE; LEUKO ESTERASE NEGATIVE (NEGATIVE); RBC 0-2 rbc/hpf (0-2); WBC 0-2 wbc/hpf (0-5)
[2020-05-21 12:52] LABS: ABG BASE EXCESS 17.5 mmol/L (-2.0-2.0); ARTERIAL BLOOD GAS PH 7.287 (7.35-7.45)
[2020-05-21 14:00] VITALS: BP 110/74
[2020-05-21] MEDS ORDERED: LASIX20 MG PO (14:46)
[2020-05-21 16:00] VITALS: BP 132/63
[2020-05-21 17:16] LABS: ABG BASE EXCESS 16.5 mmol/L (-2.0-2.0); ARTERIAL BLOOD GAS PH 7.303 (7.35-7.45)
[2020-05-21 20:00] VITALS: BP 121/61
[2020-05-22] VITALS: BP 137/58
[2020-05-22 05:38] LABS: ALBUMIN 3.1 gm/dl (3.1-4.5); ALKALINE PHOSPHATASE 102 U/L (45-117); BUN 10 mg/dl (7-24); CHLORIDE 93 mmol/L (98-107); CREATININE 0.71 mg/dL (0.55-1.02); POTASSIUM 4.8 mmol/L (3.5-5.1); SGOT/AST 11 IU/L (3-35); SGPT/ALT 19 U/L (12-78); SODIUM 137 mmol/L (136-145); TOTAL PROTEIN 6.6 gm/dL (6.4-8.2)
[2020-05-22 06:18] LABS: BASO % 0.4 % (0.0-1.0); HEMATOCRIT 40.4 % (37.0-47.0); LYMPH # 0.4 10*3/uL (1.3-4.4); LYMPH % 8.7 % (27.0-41.0); MEAN CELL VOLUME 95.5 fl (81.0-99.0); MEAN CORPUSCULAR HGB 28.1 pg (27.0-31.0); MEAN CORPUSCULAR HGB CONC 29.5 g/dl (33.0-37.0); MEAN PLATELET VOLUME 9.8 fl (9.6-12.3); MONO # 0.1 10*3/uL (0.1-1.0); NEUT # 4.3 10*3/uL (2.3-7.9); NEUT % 85.9 % (47.0-73.0); PLATELET COUNT AUTOMATED 227 10*3/uL (130-400); RED BLOOD COUNT 4.23 10*6/uL (4.10-5.10); RED CELL DISTRI WIDTH 14.7 % (0-14.5)
[2020-05-22 08:00] VITALS: BP 123/72
[2020-05-22 11:02] LABS: ABG BASE EXCESS 15.2 mmol/L (-2.0-2.0); ARTERIAL BLOOD GAS PH 7.287 (7.35-7.45)
[2020-05-22 12:00] VITALS: BP 128/62
[2020-05-22 16:00] VITALS: BP 115/54
[2020-05-22 16:25] LABS: ABG BASE EXCESS 15.5 mmol/L (-2.0-2.0); ARTERIAL BLOOD GAS PH 7.299 (7.35-7.45)
[2020-05-22 19:24] LABS: ABG BASE EXCESS 14.9 mmol/L (-2.0-2.0); ARTERIAL BLOOD GAS PH 7.304 (7.35-7.45)
[2020-05-22 20:00] VITALS: BP 122/60
[2020-05-23] VITALS: BP 121/66
[2020-05-23 06:45] LABS: BASO % 0.2 % (0.0-1.0); HEMATOCRIT 39.5 % (37.0-47.0); LYMPH # 0.7 10*3/uL (1.3-4.4); LYMPH % 6.4 % (27.0-41.0); MEAN CELL VOLUME 96.6 fl (81.0-99.0); MEAN CORPUSCULAR HGB 29.1 pg (27.0-31.0); MEAN CORPUSCULAR HGB CONC 30.1 g/dl (33.0-37.0); MONO # 0.4 10*3/uL (0.1-1.0); MONO % 3.8 % (3.0-9.0); NEUT # 9.9 10*3/uL (2.3-7.9); NEUT % 88.5 % (47.0-73.0); PLATELET COUNT AUTOMATED 269 10*3/uL (130-400); RED BLOOD COUNT 4.09 10*6/uL (4.10-5.10); RED CELL DISTRI WIDTH 14.7 % (0-14.5); WHITE BLOOD COUNT 11.2 10*3/uL (4.8-10.8)
[2020-05-23 07:13] LABS: BUN 16 mg/dl (7-24); CHLORIDE 93 mmol/L (98-107); SODIUM 138 mmol/L (136-145)
[2020-05-23 07:15] LABS: CREATININE 0.87 mg/dL (0.55-1.02)
[2020-05-23 07:17] LABS: POTASSIUM 3.7 mmol/L (3.5-5.1)
[2020-05-23 07:26] LABS: ABG BASE EXCESS 11.8 mmol/L (-2.0-2.0); ARTERIAL BLOOD GAS PH 7.3 (7.35-7.45)
[2020-05-23 08:00] VITALS: BP 117/64
[2020-05-23] MEDS ORDERED: PREDNISONE10 MG PO (10:31)
[2020-05-23] MEDS ORDERED: DOXYCYCLINE100 M3 PO (10:31)
[2020-05-23 12:00] VITALS: BP 100/67
== END 2020-05-23 15:27 | disposition home or self-care (01) | DRG 189 ==
LOC: ED 11:03 → EDHOLD 13:18 → 4E 13:18
PROVIDERS: Emergency Medicine; Internal Medicine; Internal Medicine Critical Care Medicine; Physician Assistant; ADMIT Internal Medicine
PROC: 5A09357 Assistance with Respiratory Ventilation, Less than 24 Consecutive Hours, Continuous Positive Airway Pressure (ICD-10-PCS; principal; 2020-05-21)
PROC: 5A09357 Assistance with Respiratory Ventilation, Less than 24 Consecutive Hours, Continuous Positive Airway Pressure (ICD-10-PCS; 2020-05-22)
DX: J96.22 Acute and chronic respiratory failure with hypercapnia (principal); J44.1 Chronic obstructive pulmonary disease with (acute) exacerbation; E87.2 Acidosis; J45.901 Unspecified asthma with (acute) exacerbation; E87.3 Alkalosis; J96.21 Acute and chronic respiratory failure with hypoxia; I48.0 Paroxysmal atrial fibrillation; I25.10 Atherosclerotic heart disease of native coronary artery without angina pectoris; I50.9 Heart failure, unspecified; G47.33 Obstructive sleep apnea (adult) (pediatric); Z20.828 Contact with and (suspected) exposure to other viral communicable diseases; D64.9 Anemia, unspecified; E87.8 Other disorders of electrolyte and fluid balance, not elsewhere classified; E78.5 Hyperlipidemia, unspecified; I11.0 Hypertensive heart disease with heart failure; E11.65 Type 2 diabetes mellitus with hyperglycemia; E11.69 Type 2 diabetes mellitus with other specified complication; Z66 Do not resuscitate; Z51.5 Encounter for palliative care; Z86.73 Personal history of transient ischemic attack (TIA), and cerebral infarction without residual deficits; Z90.49 Acquired absence of other specified parts of digestive tract; Z98.42 Cataract extraction status, left eye; Z98.41 Cataract extraction status, right eye; Z87.891 Personal history of nicotine dependence; Z79.899 Other long term (current) drug therapy

== ENCOUNTER → 2020-08-21 | Outpatient (CLI) | payer MEDICARE ==
[2020-08-21 12:48] LABS: HEMATOCRIT 38.6 % (37.0-47.0); MEAN CELL VOLUME 91.9 fl (81.0-99.0); MEAN CORPUSCULAR HGB 28.3 pg (27.0-31.0); MEAN CORPUSCULAR HGB CONC 30.8 g/dl (33.0-37.0); MEAN PLATELET VOLUME 9.3 fl (9.6-12.3); RED BLOOD COUNT 4.2 10*6/uL (4.10-5.10); RED CELL DISTRI WIDTH 13.9 % (0-14.5); WHITE BLOOD COUNT 7.1 10*3/uL (4.8-10.8)
[2020-08-21 13:21] LABS: ALBUMIN 3.5 gm/dl (3.1-4.5); ALKALINE PHOSPHATASE 89 U/L (45-117); BUN 11 mg/dl (7-24); CHLORIDE 98 mmol/L (98-107); CHOLESTEROL 191 mg/dL (<200); CREATININE 0.76 mg/dL (0.55-1.02); HDL CHOLESTEROL 39 mg/dl (40-60); LDL CHOLESTEROL 103 mg/dL (9-159); SGOT/AST 16 IU/L (3-35); SGPT/ALT 25 U/L (12-78); SODIUM 136 mmol/L (136-145); TOTAL PROTEIN 7.2 gm/dL (6.4-8.2); TRIGLYCERIDES 247 mg/dl (<150); VLDL CHOLESTEROL 49 mg/dL (6-40)
== END | disposition home or self-care (01) ==
LOC: LAB 12:31
PROVIDERS: ATTEND Physician Assistant
DX: E78.2 Mixed hyperlipidemia (principal)

== ENCOUNTER → 2020-10-28 | Outpatient (CLI) | payer MEDICARE ==
[~2020-10-28] MED LIST changes: +ASPIRIN CHEWABL81 MG PO; +BIOTIN1000 MC1 PO; +GLUCOPHAGE500 M1 PO; +Ipratropium Brom3 ML INH; +POTASSIUM CHLO10 ME4 PO; +PROAIR HFA8.5 GM INH; +XARELTO20 M1 PO
== END | disposition home or self-care (01) ==
LOC: COVID19 15:19
PROVIDERS: ATTEND Internal Medicine Critical Care Medicine
DX: Z20.828 Contact with and (suspected) exposure to other viral communicable diseases (principal)

== ENCOUNTER 2020-11-01 22:15 | Observation (INO) | payer MEDICARE ==
[~2020-11-01] VITALS: Ht 165.1 cm; Wt 71.5 kg
[~2020-11-01 22:15] MED LIST changes: -ASPIRIN CHEWABL81 MG PO; -BIOTIN1000 MC1 PO; -GLUCOPHAGE500 M1 PO; -Ipratropium Brom3 ML INH; -POTASSIUM CHLO10 ME4 PO; -PROAIR HFA8.5 GM INH; -XARELTO20 M1 PO
[2020-11-01 22:25] VITALS: BP 120/48
[2020-11-01 22:42] VITALS: BP 131/42
[2020-11-01 23:18] LABS: HEMATOCRIT 35.8 % (37.0-47.0); LYMPH # 1.4 10*3/uL (1.3-4.4); LYMPH % 21.2 % (27.0-41.0); MEAN CORPUSCULAR HGB CONC 30.4 g/dl (33.0-37.0); MEAN PLATELET VOLUME 9.2 fl (9.6-12.3); MONO # 0.7 10*3/uL (0.1-1.0); NEUT # 4.5 10*3/uL (2.3-7.9); NEUT % 67.5 % (47.0-73.0); PLATELET COUNT AUTOMATED 234 10*3/uL (130-400); RED BLOOD COUNT 3.89 10*6/uL (4.10-5.10); RED CELL DISTRI WIDTH 13.9 % (0-14.5); WHITE BLOOD COUNT 6.7 10*3/uL (4.8-10.8)
[2020-11-01 23:36] LABS: ALBUMIN 3.4 gm/dl (3.1-4.5); ALKALINE PHOSPHATASE 74 U/L (45-117); BUN 13 mg/dl (7-24); CHLORIDE 95 mmol/L (98-107); CREATININE 0.76 mg/dL (0.55-1.02); POTASSIUM 3.8 mmol/L (3.5-5.1); SGOT/AST 14 IU/L (3-35); SGPT/ALT 22 U/L (12-78); SODIUM 138 mmol/L (136-145); TOTAL PROTEIN 6.4 gm/dL (6.4-8.2)
[2020-11-01 23:41] LABS: TROPONIN I < 0.015 ng/ml (<0.045)
--- NOTE | 2020-11-01 23:51 | NUR ---
LAB CALLED TO CONFIRM THE CRITICAL LACTIC WAS NOT ON MESERET BUT ON ANOTHER PATIENT, ERROR FIXED
--- NOTE | 2020-11-02 | NUR ---
PATIENT RESTING IN BED, APPEARS TO BE IN NO DISTRESS AT THIS TIME. RR EASY AND NON-LABORED. CALL LIGHT WITHIN REACH. WILL CONTINUE TO MONITOR.
--- NOTE | 2020-11-02 00:30 | NUR ---
PATIENT UP AND TO BEDSIDE COMMODE.
[2020-11-02 01:00] LABS: BILIRUBIN Negative (Negative); BLOOD Negative (Negative); CLARITY Clear (Clear); COLOR Yellow (Yellow); GLUCOSE Negative (Negative); KETONE Negative (Negative); LEUKO ESTERASE Trace (Negative); NITRITE Negative (Negative)
[2020-11-02 01:13] LABS: RBC 0-2 rbc/hpf (0-2); WBC 0-2 wbc/hpf (0-5)
--- NOTE | 2020-11-02 01:27 | NUR ---
PATIENT RESTING IN BED, APPEARS TO BE IN NO DISTRESS AT THIS TIME. RR EASY AND NON-LABORED. CALL LIGHT WITHIN REACH. WILL CONTINUE TO MONITOR.
[2020-11-02 01:32] VITALS: BP 119/59
[2020-11-02 02:40] VITALS: BP 120/56
--- NOTE | 2020-11-02 02:40 | NUR ---
A 74, admitted to 5E, under the services of CESAR Brasher DO with a diagnosis of COPD EXACERBATION. Chief complaint is SOB, PRODUCTIVE COUGH. Patient arrived via ambulatory from ER. Monitor applied. Initial assessment completed. Vital signs taken and recorded. CESAR BRASHER DO notified of admission to the unit. Orders received. See assessment for past medical history, medications and allergies. Patient and/or family oriented to unit. visitation policy reviewed. Clothing/patient valuable form completed. SHARON PATEL
[2020-11-02] MEDS ORDERED: POTASSIUM CHLO10 ME4 PO (03:07)
[2020-11-02] MEDS ORDERED: ASPIRIN CHEWABL81 MG PO (03:08)
[2020-11-02] MEDS ORDERED: PROAIR HFA8.5 GM INH (03:15)
[2020-11-02] MEDS ORDERED: Ipratropium Brom3 ML INH (03:17)
[2020-11-02] MEDS ORDERED: BUSPAR5 MG PO (03:18)
[2020-11-02] MEDS ORDERED: BIOTIN1000 MC1 PO (03:18)
[2020-11-02] MEDS ORDERED: TRINTELLIX10 MG PO (03:19)
[2020-11-02] MEDS ORDERED: GLUCOPHAGE500 M1 PO (03:19)
--- NOTE | 2020-11-02 03:21 | NUR ---
MED REC UPDATED PER PATIENT LIST PROVIDED. PATIENT STATES THAT SHE DOES NOT TAKE XARELTO ANYMORE SHE STATES THAT SHE TAKES ONLY A BABY ASPIRIN
--- NOTE | 2020-11-02 04:43 | NUR ---
PATIENT MEDICATED WITH TYLENOL FOR COMPLAINTS OF A HEADACHE. WILL MONITOR FOR EFFECTIVENESS. CALL LIGHT IN REACH.
--- NOTE | 2020-11-02 05:40 | NUR ---
TYLENOL EFFECTIVE. PATIENT IN BED SLEEPING AT THIS TIME. NO SIGNS OR SYMPTOMS OF DISTRESS NOTED. RESPIRATIONS REGULAR AND NON-LABORED ON 4L N/C. WILL CONTINUE TO MONITOR.
[2020-11-02 06:32] LABS: HEMATOCRIT 37.7 % (37.0-47.0); MEAN CELL VOLUME 92.6 fl (81.0-99.0); MEAN CORPUSCULAR HGB 27.8 pg (27.0-31.0); MEAN PLATELET VOLUME 9.4 fl (9.6-12.3); PLATELET COUNT AUTOMATED 208 10*3/uL (130-400); RED BLOOD COUNT 4.07 10*6/uL (4.10-5.10); RED CELL DISTRI WIDTH 13.9 % (0-14.5); WHITE BLOOD COUNT 5.6 10*3/uL (4.8-10.8)
[2020-11-02 07:02] LABS: ALBUMIN 3.4 gm/dl (3.1-4.5); ALKALINE PHOSPHATASE 77 U/L (45-117); BUN 12 mg/dl (7-24); CHLORIDE 97 mmol/L (98-107); CHOLESTEROL 198 mg/dL (<200); CREATININE 0.69 mg/dL (0.55-1.02); HDL CHOLESTEROL 49 mg/dl (40-60); LDL CHOLESTEROL 129 mg/dL (9-159); SGOT/AST 13 IU/L (3-35); SGPT/ALT 26 U/L (12-78); TOTAL PROTEIN 6.9 gm/dL (6.4-8.2); TRIGLYCERIDES 100 mg/dl (<150); VLDL CHOLESTEROL 20 mg/dL (6-40)
[2020-11-02 07:07] LABS: THYROID STIM HORMONE (HS) 0.618 uIU/ml (0.358-4.75)
[2020-11-02 07:11] LABS: SODIUM 138 mmol/L (136-145)
[2020-11-02 07:16] LABS: POTASSIUM 4.8 mmol/L (3.5-5.1)
[2020-11-02 07:34] LABS: VITAMIN D, 25-HYDROXY 26.9 ng/mL (30-100)
[2020-11-02 07:38] LABS: TOTAL CELLS COUNTED 100 #CELLS
[2020-11-02 07:39] LABS: PLATELET SUFFICIENCY NORMAL (NORMAL)
[2020-11-02 07:54] VITALS: BP 112/62
--- NOTE | 2020-11-02 10:20 | NUR ---
MESSAGE LEFT FOR REGARDING CONSULT.
[2020-11-02 12:00] VITALS: BP 143/72
[2020-11-02 16:00] VITALS: BP 126/51
[2020-11-02 20:00] VITALS: BP 117/56
[2020-11-03] VITALS: BP 131/45
[2020-11-03 08:00] VITALS: BP 122/90
--- NOTE | 2020-11-03 10:59 | NUR ---
PHYSICAL THERAPY Physical Therapy evaluation completed. Full details and evaluation to follow. Low complexity skilled PT evaluation performed ([id number]). PT will work on strength, gait, balance, endurance, and safety per POC. Recommend home with home health services and 24 hour assist as needed at discharge.
[2020-11-03 12:00] VITALS: BP 123/67
[2020-11-03 16:00] VITALS: BP 121/55
[2020-11-03 20:00] VITALS: BP 133/96
[2020-11-04] VITALS: BP 123/62
--- NOTE | 2020-11-04 04:00 | NUR ---
PATIENT SITTING UP IN CHAIR SLEEPING. RESPIRATIONS EASY, NON LABORED. NO SIGNS OF DISTRESS. CALL LIGHT WITHIN REACH. WILL CONTINUE TO MONITOR.
[2020-11-04 08:00] VITALS: BP 131/76
--- NOTE | 2020-11-04 08:44 | NUR ---
PT SITTING UP IN CHAIR, EATING BREAKFAST. NO DISTRESS NOTED. WILL MONITOR
--- NOTE | 2020-11-04 08:54 | NUR ---
Wedding Transportation Driver in to talk to patient. Patient states lives at home with alone with family checking on. There are 1 steps in the home. Physician: kristy guy [facility]acy: [facility] Home health services: none Patient's level of ADLs: MINIMAL ASSIST Patient has working utilities: all working DME: home oxygen 3l/portable tanks, bipap, nebulizer from [facility] Follow-up physician's appointment after d/c: will be made by hospitalist nurse director upon discharge Does patient want to access PORTAL?: no Discharge plan discussed with patient, she lives at home, states she gets around fine, she has oxygen and bipap and nebulizer. she states she will return home and denies any home needs, case management will follow. DONAVAN DIAZ
[2020-11-04 12:00] VITALS: BP 130/68
--- NOTE | 2020-11-04 14:34 | NUR ---
PHYSICAL THERAPY Patient presented to therapy in sitting in bedside chair with spO2 of 2 liters via nasal canula. Patient has no complaints today. Patient gives informed consent for treatment. Patient was identified by name and on wristband. Patient performed STS from low bedside chair with SBA. Patient ambulated with no assistve device and Close Supervision for 180' x 1 inside room only, with no LOB and no SOB. Patient performed 5 Xs sit to stands in 15 seconds from low bedside chair without use of UEs. Patient tolerated treatment well with no complaints. Patient was 1:1 with this PROCESS ENGINEERING INTERN for 16 minutes total. Patient was left in bedside chair with call light within reach and tray table near patient. MARITZA GLEASON PROCESS ENGINEERING INTERN
[2020-11-04 16:00] VITALS: BP 131/78
[2020-11-04 20:00] VITALS: BP 128/58
--- NOTE | 2020-11-04 21:48 | NUR ---
PATIENT SITTING UP IN CHAIR WATCHING TV. REQUESTING A DULCOLAX FOR COMPLAINTS OF CONSTIPATION. BSX4 NORMOACTIVE. PATIENT VOICES NO OTHER COMPLAINTS/NEEDS AT THIS TIME. RESPIRATIONS EASY, NON LABORED. VSS. CALL LIGHT WITHIN REACH, WILL CONTINUE TO MONITOR.
[2020-11-05] VITALS: BP 145/77
--- NOTE | 2020-11-05 01:58 | NUR ---
PATIENT SLEEPING. NO SIGNS OF DISTRESS. PATIENT WEARING CPAP. WILL CONTINUE TO MONITOR.
--- NOTE | 2020-11-05 02:02 | NUR ---
24 HR chart check completed.
--- NOTE | 2020-11-05 04:00 | NUR ---
PATIENT SLEEPING. NO SIGNS OF DISTRESS.
[2020-11-05 06:15] VITALS: BP 122/84
[2020-11-05 06:34] LABS: BASO % 0.1 % (0.0-1.0); HEMATOCRIT 36.8 % (37.0-47.0); LYMPH # 0.7 10*3/uL (1.3-4.4); LYMPH % 9.5 % (27.0-41.0); MEAN CELL VOLUME 91.5 fl (81.0-99.0); MEAN CORPUSCULAR HGB 27.6 pg (27.0-31.0); MEAN CORPUSCULAR HGB CONC 30.2 g/dl (33.0-37.0); MEAN PLATELET VOLUME 9.4 fl (9.6-12.3); MONO # 0.4 10*3/uL (0.1-1.0); MONO % 4.9 % (3.0-9.0); NEUT # 6.6 10*3/uL (2.3-7.9); NEUT % 84.7 % (47.0-73.0); PLATELET COUNT AUTOMATED 243 10*3/uL (130-400); RED BLOOD COUNT 4.02 10*6/uL (4.10-5.10); RED CELL DISTRI WIDTH 13.8 % (0-14.5); WHITE BLOOD COUNT 7.8 10*3/uL (4.8-10.8)
[2020-11-05 06:38] LABS: CREATININE 0.72 mg/dL (0.55-1.02)
[2020-11-05 08:00] VITALS: BP 142/77
--- NOTE | 2020-11-05 08:10 | NUR ---
PT RESTING IN CHAIR. NO DISTRESS NOTED. WILL MONITOR
--- NOTE | 2020-11-05 10:06 | NUR ---
PHYSICAL THERAPY Patient presented in sitting in bedside chair with 3 liters of spO2 VIA NASAL CANULA. Patient has no complaints and says she is feeling fine. Patient gives informed consent for treatment. Patient was identified by name and on wristband. Patient completed STS <> bedside chair with Supervision. Patient ambulated approx 550' x 1 around entire 5 th floor with Close Supervision and no rest breaks with no LOB. Patient O2 SATS were measured and recorded at 5 seperate locations on floor during gait and recorded as follows: at 100' O2 SAT= 97% and pulse 65 ; 200' O2 SAT = 95% ; 300' O2 SAT= 96% / PULSE 64 ; 400' 93% PULSE AT 112 ; 500' AT PATIENT'S ROOM O2 = 93% AND PULSE 86. PATIENT IS ON 3 LITERS spO2. Patient sat in bedside chair with Supervision. Patient left in sitting in bedside chair with call light within reach and connected to wall outlet with 3 liters of spO2 VIA NASAL CANULA. Patient was 1:1 with this PRICING SPECIALIST for 16 minutes total. MARITZA GLEASON PRICING SPECIALIST
[2020-11-05 12:00] VITALS: BP 140/62
--- NOTE | 2020-11-05 12:17 | NUR ---
Visited Pt. in Room. Pt. sitting up in chair. States that the Physician told her that she would discharge tommorow. No home needs at this time.
[2020-11-05 16:00] VITALS: BP 123/64
--- NOTE | 2020-11-05 16:04 | NUR ---
[facility] Reviewing Referral, Awaiting Acceptance/Denial. Currently in Review with DON. Barbosa. daughter Karli Martinez is aware of need for SNF and is ok with [facility] Referral. Will Follow.
[2020-11-05 20:00] VITALS: BP 118/56
[2020-11-06] VITALS: BP 122/60
--- NOTE | 2020-11-06 04:00 | NUR ---
PATIENT SLEEPING, NO SIGNS OF DISTRESS. CPAP ON. BED IN LOWEST POSITION,CALL LIGHT WITHIN REACH. WILL CONTINUE TO MONITOR.
[2020-11-06 08:00] VITALS: BP 118/81
--- NOTE | 2020-11-06 08:19 | NUR ---
PT RESTING IN BED. NO DISTRESS NOTED. WILL MONITOR
[2020-11-06 12:00] VITALS: BP 136/72
[2020-11-06] MEDS ORDERED: XARELTO20 M1 PO (12:55)
[2020-11-06] MEDS ORDERED: PREDNISONE10 MG PO (12:55)
--- NOTE | 2020-11-06 13:45 | NUR ---
Discharge instructions reviewed with patient/family. Patient receptive and verbalizes understanding. Follow-up care arranged. Written instructions given to patient/family. ANTONELLA RAYA
--- NOTE | 2020-11-07 07:39 | NUR ---
PHYSICAL THERAPY CO-SIGN I approve of the Physical Therapy notes written above. Tri Demarco PT
== END 2020-11-06 13:45 | disposition home or self-care (01) ==
LOC: ED 22:15 → EDHOLD 11-02 01:44 → 5E 11-02 02:01
PROVIDERS: Emergency Medicine; Internal Medicine; ADMIT Internal Medicine; ATTEND Internal Medicine
DX: J44.1 Chronic obstructive pulmonary disease with (acute) exacerbation (principal); J96.12 Chronic respiratory failure with hypercapnia; E11.65 Type 2 diabetes mellitus with hyperglycemia; I11.0 Hypertensive heart disease with heart failure; G47.33 Obstructive sleep apnea (adult) (pediatric); E78.5 Hyperlipidemia, unspecified; I50.32 Chronic diastolic (congestive) heart failure; H35.30 Unspecified macular degeneration; E55.9 Vitamin D deficiency, unspecified; I25.10 Atherosclerotic heart disease of native coronary artery without angina pectoris; D64.9 Anemia, unspecified; E87.8 Other disorders of electrolyte and fluid balance, not elsewhere classified; I48.0 Paroxysmal atrial fibrillation; Z99.81 Dependence on supplemental oxygen; Z86.73 Personal history of transient ischemic attack (TIA), and cerebral infarction without residual deficits; Z20.828 Contact with and (suspected) exposure to other viral communicable diseases

== ENCOUNTER 2021-01-11 13:44 | Observation (INO) | payer MEDICARE ==
[~2021-01-11] VITALS: Ht 165.1 cm; Wt 68.0 kg
[~2021-01-11 13:44] MED LIST changes: +ASPIRIN CHEWABL81 MG PO; +BIOTIN1000 MC1 PO; +GLUCOPHAGE500 M1 PO; +Ipratropium Brom3 ML INH; +POTASSIUM CHLO10 ME4 PO; +PROAIR HFA8.5 GM INH; +XARELTO20 M1 PO
[2021-01-11 13:50] VITALS: BP 108/69
[2021-01-11 14:22] LABS: HEMATOCRIT 38.5 % (37.0-47.0); LYMPH # 1.1 10*3/uL (1.3-4.4); LYMPH % 14.2 % (27.0-41.0); MEAN CELL VOLUME 93.7 fl (81.0-99.0); MEAN CORPUSCULAR HGB 28.7 pg (27.0-31.0); MEAN CORPUSCULAR HGB CONC 30.6 g/dl (33.0-37.0); MEAN PLATELET VOLUME 9.6 fl (9.6-12.3); MONO # 0.8 10*3/uL (0.1-1.0); MONO % 9.7 % (3.0-9.0); NEUT % 75.8 % (47.0-73.0); PLATELET COUNT AUTOMATED 218 10*3/uL (130-400); RED BLOOD COUNT 4.11 10*6/uL (4.10-5.10); RED CELL DISTRI WIDTH 14.6 % (0-14.5); WHITE BLOOD COUNT 7.9 10*3/uL (4.8-10.8)
[2021-01-11 14:34] LABS: ACT PARTIAL THROMBO TIME 26.1 SECONDS (20.0-32.1)
[2021-01-11 14:43] LABS: ALBUMIN 3.4 gm/dl (3.1-4.5); ALKALINE PHOSPHATASE 79 U/L (45-117); BUN 12 mg/dl (7-24); CHLORIDE 103 mmol/L (98-107); POTASSIUM 4.4 mmol/L (3.5-5.1); SGOT/AST 14 IU/L (3-35); SGPT/ALT 20 U/L (12-78); SODIUM 141 mmol/L (136-145); TOTAL PROTEIN 6.4 gm/dL (6.4-8.2)
[2021-01-11 14:47] LABS: TROPONIN I < 0.015 ng/ml (<0.045)
[2021-01-11 15:33] LABS: BILIRUBIN Negative (Negative); BLOOD Negative (Negative); CLARITY Clear (Clear); COLOR Yellow (Yellow); GLUCOSE Negative (Negative); KETONE Negative (Negative); LEUKO ESTERASE 1+ (Negative); NITRITE Negative (Negative); PH 7.5 (4.5-8.0)
[2021-01-11 15:45] LABS: BACTERIA TRACE; RBC 0-2 rbc/hpf (0-2)
[2021-01-11 17:40] VITALS: BP 140/75
[2021-01-11] MEDS ORDERED: DILTIAZEM HYDR PO (17:44)
[2021-01-11] MEDS ORDERED: XARE20MG PO (17:45)
[2021-01-11 18:36] VITALS: BP 137/64
[2021-01-11 19:48] VITALS: BP 128/63
[2021-01-11 22:10] VITALS: BP 127/68
[2021-01-11 22:40] VITALS: BP 136/72
[2021-01-12 04:00] VITALS: BP 136/80
[2021-01-12 06:12] LABS: BASO % 0.2 % (0.0-1.0); HEMATOCRIT 36.3 % (37.0-47.0); LYMPH # 0.6 10*3/uL (1.3-4.4); LYMPH % 12.1 % (27.0-41.0); MEAN CELL VOLUME 92.4 fl (81.0-99.0); MEAN CORPUSCULAR HGB 28.5 pg (27.0-31.0); MEAN CORPUSCULAR HGB CONC 30.9 g/dl (33.0-37.0); MEAN PLATELET VOLUME 9.6 fl (9.6-12.3); MONO # 0.6 10*3/uL (0.1-1.0); MONO % 10.6 % (3.0-9.0); NEUT % 76.5 % (47.0-73.0); PLATELET COUNT AUTOMATED 210 10*3/uL (130-400); RED BLOOD COUNT 3.93 10*6/uL (4.10-5.10); RED CELL DISTRI WIDTH 14.3 % (0-14.5); WHITE BLOOD COUNT 5.2 10*3/uL (4.8-10.8)
[2021-01-12 06:32] LABS: CHLORIDE 103 mmol/L (98-107); POTASSIUM 4.7 mmol/L (3.5-5.1); SODIUM 139 mmol/L (136-145)
[2021-01-12 06:36] LABS: BUN 11 mg/dl (7-24); CREATININE 0.69 mg/dL (0.55-1.02)
[2021-01-12 08:00] VITALS: BP 125/62
[2021-01-12 12:00] VITALS: BP 120/56
[2021-01-12] MEDS ORDERED: ZITHROMAX250 MG PO (12:07)
[2021-01-12] MEDS ORDERED: PREDNISONE50 MG PO (12:07)
== END 2021-01-12 14:37 | disposition home or self-care (01) ==
LOC: ED 13:44 → EDHOLD 15:43 → 4E 21:08
PROVIDERS: Nurse Practitioner Family; Student in an Organized Health Care Education/Training Program; ADMIT Internal Medicine; ATTEND Internal Medicine
DX: J44.1 Chronic obstructive pulmonary disease with (acute) exacerbation (principal); J96.21 Acute and chronic respiratory failure with hypoxia; J18.9 Pneumonia, unspecified organism; D64.9 Anemia, unspecified; G47.33 Obstructive sleep apnea (adult) (pediatric); E78.5 Hyperlipidemia, unspecified; I48.0 Paroxysmal atrial fibrillation; Z99.81 Dependence on supplemental oxygen; E11.65 Type 2 diabetes mellitus with hyperglycemia; I11.0 Hypertensive heart disease with heart failure; I50.32 Chronic diastolic (congestive) heart failure; I25.10 Atherosclerotic heart disease of native coronary artery without angina pectoris; Z79.82 Long term (current) use of aspirin; Z79.899 Other long term (current) drug therapy; Z87.891 Personal history of nicotine dependence

== ENCOUNTER 2021-07-10 12:06 | Inpatient (IN) | payer MEDICARE ==
[~2021-07-10] VITALS: Ht 165.1 cm; Wt 66.0 kg
[~2021-07-10 12:06] MED LIST changes: +DILTIAZEM HYDR PO
[2021-07-10 12:07] VITALS: BP 133/62
[2021-07-10 12:40] LABS: HEMATOCRIT 38.3 % (37.0-47.0); LYMPH % 20.6 % (27.0-41.0); MEAN CELL VOLUME 93.9 fl (81.0-99.0); MEAN CORPUSCULAR HGB 28.7 pg (27.0-31.0); MEAN CORPUSCULAR HGB CONC 30.5 g/dl (33.0-37.0); MEAN PLATELET VOLUME 8.9 fl (9.6-12.3); MONO # 0.5 10*3/uL (0.1-1.0); MONO % 9.9 % (3.0-9.0); NEUT # 3.5 10*3/uL (2.3-7.9); NEUT % 69.3 % (47.0-73.0); PLATELET COUNT AUTOMATED 167 10*3/uL (130-400); RED BLOOD COUNT 4.08 10*6/uL (4.10-5.10); RED CELL DISTRI WIDTH 13.6 % (0-14.5); WHITE BLOOD COUNT 5.1 10*3/uL (4.8-10.8)
[2021-07-10 12:57] LABS: ALBUMIN 3.4 gm/dl (3.1-4.5); ALKALINE PHOSPHATASE 70 U/L (45-117); BUN 8 mg/dl (7-24); CHLORIDE 94 mmol/L (98-107); CREATININE 0.52 mg/dL (0.55-1.02); POTASSIUM 4.5 mmol/L (3.5-5.1); SGOT/AST 13 IU/L (3-35); SGPT/ALT 23 U/L (12-78); SODIUM 137 mmol/L (136-145); TOTAL PROTEIN 6.5 gm/dL (6.4-8.2)
[2021-07-10 13:14] LABS: TROPONIN I < 0.015 ng/ml (<0.045)
[2021-07-10 16:12] VITALS: BP 132/51
[2021-07-10 16:43] LABS: ARTERIAL BLOOD GAS PH 7.33 (7.35-7.45); ARTERIAL BLOOD GAS PO2 45.1 (80-90)
[2021-07-10 20:04] VITALS: BP 123/60
[2021-07-10 22:30] VITALS: BP 128/72
[2021-07-11 06:05] LABS: LYMPH # 0.7 10*3/uL (1.3-4.4); LYMPH % 13.2 % (27.0-41.0); MEAN CELL VOLUME 92.6 fl (81.0-99.0); MEAN CORPUSCULAR HGB 28.3 pg (27.0-31.0); MEAN CORPUSCULAR HGB CONC 30.5 g/dl (33.0-37.0); MEAN PLATELET VOLUME 9.6 fl (9.6-12.3); MONO # 0.3 10*3/uL (0.1-1.0); MONO % 6.5 % (3.0-9.0); NEUT % 80.1 % (47.0-73.0); PLATELET COUNT AUTOMATED 204 10*3/uL (130-400); RED BLOOD COUNT 4.21 10*6/uL (4.10-5.10); RED CELL DISTRI WIDTH 13.5 % (0-14.5); WHITE BLOOD COUNT 4.9 10*3/uL (4.8-10.8)
[2021-07-11 06:24] VITALS: BP 132/74
[2021-07-11 08:00] VITALS: BP 108/82
[2021-07-11 08:47] LABS: ABG BASE EXCESS 14.8 mmol/L (-2.0-2.0); ARTERIAL BLOOD GAS PH 7.381 (7.35-7.45); ARTERIAL BLOOD GAS PO2 77.4 (80-90)
[2021-07-11 10:58] LABS: BUN 12 mg/dl (7-24); CREATININE 0.49 mg/dL (0.55-1.02)
[2021-07-11 10:59] LABS: CHLORIDE 93 mmol/L (98-107); POTASSIUM 5.1 mmol/L (3.5-5.1); SODIUM 137 mmol/L (136-145)
[2021-07-11 12:00] VITALS: BP 123/66
[2021-07-11 16:00] VITALS: BP 116/56
[2021-07-11 20:00] VITALS: BP 121/80
[2021-07-12] VITALS: BP 130/67
[2021-07-12 05:42] VITALS: BP 139/64
[2021-07-12 06:14] LABS: HEMATOCRIT 37.1 % (37.0-47.0); LYMPH # 0.9 10*3/uL (1.3-4.4); LYMPH % 12.7 % (27.0-41.0); MEAN CELL VOLUME 92.8 fl (81.0-99.0); MEAN CORPUSCULAR HGB 28.8 pg (27.0-31.0); MEAN PLATELET VOLUME 9.7 fl (9.6-12.3); MONO # 0.6 10*3/uL (0.1-1.0); NEUT # 5.5 10*3/uL (2.3-7.9); PLATELET COUNT AUTOMATED 199 10*3/uL (130-400); RED CELL DISTRI WIDTH 13.5 % (0-14.5); WHITE BLOOD COUNT 6.9 10*3/uL (4.8-10.8)
[2021-07-12 06:30] LABS: ALBUMIN 3.5 gm/dl (3.1-4.5); BUN 18 mg/dl (7-24); CHLORIDE 93 mmol/L (98-107); POTASSIUM 4.6 mmol/L (3.5-5.1); SGOT/AST 14 IU/L (3-35); SGPT/ALT 25 U/L (12-78); SODIUM 137 mmol/L (136-145); TOTAL PROTEIN 6.7 gm/dL (6.4-8.2)
[2021-07-12 06:31] LABS: ALKALINE PHOSPHATASE 65 U/L (45-117); CREATININE 0.65 mg/dL (0.55-1.02)
[2021-07-12 07:44] LABS: ABG BASE EXCESS 15.8 mmol/L (-2.0-2.0); ARTERIAL BLOOD GAS PH 7.458 (7.35-7.45)
[2021-07-12 08:00] VITALS: BP 134/70
[2021-07-12 12:00] VITALS: BP 133/63
[2021-07-12 16:00] VITALS: BP 124/64
[2021-07-12 20:00] VITALS: BP 125/62
[2021-07-13] VITALS: BP 127/55
[2021-07-13 06:03] LABS: LYMPH # 0.8 10*3/uL (1.3-4.4); LYMPH % 10.3 % (27.0-41.0); MEAN CELL VOLUME 93.8 fl (81.0-99.0); MEAN CORPUSCULAR HGB 29.1 pg (27.0-31.0); MEAN CORPUSCULAR HGB CONC 31.1 g/dl (33.0-37.0); MEAN PLATELET VOLUME 9.8 fl (9.6-12.3); MONO # 0.4 10*3/uL (0.1-1.0); NEUT # 6.1 10*3/uL (2.3-7.9); NEUT % 83.3 % (47.0-73.0); PLATELET COUNT AUTOMATED 224 10*3/uL (130-400); RED BLOOD COUNT 4.05 10*6/uL (4.10-5.10); RED CELL DISTRI WIDTH 13.7 % (0-14.5); WHITE BLOOD COUNT 7.3 10*3/uL (4.8-10.8)
[2021-07-13 06:17] LABS: BUN 25 mg/dl (7-24); CHLORIDE 97 mmol/L (98-107); CREATININE 0.72 mg/dL (0.55-1.02); SODIUM 136 mmol/L (136-145)
[2021-07-13 08:00] VITALS: BP 125/94
[2021-07-13 12:00] VITALS: BP 115/84
[2021-07-13 16:00] VITALS: BP 128/60
[2021-07-13 20:00] VITALS: BP 115/98
[2021-07-14] VITALS: BP 109/76
[2021-07-14 05:42] VITALS: BP 131/74
[2021-07-14 06:26] LABS: HEMATOCRIT 40.2 % (37.0-47.0); LYMPH # 0.9 10*3/uL (1.3-4.4); LYMPH % 10.5 % (27.0-41.0); MEAN CELL VOLUME 92.8 fl (81.0-99.0); MEAN CORPUSCULAR HGB 28.9 pg (27.0-31.0); MEAN CORPUSCULAR HGB CONC 31.1 g/dl (33.0-37.0); MEAN PLATELET VOLUME 9.7 fl (9.6-12.3); MONO # 0.7 10*3/uL (0.1-1.0); MONO % 7.7 % (3.0-9.0); NEUT % 80.9 % (47.0-73.0); PLATELET COUNT AUTOMATED 230 10*3/uL (130-400); RED BLOOD COUNT 4.33 10*6/uL (4.10-5.10); RED CELL DISTRI WIDTH 13.6 % (0-14.5); WHITE BLOOD COUNT 8.6 10*3/uL (4.8-10.8)
[2021-07-14 07:06] LABS: ALBUMIN 3.8 gm/dl (3.1-4.5); ALKALINE PHOSPHATASE 60 U/L (45-117); BUN 28 mg/dl (7-24); CHLORIDE 100 mmol/L (98-107); CREATININE 0.81 mg/dL (0.55-1.02); POTASSIUM 4.2 mmol/L (3.5-5.1); SGOT/AST 25 IU/L (3-35); SGPT/ALT 65 U/L (12-78); SODIUM 136 mmol/L (136-145)
[2021-07-14 08:00] VITALS: BP 116/75
[2021-07-14] MEDS ORDERED: XARE20MG PO (10:51)
[2021-07-14] MEDS ORDERED: LOPRESSOR25 MG PO (10:51)
[2021-07-14] MEDS ORDERED: PREDNISONE10 MG PO (10:51)
[2021-07-14] MEDS ORDERED: LEVOFLOXACIN750 M2 PO (10:54)
[2021-07-14 12:00] VITALS: BP 123/50
== END 2021-07-14 16:07 | disposition home or self-care (01) | DRG 189 ==
LOC: ED 12:06 → EDBD 12:09 → ED 12:09 → EDHOLD 14:25 → 4E 21:17
PROVIDERS: Family Medicine; Internal Medicine; Internal Medicine Critical Care Medicine; Nurse Practitioner Adult Health; Physician Assistant; Registered Nurse; Social Worker Clinical; ADMIT Emergency Medicine; ATTEND Emergency Medicine
PROC: 5A09357 Assistance with Respiratory Ventilation, Less than 24 Consecutive Hours, Continuous Positive Airway Pressure (ICD-10-PCS; principal; 2021-07-11)
PROC: 5A09357 Assistance with Respiratory Ventilation, Less than 24 Consecutive Hours, Continuous Positive Airway Pressure (ICD-10-PCS; 2021-07-12)
PROC: 5A09357 Assistance with Respiratory Ventilation, Less than 24 Consecutive Hours, Continuous Positive Airway Pressure (ICD-10-PCS; 2021-07-13)
PROC: 5A09357 Assistance with Respiratory Ventilation, Less than 24 Consecutive Hours, Continuous Positive Airway Pressure (ICD-10-PCS; 2021-07-14)
DX: J96.21 Acute and chronic respiratory failure with hypoxia (principal); J44.1 Chronic obstructive pulmonary disease with (acute) exacerbation; E44.0 Moderate protein-calorie malnutrition; J45.901 Unspecified asthma with (acute) exacerbation; E87.3 Alkalosis; J44.0 Chronic obstructive pulmonary disease with (acute) lower respiratory infection; J96.22 Acute and chronic respiratory failure with hypercapnia; D64.9 Anemia, unspecified; E87.8 Other disorders of electrolyte and fluid balance, not elsewhere classified; M94.0 Chondrocostal junction syndrome [Tietze]; I10 Essential (primary) hypertension; E78.5 Hyperlipidemia, unspecified; Z96.1 Presence of intraocular lens; J20.9 Acute bronchitis, unspecified; I48.0 Paroxysmal atrial fibrillation; I25.10 Atherosclerotic heart disease of native coronary artery without angina pectoris; E11.65 Type 2 diabetes mellitus with hyperglycemia; E83.39 Other disorders of phosphorus metabolism; Z98.41 Cataract extraction status, right eye; Z90.49 Acquired absence of other specified parts of digestive tract; Z98.49 Cataract extraction status, unspecified eye; Z86.73 Personal history of transient ischemic attack (TIA), and cerebral infarction without residual deficits; Z82.3 Family history of stroke; Z79.51 Long term (current) use of inhaled steroids; Z79.899 Other long term (current) drug therapy; Z68.24 Body mass index [BMI] 24.0-24.9, adult

== ENCOUNTER 2021-09-01 15:14 | Emergency (ER) | payer MEDICARE ==
[~2021-09-01] VITALS: Ht 165.1 cm; Wt 65.8 kg
[~2021-09-01 15:14] MED LIST changes: +LEVOFLOXACIN750 M2 PO
[2021-09-01 15:22] VITALS: BP 102/47
[2021-09-01 16:05] LABS: BASO % 0.1 % (0.0-1.0); LYMPH # 1.7 10*3/uL (1.3-4.4); LYMPH % 17.1 % (27.0-41.0); MEAN CELL VOLUME 96.1 fl (81.0-99.0); MEAN CORPUSCULAR HGB 28.8 pg (27.0-31.0); MEAN PLATELET VOLUME 9.5 fl (9.6-12.3); MONO % 10.5 % (3.0-9.0); NEUT # 6.9 10*3/uL (2.3-7.9); NEUT % 71.5 % (47.0-73.0); PLATELET COUNT AUTOMATED 230 10*3/uL (130-400); RED BLOOD COUNT 4.06 10*6/uL (4.10-5.10); RED CELL DISTRI WIDTH 14.8 % (0-14.5); WHITE BLOOD COUNT 9.7 10*3/uL (4.8-10.8)
[2021-09-01 16:22] LABS: ALKALINE PHOSPHATASE 91 U/L (45-117); BUN 12 mg/dl (7-24); CHLORIDE 97 mmol/L (98-107); CREATININE 0.57 mg/dL (0.55-1.02); POTASSIUM 4.9 mmol/L (3.5-5.1); SGOT/AST 12 IU/L (3-35); SGPT/ALT 24 U/L (12-78); SODIUM 139 mmol/L (136-145); TOTAL PROTEIN 6.5 gm/dL (6.4-8.2)
[2021-09-01] MEDS ORDERED: PREDNISONE50 MG PO (17:19)
[2021-09-01] MEDS ORDERED: ZITHROMAX250 MG PO (17:19)
== END 2021-09-01 17:45 | disposition home or self-care (01) ==
LOC: ED 15:14
PROVIDERS: Student in an Organized Health Care Education/Training Program
DX: J44.1 Chronic obstructive pulmonary disease with (acute) exacerbation (principal); Z79.899 Other long term (current) drug therapy; Z87.891 Personal history of nicotine dependence

== ENCOUNTER 2021-10-23 12:44 | Inpatient (IN) | payer MEDICARE ==
[~2021-10-23] VITALS: Ht 165.1 cm; Wt 67.4 kg
[2021-10-23] VITALS (35 sets, daily range): BP systolic 87–146; BP diastolic 53–93
[2021-10-23 13:17] LABS: HEMATOCRIT 38.8 % (37.0-47.0); LYMPH # 1.2 10*3/uL (1.3-4.4); LYMPH % 20.7 % (27.0-41.0); MEAN CELL VOLUME 95.1 fl (81.0-99.0); MEAN CORPUSCULAR HGB 28.4 pg (27.0-31.0); MEAN CORPUSCULAR HGB CONC 29.9 g/dl (33.0-37.0); MEAN PLATELET VOLUME 9.5 fl (9.6-12.3); MONO # 0.6 10*3/uL (0.1-1.0); MONO % 9.5 % (3.0-9.0); NEUT % 69.6 % (47.0-73.0); PLATELET COUNT AUTOMATED 267 10*3/uL (130-400); RED BLOOD COUNT 4.08 10*6/uL (4.10-5.10); WHITE BLOOD COUNT 5.8 10*3/uL (4.8-10.8)
[2021-10-23 13:33] LABS: ALBUMIN 3.1 gm/dl (3.1-4.5); ALKALINE PHOSPHATASE 85 U/L (45-117); BUN 12 mg/dl (7-24); CHLORIDE 95 mmol/L (98-107); CREATININE 0.66 mg/dL (0.55-1.02); POTASSIUM 3.9 mmol/L (3.5-5.1); SGOT/AST 13 IU/L (3-35); SGPT/ALT 21 U/L (12-78); SODIUM 141 mmol/L (136-145); TOTAL PROTEIN 6.8 gm/dL (6.4-8.2)
[2021-10-23 14:31] LABS: ABG BASE EXCESS 14.9 mmol/L (-2.0-2.0); ARTERIAL BLOOD GAS PH 7.352 (7.35-7.45); ARTERIAL BLOOD GAS PO2 66.1 (80-90)
[2021-10-24] VITALS (9 sets, daily range): BP systolic 102–126; BP diastolic 60–85
[2021-10-24 06:03] LABS: BASO % 0.2 % (0.0-1.0); HEMATOCRIT 38.4 % (37.0-47.0); LYMPH # 0.6 10*3/uL (1.3-4.4); LYMPH % 10.2 % (27.0-41.0); MEAN CELL VOLUME 96.7 fl (81.0-99.0); MEAN CORPUSCULAR HGB 28.2 pg (27.0-31.0); MEAN CORPUSCULAR HGB CONC 29.2 g/dl (33.0-37.0); MEAN PLATELET VOLUME 9.6 fl (9.6-12.3); MONO # 0.1 10*3/uL (0.1-1.0); MONO % 0.9 % (3.0-9.0); NEUT # 4.7 10*3/uL (2.3-7.9); NEUT % 88.1 % (47.0-73.0); PLATELET COUNT AUTOMATED 261 10*3/uL (130-400); RED BLOOD COUNT 3.97 10*6/uL (4.10-5.10); WHITE BLOOD COUNT 5.4 10*3/uL (4.8-10.8)
[2021-10-24 06:20] LABS: CHLORIDE 98 mmol/L (98-107); POTASSIUM 4.6 mmol/L (3.5-5.1); SODIUM 139 mmol/L (136-145)
[2021-10-24 06:53] LABS: ALKALINE PHOSPHATASE 83 U/L (45-117); BUN 12 mg/dl (7-24); CREATININE 0.54 mg/dL (0.55-1.02); SGOT/AST 23 IU/L (3-35); SGPT/ALT 28 U/L (12-78); THYROID STIM HORMONE (HS) 0.545 uIU/ml (0.358-4.75); TOTAL PROTEIN 6.5 gm/dL (6.4-8.2)
[2021-10-25] VITALS: BP 100/66
[2021-10-25 06:07] LABS: LYMPH # 0.6 10*3/uL (1.3-4.4); LYMPH % 8.7 % (27.0-41.0); MEAN CELL VOLUME 97.3 fl (81.0-99.0); MEAN CORPUSCULAR HGB 28.1 pg (27.0-31.0); MEAN CORPUSCULAR HGB CONC 28.9 g/dl (33.0-37.0); MEAN PLATELET VOLUME 9.4 fl (9.6-12.3); MONO # 0.2 10*3/uL (0.1-1.0); MONO % 3.1 % (3.0-9.0); NEUT # 5.9 10*3/uL (2.3-7.9); NEUT % 87.6 % (47.0-73.0); PLATELET COUNT AUTOMATED 255 10*3/uL (130-400); RED CELL DISTRI WIDTH 13.8 % (0-14.5); WHITE BLOOD COUNT 6.8 10*3/uL (4.8-10.8)
[2021-10-25 06:22] LABS: BUN 18 mg/dl (7-24); CHLORIDE 93 mmol/L (98-107); CREATININE 0.55 mg/dL (0.55-1.02); SODIUM 137 mmol/L (136-145)
[2021-10-25 08:00] VITALS: BP 101/53
[2021-10-25 12:00] VITALS: BP 103/53
[2021-10-25 16:00] VITALS: BP 133/79
[2021-10-25 20:00] VITALS: BP 111/58
[2021-10-26] VITALS (7 sets, daily range): BP systolic 97–134; BP diastolic 70–82
[2021-10-26 06:35] LABS: HEMATOCRIT 37.5 % (37.0-47.0); MEAN CELL VOLUME 96.4 fl (81.0-99.0); MEAN CORPUSCULAR HGB CONC 29.1 g/dl (33.0-37.0); MEAN PLATELET VOLUME 9.5 fl (9.6-12.3); PLATELET COUNT AUTOMATED 328 10*3/uL (130-400); RED BLOOD COUNT 3.89 10*6/uL (4.10-5.10); WHITE BLOOD COUNT 9.5 10*3/uL (4.8-10.8)
[2021-10-26 06:46] LABS: BUN 21 mg/dl (7-24); CHLORIDE 92 mmol/L (98-107); CREATININE 0.69 mg/dL (0.55-1.02); SODIUM 136 mmol/L (136-145)
[2021-10-26 08:15] LABS: PLATELET SUFFICIENCY NORMAL (NORMAL); POLYCHROMASIA SLIGHT; TOTAL CELLS COUNTED 100 #CELLS
[2021-10-27] VITALS (7 sets, daily range): BP systolic 99–144; BP diastolic 64–86
[2021-10-27 11:33] LABS: BUN 27 mg/dl (7-24); CHLORIDE 89 mmol/L (98-107); CREATININE 0.73 mg/dL (0.55-1.02); POTASSIUM 4.6 mmol/L (3.5-5.1); SODIUM 134 mmol/L (136-145)
[2021-10-28] VITALS: BP 126/96
[2021-10-28 08:00] VITALS: BP 127/71
[2021-10-28 08:40] LABS: HEMATOCRIT 38.4 % (37.0-47.0); LYMPH # 0.6 10*3/uL (1.3-4.4); LYMPH % 7.2 % (27.0-41.0); MEAN CELL VOLUME 96.2 fl (81.0-99.0); MEAN CORPUSCULAR HGB 28.1 pg (27.0-31.0); MEAN CORPUSCULAR HGB CONC 29.2 g/dl (33.0-37.0); MEAN PLATELET VOLUME 9.6 fl (9.6-12.3); MONO # 0.4 10*3/uL (0.1-1.0); NEUT # 7.2 10*3/uL (2.3-7.9); NEUT % 86.8 % (47.0-73.0); PLATELET COUNT AUTOMATED 309 10*3/uL (130-400); RED BLOOD COUNT 3.99 10*6/uL (4.10-5.10); RED CELL DISTRI WIDTH 14.1 % (0-14.5); WHITE BLOOD COUNT 8.3 10*3/uL (4.8-10.8)
[2021-10-28 08:58] LABS: BUN 30 mg/dl (7-24); CHLORIDE 94 mmol/L (98-107); CREATININE 0.65 mg/dL (0.55-1.02); POTASSIUM 4.3 mmol/L (3.5-5.1); SODIUM 136 mmol/L (136-145)
[2021-10-28 12:00] VITALS: BP 101/64
[2021-10-28 16:00] VITALS: BP 116/65
[2021-10-28 20:00] VITALS: BP 115/72
[2021-10-29] VITALS: BP 124/80
[2021-10-29 09:33] LABS: ABG BASE EXCESS 12.6 mmol/L (-2.0-2.0); ARTERIAL BLOOD GAS PH 7.341 (7.35-7.45); ARTERIAL BLOOD GAS PO2 78.9 (80-90)
[2021-10-29 12:00] VITALS: BP 108/86
[2021-10-29 16:00] VITALS: BP 121/77
[2021-10-29 20:00] VITALS: BP 111/72
[2021-10-30] VITALS (13 sets, daily range): BP systolic 104–116; BP diastolic 56–88
[2021-10-31] VITALS: BP 118/64
[2021-10-31 06:47] LABS: BASO % 0.2 % (0.0-1.0); HEMATOCRIT 37.6 % (37.0-47.0); LYMPH # 0.5 10*3/uL (1.3-4.4); LYMPH % 5.3 % (27.0-41.0); MEAN CELL VOLUME 93.3 fl (81.0-99.0); MEAN CORPUSCULAR HGB 27.8 pg (27.0-31.0); MEAN CORPUSCULAR HGB CONC 29.8 g/dl (33.0-37.0); MEAN PLATELET VOLUME 9.4 fl (9.6-12.3); MONO # 0.5 10*3/uL (0.1-1.0); MONO % 5.2 % (3.0-9.0); NEUT % 87.5 % (47.0-73.0); PLATELET COUNT AUTOMATED 327 10*3/uL (130-400); RED BLOOD COUNT 4.03 10*6/uL (4.10-5.10); RED CELL DISTRI WIDTH 13.9 % (0-14.5); WHITE BLOOD COUNT 9.2 10*3/uL (4.8-10.8)
[2021-10-31 07:10] LABS: CHLORIDE 96 mmol/L (98-107); POTASSIUM 4.2 mmol/L (3.5-5.1); SODIUM 137 mmol/L (136-145)
[2021-10-31 07:15] LABS: BUN 36 mg/dl (7-24)
[2021-10-31 08:00] VITALS: BP 129/65
[2021-10-31 12:00] VITALS: BP 133/60
[2021-10-31 16:00] VITALS: BP 123/56
[2021-10-31 20:00] VITALS: BP 123/63
[2021-11-01 00:01] VITALS: BP 134/74
[2021-11-01 06:39] LABS: BUN 28 mg/dl (7-24); CHLORIDE 98 mmol/L (98-107); CREATININE 0.62 mg/dL (0.55-1.02); POTASSIUM 4.7 mmol/L (3.5-5.1); SODIUM 134 mmol/L (136-145)
[2021-11-01 06:43] LABS: BASO % 0.2 % (0.0-1.0); LYMPH # 0.5 10*3/uL (1.3-4.4); LYMPH % 5.7 % (27.0-41.0); MEAN CELL VOLUME 91.4 fl (81.0-99.0); MEAN CORPUSCULAR HGB 28.1 pg (27.0-31.0); MEAN CORPUSCULAR HGB CONC 30.8 g/dl (33.0-37.0); MEAN PLATELET VOLUME 10.7 fl (9.6-12.3); MONO # 0.6 10*3/uL (0.1-1.0); MONO % 6.1 % (3.0-9.0); NEUT # 8.2 10*3/uL (2.3-7.9); NEUT % 86.4 % (47.0-73.0); RED BLOOD COUNT 4.05 10*6/uL (4.10-5.10); RED CELL DISTRI WIDTH 13.8 % (0-14.5); WHITE BLOOD COUNT 9.4 10*3/uL (4.8-10.8)
[2021-11-01 06:44] LABS: PLATELET COUNT AUTOMATED 207 10*3/uL (130-400)
[2021-11-01 08:00] VITALS: BP 128/69
[2021-11-01 12:00] VITALS: BP 128/60
[2021-11-01 16:00] VITALS: BP 128/52
[2021-11-01 20:00] VITALS: BP 117/52
[2021-11-02] VITALS: BP 142/76
[2021-11-02] MEDS ORDERED: DILTIAZEM CD240 MG PO (01:02)
[2021-11-02 07:10] LABS: BASO % 0.3 % (0.0-1.0); HEMATOCRIT 38.4 % (37.0-47.0); LYMPH # 0.6 10*3/uL (1.3-4.4); LYMPH % 5.2 % (27.0-41.0); MEAN CORPUSCULAR HGB CONC 30.7 g/dl (33.0-37.0); MEAN PLATELET VOLUME 9.2 fl (9.6-12.3); MONO # 0.5 10*3/uL (0.1-1.0); MONO % 4.7 % (3.0-9.0); NEUT # 9.7 10*3/uL (2.3-7.9); NEUT % 87.2 % (47.0-73.0); PLATELET COUNT AUTOMATED 318 10*3/uL (130-400); RED BLOOD COUNT 4.22 10*6/uL (4.10-5.10); WHITE BLOOD COUNT 11.2 10*3/uL (4.8-10.8)
[2021-11-02 07:11] LABS: BUN 26 mg/dl (7-24); CHLORIDE 95 mmol/L (98-107); CREATININE 0.52 mg/dL (0.55-1.02); POTASSIUM 4.7 mmol/L (3.5-5.1); SODIUM 134 mmol/L (136-145)
[2021-11-02 07:33] VITALS: BP 128/80
[2021-11-02] MEDS ORDERED: XARE20MG PO (11:34)
[2021-11-02] MEDS ORDERED: METOPROLOL TART50 M1 PO (11:34)
[2021-11-02] MEDS ORDERED: PREDNISONE10 MG PO (11:34)
[2021-11-02] MEDS ORDERED: CARDIZEM CD180 MG PO (11:34)
[2021-11-02 12:26] VITALS: BP 132/62
== END 2021-11-02 15:30 | disposition home or self-care (01) | DRG 871 ==
LOC: ED 12:44 → 4E 16:07 → EDHOLD 16:07 → 4E 20:56
PROVIDERS: Family Medicine; Internal Medicine; Internal Medicine Critical Care Medicine; Nurse Practitioner Family; Registered Nurse; ADMIT Internal Medicine; ATTEND Internal Medicine
PROC: 5A09357 Assistance with Respiratory Ventilation, Less than 24 Consecutive Hours, Continuous Positive Airway Pressure (ICD-10-PCS; 2021-10-23)
PROC: 5A09357 Assistance with Respiratory Ventilation, Less than 24 Consecutive Hours, Continuous Positive Airway Pressure (ICD-10-PCS; 2021-10-25)
PROC: 5A09357 Assistance with Respiratory Ventilation, Less than 24 Consecutive Hours, Continuous Positive Airway Pressure (ICD-10-PCS; 2021-10-26)
PROC: 5A09357 Assistance with Respiratory Ventilation, Less than 24 Consecutive Hours, Continuous Positive Airway Pressure (ICD-10-PCS; 2021-10-27)
PROC: 5A09357 Assistance with Respiratory Ventilation, Less than 24 Consecutive Hours, Continuous Positive Airway Pressure (ICD-10-PCS; 2021-10-28)
PROC: 5A09357 Assistance with Respiratory Ventilation, Less than 24 Consecutive Hours, Continuous Positive Airway Pressure (ICD-10-PCS; 2021-10-29)
PROC: B24BZZ4 Ultrasonography of Heart with Aorta, Transesophageal (ICD-10-PCS; principal; 2021-10-30)
PROC: 5A2204Z Restoration of Cardiac Rhythm, Single (ICD-10-PCS; 2021-10-30)
PROC: 5A09357 Assistance with Respiratory Ventilation, Less than 24 Consecutive Hours, Continuous Positive Airway Pressure (ICD-10-PCS; 2021-10-30)
PROC: 5A09357 Assistance with Respiratory Ventilation, Less than 24 Consecutive Hours, Continuous Positive Airway Pressure (ICD-10-PCS; 2021-10-31)
PROC: 5A09357 Assistance with Respiratory Ventilation, Less than 24 Consecutive Hours, Continuous Positive Airway Pressure (ICD-10-PCS; 2021-11-02)
DX: A41.9 Sepsis, unspecified organism (principal); J18.9 Pneumonia, unspecified organism; I50.33 Acute on chronic diastolic (congestive) heart failure; J96.21 Acute and chronic respiratory failure with hypoxia; J96.22 Acute and chronic respiratory failure with hypercapnia; J44.1 Chronic obstructive pulmonary disease with (acute) exacerbation; J44.0 Chronic obstructive pulmonary disease with (acute) lower respiratory infection; I48.92 Unspecified atrial flutter; J45.901 Unspecified asthma with (acute) exacerbation; E87.3 Alkalosis; J98.11 Atelectasis; R65.20 Severe sepsis without septic shock; I48.0 Paroxysmal atrial fibrillation; Z20.822 Contact with and (suspected) exposure to COVID-19; I11.0 Hypertensive heart disease with heart failure; E11.65 Type 2 diabetes mellitus with hyperglycemia; E78.2 Mixed hyperlipidemia; I25.10 Atherosclerotic heart disease of native coronary artery without angina pectoris; G47.33 Obstructive sleep apnea (adult) (pediatric); Z90.49 Acquired absence of other specified parts of digestive tract; Z82.3 Family history of stroke; Z79.51 Long term (current) use of inhaled steroids; Z79.899 Other long term (current) drug therapy; Z68.24 Body mass index [BMI] 24.0-24.9, adult

== ENCOUNTER 2022-01-07 20:19 | Inpatient (IN) | payer MEDICARE ==
[~2022-01-07] VITALS: Ht 165.1 cm; Wt 66.5 kg
[~2022-01-07 20:19] MED LIST changes: +CARDIZEM CD180 MG PO; +FLECAINIDE ACE100 M1 PO; +FUROSEMIDE20 M1 PO; +Humalog SQ; +METOPROLOL SUCC50 M1 PO
[2022-01-07 20:22] VITALS: BP 118/55
[2022-01-07 20:35] LABS: BASO % 0.2 % (0.0-1.0); HEMATOCRIT 35.7 % (37.0-47.0); LYMPH # 0.6 10*3/uL (1.3-4.4); LYMPH % 7.7 % (27.0-41.0); MEAN CELL VOLUME 98.3 fl (81.0-99.0); MEAN CORPUSCULAR HGB 28.7 pg (27.0-31.0); MEAN CORPUSCULAR HGB CONC 29.1 g/dl (33.0-37.0); MEAN PLATELET VOLUME 9.5 fl (9.6-12.3); MONO # 0.5 10*3/uL (0.1-1.0); MONO % 5.5 % (3.0-9.0); NEUT # 6.9 10*3/uL (2.3-7.9); NEUT % 84.3 % (47.0-73.0); PLATELET COUNT AUTOMATED 239 10*3/uL (130-400); RED BLOOD COUNT 3.63 10*6/uL (4.10-5.10); WHITE BLOOD COUNT 8.2 10*3/uL (4.8-10.8)
[2022-01-07 20:50] LABS: ACT PARTIAL THROMBO TIME 30.1 SECONDS (20.0-32.1); INTERNATIONAL NORM RATIO 1.1 (2.0-3.5)
[2022-01-07 20:54] LABS: ALKALINE PHOSPHATASE 65 U/L (45-117); BUN 19 mg/dl (7-24); CHLORIDE 95 mmol/L (98-107); CREATININE 0.87 mg/dL (0.55-1.02); POTASSIUM 4.1 mmol/L (3.5-5.1); SGOT/AST 10 IU/L (3-35); SGPT/ALT 41 U/L (12-78); SODIUM 138 mmol/L (136-145); TOTAL PROTEIN 6.1 gm/dL (6.4-8.2)
[2022-01-07 21:21] LABS: BILIRUBIN Negative (Negative); BLOOD Negative (Negative); CLARITY Clear (Clear); COLOR Yellow (Yellow); GLUCOSE 2+ (Negative); KETONE Negative (Negative); LEUKO ESTERASE Negative (Negative); NITRITE Negative (Negative); PH 6.5 (4.5-8.0)
[2022-01-07 21:30] LABS: BACTERIA TRACE; EPITHELIAL CELLS 0-2; WBC 0-2 wbc/hpf (0-5)
[2022-01-07 23:37] VITALS: BP 128/68
[2022-01-08 00:58] VITALS: BP 131/73
[2022-01-08 01:09] LABS: ABG BASE EXCESS 15.3 mmol/L (-2.0-2.0); ARTERIAL BLOOD GAS PH 7.369 (7.35-7.45); ARTERIAL BLOOD GAS PO2 131.7 (80-90)
[2022-01-08 01:20] VITALS: BP 121/71
[2022-01-08 06:04] LABS: ALBUMIN 2.8 gm/dl (3.1-4.5); ALKALINE PHOSPHATASE 58 U/L (45-117); BUN 16 mg/dl (7-24); CHLORIDE 96 mmol/L (98-107); CREATININE 0.66 mg/dL (0.55-1.02); SGOT/AST 8 IU/L (3-35); SGPT/ALT 35 U/L (12-78); SODIUM 139 mmol/L (136-145)
[2022-01-08 06:26] LABS: BASO % 0.3 % (0.0-1.0); LYMPH # 0.8 10*3/uL (1.3-4.4); LYMPH % 10.4 % (27.0-41.0); MEAN CELL VOLUME 98.6 fl (81.0-99.0); MEAN CORPUSCULAR HGB 28.7 pg (27.0-31.0); MEAN CORPUSCULAR HGB CONC 29.1 g/dl (33.0-37.0); MEAN PLATELET VOLUME 9.7 fl (9.6-12.3); MONO # 0.5 10*3/uL (0.1-1.0); NEUT # 6.3 10*3/uL (2.3-7.9); NEUT % 81.4 % (47.0-73.0); NUCLEATED RED BLOOD CELL 0.3 % (0.0-0.0); PLATELET COUNT AUTOMATED 224 10*3/uL (130-400); RED BLOOD COUNT 3.55 10*6/uL (4.10-5.10); RED CELL DISTRI WIDTH 14.9 % (0-14.5); WHITE BLOOD COUNT 7.8 10*3/uL (4.8-10.8)
[2022-01-08 07:38] LABS: ABG BASE EXCESS 11.7 mmol/L (-2.0-2.0); ARTERIAL BLOOD GAS PH 7.371 (7.35-7.45); ARTERIAL BLOOD GAS PO2 70.8 (80-90)
[2022-01-08 08:00] VITALS: BP 130/64
[2022-01-08 12:00] VITALS: BP 123/67
[2022-01-08 16:00] VITALS: BP 119/59
[2022-01-08 20:00] VITALS: BP 116/64
[2022-01-09] VITALS: BP 104/54
[2022-01-09 06:47] LABS: BASO % 0.1 % (0.0-1.0); HEMATOCRIT 34.3 % (37.0-47.0); LYMPH # 1.2 10*3/uL (1.3-4.4); LYMPH % 10.8 % (27.0-41.0); MEAN CELL VOLUME 95.8 fl (81.0-99.0); MEAN CORPUSCULAR HGB 28.8 pg (27.0-31.0); MEAN PLATELET VOLUME 9.7 fl (9.6-12.3); MONO # 1.2 10*3/uL (0.1-1.0); MONO % 10.8 % (3.0-9.0); NEUT # 8.4 10*3/uL (2.3-7.9); NEUT % 77.2 % (47.0-73.0); PLATELET COUNT AUTOMATED 258 10*3/uL (130-400); RED BLOOD COUNT 3.58 10*6/uL (4.10-5.10); RED CELL DISTRI WIDTH 15.2 % (0-14.5); WHITE BLOOD COUNT 10.8 10*3/uL (4.8-10.8)
[2022-01-09 07:08] LABS: BUN 18 mg/dl (7-24); CHLORIDE 95 mmol/L (98-107); POTASSIUM 3.8 mmol/L (3.5-5.1); SODIUM 138 mmol/L (136-145)
[2022-01-09 07:09] LABS: CREATININE 0.64 mg/dL (0.55-1.02)
[2022-01-09 08:00] VITALS: BP 116/56
[2022-01-09 09:16] LABS: ARTERIAL BLOOD GAS PH 7.433 (7.35-7.45); ARTERIAL BLOOD GAS PO2 81.4 (80-90)
[2022-01-09] MEDS ORDERED: METOPROLOL SUCC25 M2 PO (11:20)
[2022-01-09 12:00] VITALS: BP 102/50
[2022-01-09] MEDS ORDERED: LEVOFLOXACIN750 M2 PO (13:32)
== END 2022-01-09 13:45 | DRG 193 ==
LOC: ED 20:19 → EDHOLD 01-08 00:06 → 4E 01-08 00:06
PROVIDERS: Emergency Medicine; Internal Medicine; ADMIT Student in an Organized Health Care Education/Training Program; ATTEND Student in an Organized Health Care Education/Training Program
PROC: 5A09357 Assistance with Respiratory Ventilation, Less than 24 Consecutive Hours, Continuous Positive Airway Pressure (ICD-10-PCS; principal; 2022-01-08)
PROC: 5A09357 Assistance with Respiratory Ventilation, Less than 24 Consecutive Hours, Continuous Positive Airway Pressure (ICD-10-PCS; 2022-01-09)
DX: J18.9 Pneumonia, unspecified organism (principal); J96.21 Acute and chronic respiratory failure with hypoxia; G93.41 Metabolic encephalopathy; J96.22 Acute and chronic respiratory failure with hypercapnia; E44.1 Mild protein-calorie malnutrition; I50.32 Chronic diastolic (congestive) heart failure; J43.9 Emphysema, unspecified; Z66 Do not resuscitate; Z51.5 Encounter for palliative care; D64.9 Anemia, unspecified; I25.10 Atherosclerotic heart disease of native coronary artery without angina pectoris; E11.65 Type 2 diabetes mellitus with hyperglycemia; E87.8 Other disorders of electrolyte and fluid balance, not elsewhere classified; I11.0 Hypertensive heart disease with heart failure; G47.33 Obstructive sleep apnea (adult) (pediatric); E78.2 Mixed hyperlipidemia; E55.9 Vitamin D deficiency, unspecified; Z99.81 Dependence on supplemental oxygen; Z87.891 Personal history of nicotine dependence; Z86.73 Personal history of transient ischemic attack (TIA), and cerebral infarction without residual deficits; Z90.49 Acquired absence of other specified parts of digestive tract; Z82.3 Family history of stroke; Z79.51 Long term (current) use of inhaled steroids; Z79.84 Long term (current) use of oral hypoglycemic drugs; Z79.899 Other long term (current) drug therapy; Z68.24 Body mass index [BMI] 24.0-24.9, adult

== ENCOUNTER 2022-03-30 22:27 | Inpatient (IN) | payer MEDICARE ==
[~2022-03-30] VITALS: Ht 162.5 cm; Wt 65.1 kg
[~2022-03-30 22:27] MED LIST changes: -BUPROPION HCL150 M1 PO; +METOPROLOL SUCC25 M2 PO
[2022-03-30 22:29] VITALS: BP 127/72
[2022-03-31 00:16] LABS: HEMATOCRIT 36.2 % (37.0-47.0); LYMPH # 1.7 10*3/uL (1.3-4.4); LYMPH % 20.3 % (27.0-41.0); MEAN CELL VOLUME 92.8 fl (81.0-99.0); MEAN CORPUSCULAR HGB 27.9 pg (27.0-31.0); MEAN CORPUSCULAR HGB CONC 30.1 g/dl (33.0-37.0); MEAN PLATELET VOLUME 9.2 fl (9.6-12.3); MONO # 0.9 10*3/uL (0.1-1.0); MONO % 10.8 % (3.0-9.0); NEUT # 5.7 10*3/uL (2.3-7.9); NEUT % 68.7 % (47.0-73.0); PLATELET COUNT AUTOMATED 232 10*3/uL (130-400); RED CELL DISTRI WIDTH 14.2 % (0-14.5); WHITE BLOOD COUNT 8.3 10*3/uL (4.8-10.8)
[2022-03-31 00:36] LABS: ALKALINE PHOSPHATASE 81 U/L (45-117); BUN 21 mg/dl (7-24); CHLORIDE 98 mmol/L (98-107); CREATININE 0.83 mg/dL (0.55-1.02); POTASSIUM 4.5 mmol/L (3.5-5.1); SGOT/AST 20 IU/L (3-35); SGPT/ALT 28 U/L (12-78); SODIUM 141 mmol/L (136-145); TOTAL PROTEIN 6.6 gm/dL (6.4-8.2)
[2022-03-31 02:55] LABS: ABG BASE EXCESS 9.8 mmol/L (-2.0-2.0); ARTERIAL BLOOD GAS PH 7.26 (7.35-7.45); ARTERIAL BLOOD GAS PO2 93.6 (80-90)
[2022-03-31 04:46] VITALS: BP 124/68
[2022-03-31 05:56] LABS: BUN 22 mg/dl (7-24); CHLORIDE 96 mmol/L (98-107); CREATININE 0.86 mg/dL (0.55-1.02); FREE T4 0.97 ng/dl (0.76-1.46); POTASSIUM 4.8 mmol/L (3.5-5.1); SODIUM 137 mmol/L (136-145)
[2022-03-31 06:25] LABS: HEMATOCRIT 37.5 % (37.0-47.0); LYMPH # 0.6 10*3/uL (1.3-4.4); LYMPH % 7.9 % (27.0-41.0); MEAN CELL VOLUME 93.3 fl (81.0-99.0); MEAN CORPUSCULAR HGB 27.9 pg (27.0-31.0); MEAN CORPUSCULAR HGB CONC 29.9 g/dl (33.0-37.0); MONO # 0.1 10*3/uL (0.1-1.0); MONO % 1.8 % (3.0-9.0); NEUT # 6.6 10*3/uL (2.3-7.9); NEUT % 89.9 % (47.0-73.0); PLATELET COUNT AUTOMATED 240 10*3/uL (130-400); RED BLOOD COUNT 4.02 10*6/uL (4.10-5.10); WHITE BLOOD COUNT 7.3 10*3/uL (4.8-10.8)
[2022-03-31 08:12] VITALS: BP 115/67
[2022-03-31] MEDS ORDERED: MIRALAX POWDER17 G1 PO (08:23)
[2022-03-31] MEDS ORDERED: BUSPAR15 MG PO (08:31)
[2022-03-31 12:43] VITALS: BP 111/67
[2022-03-31 16:14] VITALS: BP 118/79
[2022-03-31 18:26] VITALS: BP 119/66
[2022-03-31 20:00] VITALS: BP 119/60
[2022-03-31 23:23] LABS: ABG BASE EXCESS 6.2 mmol/L (-2.0-2.0); ARTERIAL BLOOD GAS PH 7.394 (7.35-7.45); ARTERIAL BLOOD GAS PO2 70.1 (80-90)
[2022-04-01] VITALS: BP 129/70
[2022-04-01 05:31] LABS: BUN 24 mg/dl (7-24); CHLORIDE 97 mmol/L (98-107); CREATININE 0.84 mg/dL (0.55-1.02); SODIUM 137 mmol/L (136-145)
[2022-04-01 06:25] LABS: HEMATOCRIT 34.2 % (37.0-47.0); LYMPH # 0.6 10*3/uL (1.3-4.4); LYMPH % 6.2 % (27.0-41.0); MEAN CELL VOLUME 91.4 fl (81.0-99.0); MEAN CORPUSCULAR HGB 27.8 pg (27.0-31.0); MEAN CORPUSCULAR HGB CONC 30.4 g/dl (33.0-37.0); MEAN PLATELET VOLUME 9.8 fl (9.6-12.3); MONO # 0.7 10*3/uL (0.1-1.0); MONO % 6.9 % (3.0-9.0); NEUT # 8.6 10*3/uL (2.3-7.9); NEUT % 86.3 % (47.0-73.0); PLATELET COUNT AUTOMATED 248 10*3/uL (130-400); RED BLOOD COUNT 3.74 10*6/uL (4.10-5.10)
[2022-04-01 08:00] VITALS: BP 127/64
[2022-04-01 12:00] VITALS: BP 107/51
[2022-04-01 16:00] VITALS: BP 106/51
[2022-04-01 20:00] VITALS: BP 111/57
[2022-04-02] VITALS: BP 111/61
[2022-04-02 05:59] LABS: BUN 30 mg/dl (7-24); CHLORIDE 98 mmol/L (98-107); CREATININE 0.93 mg/dL (0.55-1.02); POTASSIUM 3.9 mmol/L (3.5-5.1); SODIUM 136 mmol/L (136-145)
[2022-04-02 06:18] LABS: BASO % 0.1 % (0.0-1.0); HEMATOCRIT 35.1 % (37.0-47.0); LYMPH # 0.7 10*3/uL (1.3-4.4); LYMPH % 6.6 % (27.0-41.0); MEAN CELL VOLUME 91.6 fl (81.0-99.0); MEAN CORPUSCULAR HGB CONC 31.6 g/dl (33.0-37.0); MONO # 0.7 10*3/uL (0.1-1.0); NEUT # 8.4 10*3/uL (2.3-7.9); NEUT % 85.7 % (47.0-73.0); PLATELET COUNT AUTOMATED 265 10*3/uL (130-400); RED BLOOD COUNT 3.83 10*6/uL (4.10-5.10); RED CELL DISTRI WIDTH 14.3 % (0-14.5); WHITE BLOOD COUNT 9.9 10*3/uL (4.8-10.8)
[2022-04-02 07:38] LABS: ABG BASE EXCESS 8.5 mmol/L (-2.0-2.0); ARTERIAL BLOOD GAS PH 7.386 (7.35-7.45); ARTERIAL BLOOD GAS PO2 125.9 (80-90)
[2022-04-02 08:00] VITALS: BP 122/62
[2022-04-02 12:00] VITALS: BP 120/71
[2022-04-02 15:24] VITALS: BP 115/65
[2022-04-02 20:00] VITALS: BP 114/56
[2022-04-03] VITALS: BP 120/75
[2022-04-03 05:42] LABS: CHLORIDE 100 mmol/L (98-107); POTASSIUM 3.8 mmol/L (3.5-5.1); SODIUM 140 mmol/L (136-145)
[2022-04-03 05:46] LABS: BUN 31 mg/dl (7-24); CREATININE 0.95 mg/dL (0.55-1.02)
[2022-04-03 06:08] LABS: BASO % 0.2 % (0.0-1.0); HEMATOCRIT 34.2 % (37.0-47.0); LYMPH # 0.8 10*3/uL (1.3-4.4); MEAN CELL VOLUME 92.4 fl (81.0-99.0); MEAN CORPUSCULAR HGB 28.6 pg (27.0-31.0); MEAN PLATELET VOLUME 9.7 fl (9.6-12.3); MONO # 0.8 10*3/uL (0.1-1.0); MONO % 9.2 % (3.0-9.0); NEUT # 7.3 10*3/uL (2.3-7.9); NEUT % 80.4 % (47.0-73.0); PLATELET COUNT AUTOMATED 259 10*3/uL (130-400); RED CELL DISTRI WIDTH 14.5 % (0-14.5); WHITE BLOOD COUNT 9.1 10*3/uL (4.8-10.8)
[2022-04-03 08:00] VITALS: BP 133/70
[2022-04-03] MEDS ORDERED: LEVOFLOXACIN500 MG PO (10:04)
[2022-04-03] MEDS ORDERED: MUCINEX ER600 MG PO (10:04)
[2022-04-03] MEDS ORDERED: PREDNISONE10 MG PO (10:04)
[2022-04-03] MEDS ORDERED: ACETAZOLAMIDE250 MG PO (10:04)
== END 2022-04-03 13:55 | disposition home or self-care (01) | DRG 189 ==
LOC: ED 22:27 → 4E 03-31 03:20 → EDHOLD 03-31 03:20 → 4E 03-31 16:13
PROVIDERS: Emergency Medicine; Hospitalist; Internal Medicine; Student in an Organized Health Care Education/Training Program; ADMIT Internal Medicine; ATTEND Internal Medicine
PROC: 5A09357 Assistance with Respiratory Ventilation, Less than 24 Consecutive Hours, Continuous Positive Airway Pressure (ICD-10-PCS; principal; 2022-03-31)
PROC: 5A0935A Assistance with Respiratory Ventilation, Less than 24 Consecutive Hours, High Flow/Velocity Cannula (ICD-10-PCS; 2022-03-31)
PROC: 5A0935A Assistance with Respiratory Ventilation, Less than 24 Consecutive Hours, High Flow/Velocity Cannula (ICD-10-PCS; 2022-04-02)
DX: J96.21 Acute and chronic respiratory failure with hypoxia (principal); G93.41 Metabolic encephalopathy; J44.1 Chronic obstructive pulmonary disease with (acute) exacerbation; E44.0 Moderate protein-calorie malnutrition; I50.32 Chronic diastolic (congestive) heart failure; E87.3 Alkalosis; J96.22 Acute and chronic respiratory failure with hypercapnia; Z66 Do not resuscitate; G47.33 Obstructive sleep apnea (adult) (pediatric); Z96.1 Presence of intraocular lens; E78.2 Mixed hyperlipidemia; I48.0 Paroxysmal atrial fibrillation; I25.10 Atherosclerotic heart disease of native coronary artery without angina pectoris; E11.65 Type 2 diabetes mellitus with hyperglycemia; I11.0 Hypertensive heart disease with heart failure; I08.0 Rheumatic disorders of both mitral and aortic valves; Z90.49 Acquired absence of other specified parts of digestive tract; Z98.42 Cataract extraction status, left eye; Z98.41 Cataract extraction status, right eye

== ENCOUNTER → 2023-05-04 | Outpatient (CLI) | payer MEDICARE ==
[~2023-05-04] MED LIST changes: +CARDIZEM CD120 M2 PO; +COLACE100 MG PO; +DOCUSATE SOD100 MG PO; -GLUCOPHAGE500 M1 PO; +GLUCOPHAGE500 MG PO; +METFORMIN HCL500 M2 PO; +MIRALAX POWDER17 G1 PO; +VIBRA-TAB100 MG PO
== END | disposition home or self-care (01) ==
LOC: RESCLI 01:01
PROVIDERS: ATTEND Family Medicine
DX: I48.0 Paroxysmal atrial fibrillation (principal); E11.9 Type 2 diabetes mellitus without complications; J96.11 Chronic respiratory failure with hypoxia; I11.0 Hypertensive heart disease with heart failure; I50.32 Chronic diastolic (congestive) heart failure; J44.9 Chronic obstructive pulmonary disease, unspecified; Z79.01 Long term (current) use of anticoagulants; Z79.899 Other long term (current) drug therapy

== ENCOUNTER → 2024-04-30 | Outpatient (CLI) | payer MEDICARE | END | disposition home or self-care (01) | LOC: RESCLI 02:54 | PROVIDERS: ATTEND Internal Medicine | DX: I48.0 Paroxysmal atrial fibrillation (principal); I50.32 Chronic diastolic (congestive) heart failure; F33.0 Major depressive disorder, recurrent, mild; E11.9 Type 2 diabetes mellitus without complications; E63.9 Nutritional deficiency, unspecified; J96.11 Chronic respiratory failure with hypoxia; Z79.899 Other long term (current) drug therapy; Z87.891 Personal history of nicotine dependence; Z98.890 Other specified postprocedural states; J44.9 Chronic obstructive pulmonary disease, unspecified; G47.33 Obstructive sleep apnea (adult) (pediatric) ==

== ENCOUNTER 2024-08-07 12:24 | Inpatient (IN) | payer MEDICARE ==
[~2024-08-07] VITALS: Ht 165.1 cm; Wt 77.6 kg
[2024-08-07 12:38] VITALS: BP 117/61
[2024-08-07] MEDS ORDERED: methylPREDNISolone sod succ 40 MG VIAL IV ONE (13:00)
[2024-08-07] MEDS ORDERED: Albuterol Sulf/Ipratropium 3 ML VIAL NEB ONE (13:00)
[2024-08-07 13:09] LABS: BASO % 0.2 % (0.0-1.0); HEMATOCRIT 37.8 % (37.0-47.0); LYMPH # 0.9 10*3/uL (1.3-4.4); LYMPH % 15.2 % (27.0-41.0); MEAN CELL VOLUME 96.2 fl (81.0-99.0); MEAN CORPUSCULAR HGB 28.8 pg (27.0-31.0); MEAN CORPUSCULAR HGB CONC 29.9 g/dl (33.0-37.0); MEAN PLATELET VOLUME 8.8 fl (9.6-12.3); MONO # 0.6 10*3/uL (0.1-1.0); MONO % 9.7 % (3.0-9.0); NEUT # 4.5 10*3/uL (2.3-7.9); NEUT % 73.9 % (47.0-73.0); PLATELET COUNT AUTOMATED 230 10*3/uL (130-400); RED BLOOD COUNT 3.93 10*6/uL (4.10-5.10); RED CELL DISTRI WIDTH 14.4 % (0-14.5); WHITE BLOOD COUNT 6.1 10*3/uL (4.8-10.8)
[2024-08-07 13:22] LABS: ACT PARTIAL THROMBO TIME 27.6 SECONDS (20.0-32.1)
[2024-08-07 13:32] LABS: ALKALINE PHOSPHATASE 80 U/L (46-116); BUN 13 mg/dl (9-23); CHLORIDE 100 mmol/L (98-107); POTASSIUM 4.4 mmol/L (3.4-5.1); SGPT/ALT 14 U/L (5-49); TOTAL PROTEIN 6.8 gm/dL (6.0-8.0)
[2024-08-07 13:42] LABS: ABG O2 SATURATION 91.7 % (94.0-98.0); ARTERIAL BLOOD GAS PH 7.31 (7.350-7.450); ARTERIAL BLOOD GAS PO2 63.4 mmHg (83.0-108.0)
[2024-08-07 13:51] LABS: ABG BASE EXCESS 6.9 mmol/L (-2.0-3.0)
[2024-08-07] MEDS ORDERED: ACETAMINOPHEN 650 MG SUPP R PRN (15:20)
[2024-08-07] MEDS ORDERED: Ondansetron Hydrochloride 4 MG/2 ML VIAL IV PRN (15:20)
[2024-08-07] MEDS ORDERED: Magnesium Hydroxide 30 ML UDC PO PRN (15:20)
[2024-08-07] MEDS ORDERED: BISACODYL 10 MG SUPP R PRN (15:20)
[2024-08-07] MEDS ORDERED: ACETAMINOPHEN 325 MG TAB PO PRN (15:20)
[2024-08-07] MEDS ORDERED: BISACODYL 5 MG TAB PO PRN (15:20)
[2024-08-07] MEDS ORDERED: Albuterol Sulf/Ipratropium 3 ML VIAL NEB SCH (15:25)
[2024-08-07] MEDS ORDERED: Ceftriaxone Sodium 10 ML IV ONE (15:40)
[2024-08-07] MEDS ORDERED: FUROSEMIDE 20 MG/2 ML VIAL IV ONE (16:35)
[2024-08-07] MEDS ORDERED: AZITHROMYCIN 250 ML IV SCH (17:00)
[2024-08-07] MEDS ORDERED: BUSPAR15 MG PO (18:21)
[2024-08-07] MEDS ORDERED: BUPROPION HCL150 M3 PO (18:21)
[2024-08-07] MEDS ORDERED: POTASSIUM CHLO10 ME5 PO (18:23)
[2024-08-07] MEDS ORDERED: DEXTROSE 10 % IN WATER 250 ML IV PRN (18:25)
[2024-08-07 22:00] VITALS: BP 127/52
[2024-08-07] MEDS ORDERED: INSULIN LISPRO 1 UNIT/0.01 ML SQ SCH (22:00)
[2024-08-07] MEDS ORDERED: POTASSIUM CHLORIDE 10 MEQ TAB PO SCH (22:00)
[2024-08-07] MEDS ORDERED: methylPREDNISolone sod succ 40 MG VIAL IV SCH (22:00)
[2024-08-07] MEDS ORDERED: busPIRone Hydrochloride 15 MG TAB PO SCH (22:00)
[2024-08-07] MEDS ORDERED: GUAIFENESIN 600 MG TAB ER PO SCH (22:00)
[2024-08-07] MEDS ORDERED: PRESERVISION A1 EAC7 PO (23:41)
[2024-08-08 06:14] LABS: BASO % 0.3 % (0.0-1.0); HEMATOCRIT 35.8 % (37.0-47.0); LYMPH # 0.6 10*3/uL (1.3-4.4); LYMPH % 9.5 % (27.0-41.0); MEAN CELL VOLUME 95.2 fl (81.0-99.0); MEAN CORPUSCULAR HGB 28.7 pg (27.0-31.0); MEAN CORPUSCULAR HGB CONC 30.2 g/dl (33.0-37.0); MEAN PLATELET VOLUME 9.4 fl (9.6-12.3); MONO # 0.2 10*3/uL (0.1-1.0); MONO % 2.9 % (3.0-9.0); NEUT # 5.3 10*3/uL (2.3-7.9); NEUT % 86.5 % (47.0-73.0); PLATELET COUNT AUTOMATED 252 10*3/uL (130-400); RED BLOOD COUNT 3.76 10*6/uL (4.10-5.10); RED CELL DISTRI WIDTH 14.5 % (0-14.5); WHITE BLOOD COUNT 6.2 10*3/uL (4.8-10.8)
[2024-08-08 08:00] VITALS: BP 145/70
[2024-08-08 08:17] LABS: BUN 15 mg/dl (9-23); CHLORIDE 98 mmol/L (98-107); POTASSIUM 4.7 mmol/L (3.4-5.1)
[2024-08-08] MEDS ORDERED: PRESERVISION A1 EAC3 PO (09:34)
[2024-08-08] MEDS ORDERED: VORTIOXETINE HYDROBROMIDE 10 MG TAB PO SCH (10:00)
[2024-08-08] MEDS ORDERED: buPROPion SR 150 MG TAB PO SCH (10:00)
[2024-08-08] MEDS ORDERED: RIVAROXABAN 20 MG TAB PO SCH (10:00)
[2024-08-08] MEDS ORDERED: METOPROLOL SUCCINATE XR 25 MG TAB PO SCH (10:00)
[2024-08-08] MEDS ORDERED: DILTIAZEM CD 120 MG CAP PO SCH (10:00)
[2024-08-08] MEDS ORDERED: FUROSEMIDE 20 MG TAB PO SCH (10:00)
[2024-08-08 12:00] VITALS: BP 133/67
[2024-08-08] MEDS ORDERED: Albuterol Sulfate 2.5 MG/3 ML VIAL NEB SCH (14:00)
[2024-08-08 16:00] VITALS: BP 135/65
[2024-08-08] MEDS ORDERED: Ceftriaxone Sodium 1 GM in SYRINGE INFUSION 10 ML IV SCH (16:00)
[2024-08-08 20:00] VITALS: BP 134/62
[2024-08-08 20:11] LABS: BILIRUBIN Negative (Negative); BLOOD Negative (Negative); CLARITY Clear (Clear); COLOR Yellow (Yellow); GLUCOSE Negative (Negative); KETONE Negative (Negative); LEUKO ESTERASE Negative (Negative); NITRITE Negative (Negative); UROBILINOGEN 0.2 E.U./dl (0.0-1.0)
[2024-08-08 22:57] LABS: ABG O2 SATURATION 67.2 % (94.0-98.0); ARTERIAL BLOOD GAS PH 7.283 (7.350-7.450)
[2024-08-08 22:58] LABS: ABG BASE EXCESS 10.1 mmol/L (-2.0-3.0)
[2024-08-08 23:00] LABS: ARTERIAL BLOOD GAS PO2 37.3 mmHg (83.0-108.0)
[2024-08-09] VITALS: BP 132/74
[2024-08-09 06:20] LABS: BASO % 0.2 % (0.0-1.0); LYMPH # 0.6 10*3/uL (1.3-4.4); LYMPH % 5.5 % (27.0-41.0); MEAN CELL VOLUME 96.4 fl (81.0-99.0); MEAN CORPUSCULAR HGB 29.2 pg (27.0-31.0); MEAN CORPUSCULAR HGB CONC 30.3 g/dl (33.0-37.0); MONO # 0.5 10*3/uL (0.1-1.0); MONO % 4.7 % (3.0-9.0); NEUT # 9.3 10*3/uL (2.3-7.9); NEUT % 88.5 % (47.0-73.0); PLATELET COUNT AUTOMATED 242 10*3/uL (130-400); RED BLOOD COUNT 3.63 10*6/uL (4.10-5.10); RED CELL DISTRI WIDTH 14.6 % (0-14.5); WHITE BLOOD COUNT 10.6 10*3/uL (4.8-10.8)
[2024-08-09 06:41] LABS: BUN 21 mg/dl (9-23); CHLORIDE 97 mmol/L (98-107); POTASSIUM 4.6 mmol/L (3.4-5.1)
[2024-08-09 07:11] LABS: ABG O2 SATURATION 92.2 % (94.0-98.0); ARTERIAL BLOOD GAS PH 7.316 (7.350-7.450); ARTERIAL BLOOD GAS PO2 64.2 mmHg (83.0-108.0)
[2024-08-09 07:14] LABS: ABG BASE EXCESS 9.2 mmol/L (-2.0-3.0)
[2024-08-09 08:00] VITALS: BP 129/67
[2024-08-09 12:00] VITALS: BP 143/86
[2024-08-09 16:00] VITALS: BP 130/75
[2024-08-09 20:09] VITALS: BP 132/71
[2024-08-10] VITALS: BP 140/78
[2024-08-10 08:00] VITALS: BP 123/79
[2024-08-10] MEDS ORDERED: DOXYCYCLINE HY100 M3 PO (11:19)
== END 2024-08-10 15:09 | disposition home or self-care (01) | DRG 196 ==
LOC: ED 12:24 → 4E 13:56 → EDHOLD 13:56 → 4E 21:07
PROVIDERS: Emergency Medicine; Internal Medicine Critical Care Medicine; Student in an Organized Health Care Education/Training Program; ADMIT Student in an Organized Health Care Education/Training Program; ATTEND Student in an Organized Health Care Education/Training Program
DX: J84.114 Acute interstitial pneumonitis (principal); J96.21 Acute and chronic respiratory failure with hypoxia; J96.22 Acute and chronic respiratory failure with hypercapnia; E87.3 Alkalosis; J44.1 Chronic obstructive pulmonary disease with (acute) exacerbation; I48.21 Permanent atrial fibrillation; I50.32 Chronic diastolic (congestive) heart failure; J45.901 Unspecified asthma with (acute) exacerbation; D64.9 Anemia, unspecified; I25.10 Atherosclerotic heart disease of native coronary artery without angina pectoris; I11.0 Hypertensive heart disease with heart failure; G47.33 Obstructive sleep apnea (adult) (pediatric); I48.0 Paroxysmal atrial fibrillation; Z66 Do not resuscitate; E11.65 Type 2 diabetes mellitus with hyperglycemia; E78.2 Mixed hyperlipidemia; H35.30 Unspecified macular degeneration; R53.81 Other malaise; Z86.73 Personal history of transient ischemic attack (TIA), and cerebral infarction without residual deficits; Z98.41 Cataract extraction status, right eye; Z82.3 Family history of stroke; Z98.42 Cataract extraction status, left eye; Z90.49 Acquired absence of other specified parts of digestive tract

== ENCOUNTER 2025-06-06 11:02 | Emergency (ER) | payer MEDICARE ==
[~2025-06-06] VITALS: Ht 165.1 cm; Wt 77.1 kg
[~2025-06-06 11:02] MED LIST changes: +BUPROPION HCL150 M3 PO; +DOXYCYCLINE HY100 M3 PO; +MUCUS RELIEF E600 MG PO; +POTASSIUM CHLO10 ME5 PO; +PRESERVISION A1 EAC3 PO; +PRESERVISION A1 EAC7 PO
[2025-06-06 11:12] VITALS: BP 121/82
[2025-06-06] MEDS ORDERED: AZITHROMYCIN 250 MG TAB PO ONE (11:20)
[2025-06-06] MEDS ORDERED: MAGNESIUM SULFATE 50 ML IV ONE (11:20)
[2025-06-06 11:39] LABS: BASO # 0.0 10*3/uL (0.0-0.1); BASO % 0.0 % (0.0-1.0); EOS # 0.0 10*3/uL (0.0-0.4); EOS % 0.0 % (1.0-4.0); MEAN CELL VOLUME 96.0 fl (81.0-99.0); MEAN CORPUSCULAR HGB 29.1 pg (27.0-31.0); MEAN PLATELET VOLUME 9.2 fl (9.6-12.3); MONO # 0.5 10*3/uL (0.1-1.0); MONO % 10.4 % (3.0-9.0); NEUT # 3.0 10*3/uL (2.3-7.9); NEUT % 64.7 % (47.0-73.0); NUCLEATED RED BLOOD CELL 0.0 % (0.0-0.0); NUCLEATED RED BLOOD CELL 0.0 10*3/uL (0.0-0.0); PLATELET COUNT AUTOMATED 183 10*3/uL (130-400); RED CELL DISTRI WIDTH 14.1 % (0-14.5)
[2025-06-06 11:59] LABS: BUN 19 mg/dl (9-23)
[2025-06-06] MEDS ORDERED: AVPAK AZITHROM250 M1 PO (12:22)
[2025-06-06] MEDS ORDERED: PREDNISONE20 M1 PO (12:22)
== END 2025-06-06 12:27 | disposition home or self-care (01) ==
LOC: ED 11:02
PROVIDERS: Emergency Medicine
DX: J44.1 Chronic obstructive pulmonary disease with (acute) exacerbation (principal); I10 Essential (primary) hypertension; E11.9 Type 2 diabetes mellitus without complications; I48.91 Unspecified atrial fibrillation; F17.210 Nicotine dependence, cigarettes, uncomplicated; Z79.899 Other long term (current) drug therapy; Z90.49 Acquired absence of other specified parts of digestive tract; Z98.890 Other specified postprocedural states

== ENCOUNTER → 2025-06-13 | Outpatient (CLI) | payer MEDICARE ==
[~2025-06-13] MED LIST changes: +TEZEPELUMAB-EKKO 210 MG/1.91 ML SYRINGE SQ ONE
[2025-06-13 11:16] VITALS: BP 127/68
[2025-06-13 11:33] VITALS: BP 109/82
== END | disposition home or self-care (01) ==
LOC: INJECTION 06-06 11:30
PROVIDERS: ATTEND Internal Medicine Critical Care Medicine
DX: J45.50 Severe persistent asthma, uncomplicated (principal); I11.0 Hypertensive heart disease with heart failure; I50.9 Heart failure, unspecified; J44.9 Chronic obstructive pulmonary disease, unspecified; F41.9 Anxiety disorder, unspecified; F32.A Depression, unspecified; Z86.73 Personal history of transient ischemic attack (TIA), and cerebral infarction without residual deficits; E78.00 Pure hypercholesterolemia, unspecified; Z90.49 Acquired absence of other specified parts of digestive tract

== ENCOUNTER → 2025-07-11 | Outpatient (CLI) | payer MEDICARE ==
[~2025-07-11] MED LIST changes: +BAYER ASPIRIN C81 MG PO
[2025-07-11 11:08] VITALS: BP 154/64
== END | disposition home or self-care (01) ==
LOC: INJECTION 02:42
PROVIDERS: ATTEND Internal Medicine Critical Care Medicine
DX: J45.50 Severe persistent asthma, uncomplicated (principal); J96.12 Chronic respiratory failure with hypercapnia; J96.11 Chronic respiratory failure with hypoxia; J30.2 Other seasonal allergic rhinitis; G47.33 Obstructive sleep apnea (adult) (pediatric); J44.9 Chronic obstructive pulmonary disease, unspecified; Z99.81 Dependence on supplemental oxygen; Z87.891 Personal history of nicotine dependence

== ENCOUNTER → 2025-08-08 | Outpatient (CLI) | payer MEDICARE ==
[2025-08-08 11:19] VITALS: BP 138/72
== END | disposition home or self-care (01) ==
LOC: INJECTION 00:33
PROVIDERS: ATTEND Internal Medicine Critical Care Medicine
DX: J45.50 Severe persistent asthma, uncomplicated (principal); J44.9 Chronic obstructive pulmonary disease, unspecified; G47.33 Obstructive sleep apnea (adult) (pediatric); I11.0 Hypertensive heart disease with heart failure; I50.9 Heart failure, unspecified; E78.00 Pure hypercholesterolemia, unspecified; F41.9 Anxiety disorder, unspecified; F32.A Depression, unspecified; Z86.73 Personal history of transient ischemic attack (TIA), and cerebral infarction without residual deficits; Z99.81 Dependence on supplemental oxygen; Z87.891 Personal history of nicotine dependence; Z90.49 Acquired absence of other specified parts of digestive tract

== ENCOUNTER → 2025-09-05 | Outpatient (CLI) | payer MEDICARE ==
[~2025-09-05] MED LIST changes: -CARDIZEM CD120 M2 PO; +CARDIZEM LA240 MG PO; +TRELEGY ELLIPT1 EAC1 INH
[2025-09-05 11:35] VITALS: BP 139/62
== END | disposition home or self-care (01) ==
LOC: SDC 11:00 → EDSTATUS 11:00 → INJECTION 11:00
PROVIDERS: ATTEND Internal Medicine Critical Care Medicine
DX: J45.50 Severe persistent asthma, uncomplicated (principal); J44.9 Chronic obstructive pulmonary disease, unspecified; I11.9 Hypertensive heart disease without heart failure; I50.9 Heart failure, unspecified; J96.11 Chronic respiratory failure with hypoxia; J96.12 Chronic respiratory failure with hypercapnia; G47.33 Obstructive sleep apnea (adult) (pediatric); F41.9 Anxiety disorder, unspecified; F32.A Depression, unspecified; E78.00 Pure hypercholesterolemia, unspecified; I48.91 Unspecified atrial fibrillation; Z99.81 Dependence on supplemental oxygen; Z86.73 Personal history of transient ischemic attack (TIA), and cerebral infarction without residual deficits; Z87.891 Personal history of nicotine dependence; Z90.49 Acquired absence of other specified parts of digestive tract

== ENCOUNTER → 2025-10-03 | Outpatient (CLI) | payer MEDICARE ==
[~2025-10-03] MED LIST changes: +Coumadin5 MG PO
[2025-10-03 11:22] VITALS: BP 148/76
== END | disposition home or self-care (01) ==
LOC: INJECTION 01:51
PROVIDERS: ATTEND Internal Medicine Critical Care Medicine
DX: J45.50 Severe persistent asthma, uncomplicated (principal); J44.9 Chronic obstructive pulmonary disease, unspecified; F41.9 Anxiety disorder, unspecified; E78.00 Pure hypercholesterolemia, unspecified; F32.A Depression, unspecified; I11.0 Hypertensive heart disease with heart failure; I50.9 Heart failure, unspecified; J96.11 Chronic respiratory failure with hypoxia; J96.12 Chronic respiratory failure with hypercapnia; G47.33 Obstructive sleep apnea (adult) (pediatric); J30.2 Other seasonal allergic rhinitis; Z90.49 Acquired absence of other specified parts of digestive tract; Z87.891 Personal history of nicotine dependence; Z99.81 Dependence on supplemental oxygen; Z86.73 Personal history of transient ischemic attack (TIA), and cerebral infarction without residual deficits

== ENCOUNTER → 2025-10-31 | Outpatient (CLI) | payer MEDICARE ==
[2025-10-31 11:05] VITALS: BP 131/68
== END | disposition home or self-care (01) ==
LOC: INJECTION 03:50
PROVIDERS: ATTEND Internal Medicine Critical Care Medicine
DX: J45.50 Severe persistent asthma, uncomplicated (principal); I11.0 Hypertensive heart disease with heart failure; I50.9 Heart failure, unspecified; J44.9 Chronic obstructive pulmonary disease, unspecified; J96.12 Chronic respiratory failure with hypercapnia; G47.33 Obstructive sleep apnea (adult) (pediatric); J30.2 Other seasonal allergic rhinitis; J96.11 Chronic respiratory failure with hypoxia; F32.A Depression, unspecified; F41.9 Anxiety disorder, unspecified; E78.00 Pure hypercholesterolemia, unspecified; I48.91 Unspecified atrial fibrillation; Z90.49 Acquired absence of other specified parts of digestive tract; Z87.891 Personal history of nicotine dependence; Z99.81 Dependence on supplemental oxygen